=== PATIENT | male | born 1950 | race Caucasian/White ===

== ENCOUNTER → 2016-10-02 | Outpatient (REF) | LOC: M LAB REF 16:02 | DX: K52.9 Noninfective gastroenteritis and colitis, unspecified (principal) ==

== ENCOUNTER → 2016-10-04 | Outpatient (REF) | LOC: M LAB REF 10:18 | DX: K52.9 Noninfective gastroenteritis and colitis, unspecified (principal) ==

== ENCOUNTER → 2017-01-06 | Outpatient (REF) ==
--- NOTE | 2017-01-08 00:20 | ECGEPIP ---
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
== END ==
LOC: SKLAB5 13:07
PROVIDERS: ATTEND Internal Medicine
DX: Z79.01 Long term (current) use of anticoagulants (principal)

== ENCOUNTER → 2017-01-07 | Outpatient (REF) ==
[2017-01-07 09:19] LABS: MEAN CORPUSCULAR HEMOGLOBIN 31.9 pg (27.0-33.0); MEAN CORPUSCULAR HGB CONC 33.5 g/dl (32.0-36.5); RED CELL DISTRIBUTION WIDTH 13.5 % (11.5-14.5); WHITE BLOOD COUNT 7.2 K/mm3 (4.0-10.0)
[2017-01-07 09:39] LABS: ALBUMIN 3.5 GM/DL (3.2-5.2); ALBUMIN/GLOBULIN RATIO 0.9 (1.00-1.93); BILIRUBIN,TOTAL 0.4 MG/DL (0.2-1.0); CALCIUM LEVEL 8.5 MG/DL (8.8-10.2); CREATININE FOR GFR 1.29 MG/DL (0.70-1.30); GLOMERULAR FILTRATION RATE 59.1 (>49); POTASSIUM SERUM 3.8 MEQ/L (3.5-5.1); TOTAL PROTEIN 7.4 GM/DL (6.4-8.2)
[2017-01-07 09:45] LABS: INR 3.1
== END ==
LOC: SKLAB5 08:00
PROVIDERS: ATTEND Internal Medicine
DX: Z79.01 Long term (current) use of anticoagulants (principal)

== ENCOUNTER → 2017-01-11 | Outpatient (REF) | payer MEDICARE, MEDICAID ==
[2017-01-11 08:37] LABS: INR 2.97
== END ==
LOC: SKLAB5 09:52
PROVIDERS: ATTEND Family Medicine
DX: Z79.01 Long term (current) use of anticoagulants (principal)

== ENCOUNTER → 2017-01-14 | Outpatient (REF) | payer MEDICARE, MEDICAID ==
[2017-01-14 08:50] LABS: INR 2.45
== END ==
LOC: SKLAB5 09:53
PROVIDERS: ATTEND Internal Medicine
DX: Z79.01 Long term (current) use of anticoagulants (principal)

== ENCOUNTER → 2017-01-21 | Outpatient (REF) | payer MEDICARE, MEDICAID ==
[2017-01-21 09:40] LABS: INR 2.64
== END ==
LOC: SKLAB5 08:22
PROVIDERS: ATTEND Family Medicine
DX: Z79.01 Long term (current) use of anticoagulants (principal)

== ENCOUNTER → 2017-01-28 | Outpatient (REF) | payer MEDICARE, MEDICAID ==
[2017-01-28 10:33] LABS: INR 2.73
== END ==
LOC: SKLAB5 08:58
PROVIDERS: ATTEND Family Medicine
DX: Z79.01 Long term (current) use of anticoagulants (principal)

== ENCOUNTER → 2017-02-04 | Outpatient (REF) | payer MEDICARE, MEDICAID ==
[2017-02-04 08:39] LABS: INR 3.02
== END ==
LOC: SKLAB5 06:33
PROVIDERS: ATTEND Family Medicine
DX: Z79.01 Long term (current) use of anticoagulants (principal)

== ENCOUNTER → 2017-02-11 | Outpatient (REF) | payer MEDICARE, MEDICAID ==
[2017-02-11 08:43] LABS: INR 2.59
== END ==
LOC: SKLAB5 07:46
PROVIDERS: ATTEND Family Medicine
DX: Z79.01 Long term (current) use of anticoagulants (principal)

== ENCOUNTER → 2017-02-18 | Outpatient (REF) | payer MEDICARE, MEDICAID ==
[2017-02-18 08:45] LABS: INR 2.59
== END ==
LOC: SKLAB5 08:46
PROVIDERS: ATTEND Family Medicine
DX: Z79.01 Long term (current) use of anticoagulants (principal)

== ENCOUNTER → 2017-02-26 | Outpatient (REF) | payer MEDICARE, MEDICAID ==
[2017-02-26 07:54] LABS: INR 3.23
== END ==
LOC: SKLAB5 07:55
PROVIDERS: ATTEND Family Medicine
DX: Z79.01 Long term (current) use of anticoagulants (principal)

== ENCOUNTER → 2017-03-03 | Outpatient (REF) | payer MEDICARE, MEDICAID ==
--- NOTE | 2017-03-03 11:01 | REP ---
PANOREX MANDIBLE SERIES: Single view. HISTORY: Non-restorable teeth. FINDINGS: Mandibular Panorex view shows no bony destructive lesion in the mandible. Multiple carious teeth are noted bilaterally in the mandible and maxilla. IMPRESSION: No bony destructive lesion. Multiple carious teeth. Signed by Gamaliel Brooks MD 03/03/2017 12:57 P
== END ==
LOC: SKLAB5 07:45
PROVIDERS: ATTEND Family Medicine
DX: K08.9 Disorder of teeth and supporting structures, unspecified (principal)

== ENCOUNTER 2017-06-09 21:52 | Emergency (ER) | payer MEDICARE, MEDICAID ==
[~2017-06-09] VITALS: Ht 182.9 cm; Wt 150.0 kg
[2017-06-09] MEDS ORDERED: METO50TA7 PO (22:16)
[2017-06-09] MEDS ORDERED: METO1TAB7 (22:16)
[2017-06-09] MEDS ORDERED: TOPA50TA8 PO (22:16)
[2017-06-09] MEDS ORDERED: ACCU40TA PO (22:18)
[2017-06-09] MEDS ORDERED: VITA2000 PO (22:25)
[2017-06-09] MEDS ORDERED: LEXA1TAB2 PO (22:25)
[2017-06-09] MEDS ORDERED: WELLTAB40 PO (22:25)
[2017-06-09] MEDS ORDERED: MULT1TAB10 PO (22:25)
[2017-06-09] MEDS ORDERED: VITA10002 PO (22:25)
[2017-06-09] MEDS ORDERED: ASPI81TA85 PO (22:25)
[2017-06-09] MEDS ORDERED: COLA100C5 PO (22:25)
--- NOTE | 2017-06-10 00:10 | REPUSA ---
noninvasive venous examination of the right lobe 70. Findings: There is partial occlusion of the right common femoral vein. There is evidence of DVT extending from the right superficial femoral vein through the popliteal vein.these vessels do not compress. Impression: Evidence of DVT in the right common femoral and superficial femoral and popliteal veins.
[2017-06-10 01:08] LABS: ANION GAP 6 MEQ/L (8-16); BLOOD UREA NITROGEN 19 MG/DL (7-18); CALCIUM LEVEL 8.8 MG/DL (8.8-10.2); CARBON DIOXIDE LEVEL 29 MEQ/L (21-32); CHLORIDE LEVEL 105 MEQ/L (98-107); CREATININE FOR GFR 1.23 MG/DL (0.70-1.30); GLOMERULAR FILTRATION RATE > 60.0 (>49); GLUCOSE, FASTING 99 MG/DL (80-110); POTASSIUM SERUM 3.8 MEQ/L (3.5-5.1); SODIUM LEVEL 140 MEQ/L (136-145)
[2017-06-10 01:26] LABS: INR 1.07
[2017-06-10] MEDS ORDERED: COUM1TAB17 PO (01:41)
[2017-06-10] MEDS ORDERED: LOVE0.8I3 SC (01:41)
[2017-06-10] MEDS ORDERED: WARFARIN SOD 5 MG TAB PO ONE (01:45)
[2017-06-10] MEDS ORDERED: ENOXAPARIN 100MG/1ML SYRINGE (J1650) SC ONE (01:45)
[2017-06-10] MEDS ORDERED: ENOXAPARIN 150 MG/ML SYR (J1650) SC ONE (01:45)
[2017-06-10 01:58] VITALS: BP 124/68
== END 2017-06-10 02:05 | disposition home or self-care (01) ==
LOC: M ED 21:52
DX: I82.411 Acute embolism and thrombosis of right femoral vein (principal); I82.431 Acute embolism and thrombosis of right popliteal vein; I10 Essential (primary) hypertension; I77.9 Disorder of arteries and arterioles, unspecified; I69.315 Cognitive social or emotional deficit following cerebral infarction; F33.9 Major depressive disorder, recurrent, unspecified; Z79.82 Long term (current) use of aspirin; Z79.899 Other long term (current) drug therapy; Z86.718 Personal history of other venous thrombosis and embolism
CPT/HCPCS: 80048; 85610; 85730; 93971; 96372; 99284; J1650

== ENCOUNTER → 2017-06-12 | Outpatient (REF) | payer MEDICARE, MEDICAID ==
[~2017-06-12] MED LIST: ACCU40TA PO; ASPI81TA85 PO; COLA100C5 PO; COUM1TAB17 PO; LEXA1TAB2 PO; LOVE0.8I3 SC; METO1TAB7; METO50TA7 PO; MULT1TAB10 PO; TOPA50TA8 PO; VITA10002 PO; VITA2000 PO; WELLTAB40 PO
[2017-06-12 07:11] LABS: INR 1.08
== END ==
LOC: SKLAB5 06:48
PROVIDERS: ATTEND Family Medicine
DX: Z79.01 Long term (current) use of anticoagulants (principal)

== ENCOUNTER → 2017-06-13 | Outpatient (REF) | payer MEDICARE, MEDICAID ==
[2017-06-13 13:31] LABS: MEAN CORPUSCULAR HEMOGLOBIN 31.1 pg (27.0-33.0); MEAN CORPUSCULAR HGB CONC 33.6 g/dl (32.0-36.5); MEAN CORPUSCULAR VOLUME 92.6 fl (80.0-96.0); PLATELET COUNT, AUTOMATED 246 10^3/uL (150-450); RED CELL DISTRIBUTION WIDTH 13.2 % (11.5-14.5); WHITE BLOOD COUNT 8.1 10^3/uL (4.0-10.0)
[2017-06-13 13:42] LABS: INR 1.05
== END ==
LOC: SKLAB5 06:47
PROVIDERS: ATTEND Family Medicine
DX: I82.411 Acute embolism and thrombosis of right femoral vein (principal); I10 Essential (primary) hypertension; Z79.899 Other long term (current) drug therapy

== ENCOUNTER → 2017-06-13 | Outpatient (REF) | payer MEDICARE, MEDICAID | LOC: SKLAB5 12:45 | PROVIDERS: ATTEND Family Medicine | DX: I10 Essential (primary) hypertension (principal) ==

== ENCOUNTER → 2017-06-14 | Outpatient (REF) | payer MEDICARE, MEDICAID ==
[2017-06-14 09:42] LABS: MEAN CORPUSCULAR HEMOGLOBIN 31.4 pg (27.0-33.0); MEAN CORPUSCULAR HGB CONC 34.1 g/dl (32.0-36.5); MEAN CORPUSCULAR VOLUME 92.1 fl (80.0-96.0); PLATELET COUNT, AUTOMATED 226 10^3/uL (150-450); WHITE BLOOD COUNT 7.5 10^3/uL (4.0-10.0)
[2017-06-14 10:08] LABS: INR 1.2
== END ==
LOC: SKLAB5 06:49
PROVIDERS: ATTEND Family Medicine
DX: Z79.01 Long term (current) use of anticoagulants (principal)

== ENCOUNTER → 2017-06-15 | Outpatient (REF) | payer MEDICARE, MEDICAID | LOC: SKLAB5 10:45 | PROVIDERS: ATTEND Family Medicine | DX: K62.5 Hemorrhage of anus and rectum (principal); R19.5 Other fecal abnormalities ==

== ENCOUNTER → 2017-06-16 | Outpatient (REF) | payer MEDICARE, MEDICAID ==
[2017-06-16 10:23] LABS: INR 1.26
== END ==
LOC: SKLAB5 08:14
PROVIDERS: ATTEND Family Medicine
DX: Z79.2 Long term (current) use of antibiotics (principal)

== ENCOUNTER → 2017-06-17 | Outpatient (REF) | payer MEDICARE, MEDICAID ==
[~2017-06-17] MED LIST changes: +DULC10SU2 PR; +LOVE0.8I SC; +LOVE1INJ2 SC; +MOM30SS PO; +TYLE325T5 PO
[2017-06-17 09:29] LABS: INR 1.47
== END ==
LOC: SKLAB5 12:41
PROVIDERS: ATTEND Family Medicine
DX: Z51.81 Encounter for therapeutic drug level monitoring (principal); Z79.01 Long term (current) use of anticoagulants; Z86.718 Personal history of other venous thrombosis and embolism

== ENCOUNTER → 2017-06-19 | Outpatient (REF) | payer MEDICARE, MEDICAID ==
[2017-06-19 07:07] LABS: INR 1.84
== END ==
LOC: SKLAB5 07:55
PROVIDERS: ATTEND Family Medicine
DX: I82.409 Acute embolism and thrombosis of unspecified deep veins of unspecified lower extremity (principal)

== ENCOUNTER → 2017-06-20 | Outpatient (REF) | payer MEDICAID, MEDICARE ==
[2017-06-20 10:28] LABS: INR 2.18
== END ==
LOC: SKLAB5 10:01
PROVIDERS: ATTEND Family Medicine
DX: I82.409 Acute embolism and thrombosis of unspecified deep veins of unspecified lower extremity (principal)

== ENCOUNTER → 2017-06-21 | Outpatient (REF) | payer MEDICARE, MEDICAID ==
[2017-06-21 09:22] LABS: INR 2.36
== END ==
LOC: SKLAB5 08:26
PROVIDERS: ATTEND Family Medicine
DX: I82.409 Acute embolism and thrombosis of unspecified deep veins of unspecified lower extremity (principal)

== ENCOUNTER → 2017-06-24 | Outpatient (REF) | payer MEDICARE, MEDICAID ==
[2017-06-24 09:39] LABS: INR 3.05
== END ==
LOC: SKLAB5 07:37
PROVIDERS: ATTEND Family Medicine
DX: Z51.81 Encounter for therapeutic drug level monitoring (principal); Z79.01 Long term (current) use of anticoagulants

== ENCOUNTER → 2017-06-28 | Outpatient (REF) | payer MEDICARE, MEDICAID ==
[2017-06-28 09:52] LABS: INR 2.02
== END ==
LOC: SKLAB5 08:14
PROVIDERS: ATTEND Family Medicine
DX: Z79.01 Long term (current) use of anticoagulants (principal)

== ENCOUNTER → 2017-06-29 | Outpatient (REF) | payer MEDICARE, MEDICAID ==
[2017-06-29 07:38] LABS: INR 1.56
== END ==
LOC: SKLAB5 07:31
PROVIDERS: ATTEND Family Medicine
DX: Z79.01 Long term (current) use of anticoagulants (principal)

== ENCOUNTER → 2017-06-30 | Outpatient (REF) | payer MEDICARE, MEDICAID ==
[2017-06-30 07:54] LABS: INR 1.21
== END ==
LOC: SKLAB5 07:25
PROVIDERS: ATTEND Family Medicine
DX: I82.90 Acute embolism and thrombosis of unspecified vein (principal)

== ENCOUNTER → 2017-07-01 | Outpatient (REF) | payer MEDICARE, MEDICAID ==
[2017-07-01 09:03] LABS: INR 1.12
== END ==
LOC: SKLAB5 10:52
PROVIDERS: ATTEND Family Medicine
DX: Z79.01 Long term (current) use of anticoagulants (principal)

== ENCOUNTER → 2017-07-03 | Outpatient (REF) | payer MEDICARE, MEDICAID ==
[2017-07-03 06:59] LABS: INR 1.04
== END ==
LOC: SKLAB5 13:16
PROVIDERS: ATTEND Family Medicine
DX: Z79.01 Long term (current) use of anticoagulants (principal)

== ENCOUNTER → 2017-07-05 | Outpatient (REF) | payer MEDICARE, MEDICAID ==
[2017-07-05 09:14] LABS: INR 1.2
== END ==
LOC: SKLAB5 13:11
PROVIDERS: ATTEND Family Medicine
DX: I82.409 Acute embolism and thrombosis of unspecified deep veins of unspecified lower extremity (principal)

== ENCOUNTER → 2017-07-06 | Outpatient (REF) | payer MEDICARE, MEDICAID ==
[2017-07-06 08:01] LABS: INR 1.27
== END ==
LOC: SKLAB5 07:45
PROVIDERS: ATTEND Family Medicine
DX: Z79.01 Long term (current) use of anticoagulants (principal)

== ENCOUNTER → 2017-07-07 | Outpatient (REF) | payer MEDICARE, MEDICAID ==
[2017-07-07 08:58] LABS: INR 1.5
== END ==
LOC: SKLAB5 07:55
PROVIDERS: ATTEND Family Medicine
DX: Z86.718 Personal history of other venous thrombosis and embolism (principal)

== ENCOUNTER → 2017-07-09 | Outpatient (REF) | payer MEDICARE, MEDICAID ==
[2017-07-09 09:41] LABS: INR 1.93
== END ==
LOC: SKLAB5 07-08 07:58
PROVIDERS: ATTEND Family Medicine
DX: Z51.81 Encounter for therapeutic drug level monitoring (principal); Z79.01 Long term (current) use of anticoagulants

== ENCOUNTER → 2017-07-13 | Outpatient (REF) | payer MEDICARE, MEDICAID ==
[2017-07-13 08:38] LABS: INR 2.32
== END ==
LOC: SKLAB5 08:02
PROVIDERS: ATTEND Family Medicine
DX: Z79.01 Long term (current) use of anticoagulants (principal)

== ENCOUNTER → 2017-07-15 | Outpatient (REF) | payer MEDICARE, MEDICAID ==
[2017-07-15 09:09] LABS: INR 3.07
== END ==
LOC: SKLAB5 07:07
DX: Z79.01 Long term (current) use of anticoagulants (principal)
CPT/HCPCS: 36415

== ENCOUNTER → 2017-07-20 | Outpatient (REF) | payer MEDICARE, MEDICAID ==
[2017-07-20 09:00] LABS: INR 2.12; PROTHROMBIN TIME 24.5 SECONDS (12.4-14.5)
== END ==
LOC: SKLAB5 08:19
DX: Z51.81 Encounter for therapeutic drug level monitoring (principal); Z79.01 Long term (current) use of anticoagulants
CPT/HCPCS: 36415

== ENCOUNTER → 2017-07-21 | Outpatient (REF) | payer MEDICARE, MEDICAID ==
[2017-07-21 09:55] LABS: INR 1.89; PROTHROMBIN TIME 22.3 SECONDS (12.4-14.5)
== END ==
LOC: SKLAB5 07:58
DX: Z51.81 Encounter for therapeutic drug level monitoring (principal); Z79.01 Long term (current) use of anticoagulants; Z86.718 Personal history of other venous thrombosis and embolism
CPT/HCPCS: 85610

== ENCOUNTER → 2017-07-22 | Outpatient (REF) | payer MEDICARE, MEDICAID ==
[2017-07-22 09:21] LABS: INR 1.77; PROTHROMBIN TIME 21.1 SECONDS (12.4-14.5)
== END ==
LOC: SKLAB5 07:52
DX: I82.90 Acute embolism and thrombosis of unspecified vein (principal)
CPT/HCPCS: 85610

== ENCOUNTER 2017-07-23 11:31 | Day surgery (SDC) | payer MEDICARE, MEDICAID ==
[2017-07-23] MEDS ORDERED: LIDOCAINE 1% SDV 5 ML VIAL SQ (11:45)
[2017-07-23] MEDS: LR 1,000 ML IV (12:05)
[2017-07-23 12:25] LABS: INR 1.35
[2017-07-23] MEDS ORDERED: MIDAZOLAM INJ 2 MG/2 ML VIAL (J2250) As Ordered (12:50)
[2017-07-23] MEDS ORDERED: NEOSTIGMINE 10 MG/10 ML VIAL (J2710) As Ordered ×2 (12:50→13:55)
[2017-07-23] MEDS ORDERED: ONDANSETRON 4MG/2ML VIAL (J2405) As Ordered (12:50)
[2017-07-23] MEDS ORDERED: ROCURONIUM BROMIDE 50 MG/5 ML VIAL As Ordered (12:50)
[2017-07-23] MEDS ORDERED: dexameTHASONE 4 MG/ML 1ML VIAL (J1100) As Ordered (12:50)
[2017-07-23] MEDS ORDERED: PROPOFOL 200 MG/20 ML VIAL As Ordered (12:50)
[2017-07-23] MEDS ORDERED: LIDOCAINE 2% INJ 100 MG/5 ML SDV (FOR ANES.) As Ordered (12:50)
[2017-07-23] MEDS ORDERED: GLYCOPYRROLATE INJ 0.2 MG/ML 2 ML VIAL As Ordered ×2 (12:50→13:55)
[2017-07-23] MEDS ORDERED: fentaNYL 100 MCG/2 ML INJECTION (J3010) As Ordered (12:51)
[2017-07-23] MEDS: MEPIVACAINE HCL 3 % 1.7 ML DENTAL CARTRIDGE (CARBOCAINE) (J0670) As Ordered ×2 (13:57→14:02)
[2017-07-23] MEDS ORDERED: PHENYLephrine HCL 500 MCG/5 ML (100MCG/ML) SYRINGE (J2370) As Ordered (13:58)
[2017-07-23] MEDS ORDERED: ePHEDrine SULFATE 25 MG/5 ML(5MG/ML) SYRINGE As Ordered (13:58)
[2017-07-23] MEDS ORDERED: fentaNYL 100 MCG/2 ML INJECTION (J3010) IV (15:00)
[2017-07-23] MEDS ORDERED: ONDANSETRON 4MG/2ML VIAL (J2405) IV (15:00)
[2017-07-23] MEDS ORDERED: LR 1,000 ML IV (15:00)
== END 2017-07-23 17:04 | disposition home or self-care (01) ==
LOC: M SDC 11:31
DX: K02.7 Dental root caries (principal); I10 Essential (primary) hypertension; K21.9 Gastro-esophageal reflux disease without esophagitis; Z86.73 Personal history of transient ischemic attack (TIA), and cerebral infarction without residual deficits; R53.1 Weakness; E55.9 Vitamin D deficiency, unspecified; E53.8 Deficiency of other specified B group vitamins; F32.9 Major depressive disorder, single episode, unspecified; G47.33 Obstructive sleep apnea (adult) (pediatric); Z99.3 Dependence on wheelchair; R26.2 Difficulty in walking, not elsewhere classified; I77.9 Disorder of arteries and arterioles, unspecified; Z79.899 Other long term (current) drug therapy; Z79.01 Long term (current) use of anticoagulants; Z79.82 Long term (current) use of aspirin; I82.409 Acute embolism and thrombosis of unspecified deep veins of unspecified lower extremity
CPT/HCPCS: D7210

== ENCOUNTER → 2017-07-23 | Outpatient (REF) | payer MEDICARE, MEDICAID ==
[2017-07-23 10:35] LABS: INR 1.32; PROTHROMBIN TIME 16.7 SECONDS (12.4-14.5)
== END ==
LOC: SKLAB5 07:43
DX: I82.409 Acute embolism and thrombosis of unspecified deep veins of unspecified lower extremity (principal)

== ENCOUNTER → 2017-07-25 | Outpatient (REF) | payer MEDICARE, MEDICAID ==
[2017-07-25 13:10] LABS: INR 1.43; PROTHROMBIN TIME 17.8 SECONDS (12.4-14.5)
== END ==
LOC: SKLAB5 07:00
DX: I82.90 Acute embolism and thrombosis of unspecified vein (principal)
CPT/HCPCS: 36415

== ENCOUNTER → 2017-07-26 | Outpatient (REF) | payer MEDICARE, MEDICAID ==
[2017-07-26 08:41] LABS: INR 1.57; PROTHROMBIN TIME 19.2 SECONDS (12.4-14.5)
== END ==
LOC: SKLAB5 07:35
DX: Z51.81 Encounter for therapeutic drug level monitoring (principal); Z79.01 Long term (current) use of anticoagulants; Z86.718 Personal history of other venous thrombosis and embolism
CPT/HCPCS: 36415

== ENCOUNTER → 2017-07-28 | Outpatient (REF) | payer MEDICARE, MEDICAID ==
[2017-07-28 08:30] LABS: INR 1.67; PROTHROMBIN TIME 20.2 SECONDS (12.4-14.5)
== END ==
LOC: SKLAB5 08:00
DX: Z51.81 Encounter for therapeutic drug level monitoring (principal); Z79.01 Long term (current) use of anticoagulants; Z86.718 Personal history of other venous thrombosis and embolism
CPT/HCPCS: 36415

== ENCOUNTER → 2017-07-29 | Outpatient (REF) | payer MEDICARE, MEDICAID ==
[2017-07-29 09:56] LABS: INR 1.63; PROTHROMBIN TIME 19.8 SECONDS (12.4-14.5)
== END ==
LOC: SKLAB5 12:25
DX: M17.0 Bilateral primary osteoarthritis of knee (principal); M25.862 Other specified joint disorders, left knee; Z79.01 Long term (current) use of anticoagulants
CPT/HCPCS: 73564

== ENCOUNTER → 2017-07-30 | Outpatient (REF) | payer MEDICARE, MEDICAID ==
[2017-07-30 08:39] LABS: INR 1.76; PROTHROMBIN TIME 21.1 SECONDS (12.4-14.5)
== END ==
LOC: SKLAB5 08:11
DX: Z51.81 Encounter for therapeutic drug level monitoring (principal); Z79.01 Long term (current) use of anticoagulants
CPT/HCPCS: 36415

== ENCOUNTER → 2017-08-02 | Outpatient (REF) | payer MEDICARE, MEDICAID ==
[2017-08-02 10:26] LABS: INR 2.06; PROTHROMBIN TIME 23.9 SECONDS (12.4-14.5)
== END ==
LOC: SKLAB5 07:53
DX: I82.90 Acute embolism and thrombosis of unspecified vein (principal)
CPT/HCPCS: 36415

== ENCOUNTER → 2017-08-05 | Outpatient (REF) | payer MEDICARE, MEDICAID ==
[2017-08-05 10:18] LABS: INR 2.37; PROTHROMBIN TIME 26.8 SECONDS (12.4-14.5)
== END ==
LOC: SKLAB5 07:53
DX: I82.90 Acute embolism and thrombosis of unspecified vein (principal)
CPT/HCPCS: 36415

== ENCOUNTER → 2017-08-09 | Outpatient (REF) | payer MEDICARE, MEDICAID ==
[2017-08-09 09:46] LABS: INR 2.33; PROTHROMBIN TIME 26.5 SECONDS (12.4-14.5)
== END ==
LOC: SKLAB5 07:57
DX: Z79.01 Long term (current) use of anticoagulants (principal)
CPT/HCPCS: 36415

== ENCOUNTER → 2017-08-12 | Outpatient (REF) | payer MEDICARE, MEDICAID ==
[2017-08-12 08:51] LABS: INR 3.16; PROTHROMBIN TIME 33.9 SECONDS (12.4-14.5)
== END ==
LOC: SKLAB5 08:09
DX: I82.91 Chronic embolism and thrombosis of unspecified vein (principal)
CPT/HCPCS: 36415

== ENCOUNTER → 2017-08-16 | Outpatient (REF) | payer MEDICARE, MEDICAID ==
[2017-08-16 10:15] LABS: INR 2.89; PROTHROMBIN TIME 31.6 SECONDS (12.4-14.5)
== END ==
LOC: SKLAB5 08:07
DX: Z79.01 Long term (current) use of anticoagulants (principal)
CPT/HCPCS: 36415

== ENCOUNTER → 2017-08-19 | Outpatient (REF) | payer MEDICARE, MEDICAID ==
[2017-08-19 08:54] LABS: INR 2.91; PROTHROMBIN TIME 31.7 SECONDS (12.4-14.5)
== END ==
LOC: SKLAB5 07:47
DX: I82.91 Chronic embolism and thrombosis of unspecified vein (principal)
CPT/HCPCS: 36415

== ENCOUNTER → 2017-08-23 | Outpatient (REF) | payer MEDICARE, MEDICAID ==
[2017-08-23 10:20] LABS: INR 2.76; PROTHROMBIN TIME 30.4 SECONDS (12.4-14.5)
== END ==
LOC: SKLAB5 07:20
DX: Z51.81 Encounter for therapeutic drug level monitoring (principal); Z79.01 Long term (current) use of anticoagulants; Z86.718 Personal history of other venous thrombosis and embolism
CPT/HCPCS: 36415

== ENCOUNTER → 2017-08-26 | Outpatient (REF) | payer MEDICARE, MEDICAID ==
[2017-08-26 09:24] LABS: INR 3.32; PROTHROMBIN TIME 35.3 SECONDS (12.4-14.5)
== END ==
LOC: SKLAB5 07:58
DX: I82.91 Chronic embolism and thrombosis of unspecified vein (principal)
CPT/HCPCS: 36415

== ENCOUNTER → 2017-08-30 | Outpatient (REF) | payer MEDICARE, MEDICAID ==
[2017-08-30 09:30] LABS: INR 3.98; PROTHROMBIN TIME 40.9 SECONDS (12.4-14.5)
== END ==
LOC: SKLAB5 07:45
DX: I82.91 Chronic embolism and thrombosis of unspecified vein (principal)
CPT/HCPCS: 36415

== ENCOUNTER → 2017-09-02 | Outpatient (REF) | payer MEDICARE, MEDICAID ==
[2017-09-02 09:29] LABS: INR 1.66; PROTHROMBIN TIME 20.1 SECONDS (12.4-14.5)
== END ==
LOC: SKLAB5 08:03
DX: Z79.01 Long term (current) use of anticoagulants (principal)
CPT/HCPCS: 36415

== ENCOUNTER → 2017-09-06 | Outpatient (REF) | payer MEDICARE, MEDICAID ==
[2017-09-06 09:04] LABS: INR 1.89; PROTHROMBIN TIME 22.3 SECONDS (12.4-14.5)
== END ==
LOC: SKLAB5 07:38
DX: Z79.01 Long term (current) use of anticoagulants (principal)
CPT/HCPCS: 36415

== ENCOUNTER → 2017-09-09 | Outpatient (REF) | payer MEDICARE, MEDICAID ==
[2017-09-09 10:23] LABS: INR 2.32; PROTHROMBIN TIME 26.4 SECONDS (12.4-14.5)
== END ==
LOC: SKLAB5 08:03
DX: Z79.01 Long term (current) use of anticoagulants (principal)
CPT/HCPCS: 36415

== ENCOUNTER → 2017-09-13 | Outpatient (REF) | payer MEDICARE, MEDICAID ==
[2017-09-13 08:36] LABS: INR 2.42; PROTHROMBIN TIME 27.3 SECONDS (12.4-14.5)
== END ==
LOC: SKLAB5 07:39
DX: Z79.01 Long term (current) use of anticoagulants (principal)
CPT/HCPCS: 36415

== ENCOUNTER → 2017-09-16 | Outpatient (REF) | payer MEDICARE, MEDICAID ==
[2017-09-16 08:48] LABS: INR 2.68; PROTHROMBIN TIME 29.6 SECONDS (12.4-14.5)
== END ==
LOC: SKLAB5 07:28
DX: Z79.01 Long term (current) use of anticoagulants (principal)
CPT/HCPCS: 36415

== ENCOUNTER → 2017-09-20 | Outpatient (REF) | payer MEDICARE, MEDICAID ==
[2017-09-20 09:49] LABS: INR 2.34; PROTHROMBIN TIME 26.6 SECONDS (12.4-14.5)
== END ==
LOC: SKLAB5 07:16
DX: Z86.718 Personal history of other venous thrombosis and embolism (principal)
CPT/HCPCS: 36415

== ENCOUNTER → 2017-09-23 | Outpatient (REF) | payer MEDICARE, MEDICAID ==
[2017-09-23 08:29] LABS: INR 3.32; PROTHROMBIN TIME 35.3 SECONDS (12.4-14.5)
== END ==
LOC: SKLAB5 07:32
DX: Z79.01 Long term (current) use of anticoagulants (principal)
CPT/HCPCS: 36415

== ENCOUNTER → 2017-09-27 | Outpatient (REF) | payer MEDICARE, MEDICAID ==
[2017-09-27 09:18] LABS: INR 2.93; PROTHROMBIN TIME 31.9 SECONDS (12.4-14.5)
== END ==
LOC: SKLAB5 07:36
DX: Z79.01 Long term (current) use of anticoagulants (principal)
CPT/HCPCS: 36415

== ENCOUNTER → 2017-09-30 | Outpatient (REF) | payer MEDICARE, MEDICAID ==
[2017-09-30 08:45] LABS: INR 2.92; PROTHROMBIN TIME 31.8 SECONDS (12.4-14.5)
== END ==
LOC: SKLAB5 08:40
DX: Z79.01 Long term (current) use of anticoagulants (principal)
CPT/HCPCS: 36415

== ENCOUNTER → 2017-10-04 | Outpatient (REF) | payer MEDICARE, MEDICAID ==
[2017-10-04 08:33] LABS: INR 2.68; PROTHROMBIN TIME 29.6 SECONDS (12.4-14.5)
== END ==
LOC: SKLAB5 07:29
DX: Z79.01 Long term (current) use of anticoagulants (principal)
CPT/HCPCS: 36415

== ENCOUNTER → 2017-10-07 | Outpatient (REF) | payer MEDICARE, MEDICAID ==
[2017-10-07 08:27] LABS: INR 3.19; PROTHROMBIN TIME 34.1 SECONDS (12.4-14.5)
== END ==
LOC: SKLAB5 07:31
DX: Z79.01 Long term (current) use of anticoagulants (principal)
CPT/HCPCS: 36415

== ENCOUNTER → 2017-10-14 | Outpatient (REF) | payer MEDICARE, MEDICAID ==
[2017-10-14 09:37] LABS: INR 3.06
== END ==
LOC: SKLAB5 07:41
DX: Z79.01 Long term (current) use of anticoagulants (principal)
CPT/HCPCS: 36415

== ENCOUNTER → 2017-10-28 | Outpatient (REF) | payer MEDICARE, MEDICAID ==
[2017-10-28 08:47] LABS: INR 2.84; PROTHROMBIN TIME 31.1 SECONDS (12.4-14.5)
== END ==
LOC: SKLAB5 07:44
DX: Z79.01 Long term (current) use of anticoagulants (principal)
CPT/HCPCS: 36415

== ENCOUNTER → 2017-11-04 | Outpatient (REF) | payer MEDICARE, MEDICAID ==
[2017-11-04 08:07] LABS: INR 2.76; PROTHROMBIN TIME 30.4 SECONDS (12.4-14.5)
== END ==
LOC: SKLAB5 07:15
DX: Z79.01 Long term (current) use of anticoagulants (principal)
CPT/HCPCS: 36415

== ENCOUNTER → 2017-11-08 | Outpatient (REF) | payer MEDICARE, MEDICAID ==
[2017-11-08 08:16] LABS: INR 2.05; PROTHROMBIN TIME 23.9 SECONDS (12.4-14.5)
== END ==
LOC: SKLAB5 08:49
DX: Z79.01 Long term (current) use of anticoagulants (principal)
CPT/HCPCS: 85610

== ENCOUNTER → 2017-11-09 | Outpatient (REF) | payer MEDICARE, MEDICAID ==
[2017-11-09 08:58] LABS: INR 1.43; PROTHROMBIN TIME 17.8 SECONDS (12.4-14.5)
== END ==
LOC: SKLAB5 08:12
DX: Z79.01 Long term (current) use of anticoagulants (principal)
CPT/HCPCS: 36415

== ENCOUNTER → 2017-11-10 | Outpatient (REF) | payer MEDICARE, MEDICAID ==
[2017-11-10 10:12] LABS: INR 1.23; PROTHROMBIN TIME 15.8 SECONDS (12.4-14.5)
[2017-11-10 11:17] LABS: ERYTHROCYTE SEDIMENTATION RATE 9 mm/hr (0-20)
== END ==
LOC: SKLAB5 08:11
DX: Z79.01 Long term (current) use of anticoagulants (principal)
CPT/HCPCS: 36415

== ENCOUNTER → 2017-11-11 | Outpatient (REF) | payer MEDICARE, MEDICAID ==
[2017-11-11 08:37] LABS: INR 1.07; PROTHROMBIN TIME 14.1 SECONDS (12.4-14.5)
== END ==
LOC: SKLAB5 12:04
DX: Z79.01 Long term (current) use of anticoagulants (principal)
CPT/HCPCS: 36415

== ENCOUNTER 2017-11-15 07:02 | Inpatient (IN) | payer MEDICARE, MEDICAID ==
[2017-11-15] MEDS: ACETAMINOPHEN 500 MG TAB PO (07:52)
[2017-11-15] MEDS: LR 1,000 ML IV ×3 (07:53→16:11)
[2017-11-15] MEDS ORDERED: METOPROLOL SUCC *XL* 25MG TAB (TopROL *XL*) As Ordered (08:27)
[2017-11-15] MEDS ORDERED: MIDAZOLAM INJ 2 MG/2 ML VIAL (J2250) As Ordered ×2 (08:38→09:51)
[2017-11-15] MEDS ORDERED: fentaNYL 100 MCG/2 ML INJECTION (J3010) As Ordered (08:38)
[2017-11-15] MEDS: METOPROLOL SUCC *XL* 25MG TAB (TopROL *XL*) PO (08:45)
[2017-11-15 08:57] LABS: INR 1.03; PROTHROMBIN TIME 13.7 SECONDS (12.4-14.5)
[2017-11-15] MEDS: ESCITALOPRAM OXALATE 10 MG TAB (LEXAPRO) PO (09:00)
[2017-11-15] MEDS: VITAMIN D 1,000 INTERNATIONAL UNITS TABLET PO (09:00)
[2017-11-15] MEDS: TOPIRAMATE (TopAMAX) 25 MG TAB PO ×2 (09:00→20:31)
[2017-11-15] MEDS: CYANOCOBALAMIN 500 MCG TAB PO (09:00)
[2017-11-15] MEDS: buPROPion **XL** TABLET 150MG (WELLBUTRIN XL) PO (09:00)
[2017-11-15] MEDS: fentaNYL 100 MCG/2 ML INJECTION (J3010) IV (09:04)
[2017-11-15] MEDS: MIDAZOLAM INJ 2 MG/2 ML VIAL (J2250) IV (09:04)
[2017-11-15] MEDS: BUPIVACAINE HCL 0.25% 10 ML VIAL As Ordered (09:50)
[2017-11-15] MEDS: BUPIVACAINE LIPOSOME/PF 1.3% 20 ML VIAL (13.3MG/ML)(EXPAREL) As Ordered (09:50)
[2017-11-15] MEDS: EPINEPHrine INJ 1 MG/ML 1ML AMP As Ordered (09:50)
[2017-11-15] MEDS: ceFAZolin 1GM INJ (J0690 PER 500MG) As Ordered (09:50)
[2017-11-15] MEDS: TRANEXAMIC ACID 100 MG/ML 10ML VIAL As Ordered (09:50)
[2017-11-15] MEDS ORDERED: PROPOFOL 200 MG/20 ML VIAL As Ordered (09:51)
[2017-11-15] MEDS ORDERED: ONDANSETRON 4MG/2ML VIAL (J2405) As Ordered (09:51)
[2017-11-15] MEDS ORDERED: LIDOCAINE 2% INJ 100 MG/5 ML SDV (FOR ANES.) As Ordered (09:51)
[2017-11-15] MEDS ORDERED: dexameTHASONE 10 MG/1 ML VIAL PRES.FREE (J1100) (09:58)
[2017-11-15] MEDS ORDERED: LIDOCAINE 1% MDV 20ML VIAL (09:58)
[2017-11-15] MEDS ORDERED: ROPIvacaine 0.5% 30 ML INJECTION (J2795 PER 1MG) (09:58)
[2017-11-15] MEDS ORDERED: ePHEDrine SULFATE 25 MG/5 ML(5MG/ML) SYRINGE As Ordered (10:03)
[2017-11-15] MEDS ORDERED: BUPIVACAINE LIPOSOME/PF 1.3% 20 ML VIAL (13.3MG/ML)(EXPAREL) As Ordered (11:39)
[2017-11-15] MEDS ORDERED: TRANEXAMIC ACID 100 MG/ML 10ML VIAL As Ordered (11:39)
[2017-11-15] MEDS ORDERED: BUPIVACAINE HCL 0.25% 10 ML VIAL As Ordered (11:39)
[2017-11-15] MEDS ORDERED: EPINEPHrine INJ 1 MG/ML 1ML AMP As Ordered (11:39)
[2017-11-15] MEDS ORDERED: ceFAZolin 1GM INJ (J0690 PER 500MG) As Ordered (11:39)
[2017-11-15] MEDS ORDERED: MORPHINE 1MG/ML IN 0.9% NACL 100ML IV BAG As Ordered (11:47)
[2017-11-15] MEDS: MORPHINE 1MG/ML IN 0.9% NACL 100ML IV BAG IV (11:50)
[2017-11-15] MEDS ORDERED: EPIDURAL/PCA KEYS XX (12:00)
[2017-11-15] MEDS ORDERED: HYDROmorphone HCL 1 MG/ML SYRINGE (J1170) IV (12:00)
[2017-11-15] MEDS ORDERED: ONDANSETRON 4MG/2ML VIAL (J2405) IV ×2 (12:00)
[2017-11-15] MEDS ORDERED: PERCOCET 5MG/325MG TAB PO (12:00)
[2017-11-15] MEDS ORDERED: NALBUPHINE HCL 10 MG/ML AMP (J2300) IV (12:00)
[2017-11-15] MEDS ORDERED: diphenhydrAMINE INJ 50MG/ML VIAL (J1200) IV (12:00)
[2017-11-15] MEDS ORDERED: NALOXONE INJ 0.4 MG/1 ML VIAL (J2310) IV (12:00)
[2017-11-15] MEDS ORDERED: fentaNYL 100 MCG/2 ML INJECTION (J3010) IV (12:00)
[2017-11-15] MEDS ORDERED: BISACODYL 10 MG SUPP PR (12:00)
[2017-11-15] MEDS ORDERED: ACETAMINOPHEN TAB 650MG DOSE (2X325MG) PO ×2 (12:15→12:45)
[2017-11-15] MEDS ORDERED: FLEET ENEMA PR (12:15)
[2017-11-15] MEDS ORDERED: PILL CRUSHER/CUTTER 1 EACH XX (13:00)
[2017-11-15] MEDS: WARFARIN SOD 5 MG TAB PO (16:11)
[2017-11-15] MEDS: DOCUSATE SODIUM 100 MG CAP PO (20:32)
[2017-11-16] MEDS: LR 1,000 ML IV (00:45)
[2017-11-16 05:33] LABS: HEMATOCRIT 37.6 % (42.0-52.0); HEMOGLOBIN 12.6 g/dl (13.5-17.5); MEAN CORPUSCULAR HEMOGLOBIN 30.3 pg (27.0-33.0); MEAN CORPUSCULAR HGB CONC 33.5 g/dl (32.0-36.5); MEAN CORPUSCULAR VOLUME 90.4 fl (80.0-96.0); PLATELET COUNT, AUTOMATED 205 10^3/uL (150-450); RED BLOOD COUNT 4.16 10^6/uL (4.30-6.10); RED CELL DISTRIBUTION WIDTH 14.3 % (11.5-14.5); WHITE BLOOD COUNT 10.9 10^3/uL (4.0-10.0)
[2017-11-16 05:50] LABS: ANION GAP 7 MEQ/L (8-16); BLOOD UREA NITROGEN 17 MG/DL (7-18); CALCIUM LEVEL 8.5 MG/DL (8.8-10.2); CARBON DIOXIDE LEVEL 28 MEQ/L (21-32); CHLORIDE LEVEL 109 MEQ/L (98-107); CREATININE FOR GFR 1.26 MG/DL (0.70-1.30); GLOMERULAR FILTRATION RATE > 60.0 (>49); GLUCOSE, FASTING 113 MG/DL (70-100); INR 1.08; POTASSIUM SERUM 4.2 MEQ/L (3.5-5.1); PROTHROMBIN TIME 14.2 SECONDS (12.4-14.5); SODIUM LEVEL 144 MEQ/L (136-145)
[2017-11-16] MEDS ORDERED: PERCOCET 5MG/325MG TAB PO (07:00)
[2017-11-16] MEDS ORDERED: ONDANSETRON 4 MG TAB (S0181) PO (07:00)
[2017-11-16] MEDS: TOPIRAMATE (TopAMAX) 25 MG TAB PO (09:20)
[2017-11-16] MEDS: ESCITALOPRAM OXALATE 10 MG TAB (LEXAPRO) PO (09:20)
[2017-11-16] MEDS: CYANOCOBALAMIN 500 MCG TAB PO (09:20)
[2017-11-16] MEDS: METOPROLOL SUCC (TopROL XL) 50MG **XL** TAB PO (09:20)
[2017-11-16] MEDS: VITAMIN D 1,000 INTERNATIONAL UNITS TABLET PO (09:20)
[2017-11-16] MEDS: buPROPion **XL** TABLET 150MG (WELLBUTRIN XL) PO (09:20)
[2017-11-16] MEDS: MIRALAX *UNIT DOSE* 17GM PACKET PO (09:20)
[2017-11-16] MEDS: MOM 30ML SUSPENSION UDC PO (09:20)
[2017-11-16] MEDS: PERCOCET 5MG/325MG TAB PO (09:21)
[2017-11-16] MEDS: SENOKOT S TAB PO (09:21)
[2017-11-16] MEDS ORDERED: WARFARIN SOD 5 MG TAB PO ×2 (17:00)
== END 2017-11-16 13:25 | DRG 470 ==
LOC: M OR 07:02 → M MS5PR 14:20
PROC: 0SRD0J9 Replacement of Left Knee Joint with Synthetic Substitute, Cemented, Open Approach (ICD-10-PCS; principal; 2017-11-15 09:12)
DX: M17.12 Unilateral primary osteoarthritis, left knee (principal); Z68.41 Body mass index [BMI] 40.0-44.9, adult; F32.9 Major depressive disorder, single episode, unspecified; G47.30 Sleep apnea, unspecified; I10 Essential (primary) hypertension; K21.9 Gastro-esophageal reflux disease without esophagitis; E66.01 Morbid (severe) obesity due to excess calories; G43.909 Migraine, unspecified, not intractable, without status migrainosus; Z86.73 Personal history of transient ischemic attack (TIA), and cerebral infarction without residual deficits; Z86.718 Personal history of other venous thrombosis and embolism; Z79.01 Long term (current) use of anticoagulants; Z79.82 Long term (current) use of aspirin; Z79.899 Other long term (current) drug therapy

== ENCOUNTER → 2017-11-17 | Outpatient (REF) | payer MEDICARE, MEDICAID ==
[2017-11-17 08:31] LABS: INR 1.18; PROTHROMBIN TIME 15.2 SECONDS (12.4-14.5)
== END ==
LOC: SKLAB5 09:06
DX: Z79.01 Long term (current) use of anticoagulants (principal)
CPT/HCPCS: 36415

== ENCOUNTER → 2017-11-18 | Outpatient (REF) | payer MEDICARE, MEDICAID ==
[2017-11-18 07:50] LABS: INR 1.47; PROTHROMBIN TIME 18.2 SECONDS (12.4-14.5)
== END ==
LOC: SKLAB5 10:27
DX: Z79.01 Long term (current) use of anticoagulants (principal)
CPT/HCPCS: 36415

== ENCOUNTER → 2017-11-19 | Outpatient (REF) | payer MEDICARE, MEDICAID ==
[2017-11-19 10:52] LABS: INR 1.74; PROTHROMBIN TIME 20.8 SECONDS (12.4-14.5)
== END ==
LOC: SKLAB5 09:04
DX: Z79.01 Long term (current) use of anticoagulants (principal)
CPT/HCPCS: 36415

== ENCOUNTER → 2017-11-20 | Outpatient (REF) | payer MEDICARE, MEDICAID ==
[2017-11-20 07:08] LABS: INR 1.91; PROTHROMBIN TIME 22.5 SECONDS (12.4-14.5)
== END ==
LOC: SKLAB5 12:59
DX: Z79.01 Long term (current) use of anticoagulants (principal)
CPT/HCPCS: 36415

== ENCOUNTER → 2017-11-21 | Outpatient (REF) | payer MEDICARE, MEDICAID ==
[2017-11-21 07:12] LABS: INR 2.73; PROTHROMBIN TIME 30.1 SECONDS (12.4-14.5)
== END ==
LOC: SKLAB5 09:05
DX: Z79.01 Long term (current) use of anticoagulants (principal)
CPT/HCPCS: 36415

== ENCOUNTER → 2017-11-22 | Outpatient (REF) ==
[2017-11-22 10:29] LABS: INR 2.16; PROTHROMBIN TIME 24.9 SECONDS (12.4-14.5)
== END ==
LOC: SKLAB5 06:46
DX: Z79.01 Long term (current) use of anticoagulants (principal); I74.9 Embolism and thrombosis of unspecified artery

== ENCOUNTER → 2017-11-29 | Outpatient (REF) | payer MEDICARE, MEDICAID ==
[2017-11-29 09:24] LABS: INR 2.58; PROTHROMBIN TIME 28.7 SECONDS (12.4-14.5)
== END ==
LOC: SKLAB5 14:24
DX: Z79.01 Long term (current) use of anticoagulants (principal)
CPT/HCPCS: 36415

== ENCOUNTER → 2017-12-02 | Outpatient (REF) | payer MEDICARE, MEDICAID ==
[2017-12-02 08:51] LABS: INR 2.46; PROTHROMBIN TIME 27.6 SECONDS (12.4-14.5)
== END ==
LOC: SKLAB5 08:03
DX: Z79.01 Long term (current) use of anticoagulants (principal)
CPT/HCPCS: 85610

== ENCOUNTER → 2017-12-09 | Outpatient (REF) | payer MEDICARE, MEDICAID ==
[2017-12-09 09:14] LABS: INR 2.03; PROTHROMBIN TIME 23.6 SECONDS (12.4-14.5)
== END ==
LOC: SKLAB5 08:00
DX: Z79.01 Long term (current) use of anticoagulants (principal)
CPT/HCPCS: 36415

== ENCOUNTER → 2017-12-16 | Outpatient (REF) | payer MEDICARE, MEDICAID ==
[2017-12-16 08:07] LABS: INR 2.42; PROTHROMBIN TIME 27.3 SECONDS (12.4-14.5)
== END ==
LOC: SKLAB5 08:20
DX: Z79.01 Long term (current) use of anticoagulants (principal); I74.9 Embolism and thrombosis of unspecified artery
CPT/HCPCS: 36415

== ENCOUNTER → 2017-12-23 | Outpatient (REF) | payer MEDICARE, MEDICAID ==
[2017-12-23 08:12] LABS: INR 2.03; PROTHROMBIN TIME 23.6 SECONDS (12.4-14.5)
== END ==
LOC: SKLAB5 12:16
DX: Z86.718 Personal history of other venous thrombosis and embolism (principal)
CPT/HCPCS: 85610

== ENCOUNTER → 2017-12-30 | Outpatient (REF) | payer MEDICARE, MEDICAID ==
[2017-12-30 08:27] LABS: INR 1.91; PROTHROMBIN TIME 22.5 SECONDS (12.4-14.5)
== END ==
LOC: SKLAB5 11:01
DX: Z79.01 Long term (current) use of anticoagulants (principal)
CPT/HCPCS: 36415

== ENCOUNTER → 2018-01-13 | Outpatient (REF) | payer MEDICARE, MEDICAID ==
[2018-01-13 08:11] LABS: INR 1.96; PROTHROMBIN TIME 22.7 SECONDS (12.1-14.4)
== END ==
LOC: SKLAB5 07:58
DX: Z79.01 Long term (current) use of anticoagulants (principal)
CPT/HCPCS: 36415

== ENCOUNTER → 2018-01-20 | Outpatient (REF) | payer MEDICARE, MEDICAID | LOC: SKLAB5 07:20 | DX: Z79.01 Long term (current) use of anticoagulants (principal) | CPT/HCPCS: 36415 ==

== ENCOUNTER → 2018-02-03 | Outpatient (REF) | payer MEDICARE, MEDICAID ==
[2018-02-03 08:26] LABS: INR 1.91; PROTHROMBIN TIME 22.2 SECONDS (12.1-14.4)
== END ==
LOC: SKLAB5 08:22
DX: Z86.718 Personal history of other venous thrombosis and embolism (principal)
CPT/HCPCS: 36415

== ENCOUNTER → 2018-02-10 | Outpatient (REF) | payer MEDICARE, MEDICAID ==
[2018-02-10 08:43] LABS: INR 2.27; PROTHROMBIN TIME 25.5 SECONDS (12.1-14.4)
== END ==
LOC: SKLAB5 08:11
DX: Z79.01 Long term (current) use of anticoagulants (principal)
CPT/HCPCS: 36415

== ENCOUNTER → 2018-02-17 | Outpatient (REF) | payer MEDICARE, MEDICAID ==
[2018-02-17 09:23] LABS: INR 2.65; PROTHROMBIN TIME 28.8 SECONDS (12.1-14.4)
== END ==
LOC: SKLAB5 09:27
DX: Z79.01 Long term (current) use of anticoagulants (principal)
CPT/HCPCS: 85610

== ENCOUNTER → 2018-02-24 | Outpatient (REF) | payer MEDICARE, MEDICAID ==
[2018-02-24 08:50] LABS: INR 2.23; PROTHROMBIN TIME 25.1 SECONDS (12.1-14.4)
== END ==
LOC: SKLAB5 12:50
DX: Z79.01 Long term (current) use of anticoagulants (principal)
CPT/HCPCS: 36415

== ENCOUNTER → 2018-03-03 | Outpatient (REF) | payer MEDICARE, MEDICAID ==
[2018-03-03 09:38] LABS: INR 2.43; PROTHROMBIN TIME 26.9 SECONDS (12.1-14.4)
== END ==
LOC: SKLAB5 07:30
DX: Z79.01 Long term (current) use of anticoagulants (principal)
CPT/HCPCS: 36415

== ENCOUNTER → 2018-03-10 | Outpatient (REF) | payer MEDICARE, MEDICAID ==
[2018-03-10 09:43] LABS: INR 2.65; PROTHROMBIN TIME 28.8 SECONDS (12.1-14.4)
== END ==
LOC: SKLAB5 07:59
DX: Z79.01 Long term (current) use of anticoagulants (principal)
CPT/HCPCS: 36415

== ENCOUNTER → 2018-03-17 | Outpatient (REF) | payer MEDICARE, MEDICAID ==
[2018-03-17 09:29] LABS: INR 2.67
== END ==
LOC: SKLAB5 08:42
DX: Z79.01 Long term (current) use of anticoagulants (principal)
CPT/HCPCS: 85610

== ENCOUNTER → 2018-03-24 | Outpatient (REF) | payer MEDICARE, MEDICAID ==
[2018-03-24 08:34] LABS: HEMATOCRIT 40.8 % (42.0-52.0); HEMOGLOBIN 13.7 g/dl (13.5-17.5); MEAN CORPUSCULAR HEMOGLOBIN 30.2 pg (27.0-33.0); MEAN CORPUSCULAR HGB CONC 33.6 g/dl (32.0-36.5); MEAN CORPUSCULAR VOLUME 90.1 fl (80.0-96.0); PLATELET COUNT, AUTOMATED 202 10^3/uL (150-450); RED BLOOD COUNT 4.53 10^6/uL (4.30-6.10)
[2018-03-24 08:48] LABS: INR 2.65; PROTHROMBIN TIME 28.8 SECONDS (12.1-14.4)
[2018-03-24 09:22] LABS: ALBUMIN 3.2 GM/DL (3.2-5.2); ALKALINE PHOSPHATASE 66 U/L (45-117); ALT/SGPT 18 U/L (12-78); ANION GAP 8 MEQ/L (8-16); AST/SGOT 11 U/L (7-37); BILIRUBIN,TOTAL 0.3 MG/DL (0.2-1.0); BLOOD UREA NITROGEN 16 MG/DL (7-18); CALCIUM LEVEL 8.4 MG/DL (8.8-10.2); CARBON DIOXIDE LEVEL 28 MEQ/L (21-32); CHLORIDE LEVEL 108 MEQ/L (98-107); CREATININE FOR GFR 1.18 MG/DL (0.70-1.30); GLOMERULAR FILTRATION RATE > 60.0 (>49); GLUCOSE, FASTING 85 MG/DL (70-100); POTASSIUM SERUM 4.1 MEQ/L (3.5-5.1); SODIUM LEVEL 144 MEQ/L (136-145); TOTAL PROTEIN 6.4 GM/DL (6.4-8.2)
== END ==
LOC: SKLAB5 09:40
DX: F32.9 Major depressive disorder, single episode, unspecified (principal); I10 Essential (primary) hypertension; Z79.01 Long term (current) use of anticoagulants
CPT/HCPCS: 80053

== ENCOUNTER → 2018-03-31 | Outpatient (REF) | payer MEDICARE, MEDICAID ==
[2018-03-31 10:58] LABS: INR 2.78; PROTHROMBIN TIME 29.9 SECONDS (12.1-14.4)
== END ==
LOC: SKLAB5 07:24
DX: Z79.01 Long term (current) use of anticoagulants (principal)
CPT/HCPCS: 85610

== ENCOUNTER → 2018-04-07 | Outpatient (REF) | payer MEDICARE, MEDICAID ==
[2018-04-07 09:46] LABS: INR 2.41; PROTHROMBIN TIME 26.7 SECONDS (12.1-14.4)
== END ==
LOC: SKLAB5 12:55
DX: Z79.01 Long term (current) use of anticoagulants (principal)
CPT/HCPCS: 85610

== ENCOUNTER → 2018-04-14 | Outpatient (REF) | payer MEDICARE, MEDICAID ==
[2018-04-14 09:20] LABS: INR 2.94; PROTHROMBIN TIME 31.3 SECONDS (12.1-14.4)
== END ==
LOC: SKLAB5 07:44
DX: Z79.01 Long term (current) use of anticoagulants (principal)
CPT/HCPCS: 36415

== ENCOUNTER → 2018-04-15 | Outpatient (REF) | payer MEDICARE, MEDICAID ==
[2018-04-15 09:09] LABS: BASO % 0.5 % (0.0-1.0); EOS # 0.5 10^3/uL (0.0-0.50); EOS % 8.4 % (0.0-3.0); HEMATOCRIT 42.5 % (42.0-52.0); HEMOGLOBIN 14.2 g/dl (13.5-17.5); IMMATURE GRANULOCYTE % 0.5 % (0-3.0); LYMPH # 1.5 10^3/uL (1.5-4.5); MEAN CORPUSCULAR HEMOGLOBIN 30.5 pg (27.0-33.0); MEAN CORPUSCULAR HGB CONC 33.4 g/dl (32.0-36.5); MEAN CORPUSCULAR VOLUME 91.2 fl (80.0-96.0); MONO # 0.4 10^3/uL (0.0-0.8); MONO % 6.3 % (0.0-5.0); NEUTROPHILS # 3.8 10^3/uL (1.8-7.7); NEUTROPHILS % 60.3 % (36.0-66.0); PLATELET COUNT, AUTOMATED 208 10^3/uL (150-450); RED BLOOD COUNT 4.66 10^6/uL (4.30-6.10); RED CELL DISTRIBUTION WIDTH 14.3 % (11.5-14.5); WHITE BLOOD COUNT 6.3 10^3/uL (4.0-10.0)
[2018-04-15 09:35] LABS: ALBUMIN 3.3 GM/DL (3.2-5.2); ALBUMIN/GLOBULIN RATIO 0.94 (1.00-1.93); ALKALINE PHOSPHATASE 62 U/L (45-117); ALT/SGPT 15 U/L (12-78); ANION GAP 7 MEQ/L (8-16); AST/SGOT 13 U/L (7-37); BILIRUBIN,TOTAL 0.3 MG/DL (0.2-1.0); BLOOD UREA NITROGEN 13 MG/DL (7-18); CALCIUM LEVEL 8.6 MG/DL (8.8-10.2); CARBON DIOXIDE LEVEL 26 MEQ/L (21-32); CHLORIDE LEVEL 111 MEQ/L (98-107); CREATININE FOR GFR 1.22 MG/DL (0.70-1.30); GLOMERULAR FILTRATION RATE > 60.0 (>49); GLUCOSE, FASTING 108 MG/DL (70-100); POTASSIUM SERUM 4.2 MEQ/L (3.5-5.1); SODIUM LEVEL 144 MEQ/L (136-145); TOTAL PROTEIN 6.8 GM/DL (6.4-8.2)
== END ==
LOC: SKLAB5 08:39
DX: Z01.818 Encounter for other preprocedural examination (principal); I10 Essential (primary) hypertension
CPT/HCPCS: 71046

== ENCOUNTER → 2018-04-21 | Outpatient (REF) | payer MEDICARE, MEDICAID ==
[2018-04-21 09:32] LABS: PROTHROMBIN TIME 28.4 SECONDS (12.1-14.4)
== END ==
LOC: SKLAB5 08:12
DX: Z79.01 Long term (current) use of anticoagulants (principal)
CPT/HCPCS: 36415

== ENCOUNTER → 2018-04-27 | Outpatient (REF) | payer MEDICARE, MEDICAID ==
[2018-04-27 09:22] LABS: INR 1.68
== END ==
LOC: SKLAB5 10:39
DX: Z79.01 Long term (current) use of anticoagulants (principal)
CPT/HCPCS: 85610

== ENCOUNTER → 2018-04-28 | Outpatient (REF) | payer MEDICARE, MEDICAID ==
[2018-04-28 09:21] LABS: INR 1.22; PROTHROMBIN TIME 15.6 SECONDS (12.1-14.4)
== END ==
LOC: SKLAB5 10:40
DX: Z79.01 Long term (current) use of anticoagulants (principal)
CPT/HCPCS: 85610

== ENCOUNTER → 2018-04-29 | Outpatient (REF) | payer MEDICARE, MEDICAID ==
[2018-04-29 07:26] LABS: INR 1.11; PROTHROMBIN TIME 14.4 SECONDS (12.1-14.4)
== END ==
LOC: SKLAB5 13:36
DX: Z79.01 Long term (current) use of anticoagulants (principal)
CPT/HCPCS: 85610

== ENCOUNTER 2018-05-02 08:24 | Inpatient (IN) | payer MEDICARE, MEDICAID ==
[~2018-05-02 08:24] MED LIST changes: -ACCU40TA PO; -ASPI81TA85 PO; -COLA100C5 PO; -COUM1TAB17 PO; -DULC10SU2 PR; -LEXA1TAB2 PO; -LOVE0.8I SC; -LOVE0.8I3 SC; -LOVE1INJ2 SC; +LR 1,000 ML IV; -METO1TAB7; -METO50TA7 PO; -MOM30SS PO; -MULT1TAB10 PO; -TOPA50TA8 PO; -TYLE325T5 PO; -VITA10002 PO; -VITA2000 PO; -WELLTAB40 PO
[2018-05-02] MEDS: ACETAMINOPHEN 500 MG TAB PO (09:00)
[2018-05-02] MEDS ORDERED: fentaNYL 100 MCG/2 ML INJECTION (J3010) As Ordered ×2 (09:56→12:01)
[2018-05-02] MEDS ORDERED: MIDAZOLAM INJ 2 MG/2 ML VIAL (J2250) As Ordered ×2 (09:56→12:01)
[2018-05-02] MEDS: MIDAZOLAM INJ 2 MG/2 ML VIAL (J2250) IV ×2 (10:13→10:17)
[2018-05-02] MEDS: fentaNYL 100 MCG/2 ML INJECTION (J3010) IV (10:13)
[2018-05-02] MEDS ORDERED: EPINEPHrine INJ 1 MG/ML 1ML AMP (11:44)
[2018-05-02] MEDS ORDERED: ROPIvacaine 0.5% 30 ML INJECTION (J2795 PER 1MG) (11:44)
[2018-05-02] MEDS ORDERED: dexameTHASONE 10 MG/1 ML VIAL PRES.FREE (J1100) (11:44)
[2018-05-02] MEDS ORDERED: ONDANSETRON 4MG/2ML VIAL (J2405) As Ordered (12:01)
[2018-05-02] MEDS ORDERED: BUPIVACAINE/DEXTROSE 0.75% 2 ML AMP As Ordered (12:01)
[2018-05-02] MEDS ORDERED: PROPOFOL 200 MG/20 ML VIAL As Ordered ×3 (12:01→13:30)
[2018-05-02] MEDS ORDERED: dexameTHASONE 4 MG/ML 1ML VIAL (J1100) As Ordered (12:01)
[2018-05-02] MEDS ORDERED: PHENYLephrine HCL 500 MCG/5 ML (100MCG/ML) SYRINGE (J2370) As Ordered ×2 (12:28→15:03)
[2018-05-02] MEDS ORDERED: VASOPRESSIN INJ 20 UNITS/ML VIAL As Ordered (12:41)
[2018-05-02] MEDS: TRANEXAMIC ACID 100 MG/ML 10ML VIAL As Ordered (12:55)
[2018-05-02] MEDS: EPINEPHrine INJ 1 MG/ML 1ML AMP As Ordered (12:56)
[2018-05-02] MEDS: ceFAZolin 1GM INJ (J0690 PER 500MG) As Ordered (12:57)
[2018-05-02] MEDS: BUPIVACAINE HCL 0.25% 30 ML VIAL As Ordered (13:11)
[2018-05-02] MEDS: BUPIVACAINE LIPOSOME/PF 1.3% 20 ML VIAL (13.3MG/ML)(EXPAREL) As Ordered (13:12)
[2018-05-02] MEDS ORDERED: MORPHINE 1MG/ML IN 0.9% NACL 100ML IV BAG As Ordered (14:07)
[2018-05-02] MEDS: EPIDURAL/PCA KEYS XX (14:21)
[2018-05-02] MEDS: LR 1,000 ML IV ×2 (14:21→16:49)
[2018-05-02] MEDS ORDERED: NALOXONE INJ 0.4 MG/1 ML VIAL (J2310) IV (14:45)
[2018-05-02] MEDS ORDERED: NALBUPHINE HCL 10 MG/ML AMP (J2300) IV (14:45)
[2018-05-02] MEDS: MORPHINE 1MG/ML IN 0.9% NACL 100ML IV BAG IV (14:45)
[2018-05-02] MEDS ORDERED: MEPERIDINE INJ 25 MG/ML VIAL (J2175) IV (14:45)
[2018-05-02] MEDS ORDERED: ONDANSETRON 4MG/2ML VIAL (J2405) IV ×2 (14:45)
[2018-05-02] MEDS ORDERED: METOCLOPRAMIDE INJ 10MG/2ML VIAL (J2765) IV (14:45)
[2018-05-02] MEDS ORDERED: FLEET ENEMA PR (14:45)
[2018-05-02] MEDS ORDERED: PERCOCET 5MG/325MG TAB PO (14:45)
[2018-05-02] MEDS ORDERED: ACETAMINOPHEN TAB 650MG DOSE (2X325MG) PO (14:45)
[2018-05-02] MEDS ORDERED: fentaNYL 100 MCG/2 ML INJECTION (J3010) IV (14:45)
[2018-05-02] MEDS ORDERED: SUGAMMADEX SODIUM 500 MG/5 ML VIAL (BRIDION) As Ordered (14:54)
[2018-05-02] MEDS: diphenhydrAMINE INJ 50MG/ML VIAL (J1200) IV (16:49)
[2018-05-02] MEDS: WARFARIN SOD 4 MG TAB PO (16:49)
[2018-05-02] MEDS ORDERED: WARFARIN SOD 5 MG TAB PO (17:00)
[2018-05-02] MEDS: CLINDAMYCIN 600 MG in APPROPRIATE DILUENT 1 EA IV (17:46)
[2018-05-02] MEDS: TOPIRAMATE (TopAMAX) 25 MG TAB PO (20:22)
[2018-05-02] MEDS: HEPARIN SOD (PORCINE) 5000 UNITS/ML VIAL SQ (20:22)
[2018-05-03] MEDS: CLINDAMYCIN 600 MG in APPROPRIATE DILUENT 1 EA IV ×2 (00:22→05:35)
[2018-05-03] MEDS: HEPARIN SOD (PORCINE) 5000 UNITS/ML VIAL SQ (05:35)
[2018-05-03 06:28] LABS: HEMATOCRIT 27.9 % (42.0-52.0); MEAN CORPUSCULAR HEMOGLOBIN 30.6 pg (27.0-33.0); MEAN CORPUSCULAR HGB CONC 32.3 g/dl (32.0-36.5); MEAN CORPUSCULAR VOLUME 94.9 fl (80.0-96.0); PLATELET COUNT, AUTOMATED 269 10^3/uL (150-450); RED BLOOD COUNT 2.94 10^6/uL (4.30-6.10); RED CELL DISTRIBUTION WIDTH 15.2 % (11.5-14.5); WHITE BLOOD COUNT 17.2 10^3/uL (4.0-10.0)
[2018-05-03] MEDS ORDERED: PERCOCET 5MG/325MG TAB PO ×2 (06:30)
[2018-05-03 06:37] LABS: INR 1.05; PROTHROMBIN TIME 13.8 SECONDS (12.1-14.4)
[2018-05-03 06:49] LABS: ANION GAP 9 MEQ/L (8-16); BLOOD UREA NITROGEN 25 MG/DL (7-18); CALCIUM LEVEL 7.9 MG/DL (8.8-10.2); CARBON DIOXIDE LEVEL 25 MEQ/L (21-32); CHLORIDE LEVEL 108 MEQ/L (98-107); CREATININE FOR GFR 1.97 MG/DL (0.70-1.30); GLOMERULAR FILTRATION RATE 36.2 (>49); GLUCOSE, FASTING 118 MG/DL (70-100); POTASSIUM SERUM 4.5 MEQ/L (3.5-5.1); SODIUM LEVEL 142 MEQ/L (136-145)
[2018-05-03] MEDS: ASPIRIN 81 MG ENTERIC TAB PO (10:04)
[2018-05-03] MEDS: VITAMIN D 1,000 INTERNATIONAL UNITS TABLET PO (10:04)
[2018-05-03] MEDS: buPROPion **XL** TABLET 150MG (WELLBUTRIN XL) PO (10:04)
[2018-05-03] MEDS: TOPIRAMATE (TopAMAX) 25 MG TAB PO (10:05)
[2018-05-03] MEDS: CYANOCOBALAMIN 500 MCG TAB PO (10:05)
[2018-05-03] MEDS: MOM 30ML SUSPENSION UDC PO (10:06)
[2018-05-03] MEDS: SENOKOT S TAB PO (10:06)
[2018-05-03] MEDS: MIRALAX *UNIT DOSE* 17GM PACKET PO (10:06)
[2018-05-03] MEDS: ESCITALOPRAM OXALATE 10 MG TAB (LEXAPRO) PO (10:06)
== END 2018-05-03 13:00 | DRG 470 ==
LOC: M OR 08:24 → M MS5PR 15:25
PROC: 0SRC0J9 Replacement of Right Knee Joint with Synthetic Substitute, Cemented, Open Approach (ICD-10-PCS; principal; 2018-05-02 11:15)
DX: M17.11 Unilateral primary osteoarthritis, right knee (principal); I67.850 Cerebral autosomal dominant arteriopathy with subcortical infarcts and leukoencephalopathy; I10 Essential (primary) hypertension; G47.33 Obstructive sleep apnea (adult) (pediatric); F01.50 Vascular dementia, unspecified severity, without behavioral disturbance, psychotic disturbance, mood disturbance, and anxiety; E66.9 Obesity, unspecified; K21.9 Gastro-esophageal reflux disease without esophagitis; F32.9 Major depressive disorder, single episode, unspecified; Z79.82 Long term (current) use of aspirin; Z79.01 Long term (current) use of anticoagulants; Z79.899 Other long term (current) drug therapy; Z86.73 Personal history of transient ischemic attack (TIA), and cerebral infarction without residual deficits

== ENCOUNTER → 2018-05-04 | Outpatient (REF) ==
[2018-05-04 08:43] LABS: BASO % 0.3 % (0.0-1.0); EOS # 0.3 10^3/uL (0.0-0.50); EOS % 2.5 % (0.0-3.0); HEMATOCRIT 26.3 % (42.0-52.0); HEMOGLOBIN 8.5 g/dl (13.5-17.5); IMMATURE GRANULOCYTE % 1.2 % (0-3.0); LYMPH # 1.7 10^3/uL (1.5-4.5); LYMPH % 13.1 % (24.0-44.0); MEAN CORPUSCULAR HEMOGLOBIN 30.4 pg (27.0-33.0); MEAN CORPUSCULAR HGB CONC 32.3 g/dl (32.0-36.5); MEAN CORPUSCULAR VOLUME 93.9 fl (80.0-96.0); MONO # 1.4 10^3/uL (0.0-0.8); MONO % 11.3 % (0.0-5.0); NEUTROPHILS % 71.6 % (36.0-66.0); PLATELET COUNT, AUTOMATED 226 10^3/uL (150-450); RED CELL DISTRIBUTION WIDTH 15.5 % (11.5-14.5); WHITE BLOOD COUNT 12.6 10^3/uL (4.0-10.0)
[2018-05-04 08:53] LABS: INR 1.31; PROTHROMBIN TIME 16.5 SECONDS (12.1-14.4)
[2018-05-04 09:09] LABS: ANION GAP 8 MEQ/L (8-16); BLOOD UREA NITROGEN 32 MG/DL (7-18); CALCIUM LEVEL 7.9 MG/DL (8.8-10.2); CARBON DIOXIDE LEVEL 26 MEQ/L (21-32); CHLORIDE LEVEL 109 MEQ/L (98-107); CREATININE FOR GFR 1.53 MG/DL (0.70-1.30); GLOMERULAR FILTRATION RATE 48.4 (>49); GLUCOSE, FASTING 135 MG/DL (70-100); POTASSIUM SERUM 4.3 MEQ/L (3.5-5.1); SODIUM LEVEL 143 MEQ/L (136-145)
== END ==
LOC: SKLAB2 08:38
DX: I48.91 Unspecified atrial fibrillation (principal)

== ENCOUNTER → 2018-05-05 | Outpatient (REF) | payer MEDICAID, MEDICARE ==
[2018-05-05 08:41] LABS: BASO % 0.2 % (0.0-1.0); EOS # 0.3 10^3/uL (0.0-0.50); EOS % 2.4 % (0.0-3.0); HEMATOCRIT 22.5 % (42.0-52.0); HEMOGLOBIN 7.4 g/dl (13.5-17.5); IMMATURE GRANULOCYTE % 2.2 % (0-3.0); LYMPH # 1.9 10^3/uL (1.5-4.5); LYMPH % 14.8 % (24.0-44.0); MEAN CORPUSCULAR HEMOGLOBIN 30.7 pg (27.0-33.0); MEAN CORPUSCULAR HGB CONC 32.9 g/dl (32.0-36.5); MEAN CORPUSCULAR VOLUME 93.4 fl (80.0-96.0); MONO # 1.3 10^3/uL (0.0-0.8); MONO % 10.1 % (0.0-5.0); NEUTROPHILS % 70.3 % (36.0-66.0); PLATELET COUNT, AUTOMATED 218 10^3/uL (150-450); RED BLOOD COUNT 2.41 10^6/uL (4.30-6.10); RED CELL DISTRIBUTION WIDTH 15.4 % (11.5-14.5); WHITE BLOOD COUNT 12.8 10^3/uL (4.0-10.0)
[2018-05-05 08:50] LABS: INR 1.59; PROTHROMBIN TIME 19.2 SECONDS (12.1-14.4)
[2018-05-05 09:07] LABS: BLOOD UREA NITROGEN 34 MG/DL (7-18); CARBON DIOXIDE LEVEL 25 MEQ/L (21-32); CHLORIDE LEVEL 110 MEQ/L (98-107); CREATININE FOR GFR 1.08 MG/DL (0.70-1.30); GLOMERULAR FILTRATION RATE > 60.0 (>49); GLUCOSE, FASTING 107 MG/DL (70-100); POTASSIUM SERUM 4.2 MEQ/L (3.5-5.1); SODIUM LEVEL 143 MEQ/L (136-145)
[2018-05-05 09:08] LABS: ANION GAP 8 MEQ/L (8-16); CALCIUM LEVEL 7.6 MG/DL (8.8-10.2)
== END ==
LOC: SKLAB2 08:00
DX: Z79.01 Long term (current) use of anticoagulants (principal)

== ENCOUNTER → 2018-05-05 | Outpatient (REF) | LOC: SKLAB2 11:08 | DX: R19.7 Diarrhea, unspecified (principal) ==

== ENCOUNTER → 2018-05-06 | Outpatient (REF) ==
[2018-05-06 08:32] LABS: BASO % 0.2 % (0.0-1.0); EOS # 0.2 10^3/uL (0.0-0.50); EOS % 1.4 % (0.0-3.0); HEMATOCRIT 20.6 % (42.0-52.0); IMMATURE GRANULOCYTE % 4.1 % (0-3.0); LYMPH # 1.3 10^3/uL (1.5-4.5); LYMPH % 9.5 % (24.0-44.0); MEAN CORPUSCULAR HGB CONC 32.5 g/dl (32.0-36.5); MEAN CORPUSCULAR VOLUME 95.4 fl (80.0-96.0); MONO # 1.4 10^3/uL (0.0-0.8); MONO % 9.9 % (0.0-5.0); NEUTROPHILS # 10.5 10^3/uL (1.8-7.7); NEUTROPHILS % 74.9 % (36.0-66.0); PLATELET COUNT, AUTOMATED 268 10^3/uL (150-450); RED BLOOD COUNT 2.16 10^6/uL (4.30-6.10); RED CELL DISTRIBUTION WIDTH 15.8 % (11.5-14.5)
[2018-05-06 08:43] LABS: HEMOGLOBIN 6.7 g/dl (13.5-17.5)
[2018-05-06 08:48] LABS: INR 1.79; PROTHROMBIN TIME 21.1 SECONDS (12.1-14.4)
[2018-05-06 08:57] LABS: ANION GAP 8 MEQ/L (8-16); BLOOD UREA NITROGEN 28 MG/DL (7-18); CALCIUM LEVEL 7.6 MG/DL (8.8-10.2); CARBON DIOXIDE LEVEL 24 MEQ/L (21-32); CHLORIDE LEVEL 112 MEQ/L (98-107); CREATININE FOR GFR 1.01 MG/DL (0.70-1.30); GLOMERULAR FILTRATION RATE > 60.0 (>49); GLUCOSE, FASTING 111 MG/DL (70-100); POTASSIUM SERUM 4.2 MEQ/L (3.5-5.1); SODIUM LEVEL 144 MEQ/L (136-145)
== END ==
LOC: SKLAB2 07:00
DX: I48.91 Unspecified atrial fibrillation (principal)

== ENCOUNTER → 2018-05-07 | Outpatient (REF) ==
[2018-05-07 07:47] LABS: INR 2.38; PROTHROMBIN TIME 26.5 SECONDS (12.1-14.4)
== END ==
LOC: SKLAB2 07:00
DX: I48.91 Unspecified atrial fibrillation (principal)

== ENCOUNTER → 2018-05-07 | Outpatient (CLI) | payer MEDICARE, MEDICAID | LOC: SKLAB2 21:25 | DX: R09.89 Other specified symptoms and signs involving the circulatory and respiratory systems (principal); D64.9 Anemia, unspecified; R39.89 Other symptoms and signs involving the genitourinary system; Z79.899 Other long term (current) drug therapy | CPT/HCPCS: 71045 ==

== ENCOUNTER → 2018-05-07 | Outpatient (REF) | payer MEDICARE, MEDICAID | LOC: SKLAB2 15:00 | DX: Z79.899 Other long term (current) drug therapy (principal); D64.9 Anemia, unspecified; R39.89 Other symptoms and signs involving the genitourinary system | CPT/HCPCS: 87070 ==

== ENCOUNTER → 2018-05-09 | Outpatient (REF) ==
[2018-05-09 08:45] LABS: INR 3.78; PROTHROMBIN TIME 38.2 SECONDS (12.1-14.4)
== END ==
LOC: SKLAB2 07:00
DX: I48.91 Unspecified atrial fibrillation (principal)

== ENCOUNTER 2018-05-11 14:13 | Outpatient (CLI) | payer MEDICARE, MEDICAID ==
[2018-05-11] MEDS: ACETAMINOPHEN TAB 650MG DOSE (2X325MG) PO (14:37)
[2018-05-11] MEDS: diphenhydrAMINE 25 MG CAP PO (14:37)
== END 2018-05-11 19:35 | disposition home or self-care (01) ==
LOC: M INFU 14:13
DX: D64.9 Anemia, unspecified (principal); Z79.899 Other long term (current) drug therapy; Z88.8 Allergy status to other drugs, medicaments and biological substances
CPT/HCPCS: 36430

== ENCOUNTER → 2018-05-11 | Outpatient (REF) ==
[2018-05-11 07:27] LABS: INR 2.19; PROTHROMBIN TIME 24.7 SECONDS (12.1-14.4)
[2018-05-11 10:28] LABS: HEMATOCRIT 20.7 % (42.0-52.0); MEAN CORPUSCULAR HEMOGLOBIN 30.5 pg (27.0-33.0); MEAN CORPUSCULAR HGB CONC 31.4 g/dl (32.0-36.5); MEAN CORPUSCULAR VOLUME 97.2 fl (80.0-96.0); PLATELET COUNT, AUTOMATED 504 10^3/uL (150-450); RED BLOOD COUNT 2.13 10^6/uL (4.30-6.10); RED CELL DISTRIBUTION WIDTH 17.2 % (11.5-14.5); WHITE BLOOD COUNT 17.1 10^3/uL (4.0-10.0)
[2018-05-11 10:32] LABS: ADD MANUAL DIFFER YES; DIFF SLIDE NUMBER 161; HEMOGLOBIN 6.5 g/dl (13.5-17.5); POS COUNT POS FLAG; POSITIVE MORPH POS FLAG
[2018-05-11 11:20] LABS: BANDS 1 % (< 11); EOSINOPHILS 3 % (0-5); HYPOCHROMASIA 2+; LYMPHOCYTES 12 % (16-52); METAMYELOCYTES 5 % (0-0); MONOCYTES 2 % (0-8); MYELOCYTES 4 % (0-0); NEUTROPHILS 73 % (35-75); PLATELET ESTIMATE INCREASED (NORMAL); POLYCHROMASIA 2+
[2018-05-11 11:21] LABS: ANISOCYTOSIS 2+
== END ==
LOC: SKLAB2 09:30
DX: Z79.01 Long term (current) use of anticoagulants (principal)

== ENCOUNTER → 2018-05-11 | Outpatient (REF) ==
[2018-05-11 14:42] LABS: IMMEDIATE SPIN CROSSMATCH 1 2
== END ==
LOC: SKLAB2 12:23
DX: D64.9 Anemia, unspecified (principal)

== ENCOUNTER → 2018-05-12 | Outpatient (REF) | payer MEDICAID, MEDICARE ==
[2018-05-12 10:06] LABS: HEMATOCRIT 28.3 % (42.0-52.0); MEAN CORPUSCULAR HEMOGLOBIN 30.1 pg (27.0-33.0); MEAN CORPUSCULAR HGB CONC 32.2 g/dl (32.0-36.5); MEAN CORPUSCULAR VOLUME 93.7 fl (80.0-96.0); PLATELET COUNT, AUTOMATED 554 10^3/uL (150-450); RED BLOOD COUNT 3.02 10^6/uL (4.30-6.10); RED CELL DISTRIBUTION WIDTH 18.5 % (11.5-14.5); WHITE BLOOD COUNT 16.6 10^3/uL (4.0-10.0)
[2018-05-12 10:10] LABS: HEMOGLOBIN 9.1 g/dl (13.5-17.5)
[2018-05-12 10:17] LABS: INR 1.56; PROTHROMBIN TIME 18.9 SECONDS (12.1-14.4)
[2018-05-12 11:11] LABS: ESTIMATED AVERAGE GLUCOSE 85 MG/DL (60-110); HEMOGLOBIN A1c 4.6 %
== END ==
LOC: SKLAB2 09:30
DX: Z79.01 Long term (current) use of anticoagulants (principal)

== ENCOUNTER → 2018-05-12 | Outpatient (CLI) | payer MEDICARE, MEDICAID | LOC: M RAD 14:00 | DX: I82.431 Acute embolism and thrombosis of right popliteal vein (principal); D64.9 Anemia, unspecified; Z98.890 Other specified postprocedural states ==

== ENCOUNTER → 2018-05-12 | Outpatient (CLI) | payer MEDICARE, MEDICAID ==
[~2018-05-12] MED LIST changes: +ISOVUE-370 76% 100ML VIAL (Q9967) As Ordered; -LR 1,000 ML IV
== END ==
LOC: M RAD 14:07
DX: M79.81 Nontraumatic hematoma of soft tissue (principal); N28.1 Cyst of kidney, acquired; N42.89 Other specified disorders of prostate; I82.431 Acute embolism and thrombosis of right popliteal vein; D64.9 Anemia, unspecified; Z98.890 Other specified postprocedural states
CPT/HCPCS: Q9967

== ENCOUNTER → 2018-05-14 | Outpatient (REF) ==
[2018-05-14 08:08] LABS: HEMATOCRIT 27.1 % (42.0-52.0); HEMOGLOBIN 8.5 g/dl (13.5-17.5); MEAN CORPUSCULAR HEMOGLOBIN 30.2 pg (27.0-33.0); MEAN CORPUSCULAR HGB CONC 31.4 g/dl (32.0-36.5); MEAN CORPUSCULAR VOLUME 96.4 fl (80.0-96.0); PLATELET COUNT, AUTOMATED 489 10^3/uL (150-450); RED BLOOD COUNT 2.81 10^6/uL (4.30-6.10); RED CELL DISTRIBUTION WIDTH 18.2 % (11.5-14.5); WHITE BLOOD COUNT 12.5 10^3/uL (4.0-10.0)
[2018-05-14 08:21] LABS: PROTHROMBIN TIME 21.2 SECONDS (12.1-14.4)
== END ==
LOC: SKLAB2 11:30
DX: Z79.01 Long term (current) use of anticoagulants (principal)

== ENCOUNTER → 2018-05-15 | Outpatient (REF) | payer MEDICARE, MEDICAID ==
[2018-05-15 12:37] LABS: HEMATOCRIT 28.7 % (42.0-52.0); HEMOGLOBIN 9.1 g/dl (13.5-17.5); MEAN CORPUSCULAR HEMOGLOBIN 30.8 pg (27.0-33.0); MEAN CORPUSCULAR HGB CONC 31.7 g/dl (32.0-36.5); MEAN CORPUSCULAR VOLUME 97.3 fl (80.0-96.0); PLATELET COUNT, AUTOMATED 493 10^3/uL (150-450); RED BLOOD COUNT 2.95 10^6/uL (4.30-6.10); RED CELL DISTRIBUTION WIDTH 17.9 % (11.5-14.5); WHITE BLOOD COUNT 10.7 10^3/uL (4.0-10.0)
[2018-05-15 12:48] LABS: INR 1.92; PROTHROMBIN TIME 22.3 SECONDS (12.1-14.4)
== END ==
LOC: SKLAB2 12:01
DX: Z98.890 Other specified postprocedural states (principal); Z79.899 Other long term (current) drug therapy
CPT/HCPCS: 85610

== ENCOUNTER → 2018-05-16 | Outpatient (REF) ==
[2018-05-16 08:34] LABS: HEMATOCRIT 30.8 % (42.0-52.0); HEMOGLOBIN 9.8 g/dl (13.5-17.5); MEAN CORPUSCULAR HEMOGLOBIN 30.2 pg (27.0-33.0); MEAN CORPUSCULAR HGB CONC 31.8 g/dl (32.0-36.5); MEAN CORPUSCULAR VOLUME 94.8 fl (80.0-96.0); PLATELET COUNT, AUTOMATED 589 10^3/uL (150-450); RED BLOOD COUNT 3.25 10^6/uL (4.30-6.10); RED CELL DISTRIBUTION WIDTH 17.7 % (11.5-14.5); WHITE BLOOD COUNT 11.1 10^3/uL (4.0-10.0)
[2018-05-16 08:48] LABS: INR 1.85; PROTHROMBIN TIME 21.7 SECONDS (12.1-14.4)
== END ==
LOC: SKLAB2 08:00
DX: Z79.01 Long term (current) use of anticoagulants (principal)

== ENCOUNTER → 2018-05-18 | Outpatient (REF) ==
[2018-05-18 09:34] LABS: INR 2.32
== END ==
LOC: SKLAB2 13:21
DX: Z79.01 Long term (current) use of anticoagulants (principal)

== ENCOUNTER → 2018-05-23 | Outpatient (REF) ==
[2018-05-23 08:47] LABS: INR 2.68; PROTHROMBIN TIME 29.1 SECONDS (12.1-14.4)
== END ==
LOC: SKLAB2 07:00
DX: Z79.01 Long term (current) use of anticoagulants (principal)

== ENCOUNTER → 2018-05-30 | Outpatient (REF) ==
[2018-05-30 08:49] LABS: PROTHROMBIN TIME 51.1 SECONDS (12.1-14.4)
[2018-05-30 09:35] LABS: INR 5.45
[2018-05-30 11:38] LABS: HEMATOCRIT 23.4 % (42.0-52.0); HEMOGLOBIN 7.3 g/dl (13.5-17.5); MEAN CORPUSCULAR HEMOGLOBIN 31.2 pg (27.0-33.0); MEAN CORPUSCULAR HGB CONC 31.2 g/dl (32.0-36.5); PLATELET COUNT, AUTOMATED 290 10^3/uL (150-450); RED BLOOD COUNT 2.34 10^6/uL (4.30-6.10); WHITE BLOOD COUNT 10.2 10^3/uL (4.0-10.0)
[2018-05-30 19:39] LABS: HEMATOCRIT 23.8 % (42.0-52.0); HEMOGLOBIN 7.3 g/dl (13.5-17.5); MEAN CORPUSCULAR HEMOGLOBIN 30.8 pg (27.0-33.0); MEAN CORPUSCULAR HGB CONC 30.7 g/dl (32.0-36.5); MEAN CORPUSCULAR VOLUME 100.4 fl (80.0-96.0); PLATELET COUNT, AUTOMATED 353 10^3/uL (150-450); RED BLOOD COUNT 2.37 10^6/uL (4.30-6.10); WHITE BLOOD COUNT 11.9 10^3/uL (4.0-10.0)
[2018-05-30 19:51] LABS: PROTHROMBIN TIME 49.4 SECONDS (12.1-14.4)
[2018-05-30 20:01] LABS: INR 5.22
== END ==
LOC: SKLAB2 07:00
DX: Z79.01 Long term (current) use of anticoagulants (principal)

== ENCOUNTER 2018-05-31 18:46 | Inpatient (IN) | payer MEDICARE, MEDICAID ==
[2018-05-31 20:12] LABS: INR 3.79; PROTHROMBIN TIME 38.3 SECONDS (12.1-14.4)
[2018-05-31 20:15] LABS: ANION GAP 6 MEQ/L (8-16); BLOOD UREA NITROGEN 20 MG/DL (7-18); CALCIUM LEVEL 8.3 MG/DL (8.8-10.2); CARBON DIOXIDE LEVEL 27 MEQ/L (21-32); CHLORIDE LEVEL 105 MEQ/L (98-107); CREATININE FOR GFR 0.99 MG/DL (0.70-1.30); GLOMERULAR FILTRATION RATE > 60.0 (>49); GLUCOSE, FASTING 116 MG/DL (70-100); POTASSIUM SERUM 4.1 MEQ/L (3.5-5.1); SODIUM LEVEL 138 MEQ/L (136-145)
[2018-05-31] MEDS ORDERED: ISOVUE-370 76% 100ML VIAL (Q9967) As Ordered (22:23)
[2018-05-31 22:52] LABS: IMMEDIATE SPIN CROSSMATCH 1 2
[2018-06-01] MEDS ORDERED: BISACODYL 10 MG SUPP PR
[2018-06-01] MEDS ORDERED: MOM 30ML SUSPENSION UDC PO
[2018-06-01] MEDS ORDERED: diphenhydrAMINE 25 MG CAP PO
[2018-06-01] MEDS: TOPIRAMATE (TopAMAX) 25 MG TAB PO ×3 (04:06→20:09)
[2018-06-01] MEDS: PERCOCET 5MG/325MG TAB PO (04:24)
[2018-06-01 06:46] LABS: HEMATOCRIT 25.1 % (42.0-52.0); HEMOGLOBIN 8.3 g/dl (13.5-17.5); MEAN CORPUSCULAR HEMOGLOBIN 31.4 pg (27.0-33.0); MEAN CORPUSCULAR HGB CONC 33.1 g/dl (32.0-36.5); MEAN CORPUSCULAR VOLUME 95.1 fl (80.0-96.0); PLATELET COUNT, AUTOMATED 256 10^3/uL (150-450); RED BLOOD COUNT 2.64 10^6/uL (4.30-6.10); RED CELL DISTRIBUTION WIDTH 16.7 % (11.5-14.5); WHITE BLOOD COUNT 9.1 10^3/uL (4.0-10.0)
[2018-06-01 07:01] LABS: INR 2.89; PROTHROMBIN TIME 30.9 SECONDS (12.1-14.4)
[2018-06-01] MEDS: QUINAPRIL 20 MG TAB PO (08:54)
[2018-06-01] MEDS: CYANOCOBALAMIN 500 MCG TAB PO (08:54)
[2018-06-01] MEDS: buPROPion **XL** TABLET 150MG (WELLBUTRIN XL) PO (08:55)
[2018-06-01] MEDS: VITAMIN D 1,000 INTERNATIONAL UNITS TABLET PO (08:55)
[2018-06-01] MEDS: MULTIVITAMINS/MINERALS THERAP 1 TAB PO (08:55)
[2018-06-01] MEDS: ESCITALOPRAM OXALATE 10 MG TAB (LEXAPRO) PO (08:55)
[2018-06-01] MEDS: METOPROLOL SUCC (TopROL XL) 50MG **XL** TAB PO (11:26)
[2018-06-01 12:36] LABS: HEMATOCRIT 26.5 % (42.0-52.0); HEMOGLOBIN 8.5 g/dl (13.5-17.5); MEAN CORPUSCULAR HGB CONC 32.1 g/dl (32.0-36.5); MEAN CORPUSCULAR VOLUME 96.7 fl (80.0-96.0); PLATELET COUNT, AUTOMATED 283 10^3/uL (150-450); RED BLOOD COUNT 2.74 10^6/uL (4.30-6.10); RED CELL DISTRIBUTION WIDTH 17.3 % (11.5-14.5)
[2018-06-01 12:44] LABS: POS COUNT POS FLAG; POSITIVE MORPH POS FLAG
[2018-06-01 12:45] LABS: ADD MANUAL DIFFER YES; DIFF SLIDE NUMBER 202
[2018-06-01 12:48] LABS: ANION GAP 7 MEQ/L (8-16); BLOOD UREA NITROGEN 17 MG/DL (7-18); CALCIUM LEVEL 7.9 MG/DL (8.8-10.2); CARBON DIOXIDE LEVEL 25 MEQ/L (21-32); CHLORIDE LEVEL 106 MEQ/L (98-107); GLOMERULAR FILTRATION RATE > 60.0 (>49); GLUCOSE, FASTING 103 MG/DL (70-100); POTASSIUM SERUM 4.1 MEQ/L (3.5-5.1); SODIUM LEVEL 138 MEQ/L (136-145)
[2018-06-01 13:13] LABS: ATYPICAL LYMPH 2 % (0-5); EOSINOPHILS 3 % (0-5); LYMPHOCYTES 9 % (16-52); MONOCYTES 7 % (0-8); NEUTROPHILS 79 % (35-75)
[2018-06-01 13:15] LABS: PLATELET ESTIMATE NORMAL (NORMAL); POLYCHROMASIA 1+
[2018-06-01] MEDS: DOCUSATE SODIUM 100 MG CAP PO (20:08)
[2018-06-02 07:05] LABS: HEMATOCRIT 25.9 % (42.0-52.0); HEMOGLOBIN 8.2 g/dl (13.5-17.5); MEAN CORPUSCULAR HEMOGLOBIN 30.9 pg (27.0-33.0); MEAN CORPUSCULAR HGB CONC 31.7 g/dl (32.0-36.5); MEAN CORPUSCULAR VOLUME 97.7 fl (80.0-96.0); PLATELET COUNT, AUTOMATED 269 10^3/uL (150-450); RED BLOOD COUNT 2.65 10^6/uL (4.30-6.10); RED CELL DISTRIBUTION WIDTH 17.5 % (11.5-14.5); WHITE BLOOD COUNT 7.7 10^3/uL (4.0-10.0)
[2018-06-02 07:20] LABS: INR 1.73; PROTHROMBIN TIME 20.6 SECONDS (12.1-14.4)
[2018-06-02 07:31] LABS: ALBUMIN 2.5 GM/DL (3.2-5.2); ALBUMIN/GLOBULIN RATIO 0.69 (1.00-1.93); ALKALINE PHOSPHATASE 74 U/L (45-117); ALT/SGPT 30 U/L (12-78); ANION GAP 6 MEQ/L (8-16); AST/SGOT 29 U/L (7-37); BLOOD UREA NITROGEN 15 MG/DL (7-18); CALCIUM LEVEL 8.5 MG/DL (8.8-10.2); CARBON DIOXIDE LEVEL 26 MEQ/L (21-32); CHLORIDE LEVEL 107 MEQ/L (98-107); CREATININE FOR GFR 1.03 MG/DL (0.70-1.30); GLOMERULAR FILTRATION RATE > 60.0 (>49); GLUCOSE, FASTING 94 MG/DL (70-100); SODIUM LEVEL 139 MEQ/L (136-145); TOTAL PROTEIN 6.1 GM/DL (6.4-8.2)
[2018-06-02] MEDS: buPROPion **XL** TABLET 150MG (WELLBUTRIN XL) PO (09:53)
[2018-06-02] MEDS: VITAMIN D 1,000 INTERNATIONAL UNITS TABLET PO (09:53)
[2018-06-02] MEDS: CYANOCOBALAMIN 500 MCG TAB PO (09:53)
[2018-06-02] MEDS: ESCITALOPRAM OXALATE 10 MG TAB (LEXAPRO) PO (09:54)
[2018-06-02] MEDS: MULTIVITAMINS/MINERALS THERAP 1 TAB PO (09:54)
[2018-06-02] MEDS: TOPIRAMATE (TopAMAX) 25 MG TAB PO ×2 (09:54→22:01)
[2018-06-02] MEDS: METOPROLOL SUCC (TopROL XL) 50MG **XL** TAB PO (09:55)
[2018-06-02] MEDS: QUINAPRIL 20 MG TAB PO (09:56)
[2018-06-02 12:26] LABS: BASO # 0.1 10^3/uL (0.0-0.2); BASO % 0.5 % (0.0-1.0); EOS # 0.5 10^3/uL (0.0-0.50); EOS % 5.4 % (0.0-3.0); HEMATOCRIT 29.6 % (42.0-52.0); HEMOGLOBIN 9.4 g/dl (13.5-17.5); IMMATURE GRANULOCYTE % 4.7 % (0-3.0); LYMPH # 0.9 10^3/uL (1.5-4.5); LYMPH % 10.1 % (24.0-44.0); MEAN CORPUSCULAR HGB CONC 31.8 g/dl (32.0-36.5); MEAN CORPUSCULAR VOLUME 97.7 fl (80.0-96.0); MONO # 0.9 10^3/uL (0.0-0.8); MONO % 9.7 % (0.0-5.0); NEUTROPHILS # 6.3 10^3/uL (1.8-7.7); NEUTROPHILS % 69.6 % (36.0-66.0); PLATELET COUNT, AUTOMATED 343 10^3/uL (150-450); RED BLOOD COUNT 3.03 10^6/uL (4.30-6.10); RED CELL DISTRIBUTION WIDTH 17.4 % (11.5-14.5); WHITE BLOOD COUNT 9.1 10^3/uL (4.0-10.0)
[2018-06-02] MEDS: PERCOCET 5MG/325MG TAB PO (12:47)
[2018-06-02 18:33] LABS: BASO % 0.4 % (0.0-1.0); EOS # 0.5 10^3/uL (0.0-0.50); EOS % 5.1 % (0.0-3.0); HEMATOCRIT 27.7 % (42.0-52.0); HEMOGLOBIN 8.7 g/dl (13.5-17.5); LYMPH # 1.5 10^3/uL (1.5-4.5); LYMPH % 15.8 % (24.0-44.0); MEAN CORPUSCULAR HEMOGLOBIN 30.7 pg (27.0-33.0); MEAN CORPUSCULAR HGB CONC 31.4 g/dl (32.0-36.5); MEAN CORPUSCULAR VOLUME 97.9 fl (80.0-96.0); MONO # 0.9 10^3/uL (0.0-0.8); MONO % 9.2 % (0.0-5.0); NEUTROPHILS # 6.2 10^3/uL (1.8-7.7); NEUTROPHILS % 65.5 % (36.0-66.0); PLATELET COUNT, AUTOMATED 303 10^3/uL (150-450); RED BLOOD COUNT 2.83 10^6/uL (4.30-6.10); RED CELL DISTRIBUTION WIDTH 17.3 % (11.5-14.5); WHITE BLOOD COUNT 9.5 10^3/uL (4.0-10.0)
[2018-06-02] MEDS: DOCUSATE SODIUM 100 MG CAP PO (22:01)
[2018-06-03 06:49] LABS: HEMOGLOBIN 8.2 g/dl (13.5-17.5); MEAN CORPUSCULAR HEMOGLOBIN 31.2 pg (27.0-33.0); MEAN CORPUSCULAR HGB CONC 31.5 g/dl (32.0-36.5); MEAN CORPUSCULAR VOLUME 98.9 fl (80.0-96.0); PLATELET COUNT, AUTOMATED 278 10^3/uL (150-450); RED BLOOD COUNT 2.63 10^6/uL (4.30-6.10); RED CELL DISTRIBUTION WIDTH 17.5 % (11.5-14.5); WHITE BLOOD COUNT 8.2 10^3/uL (4.0-10.0)
[2018-06-03 07:00] LABS: INR 1.37
[2018-06-03] MEDS: CYANOCOBALAMIN 500 MCG TAB PO (08:19)
[2018-06-03] MEDS: buPROPion **XL** TABLET 150MG (WELLBUTRIN XL) PO (08:19)
[2018-06-03] MEDS: MULTIVITAMINS/MINERALS THERAP 1 TAB PO (08:19)
[2018-06-03] MEDS: TOPIRAMATE (TopAMAX) 25 MG TAB PO ×2 (08:19→22:21)
[2018-06-03] MEDS: VITAMIN D 1,000 INTERNATIONAL UNITS TABLET PO (08:19)
[2018-06-03] MEDS: QUINAPRIL 20 MG TAB PO (08:20)
[2018-06-03] MEDS: METOPROLOL SUCC (TopROL XL) 50MG **XL** TAB PO (08:20)
[2018-06-03] MEDS: ESCITALOPRAM OXALATE 10 MG TAB (LEXAPRO) PO (08:20)
[2018-06-03] MEDS: WARFARIN SOD 5 MG TAB PO (16:52)
[2018-06-03] MEDS: DOCUSATE SODIUM 100 MG CAP PO (21:00)
[2018-06-04 06:26] LABS: HEMATOCRIT 27.1 % (42.0-52.0); HEMOGLOBIN 8.5 g/dl (13.5-17.5); MEAN CORPUSCULAR HEMOGLOBIN 30.9 pg (27.0-33.0); MEAN CORPUSCULAR HGB CONC 31.4 g/dl (32.0-36.5); MEAN CORPUSCULAR VOLUME 98.5 fl (80.0-96.0); PLATELET COUNT, AUTOMATED 307 10^3/uL (150-450); RED BLOOD COUNT 2.75 10^6/uL (4.30-6.10); RED CELL DISTRIBUTION WIDTH 17.2 % (11.5-14.5); WHITE BLOOD COUNT 8.8 10^3/uL (4.0-10.0)
[2018-06-04 06:36] LABS: INR 1.23; PROTHROMBIN TIME 15.7 SECONDS (12.1-14.4)
[2018-06-04 06:41] LABS: ALBUMIN 2.6 GM/DL (3.2-5.2); ANION GAP 7 MEQ/L (8-16); BLOOD UREA NITROGEN 17 MG/DL (7-18); CALCIUM LEVEL 8.2 MG/DL (8.8-10.2); CARBON DIOXIDE LEVEL 26 MEQ/L (21-32); CHLORIDE LEVEL 107 MEQ/L (98-107); CREATININE FOR GFR 0.96 MG/DL (0.70-1.30); GLOMERULAR FILTRATION RATE > 60.0 (>49); GLUCOSE, FASTING 94 MG/DL (70-100); PHOSPHORUS LEVEL 3.5 MG/DL (2.5-4.9); POTASSIUM SERUM 4.1 MEQ/L (3.5-5.1); SODIUM LEVEL 140 MEQ/L (136-145)
[2018-06-04] MEDS ORDERED: CLOPIDOGREL 75 MG TAB PO (09:00)
[2018-06-04] MEDS: QUINAPRIL 20 MG TAB PO (09:43)
[2018-06-04] MEDS: ESCITALOPRAM OXALATE 10 MG TAB (LEXAPRO) PO (09:43)
[2018-06-04] MEDS: VITAMIN D 1,000 INTERNATIONAL UNITS TABLET PO (09:43)
[2018-06-04] MEDS: PANTOPRAZOLE 40MG TAB (PROTONIX) PO (09:44)
[2018-06-04] MEDS: TOPIRAMATE (TopAMAX) 25 MG TAB PO ×2 (09:44→22:45)
[2018-06-04] MEDS: METOPROLOL SUCC (TopROL XL) 50MG **XL** TAB PO (09:44)
[2018-06-04] MEDS: MULTIVITAMINS/MINERALS THERAP 1 TAB PO (09:44)
[2018-06-04] MEDS: buPROPion **XL** TABLET 150MG (WELLBUTRIN XL) PO (09:44)
[2018-06-04] MEDS: CYANOCOBALAMIN 500 MCG TAB PO (09:44)
[2018-06-04] MEDS: WARFARIN SOD 5 MG TAB PO (17:25)
[2018-06-04] MEDS: DOCUSATE SODIUM 100 MG CAP PO (22:46)
[2018-06-05 06:00] LABS: HEMATOCRIT 27.1 % (42.0-52.0); HEMOGLOBIN 8.6 g/dl (13.5-17.5); MEAN CORPUSCULAR HEMOGLOBIN 31.6 pg (27.0-33.0); MEAN CORPUSCULAR HGB CONC 31.7 g/dl (32.0-36.5); MEAN CORPUSCULAR VOLUME 99.6 fl (80.0-96.0); PLATELET COUNT, AUTOMATED 307 10^3/uL (150-450); RED BLOOD COUNT 2.72 10^6/uL (4.30-6.10); RED CELL DISTRIBUTION WIDTH 17.5 % (11.5-14.5); WHITE BLOOD COUNT 9.1 10^3/uL (4.0-10.0)
[2018-06-05 06:25] LABS: INR 1.26; PROTHROMBIN TIME 15.9 SECONDS (12.1-14.4)
[2018-06-05] MEDS: PANTOPRAZOLE 40MG TAB (PROTONIX) PO (09:19)
[2018-06-05] MEDS: CYANOCOBALAMIN 500 MCG TAB PO (09:19)
[2018-06-05] MEDS: QUINAPRIL 20 MG TAB PO (09:19)
[2018-06-05] MEDS: MULTIVITAMINS/MINERALS THERAP 1 TAB PO (09:19)
[2018-06-05] MEDS: METOPROLOL SUCC (TopROL XL) 50MG **XL** TAB PO (09:19)
[2018-06-05] MEDS: VITAMIN D 1,000 INTERNATIONAL UNITS TABLET PO (09:19)
[2018-06-05] MEDS: TOPIRAMATE (TopAMAX) 25 MG TAB PO ×2 (09:20→20:52)
[2018-06-05] MEDS: ESCITALOPRAM OXALATE 10 MG TAB (LEXAPRO) PO (09:20)
[2018-06-05] MEDS: buPROPion **XL** TABLET 150MG (WELLBUTRIN XL) PO (09:20)
[2018-06-05] MEDS: ACETAMINOPHEN TAB 650MG DOSE (2X325MG) PO (09:20)
[2018-06-05] MEDS: WARFARIN SOD 4 MG TAB PO (18:00)
[2018-06-05] MEDS: DOCUSATE SODIUM 100 MG CAP PO (20:52)
[2018-06-06 06:04] LABS: HEMATOCRIT 28.8 % (42.0-52.0); HEMOGLOBIN 8.9 g/dl (13.5-17.5); MEAN CORPUSCULAR HEMOGLOBIN 30.8 pg (27.0-33.0); MEAN CORPUSCULAR HGB CONC 30.9 g/dl (32.0-36.5); MEAN CORPUSCULAR VOLUME 99.7 fl (80.0-96.0); PLATELET COUNT, AUTOMATED 338 10^3/uL (150-450); RED BLOOD COUNT 2.89 10^6/uL (4.30-6.10); RED CELL DISTRIBUTION WIDTH 17.5 % (11.5-14.5); WHITE BLOOD COUNT 8.7 10^3/uL (4.0-10.0)
[2018-06-06 06:15] LABS: INR 1.52; PROTHROMBIN TIME 18.5 SECONDS (12.1-14.4)
[2018-06-06 06:18] LABS: ANION GAP 7 MEQ/L (8-16); BLOOD UREA NITROGEN 16 MG/DL (7-18); CALCIUM LEVEL 8.4 MG/DL (8.8-10.2); CARBON DIOXIDE LEVEL 26 MEQ/L (21-32); CHLORIDE LEVEL 106 MEQ/L (98-107); CREATININE FOR GFR 1.02 MG/DL (0.70-1.30); GLOMERULAR FILTRATION RATE > 60.0 (>49); GLUCOSE, FASTING 91 MG/DL (70-100); SODIUM LEVEL 139 MEQ/L (136-145)
[2018-06-06] MEDS: TOPIRAMATE (TopAMAX) 25 MG TAB PO ×2 (09:17→20:44)
[2018-06-06] MEDS: MULTIVITAMINS/MINERALS THERAP 1 TAB PO (09:18)
[2018-06-06] MEDS: buPROPion **XL** TABLET 150MG (WELLBUTRIN XL) PO (09:18)
[2018-06-06] MEDS: METOPROLOL SUCC (TopROL XL) 50MG **XL** TAB PO (09:18)
[2018-06-06] MEDS: PANTOPRAZOLE 40MG TAB (PROTONIX) PO (09:18)
[2018-06-06] MEDS: QUINAPRIL 20 MG TAB PO (09:18)
[2018-06-06] MEDS: VITAMIN D 1,000 INTERNATIONAL UNITS TABLET PO (09:18)
[2018-06-06] MEDS: ESCITALOPRAM OXALATE 10 MG TAB (LEXAPRO) PO (09:19)
[2018-06-06] MEDS: CYANOCOBALAMIN 500 MCG TAB PO (09:19)
[2018-06-06] MEDS: PERCOCET 5MG/325MG TAB PO ×2 (13:21→18:17)
[2018-06-06] MEDS: WARFARIN SOD 4 MG TAB PO (18:09)
[2018-06-06] MEDS: DOCUSATE SODIUM 100 MG CAP PO (20:44)
[2018-06-07 06:06] LABS: BASO % 0.4 % (0.0-1.0); EOS # 0.6 10^3/uL (0.0-0.50); HEMATOCRIT 29.8 % (42.0-52.0); HEMOGLOBIN 9.3 g/dl (13.5-17.5); IMMATURE GRANULOCYTE % 3.1 % (0-3.0); LYMPH # 1.8 10^3/uL (1.5-4.5); LYMPH % 21.4 % (24.0-44.0); MEAN CORPUSCULAR HGB CONC 31.2 g/dl (32.0-36.5); MEAN CORPUSCULAR VOLUME 99.3 fl (80.0-96.0); MONO # 0.7 10^3/uL (0.0-0.8); MONO % 9.1 % (0.0-5.0); NEUTROPHILS # 4.8 10^3/uL (1.8-7.7); PLATELET COUNT, AUTOMATED 354 10^3/uL (150-450); RED CELL DISTRIBUTION WIDTH 17.6 % (11.5-14.5); WHITE BLOOD COUNT 8.2 10^3/uL (4.0-10.0)
[2018-06-07 06:16] LABS: PROTHROMBIN TIME 19.3 SECONDS (12.1-14.4)
[2018-06-07 06:33] LABS: ALBUMIN 2.7 GM/DL (3.2-5.2); ALBUMIN/GLOBULIN RATIO 0.71 (1.00-1.93); ALKALINE PHOSPHATASE 77 U/L (45-117); ALT/SGPT 35 U/L (12-78); ANION GAP 7 MEQ/L (8-16); AST/SGOT 28 U/L (7-37); BILIRUBIN,TOTAL 0.7 MG/DL (0.2-1.0); BLOOD UREA NITROGEN 17 MG/DL (7-18); CALCIUM LEVEL 8.3 MG/DL (8.8-10.2); CARBON DIOXIDE LEVEL 27 MEQ/L (21-32); CHLORIDE LEVEL 105 MEQ/L (98-107); CREATININE FOR GFR 1.06 MG/DL (0.70-1.30); FERRITIN 703 NG/ML (26-388); GLOMERULAR FILTRATION RATE > 60.0 (>49); GLUCOSE, FASTING 86 MG/DL (70-100); IRON (FE) 54 UG/DL (65-175); POTASSIUM SERUM 3.8 MEQ/L (3.5-5.1); SODIUM LEVEL 139 MEQ/L (136-145); TOTAL IRON BINDING CAPACITY 180 UG/DL (250-450); TOTAL PROTEIN 6.5 GM/DL (6.4-8.2)
[2018-06-07] MEDS: CYANOCOBALAMIN 500 MCG TAB PO (11:23)
[2018-06-07] MEDS: VITAMIN D 1,000 INTERNATIONAL UNITS TABLET PO (11:23)
[2018-06-07] MEDS: MULTIVITAMINS/MINERALS THERAP 1 TAB PO (11:23)
[2018-06-07] MEDS: buPROPion **XL** TABLET 150MG (WELLBUTRIN XL) PO (11:23)
[2018-06-07] MEDS: QUINAPRIL 20 MG TAB PO (11:24)
[2018-06-07] MEDS: ESCITALOPRAM OXALATE 10 MG TAB (LEXAPRO) PO (11:24)
[2018-06-07] MEDS: METOPROLOL SUCC (TopROL XL) 50MG **XL** TAB PO (11:25)
[2018-06-07] MEDS: PANTOPRAZOLE 40MG TAB (PROTONIX) PO (11:25)
[2018-06-07] MEDS: TOPIRAMATE (TopAMAX) 25 MG TAB PO (11:26)
== END 2018-06-07 11:55 | DRG 813 ==
LOC: M ED INP 23:48 → M MSPAV 06-02 16:09 → M ED 18:46 → M MS4PR 06-01 03:45
PROC: 30233N1 Transfusion of Nonautologous Red Blood Cells into Peripheral Vein, Percutaneous Approach (ICD-10-PCS; principal; 2018-05-31)
DX: D68.32 Hemorrhagic disorder due to extrinsic circulating anticoagulants (principal); I67.850 Cerebral autosomal dominant arteriopathy with subcortical infarcts and leukoencephalopathy; D62 Acute posthemorrhagic anemia; F03.90 Unspecified dementia, unspecified severity, without behavioral disturbance, psychotic disturbance, mood disturbance, and anxiety; I10 Essential (primary) hypertension; G47.33 Obstructive sleep apnea (adult) (pediatric); E66.01 Morbid (severe) obesity due to excess calories; K21.9 Gastro-esophageal reflux disease without esophagitis; F32.9 Major depressive disorder, single episode, unspecified; M79.81 Nontraumatic hematoma of soft tissue; T45.515A Adverse effect of anticoagulants, initial encounter; Z66 Do not resuscitate; Z86.718 Personal history of other venous thrombosis and embolism; Z79.01 Long term (current) use of anticoagulants; Z96.653 Presence of artificial knee joint, bilateral; Z90.49 Acquired absence of other specified parts of digestive tract; Z79.82 Long term (current) use of aspirin; Z79.899 Other long term (current) drug therapy

== ENCOUNTER → 2018-05-31 | Outpatient (REF) | payer MEDICARE, MEDICAID ==
[2018-05-31 15:07] LABS: INR 3.97; PROTHROMBIN TIME 39.7 SECONDS (12.1-14.4)
[2018-05-31 17:14] LABS: HEMATOCRIT 21.5 % (42.0-52.0); MEAN CORPUSCULAR HEMOGLOBIN 31.2 pg (27.0-33.0); MEAN CORPUSCULAR HGB CONC 31.2 g/dl (32.0-36.5); PLATELET COUNT, AUTOMATED 282 10^3/uL (150-450); RED BLOOD COUNT 2.15 10^6/uL (4.30-6.10); RED CELL DISTRIBUTION WIDTH 17.2 % (11.5-14.5); WHITE BLOOD COUNT 10.1 10^3/uL (4.0-10.0)
[2018-05-31 17:18] LABS: HEMOGLOBIN 6.7 g/dl (13.5-17.5)
== END ==
LOC: SKLAB2 10:57
DX: R79.1 Abnormal coagulation profile (principal)
CPT/HCPCS: 85610

== ENCOUNTER → 2018-06-08 | Outpatient (REF) | payer MEDICAID, MEDICARE ==
[2018-06-08 08:13] LABS: INR 1.86; PROTHROMBIN TIME 21.8 SECONDS (12.1-14.4)
[2018-06-08 10:46] LABS: HEMATOCRIT 32.4 % (42.0-52.0); HEMOGLOBIN 10.1 g/dl (13.5-17.5); MEAN CORPUSCULAR HEMOGLOBIN 31.4 pg (27.0-33.0); MEAN CORPUSCULAR HGB CONC 31.2 g/dl (32.0-36.5); MEAN CORPUSCULAR VOLUME 100.6 fl (80.0-96.0); PLATELET COUNT, AUTOMATED 385 10^3/uL (150-450); RED BLOOD COUNT 3.22 10^6/uL (4.30-6.10); RED CELL DISTRIBUTION WIDTH 17.7 % (11.5-14.5); WHITE BLOOD COUNT 9.1 10^3/uL (4.0-10.0)
== END ==
LOC: SKLAB5 07:40
DX: Z79.01 Long term (current) use of anticoagulants (principal); Z86.718 Personal history of other venous thrombosis and embolism

== ENCOUNTER → 2018-06-10 | Outpatient (REF) | payer MEDICAID, MEDICARE ==
[2018-06-10 08:19] LABS: INR 2.44
== END ==
LOC: SKLAB5 07:41
DX: Z86.718 Personal history of other venous thrombosis and embolism (principal); Z79.01 Long term (current) use of anticoagulants

== ENCOUNTER → 2018-06-13 | Outpatient (REF) | payer MEDICAID, MEDICARE ==
[2018-06-13 08:39] LABS: HEMOGLOBIN 10.1 g/dl (13.5-17.5); MEAN CORPUSCULAR HEMOGLOBIN 31.5 pg (27.0-33.0); MEAN CORPUSCULAR HGB CONC 31.6 g/dl (32.0-36.5); MEAN CORPUSCULAR VOLUME 99.7 fl (80.0-96.0); PLATELET COUNT, AUTOMATED 385 10^3/uL (150-450); RED BLOOD COUNT 3.21 10^6/uL (4.30-6.10); RED CELL DISTRIBUTION WIDTH 16.7 % (11.5-14.5); WHITE BLOOD COUNT 6.3 10^3/uL (4.0-10.0)
[2018-06-13 08:52] LABS: INR 2.92; PROTHROMBIN TIME 31.1 SECONDS (12.1-14.4)
== END ==
LOC: SKLAB5 07:42
DX: D64.9 Anemia, unspecified (principal)

== ENCOUNTER → 2018-06-16 | Outpatient (REF) | payer MEDICAID, MEDICARE ==
[2018-06-16 08:04] LABS: INR 3.51
== END ==
LOC: SKLAB5 09:10
DX: Z51.81 Encounter for therapeutic drug level monitoring (principal); Z79.01 Long term (current) use of anticoagulants

== ENCOUNTER → 2018-06-20 | Outpatient (REF) ==
[2018-06-20 07:40] LABS: HEMATOCRIT 34.9 % (42.0-52.0); HEMOGLOBIN 11.2 g/dl (13.5-17.5); MEAN CORPUSCULAR HGB CONC 32.1 g/dl (32.0-36.5); MEAN CORPUSCULAR VOLUME 99.7 fl (80.0-96.0); PLATELET COUNT, AUTOMATED 287 10^3/uL (150-450); RED CELL DISTRIBUTION WIDTH 15.9 % (11.5-14.5); WHITE BLOOD COUNT 7.1 10^3/uL (4.0-10.0)
[2018-06-20 07:49] LABS: INR 2.44
== END ==
LOC: SKLAB5 09:11
DX: I82.409 Acute embolism and thrombosis of unspecified deep veins of unspecified lower extremity (principal); Z79.01 Long term (current) use of anticoagulants

== ENCOUNTER → 2018-06-23 | Outpatient (REF) ==
[2018-06-23 08:14] LABS: INR 3.07; PROTHROMBIN TIME 32.4 SECONDS (12.1-14.4)
== END ==
LOC: SKLAB5 08:08
DX: Z79.01 Long term (current) use of anticoagulants (principal)

== ENCOUNTER → 2018-06-27 | Outpatient (REF) ==
[2018-06-27 08:22] LABS: HEMATOCRIT 35.9 % (42.0-52.0); HEMOGLOBIN 11.5 g/dl (13.5-17.5); MEAN CORPUSCULAR HEMOGLOBIN 31.6 pg (27.0-33.0); MEAN CORPUSCULAR VOLUME 98.6 fl (80.0-96.0); PLATELET COUNT, AUTOMATED 230 10^3/uL (150-450); RED BLOOD COUNT 3.64 10^6/uL (4.30-6.10); WHITE BLOOD COUNT 6.2 10^3/uL (4.0-10.0)
[2018-06-27 08:33] LABS: INR 1.94; PROTHROMBIN TIME 22.5 SECONDS (12.1-14.4)
== END ==
LOC: SKLAB5 14:18
DX: D64.9 Anemia, unspecified (principal); Z79.01 Long term (current) use of anticoagulants

== ENCOUNTER → 2018-06-30 | Outpatient (REF) ==
[2018-06-30 08:32] LABS: INR 2.44
== END ==
LOC: SKLAB5 08:28
DX: Z51.81 Encounter for therapeutic drug level monitoring (principal); Z79.01 Long term (current) use of anticoagulants

== ENCOUNTER → 2018-07-04 | Outpatient (REF) ==
[2018-07-04 08:28] LABS: HEMATOCRIT 39.7 % (42.0-52.0); HEMOGLOBIN 12.9 g/dl (13.5-17.5); MEAN CORPUSCULAR HEMOGLOBIN 31.5 pg (27.0-33.0); MEAN CORPUSCULAR HGB CONC 32.5 g/dl (32.0-36.5); MEAN CORPUSCULAR VOLUME 96.8 fl (80.0-96.0); PLATELET COUNT, AUTOMATED 245 10^3/uL (150-450); RED CELL DISTRIBUTION WIDTH 14.4 % (11.5-14.5)
[2018-07-04 08:46] LABS: INR 2.24; PROTHROMBIN TIME 25.2 SECONDS (12.1-14.4)
== END ==
LOC: SKLAB5 08:10
DX: D64.9 Anemia, unspecified (principal); Z86.718 Personal history of other venous thrombosis and embolism

== ENCOUNTER → 2018-07-07 | Outpatient (REF) | payer MEDICAID, MEDICARE ==
[~2018-07-07] MED LIST changes: +ACCU40TA PO; +ACET650S3 PR; +ASPI81CH PO; +ASPI81TA85 PO; +COLA100C5 PO; +COUM1TAB14 PO; +COUM1TAB17 PO; +DIPH25CA PO; +DULC10SU2 PR; +ENEMENE6 PR; -ISOVUE-370 76% 100ML VIAL (Q9967) As Ordered; +LEXA1TAB2 PO; +LOVE0.01 SC; +LOVE0.8I SC; +LOVE0.8I3 SC; +LOVE1INJ2 SC; +METO1TAB7; +METO1TAB7 PO; +METO50TA7 PO; +MILK12002 PO; +MOM30SS PO; +MULT1TAB10 PO; +PANT40TA3 PO; +PERC5TAB12 PO; +TOPA50TA8 PO; +TYLE325T5 PO; +VITA10002 PO; +VITA2000 PO; +VITA200015 PO; +VITMTA PO; +WARF-60 PO; +WELLTAB40 PO; +lovenox
[2018-07-07 07:43] LABS: INR 2.5; PROTHROMBIN TIME 27.5 SECONDS (12.1-14.4)
== END ==
LOC: SKLAB5 07:10
PROVIDERS: ATTEND Family Medicine
DX: Z86.718 Personal history of other venous thrombosis and embolism (principal)

== ENCOUNTER → 2018-07-11 | Outpatient (REF) ==
[2018-07-11 07:23] LABS: INR 2.35; PROTHROMBIN TIME 26.2 SECONDS (12.1-14.4)
== END ==
LOC: SKLAB5 07:46
PROVIDERS: ATTEND Family Medicine
DX: Z86.718 Personal history of other venous thrombosis and embolism (principal)

== ENCOUNTER → 2018-07-14 | Outpatient (REF) | payer MEDICAID, MEDICARE ==
[~2018-07-14] MED LIST changes: +MILK120011 PO; -MILK12002 PO
[2018-07-14 08:44] LABS: INR 2.52; PROTHROMBIN TIME 27.7 SECONDS (12.1-14.4)
== END ==
LOC: SKLAB5 08:19
PROVIDERS: ATTEND Family Medicine
DX: Z86.718 Personal history of other venous thrombosis and embolism (principal)

== ENCOUNTER → 2018-07-18 | Outpatient (REF) ==
[~2018-07-18] MED LIST changes: -MILK120011 PO; +MILK12002 PO
[2018-07-18 07:56] LABS: INR 2.22
== END ==
LOC: SKLAB5 13:19
PROVIDERS: ATTEND Family Medicine
DX: Z86.718 Personal history of other venous thrombosis and embolism (principal)

== ENCOUNTER → 2018-07-21 | Outpatient (REF) ==
[2018-07-21 08:29] LABS: HEMATOCRIT 40.6 % (42.0-52.0); HEMOGLOBIN 13.1 g/dl (13.5-17.5); MEAN CORPUSCULAR HEMOGLOBIN 30.7 pg (27.0-33.0); MEAN CORPUSCULAR HGB CONC 32.3 g/dl (32.0-36.5); MEAN CORPUSCULAR VOLUME 95.1 fl (80.0-96.0); PLATELET COUNT, AUTOMATED 203 10^3/uL (150-450); RED BLOOD COUNT 4.27 10^6/uL (4.30-6.10); WHITE BLOOD COUNT 5.9 10^3/uL (4.0-10.0)
[2018-07-21 08:39] LABS: INR 2.08; PROTHROMBIN TIME 23.8 SECONDS (12.1-14.4)
== END ==
LOC: SKLAB5 08:03
PROVIDERS: ATTEND Family Medicine
DX: D64.9 Anemia, unspecified (principal); Z79.01 Long term (current) use of anticoagulants

== ENCOUNTER → 2018-07-25 | Outpatient (REF) ==
[2018-07-25 07:41] LABS: INR 2.44
== END ==
LOC: SKLAB5 09:45
PROVIDERS: ATTEND Family Medicine
DX: Z79.01 Long term (current) use of anticoagulants (principal)

== ENCOUNTER → 2018-08-01 | Outpatient (REF) ==
[~2018-08-01] MED LIST changes: +MILK120011 PO; -MILK12002 PO
[2018-08-01 07:43] LABS: INR 2.39; PROTHROMBIN TIME 26.5 SECONDS (12.1-14.4)
== END ==
LOC: SKLAB5 08:33
PROVIDERS: ATTEND Family Medicine
DX: Z79.01 Long term (current) use of anticoagulants (principal)

== ENCOUNTER → 2018-08-04 | Outpatient (REF) ==
[2018-08-04 08:58] LABS: INR 2.49; PROTHROMBIN TIME 27.4 SECONDS (12.1-14.4)
== END ==
LOC: SKLAB5 09:31
PROVIDERS: ATTEND Family Medicine
DX: Z79.01 Long term (current) use of anticoagulants (principal)

== ENCOUNTER → 2018-08-08 | Outpatient (REF) ==
[2018-08-08 08:18] LABS: INR 2.6; PROTHROMBIN TIME 28.4 SECONDS (12.1-14.4)
== END ==
LOC: SKLAB5 07:22
PROVIDERS: ATTEND Family Medicine
DX: Z79.01 Long term (current) use of anticoagulants (principal)

== ENCOUNTER → 2018-08-11 | Outpatient (REF) ==
[2018-08-11 08:33] LABS: INR 2.24; PROTHROMBIN TIME 25.2 SECONDS (12.1-14.4)
== END ==
LOC: SKLAB5 08:00
PROVIDERS: ATTEND Family Medicine
DX: Z79.01 Long term (current) use of anticoagulants (principal)

== ENCOUNTER → 2018-08-15 | Outpatient (REF) ==
[2018-08-15 07:45] LABS: INR 2.23; PROTHROMBIN TIME 25.1 SECONDS (12.1-14.4)
== END ==
LOC: SKLAB5 08:35
PROVIDERS: ATTEND Family Medicine
DX: Z79.01 Long term (current) use of anticoagulants (principal)

== ENCOUNTER → 2018-08-18 | Outpatient (REF) ==
[2018-08-18 10:48] LABS: INR 2.45; PROTHROMBIN TIME 27.1 SECONDS (12.1-14.4)
== END ==
LOC: SKLAB5 08:33
PROVIDERS: ATTEND Family Medicine
DX: Z79.01 Long term (current) use of anticoagulants (principal)

== ENCOUNTER → 2018-08-22 | Outpatient (REF) | payer MEDICARE, MEDICAID ==
[2018-08-22 08:46] LABS: INR 2.58; PROTHROMBIN TIME 28.2 SECONDS (12.1-14.4)
== END ==
LOC: SKLAB5 08:15
PROVIDERS: ATTEND Family Medicine
DX: Z79.01 Long term (current) use of anticoagulants (principal)

== ENCOUNTER → 2018-08-25 | Outpatient (REF) | payer MEDICARE, MEDICAID ==
[2018-08-25 08:30] LABS: INR 2.32; PROTHROMBIN TIME 25.9 SECONDS (12.1-14.4)
== END ==
LOC: SKLAB5 09:19
PROVIDERS: ATTEND Family Medicine
DX: Z79.01 Long term (current) use of anticoagulants (principal)

== ENCOUNTER → 2018-08-29 | Outpatient (REF) | payer MEDICARE, MEDICAID ==
[2018-08-29 08:11] LABS: INR 2.06; PROTHROMBIN TIME 23.6 SECONDS (12.1-14.4)
== END ==
LOC: SKLAB5 08:21
PROVIDERS: ATTEND Family Medicine
DX: Z79.01 Long term (current) use of anticoagulants (principal)

== ENCOUNTER → 2018-09-01 | Outpatient (REF) | payer MEDICARE, MEDICAID ==
[2018-09-01 08:46] LABS: INR 1.94; PROTHROMBIN TIME 22.5 SECONDS (12.1-14.4)
== END ==
LOC: SKLAB5 08:07
PROVIDERS: ATTEND Family Medicine
DX: Z79.01 Long term (current) use of anticoagulants (principal)

== ENCOUNTER → 2018-09-05 | Outpatient (REF) | payer MEDICARE, MEDICAID ==
[2018-09-05 08:16] LABS: INR 2.07; PROTHROMBIN TIME 23.7 SECONDS (12.1-14.4)
== END ==
LOC: SKLAB5 10:10
PROVIDERS: ATTEND Family Medicine
DX: Z79.01 Long term (current) use of anticoagulants (principal)

== ENCOUNTER → 2018-09-08 | Outpatient (REF) | payer MEDICARE, MEDICAID ==
[2018-09-08 09:41] LABS: INR 2.43; PROTHROMBIN TIME 26.9 SECONDS (12.1-14.4)
== END ==
LOC: SKLAB5 08:19
PROVIDERS: ATTEND Family Medicine
DX: Z79.01 Long term (current) use of anticoagulants (principal)

== ENCOUNTER → 2018-09-12 | Outpatient (REF) | payer MEDICARE, MEDICAID ==
[2018-09-12 08:10] LABS: INR 2.32; PROTHROMBIN TIME 25.9 SECONDS (12.1-14.4)
== END ==
LOC: SKLAB5 08:33
PROVIDERS: ATTEND Family Medicine
DX: Z79.01 Long term (current) use of anticoagulants (principal)

== ENCOUNTER → 2018-09-15 | Outpatient (REF) | payer MEDICARE, MEDICAID ==
[2018-09-15 08:33] LABS: INR 2.41; PROTHROMBIN TIME 26.8 SECONDS (12.1-14.4)
== END ==
LOC: SKLAB5 08:29
PROVIDERS: ATTEND Family Medicine
DX: Z79.01 Long term (current) use of anticoagulants (principal)

== ENCOUNTER → 2018-09-19 | Outpatient (REF) | payer MEDICARE, MEDICAID ==
[2018-09-19 09:30] LABS: INR 2.3; PROTHROMBIN TIME 25.7 SECONDS (12.1-14.4)
== END ==
LOC: SKLAB5 08:12
PROVIDERS: ATTEND Family Medicine
DX: Z79.01 Long term (current) use of anticoagulants (principal)

== ENCOUNTER → 2018-09-22 | Outpatient (REF) | payer MEDICARE, MEDICAID ==
[2018-09-22 10:34] LABS: INR 2.42; PROTHROMBIN TIME 26.9 SECONDS (12.1-14.4)
== END ==
LOC: SKLAB5 07:51
PROVIDERS: ATTEND Family Medicine
DX: Z79.01 Long term (current) use of anticoagulants (principal)

== ENCOUNTER → 2018-09-26 | Outpatient (REF) | payer MEDICARE, MEDICAID ==
[2018-09-26 09:08] LABS: INR 2.21
== END ==
LOC: SKLAB5 07:45
PROVIDERS: ATTEND Family Medicine
DX: Z79.01 Long term (current) use of anticoagulants (principal)

== ENCOUNTER → 2018-09-29 | Outpatient (REF) | payer MEDICARE, MEDICAID ==
[2018-09-29 08:59] LABS: INR 2.18; PROTHROMBIN TIME 24.7 SECONDS (12.1-14.4)
== END ==
LOC: SKLAB5 10:56
PROVIDERS: ATTEND Family Medicine
DX: Z79.01 Long term (current) use of anticoagulants (principal)

== ENCOUNTER → 2018-10-03 | Outpatient (REF) | payer MEDICARE, MEDICAID ==
[2018-10-03 08:39] LABS: INR 2.39; PROTHROMBIN TIME 26.6 SECONDS (12.1-14.4)
== END ==
LOC: SKLAB5 10:56
PROVIDERS: ATTEND Family Medicine
DX: Z79.01 Long term (current) use of anticoagulants (principal)

== ENCOUNTER → 2018-10-06 | Outpatient (REF) | payer MEDICARE, MEDICAID ==
[2018-10-06 08:45] LABS: INR 2.44
== END ==
LOC: SKLAB5 07:32
PROVIDERS: ATTEND Family Medicine
DX: Z79.01 Long term (current) use of anticoagulants (principal)

== ENCOUNTER → 2018-10-10 | Outpatient (REF) | payer MEDICARE, MEDICAID ==
[2018-10-10 11:17] LABS: INR 2.04; PROTHROMBIN TIME 23.4 SECONDS (12.1-14.4)
== END ==
LOC: SKLAB5 10:20
PROVIDERS: ATTEND Family Medicine
DX: Z79.01 Long term (current) use of anticoagulants (principal)

== ENCOUNTER → 2018-10-13 | Outpatient (REF) | payer MEDICARE, MEDICAID ==
[2018-10-13 08:54] LABS: INR 2.37; PROTHROMBIN TIME 26.4 SECONDS (12.1-14.4)
== END ==
LOC: SKLAB5 08:24
PROVIDERS: ATTEND Family Medicine
DX: Z79.01 Long term (current) use of anticoagulants (principal)

== ENCOUNTER → 2018-10-17 | Outpatient (REF) | payer MEDICARE, MEDICAID ==
[2018-10-17 08:23] LABS: INR 2.41; PROTHROMBIN TIME 26.7 SECONDS (12.1-14.4)
== END ==
LOC: SKLAB5 07:18
PROVIDERS: ATTEND Family Medicine
DX: Z79.01 Long term (current) use of anticoagulants (principal); I82.409 Acute embolism and thrombosis of unspecified deep veins of unspecified lower extremity

== ENCOUNTER → 2018-10-20 | Outpatient (REF) | payer MEDICARE, MEDICAID ==
[2018-10-20 09:33] LABS: INR 2.4; PROTHROMBIN TIME 26.6 SECONDS (12.1-14.4)
== END ==
LOC: SKLAB5 08:01
PROVIDERS: ATTEND Family Medicine
DX: Z79.01 Long term (current) use of anticoagulants (principal); Z86.718 Personal history of other venous thrombosis and embolism

== ENCOUNTER → 2018-10-24 | Outpatient (REF) | payer MEDICARE, MEDICAID ==
[~2018-10-24] MED LIST changes: -ASPI81CH PO; +ASPI81CH49 PO
[2018-10-24 07:13] LABS: INR 2.49; PROTHROMBIN TIME 27.4 SECONDS (12.1-14.4)
== END ==
LOC: SKLAB5 07:31
PROVIDERS: ATTEND Family Medicine
DX: Z86.718 Personal history of other venous thrombosis and embolism (principal)

== ENCOUNTER → 2018-10-27 | Outpatient (REF) | payer MEDICARE, MEDICAID ==
[2018-10-27 08:31] LABS: INR 2.7; PROTHROMBIN TIME 29.2 SECONDS (12.1-14.4)
== END ==
LOC: SKLAB5 08:04
PROVIDERS: ATTEND Family Medicine
DX: Z79.01 Long term (current) use of anticoagulants (principal)

== ENCOUNTER → 2018-10-31 | Outpatient (REF) | payer MEDICARE, MEDICAID ==
[2018-10-31 07:52] LABS: INR 2.18; PROTHROMBIN TIME 24.7 SECONDS (12.1-14.4)
== END ==
LOC: SKLAB5 08:01
PROVIDERS: ATTEND Family Medicine
DX: Z79.01 Long term (current) use of anticoagulants (principal)

== ENCOUNTER → 2018-11-07 | Outpatient (REF) | payer MEDICARE, MEDICAID ==
[2018-11-07 08:50] LABS: INR 2.28; PROTHROMBIN TIME 25.6 SECONDS (12.1-14.4)
== END ==
LOC: SKLAB5 07:40
PROVIDERS: ATTEND Family Medicine
DX: Z79.01 Long term (current) use of anticoagulants (principal)

== ENCOUNTER → 2018-11-10 | Outpatient (REF) | payer MEDICARE, MEDICAID ==
[2018-11-10 08:39] LABS: INR 2.54; PROTHROMBIN TIME 27.9 SECONDS (12.1-14.4)
== END ==
LOC: SKLAB5 07:41
PROVIDERS: ATTEND Family Medicine
DX: Z79.01 Long term (current) use of anticoagulants (principal)

== ENCOUNTER → 2018-11-14 | Outpatient (REF) | payer MEDICARE, MEDICAID ==
[2018-11-14 08:08] LABS: INR 2.28; PROTHROMBIN TIME 25.6 SECONDS (12.1-14.4)
== END ==
LOC: SKLAB5 09:00
PROVIDERS: ATTEND Family Medicine
DX: Z51.81 Encounter for therapeutic drug level monitoring (principal)

== ENCOUNTER → 2018-11-17 | Outpatient (REF) | payer MEDICARE, MEDICAID ==
[2018-11-17 08:07] LABS: INR 2.45; PROTHROMBIN TIME 27.1 SECONDS (12.1-14.4)
== END ==
LOC: SKLAB5 08:22
PROVIDERS: ATTEND Family Medicine
DX: Z79.01 Long term (current) use of anticoagulants (principal)

== ENCOUNTER → 2018-11-21 | Outpatient (REF) | payer MEDICARE, MEDICAID ==
[2018-11-21 08:11] LABS: INR 2.15; PROTHROMBIN TIME 24.4 SECONDS (12.1-14.4)
== END ==
LOC: SKLAB5 10:16
PROVIDERS: ATTEND Family Medicine
DX: Z79.01 Long term (current) use of anticoagulants (principal)

== ENCOUNTER → 2018-11-24 | Outpatient (REF) | payer MEDICARE, MEDICAID ==
[2018-11-24 08:25] LABS: INR 2.23; PROTHROMBIN TIME 25.1 SECONDS (12.1-14.4)
== END ==
LOC: SKLAB5 09:58
PROVIDERS: ATTEND Family Medicine
DX: Z79.01 Long term (current) use of anticoagulants (principal)

== ENCOUNTER → 2018-11-28 | Outpatient (REF) | payer MEDICARE, MEDICAID ==
[2018-11-28 08:05] LABS: INR 2.45; PROTHROMBIN TIME 27.1 SECONDS (12.1-14.4)
== END ==
LOC: SKLAB5 09:28
PROVIDERS: ATTEND Family Medicine
DX: Z79.01 Long term (current) use of anticoagulants (principal)

== ENCOUNTER → 2018-12-01 | Outpatient (REF) | payer MEDICARE, MEDICAID ==
[2018-12-01 08:17] LABS: INR 2.55; PROTHROMBIN TIME 27.9 SECONDS (12.1-14.4)
== END ==
LOC: SKLAB5 08:46
PROVIDERS: ATTEND Family Medicine
DX: Z79.01 Long term (current) use of anticoagulants (principal)

== ENCOUNTER → 2018-12-05 | Outpatient (REF) | payer MEDICARE, MEDICAID ==
[2018-12-05 08:28] LABS: INR 2.39; PROTHROMBIN TIME 26.6 SECONDS (12.1-14.4)
== END ==
LOC: SKLAB5 09:26
PROVIDERS: ATTEND Family Medicine
DX: I82.409 Acute embolism and thrombosis of unspecified deep veins of unspecified lower extremity (principal)

== ENCOUNTER → 2018-12-08 | Outpatient (REF) | payer MEDICARE, MEDICAID ==
[2018-12-08 08:14] LABS: INR 2.41; PROTHROMBIN TIME 26.7 SECONDS (12.1-14.4)
== END ==
LOC: SKLAB5 08:42
PROVIDERS: ATTEND Family Medicine
DX: I74.9 Embolism and thrombosis of unspecified artery (principal)

== ENCOUNTER → 2018-12-15 | Outpatient (REF) | payer MEDICARE, MEDICAID ==
[2018-12-15 07:37] LABS: INR 2.49; PROTHROMBIN TIME 27.4 SECONDS (12.1-14.4)
== END ==
LOC: SKLAB5 08:38
PROVIDERS: ATTEND Family Medicine
DX: Z79.01 Long term (current) use of anticoagulants (principal); Z86.718 Personal history of other venous thrombosis and embolism

== ENCOUNTER → 2018-12-19 | Outpatient (REF) | payer MEDICARE, MEDICAID ==
[2018-12-19 08:23] LABS: INR 2.65; PROTHROMBIN TIME 28.8 SECONDS (12.1-14.4)
== END ==
LOC: SKLAB5 08:33
PROVIDERS: ATTEND Family Medicine
DX: Z79.01 Long term (current) use of anticoagulants (principal)

== ENCOUNTER → 2018-12-22 | Outpatient (REF) | payer MEDICARE, MEDICAID ==
[2018-12-22 07:48] LABS: INR 2.9
== END ==
LOC: SKLAB5 09:09
PROVIDERS: ATTEND Family Medicine
DX: Z79.01 Long term (current) use of anticoagulants (principal)

== ENCOUNTER → 2018-12-26 | Outpatient (REF) | payer MEDICARE, MEDICAID ==
[2018-12-26 07:35] LABS: INR 2.85; PROTHROMBIN TIME 30.5 SECONDS (12.1-14.4)
== END ==
LOC: SKLAB5 09:04
PROVIDERS: ATTEND Family Medicine
DX: Z79.01 Long term (current) use of anticoagulants (principal)

== ENCOUNTER → 2018-12-31 | Outpatient (REF) | payer MEDICARE, MEDICAID ==
[2018-12-31 13:09] LABS: APPEARANCE, URINE CLEAR (CLEAR); BACTERIA, URINE AUTO NEGATIVE (NEGATIVE); BILIRUBIN, URINE AUTO NEGATIVE (NEGATIVE); BLOOD, URINE BLOOD NEGATIVE (NEGATIVE); COLOR, URINE YELLOW (YELLOW); GLUCOSE, URINE (UA) AUTO NEGATIVE (NEGATIVE); KETONE, URINE AUTO NEGATIVE (NEGATIVE); LEUKOCYTE ESTERASE, URINE AUTO 1+ (NEGATIVE); MUCUS, URINE SMALL (NEGATIVE); NITRITE, URINE AUTO NEGATIVE (NEGATIVE); PROTEIN, URINE AUTO NEGATIVE (NEGATIVE); RBC, URINE AUTO 5 /HPF (0-3); SPECIFIC GRAVITY URINE AUTO 1.017 (1.002-1.035); SQUAMOUS EPITHELIAL CELL UR AU 0 /HPF (0-6); UROBILINOGEN, URINE AUTO 0.2 mg/dL (0.0-2.0); WBC, URINE AUTO 9 /HPF (0-3)
== END ==
LOC: SKLAB5 12:39
PROVIDERS: ATTEND Family Medicine
DX: R41.0 Disorientation, unspecified (principal)

== ENCOUNTER → 2019-01-02 | Outpatient (REF) | payer MEDICARE, MEDICAID ==
[2019-01-02 08:24] LABS: INR 2.24; PROTHROMBIN TIME 25.2 SECONDS (12.1-14.4)
== END ==
LOC: SKLAB5 07:53
PROVIDERS: ATTEND Family Medicine
DX: Z79.01 Long term (current) use of anticoagulants (principal)

== ENCOUNTER → 2019-01-05 | Outpatient (REF) | payer MEDICARE, MEDICAID ==
[2019-01-05 08:59] LABS: INR 2.65; PROTHROMBIN TIME 28.1 SECONDS (11.8-14.0)
== END ==
LOC: SKLAB5 07:45
PROVIDERS: ATTEND Family Medicine
DX: Z79.01 Long term (current) use of anticoagulants (principal)

== ENCOUNTER → 2019-01-09 | Outpatient (REF) | payer MEDICARE, MEDICAID ==
[2019-01-09 07:48] LABS: INR 2.42; PROTHROMBIN TIME 26.2 SECONDS (11.8-14.0)
== END ==
LOC: SKLAB5 08:52
PROVIDERS: ATTEND Family Medicine
DX: Z79.01 Long term (current) use of anticoagulants (principal)

== ENCOUNTER → 2019-01-12 | Outpatient (REF) | payer MEDICARE, MEDICAID ==
[2019-01-12 08:29] LABS: INR 2.63
== END ==
LOC: SKLAB5 08:23
PROVIDERS: ATTEND Family Medicine
DX: Z79.01 Long term (current) use of anticoagulants (principal)

== ENCOUNTER → 2019-01-16 | Outpatient (REF) | payer MEDICARE, MEDICAID ==
[2019-01-16 07:14] LABS: INR 2.74; PROTHROMBIN TIME 28.9 SECONDS (11.8-14.0)
== END ==
LOC: SKLAB5 07:37
PROVIDERS: ATTEND Family Medicine
DX: Z79.01 Long term (current) use of anticoagulants (principal)

== ENCOUNTER → 2019-01-20 | Outpatient (REF) | payer MEDICARE, MEDICAID ==
[2019-01-20 08:03] LABS: INR 2.66; PROTHROMBIN TIME 28.2 SECONDS (11.8-14.0)
== END ==
LOC: SKLAB5 12:08
PROVIDERS: ATTEND Family Medicine
DX: Z79.01 Long term (current) use of anticoagulants (principal)

== ENCOUNTER → 2019-01-23 | Outpatient (REF) | payer MEDICARE, MEDICAID ==
[~2019-01-23] MED LIST changes: +CYAN100049 PO; -DIPH25CA PO; +DIPH25CA32 PO; -VITA10002 PO
[2019-01-23 07:39] LABS: INR 2.53; PROTHROMBIN TIME 27.1 SECONDS (11.8-14.0)
== END ==
LOC: SKLAB5 07:25
PROVIDERS: ATTEND Family Medicine
DX: Z79.01 Long term (current) use of anticoagulants (principal)

== ENCOUNTER → 2019-01-26 | Outpatient (REF) | payer MEDICARE, MEDICAID ==
[2019-01-26 07:41] LABS: INR 2.49; PROTHROMBIN TIME 26.8 SECONDS (11.8-14.0)
== END ==
LOC: SKLAB5 07:29
PROVIDERS: ATTEND Family Medicine
DX: Z79.01 Long term (current) use of anticoagulants (principal)

== ENCOUNTER → 2019-01-30 | Outpatient (REF) | payer MEDICARE, MEDICAID ==
[~2019-01-30] MED LIST changes: +DIPH25CA PO; -DIPH25CA32 PO
[2019-01-30 09:28] LABS: INR 2.71; PROTHROMBIN TIME 28.6 SECONDS (11.8-14.0)
== END ==
LOC: SKLAB5 08:05
PROVIDERS: ATTEND Family Medicine
DX: Z79.01 Long term (current) use of anticoagulants (principal)

== ENCOUNTER → 2019-02-02 | Outpatient (REF) | payer MEDICARE, MEDICAID ==
[2019-02-02 08:02] LABS: INR 2.48; PROTHROMBIN TIME 26.7 SECONDS (11.8-14.0)
== END ==
LOC: SKLAB5 07:45
PROVIDERS: ATTEND Family Medicine
DX: Z79.01 Long term (current) use of anticoagulants (principal)

== ENCOUNTER → 2019-02-06 | Outpatient (REF) | payer MEDICARE, MEDICAID ==
[~2019-02-06] MED LIST changes: -DIPH25CA PO; +DIPH25CA32 PO
[2019-02-06 08:13] LABS: INR 2.66; PROTHROMBIN TIME 28.2 SECONDS (11.8-14.0)
== END ==
LOC: SKLAB5 07:47
PROVIDERS: ATTEND Family Medicine
DX: Z79.01 Long term (current) use of anticoagulants (principal)

== ENCOUNTER → 2019-02-09 | Outpatient (REF) | payer MEDICARE, MEDICAID ==
[~2019-02-09] MED LIST changes: +DIPH25CA PO; -DIPH25CA32 PO
[2019-02-09 07:41] LABS: INR 2.68; PROTHROMBIN TIME 28.4 SECONDS (11.8-14.0)
== END ==
LOC: SKLAB5 08:22
PROVIDERS: ATTEND Family Medicine
DX: Z79.01 Long term (current) use of anticoagulants (principal)

== ENCOUNTER → 2019-02-13 | Outpatient (REF) | payer MEDICARE, MEDICAID ==
[2019-02-13 08:38] LABS: INR 2.26; PROTHROMBIN TIME 24.8 SECONDS (11.8-14.0)
== END ==
LOC: SKLAB5 10:45
PROVIDERS: ATTEND Family Medicine
DX: Z79.01 Long term (current) use of anticoagulants (principal)

== ENCOUNTER → 2019-02-16 | Outpatient (REF) | payer MEDICARE, MEDICAID ==
[2019-02-16 08:14] LABS: INR 2.34; PROTHROMBIN TIME 25.5 SECONDS (11.8-14.0)
== END ==
LOC: SKLAB5 07:42
PROVIDERS: ATTEND Family Medicine
DX: Z79.01 Long term (current) use of anticoagulants (principal)

== ENCOUNTER → 2019-02-20 | Outpatient (REF) | payer MEDICARE, MEDICAID ==
[2019-02-20 09:25] LABS: INR 2.42; PROTHROMBIN TIME 26.2 SECONDS (11.8-14.0)
== END ==
LOC: SKLAB5 08:26
PROVIDERS: ATTEND Family Medicine
DX: Z79.01 Long term (current) use of anticoagulants (principal)

== ENCOUNTER → 2019-02-23 | Outpatient (REF) | payer MEDICARE, MEDICAID ==
[~2019-02-23] MED LIST changes: -DIPH25CA PO; +DIPH25CA32 PO
[2019-02-23 08:14] LABS: INR 2.71; PROTHROMBIN TIME 28.6 SECONDS (11.8-14.0)
== END ==
LOC: SKLAB5 08:18
PROVIDERS: ATTEND Family Medicine
DX: Z79.01 Long term (current) use of anticoagulants (principal)

== ENCOUNTER → 2019-02-27 | Outpatient (REF) | payer MEDICARE, MEDICAID ==
[2019-02-27 08:26] LABS: INR 2.54; PROTHROMBIN TIME 27.2 SECONDS (11.8-14.0)
== END ==
LOC: SKLAB5 09:15
PROVIDERS: ATTEND Family Medicine
DX: Z79.01 Long term (current) use of anticoagulants (principal)

== ENCOUNTER → 2019-03-02 | Outpatient (REF) | payer MEDICARE, MEDICAID ==
[2019-03-02 08:50] LABS: INR 2.55; PROTHROMBIN TIME 27.3 SECONDS (11.8-14.0)
== END ==
LOC: SKLAB5 07:47
PROVIDERS: ATTEND Family Medicine
DX: I82.409 Acute embolism and thrombosis of unspecified deep veins of unspecified lower extremity (principal)

== ENCOUNTER → 2019-03-06 | Outpatient (REF) | payer MEDICARE, MEDICAID ==
[2019-03-06 09:52] LABS: INR 2.24; PROTHROMBIN TIME 24.6 SECONDS (11.8-14.0)
== END ==
LOC: SKLAB5 07:48
PROVIDERS: ATTEND Family Medicine
DX: I82.409 Acute embolism and thrombosis of unspecified deep veins of unspecified lower extremity (principal)

== ENCOUNTER → 2019-03-09 | Outpatient (REF) | payer MEDICARE, MEDICAID ==
[2019-03-09 08:20] LABS: INR 2.13; PROTHROMBIN TIME 23.7 SECONDS (11.8-14.0)
== END ==
LOC: SKLAB5 07:32
PROVIDERS: ATTEND Family Medicine
DX: Z79.01 Long term (current) use of anticoagulants (principal)

== ENCOUNTER → 2019-03-13 | Outpatient (REF) | payer MEDICARE, MEDICAID ==
[2019-03-13 08:34] LABS: INR 2.13; PROTHROMBIN TIME 23.6 SECONDS (11.8-14.0)
== END ==
LOC: SKLAB5 09:00
PROVIDERS: ATTEND Family Medicine
DX: Z79.01 Long term (current) use of anticoagulants (principal)

== ENCOUNTER → 2019-03-16 | Outpatient (REF) | payer MEDICARE, MEDICAID ==
[2019-03-16 07:26] LABS: INR 2.31; PROTHROMBIN TIME 25.2 SECONDS (11.8-14.0)
== END ==
LOC: SKLAB5 07:36
PROVIDERS: ATTEND Family Medicine
DX: Z79.01 Long term (current) use of anticoagulants (principal)

== ENCOUNTER → 2019-03-21 | Outpatient (REF) | payer MEDICARE, MEDICAID ==
[2019-03-21 11:10] LABS: INR 2.58; PROTHROMBIN TIME 27.5 SECONDS (11.8-14.0)
== END ==
LOC: SKLAB5 07:33
PROVIDERS: ATTEND Family Medicine
DX: Z79.01 Long term (current) use of anticoagulants (principal)

== ENCOUNTER → 2019-03-23 | Outpatient (REF) | payer MEDICARE, MEDICAID ==
[2019-03-23 08:39] LABS: INR 2.48; PROTHROMBIN TIME 26.7 SECONDS (11.8-14.0)
== END ==
LOC: SKLAB5 10:25
PROVIDERS: ATTEND Family Medicine
DX: Z79.01 Long term (current) use of anticoagulants (principal)

== ENCOUNTER → 2019-03-27 | Outpatient (REF) | payer MEDICARE, MEDICAID ==
[2019-03-27 08:15] LABS: INR 2.58; PROTHROMBIN TIME 27.5 SECONDS (11.8-14.0)
== END ==
LOC: SKLAB5 07:49
PROVIDERS: ATTEND Family Medicine
DX: Z79.01 Long term (current) use of anticoagulants (principal)

== ENCOUNTER → 2019-03-30 | Outpatient (REF) | payer MEDICARE, MEDICAID ==
[2019-03-30 08:52] LABS: INR 2.57; PROTHROMBIN TIME 27.4 SECONDS (11.8-14.0)
== END ==
LOC: SKLAB5 07:44
PROVIDERS: ATTEND Family Medicine
DX: Z79.01 Long term (current) use of anticoagulants (principal)

== ENCOUNTER → 2019-04-06 | Outpatient (REF) | payer MEDICARE, MEDICAID ==
[2019-04-06 10:12] LABS: INR 2.42; PROTHROMBIN TIME 26.2 SECONDS (11.8-14.0)
== END ==
LOC: SKLAB5 07:49
PROVIDERS: ATTEND Family Medicine
DX: Z79.01 Long term (current) use of anticoagulants (principal)

== ENCOUNTER → 2019-04-13 | Outpatient (REF) | payer MEDICARE, MEDICAID ==
[2019-04-13 09:32] LABS: INR 2.39; PROTHROMBIN TIME 25.9 SECONDS (11.8-14.0)
== END ==
LOC: SKLAB5 08:14
PROVIDERS: ATTEND Family Medicine
DX: Z79.01 Long term (current) use of anticoagulants (principal)

== ENCOUNTER → 2019-04-20 | Outpatient (REF) | payer MEDICARE, MEDICAID ==
[2019-04-20 08:38] LABS: INR 2.11; PROTHROMBIN TIME 23.4 SECONDS (11.8-14.0)
== END ==
LOC: SKLAB5 08:26
PROVIDERS: ATTEND Family Medicine
DX: Z79.01 Long term (current) use of anticoagulants (principal)

== ENCOUNTER → 2019-04-27 | Outpatient (REF) | payer MEDICARE, MEDICAID ==
[2019-04-27 08:41] LABS: INR 2.16; PROTHROMBIN TIME 23.9 SECONDS (11.8-14.0)
== END ==
LOC: SKLAB5 13:29
PROVIDERS: ATTEND Family Medicine
DX: Z79.01 Long term (current) use of anticoagulants (principal)

== ENCOUNTER → 2019-05-04 | Outpatient (REF) | payer MEDICARE, MEDICAID ==
[2019-05-04 08:56] LABS: INR 2.46; PROTHROMBIN TIME 26.5 SECONDS (11.8-14.0)
== END ==
LOC: SKLAB5 07:37
PROVIDERS: ATTEND Family Medicine
DX: Z79.01 Long term (current) use of anticoagulants (principal)

== ENCOUNTER → 2019-05-11 | Outpatient (REF) | payer MEDICARE, MEDICAID ==
[2019-05-11 09:17] LABS: INR 2.37; PROTHROMBIN TIME 25.7 SECONDS (11.8-14.0)
== END ==
LOC: SKLAB5 08:33
PROVIDERS: ATTEND Family Medicine
DX: Z79.01 Long term (current) use of anticoagulants (principal)

== ENCOUNTER → 2019-05-18 | Outpatient (REF) | payer MEDICARE, MEDICAID ==
[2019-05-18 09:36] LABS: INR 2.29
== END ==
LOC: SKLAB5 08:02
PROVIDERS: ATTEND Family Medicine
DX: Z79.01 Long term (current) use of anticoagulants (principal)

== ENCOUNTER → 2019-05-25 | Outpatient (REF) | payer MEDICARE, MEDICAID ==
[2019-05-25 09:21] LABS: INR 2.66; PROTHROMBIN TIME 28.2 SECONDS (11.8-14.0)
== END ==
LOC: SKLAB5 07:48
PROVIDERS: ATTEND Family Medicine
DX: Z79.01 Long term (current) use of anticoagulants (principal)

== ENCOUNTER → 2019-06-01 | Outpatient (REF) | payer MEDICARE, MEDICAID ==
[2019-06-01 09:24] LABS: INR 2.61; PROTHROMBIN TIME 27.8 SECONDS (11.8-14.0)
== END ==
LOC: SKLAB5 08:48
PROVIDERS: ATTEND Family Medicine
DX: Z79.01 Long term (current) use of anticoagulants (principal)

== ENCOUNTER → 2019-06-08 | Outpatient (REF) | payer MEDICARE, MEDICAID ==
[2019-06-08 10:18] LABS: INR 2.28; PROTHROMBIN TIME 24.9 SECONDS (11.8-14.0)
== END ==
LOC: SKLAB5 10:40
PROVIDERS: ATTEND Family Medicine
DX: Z79.01 Long term (current) use of anticoagulants (principal)

== ENCOUNTER → 2019-06-14 | Outpatient (REF) | payer MEDICARE, MEDICAID ==
[2019-06-14 08:14] LABS: INR 2.75
== END ==
LOC: SKLAB5 08:50
PROVIDERS: ATTEND Family Medicine
DX: I82.409 Acute embolism and thrombosis of unspecified deep veins of unspecified lower extremity (principal)

== ENCOUNTER → 2019-06-22 | Outpatient (REF) | payer MEDICARE, MEDICAID ==
[2019-06-22 08:43] LABS: INR 2.82; PROTHROMBIN TIME 29.6 SECONDS (11.8-14.0)
== END ==
LOC: SKLAB5 09:56
PROVIDERS: ATTEND Family Medicine
DX: Z86.718 Personal history of other venous thrombosis and embolism (principal)

== ENCOUNTER → 2019-06-29 | Outpatient (REF) | payer MEDICARE, MEDICAID ==
[2019-06-29 08:20] LABS: INR 2.34; PROTHROMBIN TIME 25.5 SECONDS (11.8-14.0)
== END ==
LOC: SKLAB5 08:26
PROVIDERS: ATTEND Family Medicine
DX: Z79.01 Long term (current) use of anticoagulants (principal)

== ENCOUNTER → 2019-07-06 | Outpatient (REF) | payer MEDICARE, MEDICAID ==
[2019-07-06 09:18] LABS: INR 2.69; PROTHROMBIN TIME 28.5 SECONDS (11.8-14.0)
== END ==
LOC: SKLAB5 08:11
PROVIDERS: ATTEND Family Medicine
DX: Z86.718 Personal history of other venous thrombosis and embolism (principal)

== ENCOUNTER → 2019-07-12 | Outpatient (REF) | payer MEDICARE, MEDICAID ==
[2019-07-13 07:36] LABS: INR 2.56; PROTHROMBIN TIME 27.3 SECONDS (11.8-14.0)
== END ==
LOC: SKLAB5 07-04 10:08
PROVIDERS: ATTEND Family Medicine
DX: I73.9 Peripheral vascular disease, unspecified (principal)

== ENCOUNTER → 2019-07-20 | Outpatient (REF) | payer MEDICARE, MEDICAID ==
[2019-07-20 09:38] LABS: INR 2.58; PROTHROMBIN TIME 27.5 SECONDS (11.8-14.0)
== END ==
LOC: SKLAB5 07:41
PROVIDERS: ATTEND Family Medicine
DX: Z79.01 Long term (current) use of anticoagulants (principal)

== ENCOUNTER → 2019-07-27 | Outpatient (REF) | payer MEDICARE, MEDICAID ==
[2019-07-27 08:28] LABS: INR 2.8; PROTHROMBIN TIME 29.4 SECONDS (11.8-14.0)
== END ==
LOC: SKLAB5 08:26
PROVIDERS: ATTEND Family Medicine
DX: Z79.01 Long term (current) use of anticoagulants (principal)

== ENCOUNTER → 2019-08-03 | Outpatient (REF) | payer MEDICARE, MEDICAID ==
[2019-08-03 09:26] LABS: INR 2.43; PROTHROMBIN TIME 26.3 SECONDS (11.8-14.0)
== END ==
LOC: SKLAB5 07:55
PROVIDERS: ATTEND Family Medicine
DX: Z79.01 Long term (current) use of anticoagulants (principal)

== ENCOUNTER → 2019-08-10 | Outpatient (REF) | payer MEDICARE, MEDICAID ==
[2019-08-10 10:14] LABS: INR 2.32; PROTHROMBIN TIME 25.3 SECONDS (11.8-14.0)
== END ==
LOC: SKLAB5 07:59
PROVIDERS: ATTEND Family Medicine
DX: Z79.01 Long term (current) use of anticoagulants (principal)

== ENCOUNTER → 2019-08-17 | Outpatient (REF) | payer MEDICARE, MEDICAID ==
[2019-08-17 08:36] LABS: HEMOGLOBIN 14.7 g/dl (13.5-17.5); MEAN CORPUSCULAR HEMOGLOBIN 30.8 pg (27.0-33.0); MEAN CORPUSCULAR VOLUME 96.4 fl (80.0-96.0); PLATELET COUNT, AUTOMATED 189 10^3/uL (150-450); RED BLOOD COUNT 4.77 10^6/uL (4.30-6.10); WHITE BLOOD COUNT 6.8 10^3/uL (4.0-10.0)
[2019-08-17 08:48] LABS: INR 2.68; PROTHROMBIN TIME 28.4 SECONDS (11.8-14.0)
[2019-08-17 08:58] LABS: ALBUMIN 3.4 GM/DL (3.2-5.2); ALT/SGPT 19 U/L (12-78); BILIRUBIN,TOTAL 0.3 MG/DL (0.2-1.0); BLOOD UREA NITROGEN 18 MG/DL (7-18); CALCIUM LEVEL 8.4 MG/DL (8.8-10.2); CARBON DIOXIDE LEVEL 29 MEQ/L (21-32); CHLORIDE LEVEL 110 MEQ/L (98-107); CREATININE FOR GFR 1.24 MG/DL (0.70-1.30); GLOMERULAR FILTRATION RATE > 60.0 (>49); GLUCOSE, FASTING 84 MG/DL (70-100); POTASSIUM SERUM 4.3 MEQ/L (3.5-5.1); SODIUM LEVEL 144 MEQ/L (136-145); TOTAL PROTEIN 6.4 GM/DL (6.4-8.2)
[2019-08-17 09:07] LABS: TOTAL 25(OH) VITAMIN D 42.7 NG/ML (30.0-100.0); VITAMIN B12 LEVEL 1486 PG/ML (247-911)
== END ==
LOC: SKLAB5 07:51
PROVIDERS: ATTEND Family Medicine
DX: Z79.01 Long term (current) use of anticoagulants (principal); Z79.899 Other long term (current) drug therapy

== ENCOUNTER → 2019-08-24 | Outpatient (REF) | payer MEDICARE, MEDICAID ==
[2019-08-24 08:41] LABS: INR 2.82; PROTHROMBIN TIME 29.6 SECONDS (11.8-14.0)
== END ==
LOC: SKLAB5 09:03
PROVIDERS: ATTEND Family Medicine
DX: Z79.01 Long term (current) use of anticoagulants (principal)

== ENCOUNTER → 2019-08-31 | Outpatient (REF) | payer MEDICARE, MEDICAID ==
[2019-08-31 08:14] LABS: INR 2.98; PROTHROMBIN TIME 30.9 SECONDS (11.8-14.0)
== END ==
LOC: SKLAB5 07:09
PROVIDERS: ATTEND Family Medicine
DX: Z79.01 Long term (current) use of anticoagulants (principal)

== ENCOUNTER → 2019-09-07 | Outpatient (REF) | payer MEDICARE, MEDICAID ==
[2019-09-07 09:26] LABS: INR 2.88; PROTHROMBIN TIME 30.1 SECONDS (11.8-14.0)
== END ==
LOC: SKLAB5 07:55
PROVIDERS: ATTEND Family Medicine
DX: Z79.01 Long term (current) use of anticoagulants (principal)

== ENCOUNTER → 2019-09-14 | Outpatient (REF) | payer MEDICARE, MEDICAID ==
[2019-09-14 08:50] LABS: INR 2.74; PROTHROMBIN TIME 28.9 SECONDS (11.8-14.0)
== END ==
LOC: SKLAB5 08:06
PROVIDERS: ATTEND Family Medicine
DX: Z79.01 Long term (current) use of anticoagulants (principal)

== ENCOUNTER → 2019-09-21 | Outpatient (REF) | payer MEDICARE, MEDICAID ==
[2019-09-21 09:35] LABS: INR 2.61; PROTHROMBIN TIME 27.8 SECONDS (11.8-14.0)
== END ==
LOC: SKLAB5 07:50
PROVIDERS: ATTEND Family Medicine
DX: Z79.01 Long term (current) use of anticoagulants (principal)

== ENCOUNTER → 2019-09-28 | Outpatient (REF) | payer MEDICARE, MEDICAID ==
[2019-09-28 10:13] LABS: INR 2.96; PROTHROMBIN TIME 30.7 SECONDS (11.8-14.0)
== END ==
LOC: SKLAB5 11:26
PROVIDERS: ATTEND Family Medicine
DX: Z79.01 Long term (current) use of anticoagulants (principal)

== ENCOUNTER → 2019-10-05 | Outpatient (REF) | payer MEDICARE, MEDICAID ==
[2019-10-05 09:20] LABS: INR 3.03; PROTHROMBIN TIME 31.3 SECONDS (11.8-14.0)
== END ==
LOC: SKLAB5 07:48
PROVIDERS: ATTEND Family Medicine
DX: Z79.01 Long term (current) use of anticoagulants (principal)

== ENCOUNTER → 2019-10-12 | Outpatient (REF) | payer MEDICARE, MEDICAID ==
[2019-10-12 08:34] LABS: INR 2.67; PROTHROMBIN TIME 28.3 SECONDS (11.8-14.0)
== END ==
LOC: SKLAB5 08:05
PROVIDERS: ATTEND Family Medicine
DX: Z79.01 Long term (current) use of anticoagulants (principal)

== ENCOUNTER → 2019-10-19 | Outpatient (REF) | payer MEDICARE, MEDICAID | LOC: SKLAB5 08:26 | PROVIDERS: ATTEND Family Medicine | DX: Z79.01 Long term (current) use of anticoagulants (principal) ==

== ENCOUNTER → 2019-10-26 | Outpatient (REF) | payer MEDICARE, MEDICAID ==
[2019-10-26 09:45] LABS: INR 3.61
== END ==
LOC: SKLAB5 08:04
PROVIDERS: ATTEND Family Medicine
DX: Z79.01 Long term (current) use of anticoagulants (principal)

== ENCOUNTER → 2019-10-31 | Outpatient (REF) | payer MEDICARE, MEDICAID ==
[2019-10-31 08:05] LABS: INR 1.92; PROTHROMBIN TIME 21.7 SECONDS (11.8-14.0)
== END ==
LOC: SKLAB5 07:39
PROVIDERS: ATTEND Family Medicine
DX: I82.409 Acute embolism and thrombosis of unspecified deep veins of unspecified lower extremity (principal)

== ENCOUNTER → 2019-11-02 | Outpatient (REF) | payer MEDICARE, MEDICAID ==
[2019-11-02 09:50] LABS: INR 2.34; PROTHROMBIN TIME 25.5 SECONDS (11.8-14.0)
== END ==
LOC: SKLAB5 07:44
PROVIDERS: ATTEND Family Medicine
DX: I82.409 Acute embolism and thrombosis of unspecified deep veins of unspecified lower extremity (principal)

== ENCOUNTER → 2019-11-09 | Outpatient (REF) | payer MEDICARE, MEDICAID ==
[2019-11-09 09:23] LABS: INR 2.25; PROTHROMBIN TIME 24.7 SECONDS (11.8-14.0)
== END ==
LOC: SKLAB5 07:47
PROVIDERS: ATTEND Family Medicine
DX: Z79.01 Long term (current) use of anticoagulants (principal)

== ENCOUNTER → 2019-11-16 | Outpatient (REF) | payer MEDICARE, MEDICAID ==
[2019-11-16 09:12] LABS: INR 2.34; PROTHROMBIN TIME 25.5 SECONDS (11.8-14.0)
== END ==
LOC: SKLAB5 07:30
PROVIDERS: ATTEND Family Medicine
DX: Z51.81 Encounter for therapeutic drug level monitoring (principal); Z79.01 Long term (current) use of anticoagulants; Z86.718 Personal history of other venous thrombosis and embolism

== ENCOUNTER → 2019-11-23 | Outpatient (REF) | payer MEDICARE, MEDICAID ==
[2019-11-23 08:35] LABS: INR 2.31; PROTHROMBIN TIME 25.2 SECONDS (11.8-14.0)
== END ==
LOC: SKLAB5 07:35
PROVIDERS: ATTEND Family Medicine
DX: Z79.01 Long term (current) use of anticoagulants (principal)

== ENCOUNTER → 2019-11-29 | Outpatient (REF) | LOC: SKLAB5 14:44 | PROVIDERS: ATTEND Internal Medicine | DX: Z03.818 Encounter for observation for suspected exposure to other biological agents ruled out (principal) ==

== ENCOUNTER → 2019-11-30 | Outpatient (REF) | payer MEDICARE, MEDICAID ==
[2019-11-30 08:39] LABS: INR 2.79; PROTHROMBIN TIME 29.3 SECONDS (11.8-14.0)
== END ==
LOC: SKLAB5 07:51
PROVIDERS: ATTEND Family Medicine
DX: Z79.01 Long term (current) use of anticoagulants (principal)

== ENCOUNTER → 2019-12-07 | Outpatient (REF) | payer MEDICARE, MEDICAID ==
[2019-12-07 08:34] LABS: INR 2.18; PROTHROMBIN TIME 24.1 SECONDS (11.8-14.0)
== END ==
LOC: SKLAB5 08:06
PROVIDERS: ATTEND Family Medicine
DX: Z79.01 Long term (current) use of anticoagulants (principal)

== ENCOUNTER → 2019-12-14 | Outpatient (REF) | payer MEDICARE, MEDICAID ==
[2019-12-14 10:06] LABS: INR 2.12; PROTHROMBIN TIME 23.5 SECONDS (11.8-14.0)
== END ==
LOC: SKLAB5 06:59
PROVIDERS: ATTEND Family Medicine
DX: Z79.01 Long term (current) use of anticoagulants (principal)

== ENCOUNTER → 2019-12-21 | Outpatient (REF) | payer MEDICARE, MEDICAID ==
[~2019-12-21] MED LIST changes: -COUM1TAB14 PO; +COUM4TAB8 PO
[2019-12-21 09:31] LABS: INR 2.16; PROTHROMBIN TIME 23.9 SECONDS (11.8-14.0)
== END ==
LOC: SKLAB5 07:49
PROVIDERS: ATTEND Family Medicine
DX: Z79.01 Long term (current) use of anticoagulants (principal)

== ENCOUNTER → 2019-12-28 | Outpatient (REF) | payer MEDICARE, MEDICAID ==
[2019-12-28 08:16] LABS: INR 2.09; PROTHROMBIN TIME 23.3 SECONDS (11.8-14.0)
== END ==
LOC: SKLAB5 07:37
PROVIDERS: ATTEND Family Medicine
DX: Z79.01 Long term (current) use of anticoagulants (principal)

== ENCOUNTER → 2020-01-04 | Outpatient (REF) | payer MEDICARE, MEDICAID ==
[2020-01-04 09:59] LABS: INR 2.33; PROTHROMBIN TIME 25.4 SECONDS (11.8-14.0)
== END ==
LOC: SKLAB5 07:46
PROVIDERS: ATTEND Family Medicine
DX: Z79.01 Long term (current) use of anticoagulants (principal)

== ENCOUNTER → 2020-01-11 | Outpatient (REF) | payer MEDICARE, MEDICAID ==
[~2020-01-11] MED LIST changes: +ACET-907 PO; +AMLO1TAB24 PO; +ASPI81CH33 PO; -ASPI81TA85 PO; +ASPI81TA86 PO; +ATOR40TA75 PO; +BENA25CA4 PO; +BISA10SU4 PR; +D-20TAB PO; +ELIQ5TAB PO; +ENEMENE PR; +ESCI20TA16 PO; +FAMO20TA PO; +FAMO20TA4 PO; +LEVA750T7 PO; +MECL-86 PO; +MECL1TAB31 PO; +PANT40TA29 PO; -PANT40TA3 PO; +QUIN40TA26 PO; +RA S8.6T3 PO; +SORB70SO36 PO; +TOPR50TA PO; +WARF-22 PO
[2020-01-11 09:21] LABS: INR 2.33; PROTHROMBIN TIME 25.4 SECONDS (11.8-14.0)
== END ==
LOC: SKLAB5 06:45
PROVIDERS: ATTEND Family Medicine
DX: Z79.01 Long term (current) use of anticoagulants (principal)

== ENCOUNTER → 2020-01-18 | Outpatient (REF) | payer MEDICARE, MEDICAID ==
[~2020-01-18] MED LIST changes: -ACET-907 PO; -AMLO1TAB24 PO; -ASPI81CH33 PO; +ASPI81TA85 PO; -ASPI81TA86 PO; -ATOR40TA75 PO; -BENA25CA4 PO; -BISA10SU4 PR; -D-20TAB PO; -ELIQ5TAB PO; -ENEMENE PR; -ESCI20TA16 PO; -FAMO20TA PO; -FAMO20TA4 PO; -LEVA750T7 PO; -MECL-86 PO; -MECL1TAB31 PO; -PANT40TA29 PO; +PANT40TA3 PO; -QUIN40TA26 PO; -RA S8.6T3 PO; -SORB70SO36 PO; -TOPR50TA PO; -WARF-22 PO
[2020-01-18 08:18] LABS: HEMATOCRIT 41.8 % (42.0-52.0); HEMOGLOBIN 13.8 g/dl (13.5-17.5); MEAN CORPUSCULAR HEMOGLOBIN 31.2 pg (27.0-33.0); MEAN CORPUSCULAR VOLUME 94.4 fl (80.0-96.0); PLATELET COUNT, AUTOMATED 171 10^3/uL (150-450); RED BLOOD COUNT 4.43 10^6/uL (4.30-6.10); WHITE BLOOD COUNT 6.4 10^3/uL (4.0-10.0)
[2020-01-18 08:28] LABS: INR 2.05; PROTHROMBIN TIME 22.9 SECONDS (11.8-14.0)
[2020-01-18 08:39] LABS: ALBUMIN 3.1 GM/DL (3.2-5.2); ALT/SGPT 18 U/L (12-78); BILIRUBIN,TOTAL 0.3 MG/DL (0.2-1.0); BLOOD UREA NITROGEN 16 MG/DL (7-18); CALCIUM LEVEL 8.4 MG/DL (8.8-10.2); CARBON DIOXIDE LEVEL 27 MEQ/L (21-32); CHLORIDE LEVEL 110 MEQ/L (98-107); CREATININE FOR GFR 1.04 MG/DL (0.70-1.30); GLOMERULAR FILTRATION RATE > 60.0 (>42); GLUCOSE, FASTING 90 MG/DL (70-100); POTASSIUM SERUM 3.9 MEQ/L (3.5-5.1); SODIUM LEVEL 143 MEQ/L (136-145)
[2020-01-18 11:15] LABS: TOTAL 25(OH) VITAMIN D 56.5 NG/ML (30.0-100.0); VITAMIN B12 LEVEL 794 PG/ML (247-911)
== END ==
LOC: SKLAB5 08:10
PROVIDERS: ATTEND Family Medicine
DX: D51.9 Vitamin B12 deficiency anemia, unspecified (principal); E55.9 Vitamin D deficiency, unspecified; I10 Essential (primary) hypertension; Z86.718 Personal history of other venous thrombosis and embolism; Z79.899 Other long term (current) drug therapy

== ENCOUNTER → 2020-01-25 | Outpatient (REF) | payer MEDICARE, MEDICAID ==
[2020-01-25 09:54] LABS: INR 1.99; PROTHROMBIN TIME 22.4 SECONDS (11.8-14.0)
== END ==
LOC: SKLAB5 07:14
PROVIDERS: ATTEND Family Medicine
DX: Z79.01 Long term (current) use of anticoagulants (principal)

== ENCOUNTER → 2020-02-01 | Outpatient (REF) | payer MEDICARE, MEDICAID ==
[2020-02-01 12:25] LABS: INR 2.05; PROTHROMBIN TIME 22.9 SECONDS (11.8-14.0)
== END ==
LOC: SKLAB5 07:34
DX: Z79.01 Long term (current) use of anticoagulants (principal)

== ENCOUNTER → 2020-02-08 | Outpatient (REF) | payer MEDICARE, MEDICAID ==
[~2020-02-08] MED LIST changes: +ACET-907 PO; +AMLO1TAB24 PO; +ASPI81CH33 PO; -ASPI81TA85 PO; +ASPI81TA86 PO; +ATOR40TA75 PO; +BENA25CA4 PO; +BISA10SU4 PR; +D-20TAB PO; +ELIQ5TAB PO; +ENEMENE PR; +ESCI20TA PO; +FAMO20TA PO; +FAMO20TA4 PO; +LEVA750T7 PO; +MECL-86 PO; +MECL1TAB31 PO; +PANT40TA29 PO; -PANT40TA3 PO; +QUIN40TA26 PO; +RA S8.6T3 PO; +SORB70SO36 PO; +TOPR50TA PO; +WARF-22 PO
[2020-02-08 08:07] LABS: INR 1.9; PROTHROMBIN TIME 21.6 SECONDS (11.8-14.0)
== END ==
LOC: SKLAB5 08:45
DX: Z86.718 Personal history of other venous thrombosis and embolism (principal)

== ENCOUNTER → 2020-02-15 | Outpatient (REF) | payer MEDICARE, MEDICAID | LOC: SKLAB5 08:47 | DX: Z86.718 Personal history of other venous thrombosis and embolism (principal) ==

== ENCOUNTER → 2020-02-22 | Outpatient (REF) ==
[2020-05-01 14:46] LABS: APPEARANCE, URINE MANUAL CLOUDY (CLEAR); BILIRUBIN, URINE MANUAL NEGATIVE (NEGATIVE); BLOOD URINE MANUAL POSITIVE (NEGATIVE); COLOR, URINE MANUAL BROWN (YELLOW); GLUCOSE, URINE (UA) MANUAL NEGATIVE (NEGATIVE); KETONE, URINE MANUAL NEGATIVE (NEGATIVE); LEUKOCYTE ESTERASE, URINE MAN TRACE (NEGATIVE); NITRITE, URINE MANUAL NEGATIVE (NEGATIVE); PH,URINE MAN 5.5 UNITS (5.0 - 7.0); PROTEIN, URINE MANUAL 3+ mg/dL (NEGATIVE); RBC, URINE TNTC /hpf (0-3); SQUAMOUS EPITHELIAL CELL URINE SMALL AMOUNT /hpf (SMALL AMT); UROBILINOGEN, URINE MANUAL NORMAL (NORMAL)
[2020-05-01 14:47] LABS: AMORPHOUS SEDIMENT, URINE SMALL AMOUNT (NEGATIVE)
== END ==
LOC: SKLAB5 10:21
PROVIDERS: ATTEND Nurse Practitioner Family
DX: R53.83 Other fatigue (principal); I10 Essential (primary) hypertension; Z79.899 Other long term (current) drug therapy

== ENCOUNTER → 2020-03-03 | Outpatient (REF) | payer MEDICARE, MEDICAID ==
[2020-05-07 21:47] LABS: APPEARANCE, URINE MANUAL CLOUDY (CLEAR); COLOR, URINE MANUAL RED (YELLOW); PROTEIN, URINE MANUAL 1+ mg/dL (NEGATIVE)
[2020-05-07 21:48] LABS: BACTERIA, URINE SMALL AMOUNT; BILIRUBIN, URINE MANUAL NEGATIVE (NEGATIVE); BLOOD URINE MANUAL POSITIVE (NEGATIVE); GLUCOSE, URINE (UA) MANUAL NEGATIVE (NEGATIVE); HYALINE CAST, URINE NONE SEEN /lpf (0-1); KETONE, URINE MANUAL NEGATIVE (NEGATIVE); LEUKOCYTE ESTERASE, URINE MAN POSITIVE (NEGATIVE); NITRITE, URINE MANUAL NEGATIVE (NEGATIVE); RBC, URINE TNTC /hpf (0-3); SQUAMOUS EPITHELIAL CELL URINE SMALL AMOUNT /hpf (SMALL AMT); UROBILINOGEN, URINE MANUAL NORMAL (NORMAL)
[2020-05-07 21:49] LABS: MUCUS, URINE SMALL AMOUNT (NEGATIVE)
[2020-05-07 21:51] LABS: HEMATOCRIT 39.2 % (42.0-52.0); HEMOGLOBIN 13.3 g/dl (13.5-17.5); MEAN CORPUSCULAR HEMOGLOBIN 31.8 pg (27.0-33.0); MEAN CORPUSCULAR HGB CONC 33.9 g/dl (32.0-36.5); MEAN CORPUSCULAR VOLUME 93.8 fl (80.0-96.0); PLATELET COUNT, AUTOMATED 186 10^3/uL (150-450); RED BLOOD COUNT 4.18 10^6/uL (4.30-6.10); WHITE BLOOD COUNT 9.6 10^3/uL (4.0-10.0)
== END ==
LOC: SKLAB5 22:30
DX: Z79.899 Other long term (current) drug therapy (principal)

== ENCOUNTER → 2020-03-04 | Outpatient (REF) | payer MEDICARE, MEDICAID | LOC: SKLAB5 08:23 | DX: R53.83 Other fatigue (principal); I10 Essential (primary) hypertension; Z79.899 Other long term (current) drug therapy ==

== ENCOUNTER → 2020-03-04 | Outpatient (REF) | payer MEDICARE, MEDICAID | LOC: CANPREREF → SKLAB5 11:10 | DX: R53.83 Other fatigue (principal); I10 Essential (primary) hypertension; Z79.899 Other long term (current) drug therapy ==

== ENCOUNTER 2020-03-06 16:41 | Inpatient (IN) | payer MEDICARE, MEDICAID ==
[~2020-03-06] VITALS: Ht 188 cm; Wt 128.2 kg
[~2020-03-06 16:41] MED LIST changes: -ACET-907 PO; -AMLO1TAB24 PO; -ASPI81CH33 PO; -ATOR40TA75 PO; -BENA25CA4 PO; -BISA10SU4 PR; -D-20TAB PO; -ELIQ5TAB PO; -ENEMENE PR; -ESCI20TA PO; -FAMO20TA PO; -FAMO20TA4 PO; -LEVA750T7 PO; -MECL-86 PO; -MECL1TAB31 PO; -QUIN40TA26 PO; -RA S8.6T3 PO; -SORB70SO36 PO; -TOPR50TA PO; -WARF-22 PO
[2020-03-06] MEDS ORDERED: ONDANSETRON 4MG/2ML VIAL IV ONE (17:15)
[2020-03-06] MEDS ORDERED: NS 500 ML IV ONE ×2 (17:30→18:30)
--- NOTE | 2020-03-06 17:57 | REPVR ---
PROCEDURE INFORMATION: Exam: XR Chest, 1 View Exam date and time: 03/06/2020 5:43 PM Age: 69 years old Clinical indication: Chest pain; Type not specified TECHNIQUE: Imaging protocol: XR of the chest Views: 1 view. COMPARISON: CT Chest, 1 view 03/06/2020 12:43 PM FINDINGS: Lungs: Degree of lung inflation is normal. No evidence of pulmonary edema. No focal consolidation or parenchymal lung mass. Pleural space: No pleural effusion or pneumothorax. Heart/Mediastinum: Cardiac silhouette appears normal. No adenopathy or hilar mass. Bones/joints: Osseous structures show no concerning abnormality. IMPRESSION: No acute or focal cardiopulmonary process. Electronically signed by: Umesh Holloway On 03/06/2020 17:57:32 PM
[2020-03-06 18:00] LABS: BASO # 0.1 10^3/uL (0.0-0.2); BASO % 0.2 % (0.0-1.0); HEMATOCRIT 45.1 % (42.0-52.0); HEMOGLOBIN 15.4 g/dl (13.5-17.5); LYMPH # 1.1 10^3/uL (1.5-5.0); LYMPH % 3.7 % (24.0-44.0); MEAN CORPUSCULAR HEMOGLOBIN 31.8 pg (27.0-33.0); MEAN CORPUSCULAR HGB CONC 34.1 g/dl (32.0-36.5); MEAN CORPUSCULAR VOLUME 93.2 fl (80.0-96.0); MONO # 1.5 10^3/uL (0.0-0.8); MONO % 5.2 % (0.0-5.0); NEUTROPHILS # 26.3 10^3/uL (1.5-8.5); NEUTROPHILS % 89.8 % (36.0-66.0); PLATELET COUNT, AUTOMATED 151 10^3/uL (150-450); RED BLOOD COUNT 4.84 10^6/uL (4.30-6.10); WHITE BLOOD COUNT 29.3 10^3/uL (4.0-10.0)
[2020-03-06 18:04] LABS: INR 1.69; PROTHROMBIN TIME 20.3 SECONDS (11.8-14.0)
[2020-03-06 18:05] LABS: PARTIAL THROMBOPLASTIN TIME 42.4 SECONDS (25.0-38.4)
[2020-03-06] MEDS ORDERED: LIDOCAINE 2% 5ML JELLY UROJET TOP ONE (18:30)
[2020-03-06] MEDS ORDERED: MEROPENEM INJ 1 GM in IV 1 EA IV ONE (18:30)
--- NOTE | 2020-03-06 18:39 | REPVR ---
PROCEDURE INFORMATION: Exam: CT Abdomen And Pelvis Without Contrast Exam date and time: 03/06/2020 6:14 PM Age: 69 years old Clinical indication: Hematuria TECHNIQUE: Imaging protocol: Computed tomography of the abdomen and pelvis without contrast. Radiation optimization: All CT scans at this facility use at least one of these dose optimization techniques: automated exposure control; mA and/or kV adjustment per patient size (includes targeted exams where dose is matched to clinical indication); or iterative reconstruction. COMPARISON: CT ABD/PEL W/IV CONTRAST ONLY 05/31/2018 10:29 PM FINDINGS: Lungs: No suspicious mass or airspace process in the visualized lung bases. Liver: Noncontrast liver shows no obvious lesion. Gallbladder and bile ducts: Gallbladder is surgically absent. Pancreas: Noncontrast pancreas shows no obvious mass or adjacent fluid. Spleen: Noncontrast spleen shows no obvious focal deformity. Adrenals: Adrenal glands are normal in appearance. Kidneys and ureters: Kidneys demonstrate bilateral nonobstructive calculi. No hydronephrosis. There is a 3 mm intraureteral stone involving the left ureter at the left SI joint level, axial image 133, and there may be a punctate left bladder stone at the left UVJ level on image 151. Left kidney also demonstrates a 3 cm low-density lesion, unchanged in size and demonstrated to be a simple cyst on a CT from May 2018. This requires no follow-up Stomach and bowel: No evidence of small bowel obstruction. Rectum is distended to 8 cm diameter with desiccated stool. Intraperitoneal space: No pneumoperitoneum. Vasculature: No aortic aneurysm. Lymph nodes: No enlarged lymph nodes. Bladder: Urinary bladder demonstrates perivesicular stranding. Reproductive: Prostate is enlarged and demonstrates dystrophic calcifications. Bones/joints: Bony structures are normal except for lumbar spine degenerative disc changes. Soft tissues: Exam is limited due to patient body habitus and resultant poor resolution. Other findings: Exam is limited due to patient motion. Limited evaluation without enteric or IV contrast. Exam is limited by artifact from patient being scanned with arms at the sides. IMPRESSION: 1. Bilateral nonobstructive nephrolithiasis. Two left ureter stones are present measuring 3 mm and 1 mm, at the left SI joint and left UVJ level, without obstructive uropathy. 2. Appearance of the bladder suggests possible cystitis. 3. Rectal fecal impaction measuring 8 cm Electronically signed by: Umesh Holloway On 03/06/2020 18:39:23 PM
[2020-03-06 19:08] LABS: ALBUMIN 3.1 GM/DL (3.2-5.2); BILIRUBIN,DIRECT 0.3 MG/DL (0.0-0.2); CALCIUM LEVEL 8.8 MG/DL (8.8-10.2); CK-MB VALUE MASS 2.5 NG/ML (<3.6); CREATININE FOR GFR 1.3 MG/DL (0.70-1.30); GLOMERULAR FILTRATION RATE 58.1 (>42); MB/CK RELATIVE INDEX 1.62 (< OR =4); POTASSIUM SERUM 3.7 MEQ/L (3.5-5.1); TOTAL PROTEIN 6.6 GM/DL (6.4-8.2); TROPONIN I 0.36 NG/ML (< 0.10)
[2020-03-06 19:09] LABS: FREE T4 1.87 NG/DL (0.76-1.46); THYROID STIMULATING HORMONE 1.41 uIU/ML (0.358-3.740)
[2020-03-06 19:32] LABS: BILIRUBIN, URINE MANUAL NEGATIVE (NEGATIVE); GLUCOSE, URINE (UA) MANUAL NEGATIVE (NEGATIVE); KETONE, URINE MANUAL NEGATIVE (NEGATIVE); UROBILINOGEN, URINE MANUAL NORMAL (NORMAL)
[2020-03-06 19:41] LABS: BACTERIA, URINE LARGE AMOUNT; MUCUS, URINE LARGE AMOUNT (NEGATIVE); RBC, URINE TNTC /hpf (0-3); SQUAMOUS EPITHELIAL CELL URINE SMALL AMOUNT /hpf (SMALL AMT); TRANSITIONAL EPI CELLS, URINE MOD AMOUNT /hpf
[2020-03-06] MEDS ORDERED: FAMO20TA PO (19:43)
[2020-03-06] MEDS ORDERED: ATOR40TA75 PO (19:43)
[2020-03-06] MEDS ORDERED: ELIQ5TAB PO (19:43)
[2020-03-06] MEDS ORDERED: WARF-22 PO (19:47)
[2020-03-06] MEDS ORDERED: MECL-86 PO (19:53)
[2020-03-06] MEDS ORDERED: AMLO1TAB24 PO (19:56)
[2020-03-06] MEDS ORDERED: ACETAMINOPHEN TAB 650MG DOSE (2X325MG) PO PRN (21:00)
[2020-03-06] MEDS ORDERED: MOM 30ML SUSPENSION UDC PO PRN (21:00)
[2020-03-06] MEDS ORDERED: FLEET ENEMA PR PRN (21:00)
[2020-03-06] MEDS: QUINAPRIL 20 MG TAB PO SCH (21:00)
[2020-03-06] MEDS ORDERED: MECLIZINE 25 MG TABLET PO PRN (21:00)
[2020-03-06] MEDS ORDERED: diphenhydrAMINE 25MG CAP PO PRN (21:00)
[2020-03-06] MEDS ORDERED: BISACODYL 10 MG SUPP PR PRN (21:00)
--- NOTE | 2020-03-06 23:20 | HPEPDOC ---
[facility] Medical History & Physical Date of Admission Mar 06, 2020 Date of Service: Mar 06, 2020 History and Physical CHIEF COMPLAINT: new onset Afib PCP: Dr. 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 Patient is already on anticoagulation with Eliquis for DVT. He was also found to have leukocytosis of 29 and UA suggestive of UTI. In setting of cefazolin allergy, he was started on meropenem in ER. Patient speaks but cannot provide any history apart from saying his name and says he lives in [place]. He becomes silent when most question are asked. Says yes that he is comfortable and no to any discomfort or complaints at this time including any chest pain, SOB, fever or chills. History obtained all from documentation in chart. PAST MEDICAL HISTORY: Refer to HPI PAST SURGICAL HISTORY: Cholecystectomy Tonsillectomy b/l knee replacement SOCIAL HISTORY: Denies tobacco, alcohol or drugs. FAMILY HISTORY: Unknown ALLERGIES: Please see below. REVIEW OF SYSTEMS: 10 point ROS negative except as above HOME MEDICATIONS: Please see below. PHYSICAL EXAMINATION: VITAL SIGNS: Please see below. GENERAL: No distress HEENT: Normocephalic, atraumatic, moist mucous membranes NECK: Supple CARDIOVASCULAR EXAMINATION: regular rate, regular rhythm RESPIRATORY EXAMINATION: Clear to auscultation, no wheezing ABDOMINAL EXAMINATION: Soft, nontender, nondistended EXTREMITIES: Range of motion intact SKIN: No rash NEUROLOGICAL EXAMINATION: Alert oriented 1, no focal deficits but does not answer the majority of questions, just states at the interviewer PSYCHIATRIC EXAMINATION: Calm and cooperative LABORATORY DATA: See below. IMAGING: CT Abdomen/pelvis- IMPRESSION: 1. Bilateral nonobstructive nephrolithiasis. Two left ureter stones are present measuring 3 mm and 1 mm, at the left SI joint and left UVJ level, without obstructive uropathy. 2. Appearance of the bladder suggests possible cystitis. 3. Rectal fecal impaction measuring 8 cm MICROBIOLOGY: Please see below. ASSESSMENT AND PLAN: 1. paroxysmal Afib - Noted to be in 140s on admission. Received 500cc NS bolus x2 no HR in 70s. - Likely has some component of dehydration. currently normal sinus rhythm and normal rate. - Already on Eliquis for DVT and on toprol XL as well. - Will not make any changes to medication at this time. 2. Suspect UTI - Significant leukocytosis and urine suggestive of infection. - b/l nonobstructive nephrolithiasis. - cefazolin allergy. Continue with meropenem at this time while pending urine culture. 3. HTN - resume norvasc and metoprolol. 4. DVT - restarted Eliquis BID. 5. Depression - on lexapro. 6. CADASIL (chronic encephalopathy) - appear to be at baseline. DVT ppx: SCD and on Eliquis Code status: DNR/DNI Vital Signs Vital Signs Date Time Temp Pulse Resp B/P (MAP) Pulse Ox O2 Delivery O2 Flow Rate FiO2 03/06/20 16:59 98.2 141 20 125/76 (92) 99 Room Air Laboratory Data Labs 24H Laboratory Tests 2 03/06/20 00:00: Urine Color (FANTASMA) AMBERH, Urine Appearance (FANTASMA) CLOUDYH, Urine pH (FANTASMA) 5.0, Urine Specific [place] (FANTASMA) 1.030, Bedside Urine Glucose (UA) NEGATIVE, Bedside Urine Ketones (LAB) NEGATIVE, Bedside Urine Blood POSITIVEH, Bedside Urine Nit rite (LAB) NEGATIVE, Bedside Urine Bilirubin (LAB) NEGATIVE, Bedside Urine Urobilinogen (LAB) NORMAL, Bedside Urine Leukocyte Esterase (L POSITIVEH, Urine Sediment Examination PERFORMED, Urine RBC TNTCH, Urine WBC TNTCH, Urine Squamous Epithelial Cells SMALL AMOUNT, Urine Transitional Epithelial Cells MOD AMOUNTH, Urine Bacteria LARGE AMOUNTH, Urine Hyaline Casts 5-7H, Urine Granular Casts 1- 3H, Urine Mucus LARGE AMOUNTH 03/06/20 17:00: Prothrombin Time 20.3H, Prothromb Time International Ratio 1.69, Activated Partial Thromboplast Time 42.4H, Anion Gap 8, Glomerular Filtration Rate 58.1, Lactic Acid Level 2.0, Calcium Level 8.8, Total Bilirubin 1.0, Direct Bilirubin 0.3H, Aspartate Amino Transf (AST/SGOT) 20, Alanine Aminotransferase (ALT/SGPT) 18, Alkaline Phosphatase 87, Total Creatine Kinase 154, Creatine Kinase MB 2.5, Creatine Kinase MB Relative Index 1.62, Troponin I 0.36H, ZD-Mes-V-Type Natriuretic Peptide 5262H, Total Protein 6.6, Albumin 3.1L, Albumin/Globulin Ratio 0.9, Lipase 26L, Thyroid Stimulating Hormone (TSH) 1.410, Free Thyroxine 1.87H 03/06/20 17:22: Immature Granulocyte % (Auto) 1.1, Neutrophils (%) (Auto) 89.8H, Lymphocytes (%) (Auto) 3.7L, Monocytes (%) (Auto) 5.2H, Eosinophils (%) (Auto) 0.0, Basophils (%) (Auto) 0.2, Neutrophils # (Auto) 26.3H, Lymphocytes # (Auto) 1.1L, Monocytes # (Auto) 1.5H, Eosinophils # (Auto) 0.0, Basophils # (Auto) 0.1, Nucleated Red Blood Cells % (auto) 0.0 CBC/BMP Laboratory Tests 03/06/20 17:00 03/06/20 17:22 Microbiology Microbiology 03/06/20 Blood Culture, Received Pending 03/06/20 Urine Culture, Received Pending Home Medications Scheduled Amlodipine Besylate (Amlodipine Besylate) 5 Mg Tablet, 5 MG PO DAILY NORVASC ADDED TO MAR ON 03/04/20, NO HOLD PARAMETERS DOCUMENTED AND YET NO ADMINISTRATIONS DOCUMENTED EITHER. Apixaban (Eliquis) 5 Mg Tablet, 5 MG PO BID Aspirin (Aspirin) 81 Mg Chw, 81 MG PO DAILY Atorvastatin Calcium (Atorvastatin Calcium) 40 Mg Tablet, 40 MG PO DAILY Cholecalciferol (Vitamin D3) (Vitamin D3) 2,000 Unit Tab, 2,000 UNIT PO DAILY Docusate Sodium (Colace) 100 Mg Cap, 200 MG PO QHS Escitalopram Oxalate (Lexapro) 20 Mg Tab, 20 MG PO DAILY Famotidine (Famotidine) 20 Mg Tablet, 20 MG PO DAILY Metoprolol Succinate (Metoprolol Succinate) 50 Mg Tab, 50 MG PO DAILY DISCONTIUED AT [facility], LAST DOSE: 03/05/20 0900 Quinapril Hcl (Accupril) 40 Mg Tab, 40 MG PO QPM Scheduled PRN Acetaminophen (Tylenol) 325 Mg Tab, 650 MG PO Q4H PRN for PAIN Acetaminophen (Acetaminophen) 650 Mg Sup, 650 MG HI Q4H PRN for PAIN / FEVER Bisacodyl (Dulcolax) 10 Mg Sup, 10 MG HI DAILY PRN for CONSTIPATION Diphenhydramine HCl (Diphenhydramine HCl) 25 Mg Cap, 25 MG PO Q4H PRN for RASH/ITCHING Meclizine HCl (Meclizine HCl) 25 Mg Tablet, 25 MG PO Q6H PRN for DIZZINESS Milk Of Magnesia (Milk of Magnesia) 1,200 Mg/15 Ml Sondra, 30 ML PO DAILY PRN for CONSTIPATION Sodium Phosphate,Kleberg-Dibasic (Enema Ready To Use) 1 Cici Cici, 1 CICI HI DAILY PRN for CONSTIPATION Allergies Coded Allergies: cefazolin (Verified Allergy, Intermediate, RASH, 03/06/20) A-FIB/CHADSVASC A-FIB History Current/History of A-Fib/PAF?: Yes Current PO Anticoag Therapy: Yes CONNIE RICHARDS MD Mar 06, 2020 23:20
[2020-03-07 00:39] VITALS: BP 107/69
[2020-03-07] MEDS: DOCUSATE SODIUM 100 MG CAP PO SCH ×2 (01:11→20:00)
[2020-03-07] MEDS: APIXABAN 5 MG TAB (ELIQUIS) PO SCH ×3 (01:12→19:59)
[2020-03-07] MEDS: MEROPENEM INJ 1 GM in IV 1 EA IV SCH ×3 (04:11→19:59)
[2020-03-07 06:00] VITALS: BP 129/60
[2020-03-07 06:54] LABS: HEMATOCRIT 43.9 % (42.0-52.0); HEMOGLOBIN 14.6 g/dl (13.5-17.5); MEAN CORPUSCULAR HEMOGLOBIN 31.3 pg (27.0-33.0); MEAN CORPUSCULAR HGB CONC 33.3 g/dl (32.0-36.5); MEAN CORPUSCULAR VOLUME 94.2 fl (80.0-96.0); PLATELET COUNT, AUTOMATED 149 10^3/uL (150-450); RED BLOOD COUNT 4.66 10^6/uL (4.30-6.10); WHITE BLOOD COUNT 22.8 10^3/uL (4.0-10.0)
[2020-03-07] MEDS: ATORVASTATIN 20 MG TAB PO SCH (11:26)
[2020-03-07] MEDS: FAMOTIDINE 20 MG TAB PO SCH (11:26)
[2020-03-07] MEDS: ASPIRIN 81 MG CHEW TABLET PO SCH (11:26)
[2020-03-07] MEDS: VITAMIN D 1,000 INTERNATIONAL UNITS TABLET PO SCH (11:26)
[2020-03-07] MEDS: ESCITALOPRAM OXALATE 10 MG TAB (LEXAPRO) PO SCH (11:27)
[2020-03-07] MEDS: amLODIPine 5 MG TAB PO SCH (11:28)
[2020-03-07] MEDS: METOPROLOL SUCC (TopROL XL) 50MG **XL** TAB PO SCH (11:29)
[2020-03-07 14:00] VITALS: BP 110/54
--- NOTE | 2020-03-07 19:00 | IPNPDOC ---
Subjective Date Seen The patient was seen on 03/07/20. Subjective Chief Complaint/HPI chart reviewed. patient is a SNF patient, has known history of dementia, CADASIL, currently admitted for sepsis, UTI. patient seen this morning, denies any chest pain, no vomiting noted, no dyspnea noted, o abdominal pain. Objective Physical Examination Other physical findings General: awake, alert, oriented to self only not in acute respiratory distress, appears as stated age, HEENT: anicteric sclerae, no nasal discharges, no throat exudates, no oral lesions, PERRL, EOM intact, NECK: supple, no cervical tenderness, no bruit noted, no rigidity noted CHEST: clear breath sounds, equal chest expansion, no rales or wheezing CVS; irregular rhtythm, normal rate, no murmurs audible note, no rubs, or thrills, ABDOMEN: soft, positive normoactive bowel sounds, no tenderness, no rigidity , no guarding noted EXTREMITIES: limitation of ROM both legs, no leg edema, no joint swelling, no calf tenderness no atrophy, 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 Sepsis, POA, due to UTI 2. urinary tract infection 3. Elevated troponin, likely demand ischemia 4. Morbidly obese 5. dementia, CADASIL 6. History of prior stroke 7. Atrial fibrillation, RVR, chronic anticoagulation with eliquis PLANS: * repeat labs still pending, since this morning, lab notified. * repeat labs in AM . * vitals stable so far. * continue meropenem, and follow up on cultures. * He has memory issues, per chart review, has history of stroke, CADASIL. * limited mobility as well. * repeat troponin. * will discuss with patient's , did not get the change today, will update tomorrow. DNR/DNI Moderate risk Plan/VTE VTE Prophylaxis Ordered?: Yes VS, I&O, 24H, Fishbone Vital Signs/I&O Vital Signs Date Time Temp Pulse Resp B/P (MAP) Pulse Ox O2 Delivery O2 Flow Rate FiO2 03/07/20 11:28 87 98/52 03/07/20 06:00 97.7 16 94 Room Air I&O- Last 24 Hours up to 6 AM 8/20/20 06:00 Intake Total 800 ml Output Total 350 ml Balance 450 ml Laboratory Data 24H LABS Laboratory Tests 2 03/07/20 06:15: Nucleated Red Blood Cells % (auto) 0.0 03/07/20 06:20: CBC/BMP Laboratory Tests 03/07/20 06:15 Microbiology Microbiology 03/07/20 Blood Culture, Received Pending 03/06/20 Blood Culture - Preliminary, Resulted No growth after 24 hours . All specim... 03/06/20 Urine Culture, Received Pending GINA MEDINA MD Mar 07, 2020 18:57
[2020-03-07] MEDS: QUINAPRIL 20 MG TAB PO SCH (19:59)
[2020-03-07 21:20] LABS: BLOOD UREA NITROGEN 29 MG/DL (7-18); CALCIUM LEVEL 8.8 MG/DL (8.8-10.2); CARBON DIOXIDE LEVEL 28 MEQ/L (21-32); CHLORIDE LEVEL 106 MEQ/L (98-107); CREATININE FOR GFR 1.23 MG/DL (0.70-1.30); GLOMERULAR FILTRATION RATE > 60.0 (>42); GLUCOSE, FASTING 107 MG/DL (70-100); POTASSIUM SERUM 3.4 MEQ/L (3.5-5.1); SODIUM LEVEL 139 MEQ/L (136-145)
[2020-03-07 22:00] VITALS: BP 137/80
[2020-03-08] VITALS (14 sets, daily range): BP systolic 114–150; BP diastolic 60–87
[2020-03-08] MEDS: MEROPENEM INJ 1 GM in IV 1 EA IV SCH (03:30)
[2020-03-08] MEDS: LevoFLOXacin IV 750 MG in IV 1 EA IV SCH (09:11)
[2020-03-08] MEDS: ATORVASTATIN 20 MG TAB PO SCH (09:12)
[2020-03-08] MEDS: VITAMIN D 1,000 INTERNATIONAL UNITS TABLET PO SCH (09:12)
[2020-03-08] MEDS: ESCITALOPRAM OXALATE 10 MG TAB (LEXAPRO) PO SCH (09:12)
[2020-03-08] MEDS: APIXABAN 5 MG TAB (ELIQUIS) PO SCH ×2 (09:12→20:06)
[2020-03-08] MEDS: FAMOTIDINE 20 MG TAB PO SCH (09:12)
[2020-03-08] MEDS: ASPIRIN 81 MG CHEW TABLET PO SCH (09:13)
[2020-03-08] MEDS: METOPROLOL SUCC (TopROL XL) 50MG **XL** TAB PO SCH (09:18)
[2020-03-08] MEDS: amLODIPine 5 MG TAB PO SCH (09:18)
--- NOTE | 2020-03-08 10:42 | IPNPDOC ---
Text Note Date of Service The patient was seen on 03/08/20. NOTE Subjective: patient had low grade fever overnight. seen this morning, not in any distress, but does not feel well, no vomiting, but felt nauseated. No diarrhea, no abdominal pain. Physical exam: Vital Sign - Last 24 Hours 03/07/20 03/07/20 03/07/20 03/07/20 11:28 14:00 19:59 22:00 Temp 98.2 99.7 Pulse 87 89 88 Resp 17 18 B/P (MAP) 98/52 110/54 (72) 137/86 137/80 (99) Pulse Ox 94 96 O2 Delivery Room Air Room Air 03/08/20 03/08/20 03/08/20 00:58 06:00 09:18 Temp 100.0 98.5 Pulse 90 79 92 Resp 18 18 B/P (MAP) 145/87 (106) 114/70 (85) 135/77 Pulse Ox 96 90 O2 Delivery Room Air Room Air General: awake, alert, oriented to self only not in acute respiratory distress, appears as stated age, HEENT: anicteric sclerae, no nasal discharges, no throat exudates, no oral lesions, PERRL, EOM intact, NECK: supple, no cervical tenderness, no bruit noted, no rigidity noted CHEST: clear breath sounds, equal chest expansion, no rales or wheezing CVS; irregular rhtythm, normal rate, no murmurs audible note, no rubs, or thrills, ABDOMEN: soft, positive normoactive bowel sounds, no tenderness, no rigidity , no guarding noted EXTREMITIES: limitation of ROM both legs, no leg edema, no joint swelling, no calf tenderness no atrophy, 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 Sepsis, POA, due to UTI 2. urinary tract infection due to e. coli 3. Elevated troponin, likely demand ischemia 4. Morbidly obese 5. Dementia, CADASIL 6. History of prior stroke 7. Atrial fibrillation, RVR, new onset 8. Chronic anticoagulation, eliquis PLANS: * Urine culture noted E. coli pansensitive, meropenem to de-escalate. * still spiking fever, thus not stable for discharge yet * need to monitor leukocytosis to make sure it is trending down. * He is complaining of nausea today , iv reglan. * check EKG for qt. * I clarified with patient's , sierra, patient has no known afib that he knows of, the anticoagulation was for DVT. * Ill check his [facility] record again. * Will obtain ECHo for this afib. * Patient's was not aware that patient was transferred from nursing to ED on 03/06. Updated her about patient's care. * Code status verified: DNR/DNI * moderate risk VS,Fishbone, I+O VS, Fishbone, I+O Vital Signs Date Time Temp Pulse Resp B/P (MAP) Pulse Ox O2 Delivery O2 Flow Rate FiO2 03/08/20 09:18 92 135/77 03/08/20 06:00 98.5 18 90 Room Air I&O- Last 24 Hours up to 6 AM 03/08/20 06:00 Intake Total 2130 ml Balance 2130 ml GINA MEDINA MD Mar 08, 2020 10:40
[2020-03-08] MEDS ORDERED: METOCLOPRAMIDE INJ 10MG/2ML VIAL (J2765 PER 1) IV PRN (10:45)
[2020-03-08 11:36] LABS: HEMATOCRIT 41.8 % (42.0-52.0); MEAN CORPUSCULAR HEMOGLOBIN 31.2 pg (27.0-33.0); MEAN CORPUSCULAR HGB CONC 33.5 g/dl (32.0-36.5); MEAN CORPUSCULAR VOLUME 93.1 fl (80.0-96.0); PLATELET COUNT, AUTOMATED 126 10^3/uL (150-450); RED BLOOD COUNT 4.49 10^6/uL (4.30-6.10)
[2020-03-08 12:33] LABS: TROPONIN I 0.09 NG/ML (< 0.10)
[2020-03-08 12:45] LABS: ALBUMIN 2.7 GM/DL (3.2-5.2); ALT/SGPT 16 U/L (12-78); BILIRUBIN,TOTAL 0.5 MG/DL (0.2-1.0); BLOOD UREA NITROGEN 24 MG/DL (7-18); CALCIUM LEVEL 8.6 MG/DL (8.8-10.2); CARBON DIOXIDE LEVEL 28 MEQ/L (21-32); CHLORIDE LEVEL 105 MEQ/L (98-107); GLOMERULAR FILTRATION RATE > 60.0 (>42); GLUCOSE, FASTING 135 MG/DL (70-100); POTASSIUM SERUM 3.5 MEQ/L (3.5-5.1); SODIUM LEVEL 137 MEQ/L (136-145)
[2020-03-08] MEDS ORDERED: METOPROLOL 5 MG/5 ML VIAL IV PRN (14:15)
[2020-03-08] MEDS ORDERED: diltiaZEM 125 MG in NS 100 ML IV SCH (16:00)
[2020-03-08] MEDS: DOCUSATE SODIUM 100 MG CAP PO SCH (20:06)
[2020-03-08] MEDS: METOPROLOL SUCC *XL* 25MG TAB (TopROL *XL*) PO SCH (20:07)
[2020-03-08] MEDS: QUINAPRIL 20 MG TAB PO SCH (21:14)
[2020-03-09] VITALS (9 sets, daily range): BP systolic 109–142; BP diastolic 56–80
[2020-03-09 04:59] LABS: HEMATOCRIT 41.9 % (42.0-52.0); HEMOGLOBIN 13.9 g/dl (13.5-17.5); MEAN CORPUSCULAR HGB CONC 33.2 g/dl (32.0-36.5); MEAN CORPUSCULAR VOLUME 93.5 fl (80.0-96.0); PLATELET COUNT, AUTOMATED 128 10^3/uL (150-450); RED BLOOD COUNT 4.48 10^6/uL (4.30-6.10); WHITE BLOOD COUNT 7.5 10^3/uL (4.0-10.0)
[2020-03-09 05:33] LABS: BLOOD UREA NITROGEN 22 MG/DL (7-18); CALCIUM LEVEL 8.3 MG/DL (8.8-10.2); CARBON DIOXIDE LEVEL 30 MEQ/L (21-32); CHLORIDE LEVEL 105 MEQ/L (98-107); GLOMERULAR FILTRATION RATE > 60.0 (>42); GLUCOSE, FASTING 96 MG/DL (70-100); MAGNESIUM LEVEL 2.1 MG/DL (1.8-2.4); POTASSIUM SERUM 3.6 MEQ/L (3.5-5.1); SODIUM LEVEL 138 MEQ/L (136-145); TROPONIN I 0.06 NG/ML (< 0.10)
[2020-03-09] MEDS: LevoFLOXacin IV 750 MG in IV 1 EA IV SCH (08:29)
[2020-03-09] MEDS: ASPIRIN 81 MG CHEW TABLET PO SCH (08:30)
[2020-03-09] MEDS: APIXABAN 5 MG TAB (ELIQUIS) PO SCH ×2 (08:31→20:03)
[2020-03-09] MEDS: ATORVASTATIN 20 MG TAB PO SCH (08:31)
[2020-03-09] MEDS: amLODIPine 5 MG TAB PO SCH (08:31)
[2020-03-09] MEDS: VITAMIN D 1,000 INTERNATIONAL UNITS TABLET PO SCH (08:32)
[2020-03-09] MEDS: METOPROLOL SUCC *XL* 25MG TAB (TopROL *XL*) PO SCH ×2 (08:32→20:04)
[2020-03-09] MEDS: FAMOTIDINE 20 MG TAB PO SCH (08:32)
--- NOTE | 2020-03-09 15:08 | IPNPDOC ---
Text Note Date of Service The patient was seen on 03/09/20. NOTE patient seen in ICU. He was started on IV cardizem drip yesterday due to rapid afib. He had converted back to sinus yesterday, currently on sinus rhythm still. he feels better, his mood is better today, upbeat, able to converse better. Denies any chest pain, no vomiting, no nausea. no abdominal. oriented to self and place. No dyspnea, no coughing. Vital Sign - Last 24 Hours 03/08/20 03/08/20 03/08/20 03/08/20 15:16 15:20 15:32 15:50 Temp 99.8 Pulse 155 156 Resp 18 B/P (MAP) 132/77 (95) 132/77 123/67 (85) 150/67 (94) Pulse Ox 93 O2 Delivery Room Air 03/08/20 03/08/20 03/08/20 03/08/20 16:16 16:32 17:53 19:00 Pulse 86 78 81 Resp 17 20 B/P (MAP) 124/60 (81) 134/72 (92) 143/77 (99) 134/70 (91) Pulse Ox 92 94 O2 Delivery Room Air Room Air 03/08/20 03/08/20 03/08/20 03/08/20 20:00 20:07 21:00 22:00 Temp 98.1 Pulse 79 79 75 73 Resp 20 19 21 B/P (MAP) 138/78 (98) 140/80 137/82 (100) 117/67 (84) Pulse Ox 94 95 93 O2 Delivery Room Air Room Air Room Air 03/08/20 03/09/20 03/09/20 03/09/20 23:00 00:00 01:00 02:00 Temp 97.7 Pulse 75 73 73 70 Resp 17 16 16 19 B/P (MAP) 134/66 (88) 113/61 (78) 112/56 (74) 109/58 (75) Pulse Ox 92 92 92 92 O2 Delivery Room Air Room Air Room Air Room Air 03/09/20 03/09/20 03/09/20 03/09/20 03:00 04:00 06:00 08:00 Temp 98.3 97.7 Pulse 71 75 68 68 Resp 18 16 17 16 B/P (MAP) 113/62 (79) 113/66 (82) 142/74 (96) Pulse Ox 93 94 94 93 O2 Delivery Room Air Room Air Room Air Room Air 03/09/20 03/09/20 03/09/20 08:31 08:32 12:00 Temp 98.5 Pulse 62 Resp 18 B/P (MAP) 142/74 142/74 131/80 (97) Pulse Ox 93 O2 Delivery Room Air General: awake, alert, oriented to self and place not in acute respiratory distress, appears as stated age, HEENT: anicteric sclerae, no nasal discharges, no throat exudates, no oral lesions, PERRL, EOM intact, NECK: supple, no cervical tenderness, no bruit noted, no rigidity noted CHEST: clear breath sounds, equal chest expansion, no rales or wheezing CVS;regular rhythm, rate normal, no murmurs heard ABDOMEN: soft, positive normoactive bowel sounds, no tenderness, no rigidity , no guarding noted EXTREMITIES: limitation of ROM both legs, no leg edema, no joint swelling, no calf tenderness no atrophy, 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 Sepsis, POA, due to UTI 2. urinary tract infection due to e. coli 3. Elevated troponin, likely demand ischemia 4. Morbidly obese 5. Dementia, CADASIL 6. History of prior stroke 7. Atrial fibrillation, RVR, new onset, converted to sinus rhythm 8. Chronic anticoagulation, eliquis PLANS: * continue on metoprolol. eliquis. * leukocytosis markedly improved. Levaquin for uti to continue x 7 days and then d/c. * stable for care home discharge once ok to accept, * Transfer out to med surg telemetry. * moderate risk VS,Fishbone, I+O VS, Fishbone, I+O Laboratory Tests 03/09/20 04:20 Vital Signs Date Time Temp Pulse Resp B/P (MAP) Pulse Ox O2 Delivery O2 Flow Rate FiO2 03/09/20 12:00 98.5 62 18 131/80 (97) 93 Room Air I&O- Last 24 Hours up to 6 AM 03/09/20 06:00 Intake Total 1415 ml Balance 1415 ml GINA MEDINA MD Mar 09, 2020 15:08
[2020-03-09] MEDS: QUINAPRIL 20 MG TAB PO SCH (20:03)
[2020-03-09] MEDS: DOCUSATE SODIUM 100 MG CAP PO SCH (20:05)
[2020-03-10 06:00] VITALS: BP 121/70
[2020-03-10] MEDS: FAMOTIDINE 20 MG TAB PO SCH (09:18)
[2020-03-10] MEDS: ASPIRIN 81 MG CHEW TABLET PO SCH (09:18)
[2020-03-10] MEDS: APIXABAN 5 MG TAB (ELIQUIS) PO SCH ×2 (09:18→20:48)
[2020-03-10] MEDS: amLODIPine 5 MG TAB PO SCH (09:19)
[2020-03-10] MEDS: METOPROLOL SUCC (TopROL XL) 50MG **XL** TAB PO SCH ×2 (09:20→20:45)
[2020-03-10] MEDS: VITAMIN D 1,000 INTERNATIONAL UNITS TABLET PO SCH (09:20)
[2020-03-10] MEDS: ATORVASTATIN 20 MG TAB PO SCH (09:20)
[2020-03-10] MEDS: LevoFLOXacin 750 MG TABLET PO SCH (09:20)
--- NOTE | 2020-03-10 10:54 | IPNPDOC ---
Text Note Date of Service The patient was seen on 03/10/20. NOTE patient seen today, no overnight events. Got a call from ICU nurse this morning, that patient's hr has been in 50s?? Vital signs record noted. Noted bedside vital signs, HR 72 sinus rhythm. patient denies ay nausea, no chest pain, no vomiting noted Vital Sign - Last 24 Hours 03/09/20 03/09/20 03/09/20 03/09/20 12:00 16:00 20:04 22:00 Temp 98.5 98.3 98.5 Pulse 62 69 75 61 Resp 18 20 17 B/P (MAP) 131/80 (97) 118/66 (83) 197/98 129/64 (85) Pulse Ox 93 92 94 O2 Delivery Room Air Room Air Room Air 03/10/20 03/10/20 06:00 09:19 Temp 98.3 Pulse 62 70 Resp 18 B/P (MAP) 121/70 (87) 128/78 Pulse Ox 93 O2 Delivery Room Air General: awake, alert, oriented to self and place not in acute respiratory distress, appears as stated age, HEENT: anicteric sclerae, no nasal discharges, no throat exudates, no oral lesions, PERRL, EOM intact, NECK: supple, no cervical tenderness, no bruit noted, no rigidity noted CHEST: clear breath sounds, equal chest expansion, no rales or wheezing CVS;regular rhythm, rate normal, no murmurs heard, not bradycardic at time of exam ABDOMEN: soft, positive normoactive bowel sounds, no tenderness, no rigidity , no guarding noted EXTREMITIES: limitation of ROM both legs, no leg edema, no joint swelling, no calf tenderness no 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 Sepsis, POA, due to UTI secondary to E. Coli, resolved 2. urinary tract infection due to e. coli 3. Elevated troponin, likely demand ischemia 4. Morbidly obese 5. Dementia, CADASIL 6. History of prior stroke 7. Atrial fibrillation, RVR, new onset, converted to sinus rhythm 8. Chronic anticoagulation, eliquis PLANS: * decrease metoprolol dose from 75 mg PO BID to 50 mg PO BID. * levaquin to change to PO x 7 days to complete. * transfer to med surg, SNF may be able to accept today ? * Will update patient's , Esther. I spoke with her on the phone yesterday regarding patient's improvement. VS,Fishbone, I+O VS, Fishbone, I+O Vital Signs Date Time Temp Pulse Resp B/P (MAP) Pulse Ox O2 Delivery O2 Flow Rate FiO2 03/10/20 09:19 70 128/78 03/10/20 06:00 98.3 18 93 Room Air I&O- Last 24 Hours up to 6 AM 03/10/20 06:00 Intake Total 1150 ml Balance 1150 ml GINA MEDINA MD Mar 10, 2020 10:54
[2020-03-10] MEDS ORDERED: METO50TA7 PO (10:58)
[2020-03-10] MEDS ORDERED: LEVA750T7 PO (10:58)
[2020-03-10 16:00] VITALS: BP 132/79
[2020-03-10] MEDS: DOCUSATE SODIUM 100 MG CAP PO SCH (20:48)
[2020-03-10] MEDS: QUINAPRIL 20 MG TAB PO SCH (20:48)
[2020-03-10 22:00] VITALS: BP 131/81
[2020-03-11] MEDS: LevoFLOXacin 750 MG TABLET PO SCH (05:27)
[2020-03-11 06:00] VITALS: BP 134/81
[2020-03-11] MEDS: ASPIRIN 81 MG CHEW TABLET PO SCH (08:51)
[2020-03-11] MEDS: METOPROLOL SUCC (TopROL XL) 50MG **XL** TAB PO SCH (08:52)
[2020-03-11] MEDS: APIXABAN 5 MG TAB (ELIQUIS) PO SCH (08:52)
[2020-03-11 08:53] VITALS: BP 120/65
[2020-03-11] MEDS: amLODIPine 5 MG TAB PO SCH (08:53)
[2020-03-11] MEDS: FAMOTIDINE 20 MG TAB PO SCH (08:53)
[2020-03-11] MEDS: ATORVASTATIN 20 MG TAB PO SCH (08:53)
[2020-03-11] MEDS: VITAMIN D 1,000 INTERNATIONAL UNITS TABLET PO SCH (08:57)
--- NOTE | 2020-03-11 11:37 | DS.PDOC ---
Discharge Summary General Date of Admission Mar 06, 2020 at 20:51 Date of Discharge march 11, 2020 Discharge Summary PROCEDURES PERFORMED DURING STAY: NONE ADMITTING DIAGNOSES: 1. Sepsis, POA, due to UTI secondary to E. Coli, resolved 2. urinary tract infection due to e. coli 3. Elevated troponin, likely demand ischemia 4. Morbidly obese 5. Dementia, CADASIL 6. History of prior stroke 7. Atrial fibrillation, RVR, new onset, converted to sinus rhythm 8. Chronic anticoagulation, eliquis DISCHARGE DIAGNOSES: 1. Sepsis, POA, due to UTI secondary to E. Coli, resolved 2. urinary tract infection due to e. coli 3. Elevated troponin, likely demand ischemia 4. Morbidly obese 5. Dementia, CADASIL 6. History of prior stroke 7. Atrial fibrillation, RVR, new onset, converted to sinus rhythm 8. Chronic anticoagulation, eliquis COMPLICATIONS/CHIEF COMPLAINT: New Onset A-Fib, Uti. HISTORY OF PRESENT ILLNESS: [facility]ib HOSPITAL COURSE: Mr. Gongora is a SNF resident, has history f CADASIL , dementia from prior stroke, presented to hospital due to new onset afib. rapid afib. Noted on admission to have severe sepsis, fluids given and empirically started on IV meropenem. Positive for UTI. severe leukocytosis. patient is on chronic anticoagulation, but for history of dvt and not afib. patient's afib was uncontrolled with PO metoprolol and thus admitted to ICU for cardizem drip, once drip started, patient converted back to NSR. Patient's sepsis resolved. urine culture showed pansensitive e coli. No ESBL. antibiotics de-escalated. He is stable, vital signs stable. Patient seen today, not in any distress, eating well, no vomting or nausea anymore, no chest pain, no coughing. He is stable for discharge back [facility]. DISCHARGE MEDICATIONS: Please see below. ALLERGIES: Please see below. PHYSICAL EXAMINATION ON DISCHARGE: General: awake, alert, oriented to self and place not in acute respiratory distress, appears as stated age, HEENT: anicteric sclerae, no nasal discharges, no throat exudates, no oral lesions, PERRL, EOM intact, NECK: supple, no cervical tenderness, no bruit noted, no rigidity noted CHEST: clear breath sounds, equal chest expansion, no rales or wheezing CVS;regular rhythm, rate normal, no murmurs heard, not bradycardic at time of exam ABDOMEN: soft, positive normoactive bowel sounds, no tenderness, no rigidity , no guarding noted EXTREMITIES: limitation of ROM both legs, no leg edema, no joint swelling, no calf tenderness no atrophy, 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 PROGNOSIS: good ACTIVITY: [As tolerated] with fall precautions DIET: cardiac diet DISCHARGE PLAN: [facility] DISPOSITION: SNF dischareg. DISCHARGE INSTRUCTIONS: 1. complete levaquin last dose on 03/14. 2. Once antibiotics completed, resume lexapro 3. metoprolol dose 50 mg BID hold if HR <65or SBP <100 ITEMS TO FOLLOWUP ON ON OUTPATIENT: 1. [ff-up with pcp in [facility] DISCHARGE CONDITION: [Stable]. TIME SPENT ON DISCHARGE: 35 minutes for medication review, discharge instruction, Vital Signs/I&Os Vital Signs Date Time Temp Pulse Resp B/P (MAP) Pulse Ox O2 Delivery O2 Flow Rate FiO2 03/11/20 08:53 69 120/65 03/11/20 06:00 97.6 18 98 03/10/20 22:00 Room Air I&O- Last 24 Hours up to 6 AM 03/11/20 06:00 Intake Total 1970 ml Output Total 0 ml Balance 1970 ml Microbiology Microbiology 03/07/20 Blood Culture - Preliminary, Resulted No Growth after 72 hours. All specime... 03/06/20 Blood Culture - Preliminary, Resulted No Growth after 72 hours. All specime... 03/06/20 Urine Culture - Final, Complete Escherichia Coli Discharge Medications Scheduled Amlodipine Besylate (Amlodipine Besylate) 5 Mg Tablet, 5 MG PO DAILY, (Reported) NORVASC ADDED TO MAR ON 03/04/20, NO HOLD PARAMETERS DOCUMENTED AND YET NO ADMINISTRATIONS DOCUMENTED EITHER. Apixaban (Eliquis) 5 Mg Tablet, 5 MG PO BID, (Reported) Aspirin (Aspirin) 81 Mg Chw, 81 MG PO DAILY, (Reported) Atorvastatin Calcium (Atorvastatin Calcium) 40 Mg Tablet, 40 MG PO DAILY, (Reported) Cholecalciferol (Vitamin D3) (Vitamin D3) 2,000 Unit Tab, 2,000 UNIT PO DAILY, (Reported) Docusate Sodium (Colace) 100 Mg Cap, 200 MG PO QHS, (Reported) Famotidine (Famotidine) 20 Mg Tablet, 20 MG PO DAILY, (Reported) Levofloxacin (Levaquin) 750 Mg Tablet, 750 MG PO DAILY@06 Metoprolol Tartrate (Metoprolol Tartrate) 50 Mg Tablet, 1 TAB PO BID Quinapril Hcl (Accupril) 40 Mg Tab, 40 MG PO QPM, (Reported) Scheduled PRN Acetaminophen (Tylenol) 325 Mg Tab, 650 MG PO Q4H PRN for PAIN, (Reported) Bisacodyl (Dulcolax) 10 Mg Sup, 10 MG [place] DAILY PRN for CONSTIPATION, (Reported) Diphenhydramine HCl (Diphenhydramine HCl) 25 Mg Cap, 25 MG PO Q4H PRN for RASH/ITCHING, (Reported) Meclizine HCl (Meclizine HCl) 25 Mg Tablet, 25 MG PO Q6H PRN for DIZZINESS, (Reported) Milk Of Magnesia (Milk of Magnesia) 1,200 Mg/15 Ml Sondra, 30 ML PO DAILY PRN for CONSTIPATION, (Reported) Sodium Phosphate,Donley-Dibasic (Enema Ready To Use) 1 Louann Louann, 1 LOUANN [place] DAILY PRN for CONSTIPATION, (Reported) Allergies Coded Allergies: cefazolin (Verified Allergy, Intermediate, RASH, 03/06/20) GINA MEDINA MD Mar 11, 2020 11:32
--- NOTE | 2020-04-02 15:27 | ECGEPIP ---
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
--- NOTE | 2020-04-04 14:00 | ECGEPIP ---
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
--- NOTE | 2020-04-09 09:26 | ECGEPIP ---
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
--- NOTE | 2020-04-11 14:58 | ECGEPIP ---
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
--- NOTE | 2020-04-26 14:26 | ECHO ---
DATE OF PROCEDURE: 03/09/2020 Age: 69 Gender: Male Height: 74 inches Weight: 281 pounds Body surface area 2.51 meters squared Inpatient: ICU REFERRING PHYSICIAN: Roldan King MD INDICATION: Paroxysmal atrial fibrillation. MEASUREMENTS: 2D measurements: RV 3.6 cm LV 5.0 cm Septum 1.2 cm Posterior wall 1.2 cm LVEF 60% Aortic root 3.6 cm LA 4.1 cm DOPPLER MEASUREMENTS: AV 1.3 meters per second LVOT 1.0 meters per second MV E 52, A 68, E/E ratio 0.8. Early mitral deceleration time 193 milliseconds E-prime medial 6.5, A prime medial 9.9, E prime lateral 6.5. Average E/E prime ration 8/PCWP 11.8 mmHg PV- 0.85 meters per second Pulmonary artery acceleration time 114 milliseconds RVSP 35 mmHg IVC could not be visualized COMMENTS: Normal sinus rhythm without intraventricular conduction disturbance. Technically challenging study due to the patients body habitus, but diagnostically useful information was still obtained. M-mode and 2-dimensional echocardiography were performed with pulse, continuous wave, color flow and tissue Doppler studies. Borderline concentric left ventricular hypertrophy with normal wall motion. Mildly dilated left atrium with grade I, LV diastolic dysfunction, but currently normal estimated mean left atrial pressure. Normal right heart chamber sizes and motion with Doppler evidence of mild pulmonary hypertension. IVC could not be visualized to further estimate central venous pressure. Normal aortic dimensions. Slight aortic valvular sclerosis without functional abnormality. Normal appearing mitral valvular apparatus without functional abnormality. No apparent new cardiac mass or pericardial effusion. MTDD
== END 2020-03-11 13:25 | DRG 872 ==
LOC: EDBD 16:41 → M ED 16:41 → M ED INP 20:51 → ENRESERV 22:00 → M MSPAV 03-07 00:15 → M ICU 03-08 15:05 → M MSPAV 03-10 16:04
PROVIDERS: ADMIT Student in an Organized Health Care Education/Training Program; ATTEND Internal Medicine
DX: A41.9 Sepsis, unspecified organism (principal); I67.850 Cerebral autosomal dominant arteriopathy with subcortical infarcts and leukoencephalopathy; N39.0 Urinary tract infection, site not specified; I24.8 Other forms of acute ischemic heart disease; I48.0 Paroxysmal atrial fibrillation; G47.33 Obstructive sleep apnea (adult) (pediatric); I10 Essential (primary) hypertension; K21.9 Gastro-esophageal reflux disease without esophagitis; E66.01 Morbid (severe) obesity due to excess calories; B96.20 Unspecified Escherichia coli [E. coli] as the cause of diseases classified elsewhere; Z86.718 Personal history of other venous thrombosis and embolism; Z79.01 Long term (current) use of anticoagulants; Z90.49 Acquired absence of other specified parts of digestive tract; Z96.653 Presence of artificial knee joint, bilateral; E86.0 Dehydration; F32.9 Major depressive disorder, single episode, unspecified; Z66 Do not resuscitate; Z79.82 Long term (current) use of aspirin; Z79.899 Other long term (current) drug therapy; Z88.1 Allergy status to other antibiotic agents; Z86.73 Personal history of transient ischemic attack (TIA), and cerebral infarction without residual deficits

== ENCOUNTER → 2020-03-06 | Outpatient (REF) | payer MEDICARE, MEDICAID ==
--- NOTE | 2020-04-12 07:35 | REP ---
PORTABLE CHEST X-RAY: SINGLE VIEW HISTORY: Fever. COMPARISON: Chest x-ray from 05/07/18. FINDINGS: The lungs are symmetrically aerated and clear. Pleural angles are sharp. The heart is not enlarged. The aorta is somewhat tortuous. The pulmonary vasculature is cephalized. No infiltrate is seen. IMPRESSION: No infiltrate noted. MTDD
== END ==
LOC: M RAD 13:06
PROVIDERS: ATTEND Family Medicine
DX: R00.9 Unspecified abnormalities of heart beat (principal); R94.31 Abnormal electrocardiogram [ECG] [EKG]; I48.91 Unspecified atrial fibrillation

== ENCOUNTER → 2020-04-12 | Outpatient (REF) | payer MEDICARE, MEDICAID ==
[~2020-04-12] MED LIST changes: +ACET-907 PO; +AMLO1TAB24 PO; +ASPI81CH33 PO; +ATOR40TA75 PO; +BENA25CA4 PO; +BISA10SU4 PR; +D-20TAB PO; +ELIQ5TAB PO; +ENEMENE PR; +ESCI20TA PO; +FAMO20TA PO; +FAMO20TA4 PO; +LEVA750T7 PO; +MECL-86 PO; +MECL1TAB31 PO; +QUIN40TA26 PO; +RA S8.6T3 PO; +SORB70SO36 PO; +TOPR50TA PO; +WARF-22 PO
[2020-04-12 12:23] LABS: AMORPHOUS SEDIMENT LARGE (NEGATIVE); APPEARANCE, URINE TURBID (CLEAR); BACTERIA, URINE AUTO NEGATIVE (NEGATIVE); BILIRUBIN, URINE AUTO NEGATIVE (NEGATIVE); BLOOD, URINE BLOOD 3+ (NEGATIVE); COLOR, URINE AMBER (YELLOW); GLUCOSE, URINE (UA) AUTO NEGATIVE (NEGATIVE); KETONE, URINE AUTO NEGATIVE (NEGATIVE); LEUKOCYTE ESTERASE, URINE AUTO NEGATIVE (NEGATIVE); MUCUS, URINE LARGE (NEGATIVE); NITRITE, URINE AUTO NEGATIVE (NEGATIVE); PROTEIN, URINE AUTO NEGATIVE (NEGATIVE); RBC, URINE AUTO TNTC /HPF (0-3); SPECIFIC GRAVITY URINE AUTO 1.015 (1.002-1.035); SQUAMOUS EPITHELIAL CELL UR AU 0 /HPF (0-6); UROBILINOGEN, URINE AUTO 0.2 mg/dL (0.0-2.0); WBC, URINE AUTO 20 /HPF (0-3)
[2020-04-12 14:45] LABS: ALBUMIN 2.9 GM/DL (3.2-5.2); ALT/SGPT 33 U/L (12-78); BILIRUBIN,TOTAL 0.4 MG/DL (0.2-1.0); BLOOD UREA NITROGEN 11 MG/DL (7-18); CARBON DIOXIDE LEVEL 29 MEQ/L (21-32); CHLORIDE LEVEL 106 MEQ/L (98-107); CREATININE FOR GFR 0.91 MG/DL (0.70-1.30); GLOMERULAR FILTRATION RATE > 60.0 (>42); GLUCOSE, FASTING 125 MG/DL (70-100); POTASSIUM SERUM 3.9 MEQ/L (3.5-5.1); SODIUM LEVEL 142 MEQ/L (136-145); TOTAL PROTEIN 5.9 GM/DL (6.4-8.2)
== END ==
LOC: SKLAB5 11:29
DX: E11.9 Type 2 diabetes mellitus without complications (principal); R30.9 Painful micturition, unspecified

== ENCOUNTER → 2020-04-17 | Outpatient (CLI) | payer MEDICARE, MEDICAID ==
--- NOTE | 2020-04-24 07:18 | REP ---
URINARY TRACT SONOGRAPHY HISTORY: Proteinuria. FINDINGS: Scanning at the level of the urinary bladder demonstrates smooth bladder magallon and no intravesical lesion. Renal cortical echogenicity pattern is normal and renal contours are smooth bilaterally. There is a 2.6 x 2.0 x 2.4 cm cyst at the right mid kidney. No mass or hydronephrosis is seen. No calculus is observed. Right renal dimensions are 10.7 x 4.9 x 4.5 cm. Left kidney measures 11.4 x 4.0 x 5.2 cm. IMPRESSION: Small right renal cyst. Otherwise negative. MTDD
== END ==
LOC: M RAD 13:05
PROVIDERS: ATTEND Nurse Practitioner Family
DX: R80.9 Proteinuria, unspecified (principal); N28.1 Cyst of kidney, acquired

== ENCOUNTER 2020-05-02 08:53 | Inpatient (IN) | payer MEDICARE, MEDICAID ==
[~2020-05-02] VITALS: Ht 167.6 cm; Wt 127.7 kg
[~2020-05-02 08:53] MED LIST changes: -ACET-907 PO; -ASPI81CH33 PO; -BENA25CA4 PO; -BISA10SU4 PR; -D-20TAB PO; -ENEMENE PR; -ESCI20TA PO; -FAMO20TA4 PO; -MECL1TAB31 PO; -QUIN40TA26 PO; -RA S8.6T3 PO; -SORB70SO36 PO; -TOPR50TA PO
--- NOTE | 2020-05-02 09:30 | REPVR ---
PROCEDURE INFORMATION: Exam: CT Head Without Contrast Exam date and time: 05/02/2020 9:18 AM Age: 69 years old Clinical indication: Pain; Headache; Additional info: Headache with hbp TECHNIQUE: Imaging protocol: Computed tomography of the head without contrast. Radiation optimization: All CT scans at this facility use at least one of these dose optimization techniques: automated exposure control; mA and/or kV adjustment per patient size (includes targeted exams where dose is matched to clinical indication); or iterative reconstruction. COMPARISON: No relevant prior studies available. FINDINGS: Brain: There is no acute intracranial hemorrhage. There is prominent lucency in the cerebral white matter, likely microvascular disease although non-specific. Das white differentiation is intact. There are no extra-axial fluid collections. No evidence of mass. There is no mass effect or midline shift. Cerebral ventricles: The ventricles and sulci are enlarged, consistent with volume loss / atrophy. No hydrocephalus. Bones/joints: No acute fracture. Paranasal sinuses: Visualized sinuses are unremarkable. No fluid levels. Mastoid air cells: No significant mastoid effusion. Vasculature: There is vascular calcification. Soft tissues: Unremarkable as visualized. IMPRESSION: 1. No evidence of acute intracranial abnormality. No evidence of acute infarction, hemorrhage, or mass. 2. Atrophy and microvascular disease. Electronically signed by: Shawnee Reed On 05/02/2020 09:30:14 AM
[2020-05-02 09:51] LABS: BASO % 0.2 % (0.0-1.0); EOS # 0.7 10^3/uL (0.0-0.5); HEMATOCRIT 44.5 % (42.0-52.0); HEMOGLOBIN 14.3 g/dl (13.5-17.5); LYMPH # 0.7 10^3/uL (1.5-5.0); LYMPH % 4.8 % (24.0-44.0); MEAN CORPUSCULAR HEMOGLOBIN 30.9 pg (27.0-33.0); MEAN CORPUSCULAR HGB CONC 32.1 g/dl (32.0-36.5); MEAN CORPUSCULAR VOLUME 96.1 fl (80.0-96.0); MONO # 0.7 10^3/uL (0.0-0.8); MONO % 4.9 % (0.0-5.0); NEUTROPHILS % 84.3 % (36.0-66.0); PLATELET COUNT, AUTOMATED 194 10^3/uL (150-450); RED BLOOD COUNT 4.63 10^6/uL (4.30-6.10); WHITE BLOOD COUNT 14.2 10^3/uL (4.0-10.0)
[2020-05-02 09:52] LABS: ABG BASE EXCESS 0.5 (-2.0-2.0); ABG O2 SATURATION 95.7 % (95.0-99.0); ABG PARTIAL PRESSURE CO2 40.2 mmHg (35.0-45.0); ABG STANDARD HCO3 24.8 MEQ/L (22.0-26.0); ABG TOTAL CO2 26.3 MEQ/L (23.0-31.0); ABG pH (ARTERIAL) 7.412 UNITS (7.350-7.450)
[2020-05-02] MEDS ORDERED: VITMTA PO (10:26)
[2020-05-02] MEDS ORDERED: MECL1TAB31 PO (10:26)
[2020-05-02] MEDS ORDERED: RA S8.6T3 PO (10:26)
[2020-05-02] MEDS ORDERED: ACET-907 PO (10:26)
[2020-05-02] MEDS ORDERED: ASPI81CH33 PO (10:26)
[2020-05-02] MEDS ORDERED: ELIQ5TAB PO (10:26)
[2020-05-02] MEDS ORDERED: ATOR40TA75 PO (10:26)
[2020-05-02] MEDS ORDERED: D-20TAB PO (10:26)
[2020-05-02] MEDS ORDERED: BISA10SU4 PR (10:26)
[2020-05-02] MEDS ORDERED: ENEMENE PR (10:26)
[2020-05-02] MEDS ORDERED: COLA100C5 PO (10:26)
[2020-05-02] MEDS ORDERED: QUIN40TA26 PO (10:26)
[2020-05-02] MEDS ORDERED: SORB70SO36 PO (10:26)
[2020-05-02] MEDS ORDERED: MOM30SS PO (10:26)
[2020-05-02] MEDS ORDERED: BENA25CA4 PO (10:26)
[2020-05-02] MEDS ORDERED: FAMO20TA4 PO (10:26)
[2020-05-02] MEDS ORDERED: ESCI20TA PO (10:26)
[2020-05-02] MEDS ORDERED: TOPR50TA PO (10:26)
[2020-05-02 10:54] LABS: ALBUMIN 3.2 GM/DL (3.2-5.2); ALT/SGPT 29 U/L (12-78); BILIRUBIN,DIRECT < 0.1 MG/DL (0.0-0.2); BILIRUBIN,TOTAL 0.5 MG/DL (0.2-1.0); TOTAL PROTEIN 6.7 GM/DL (6.4-8.2)
[2020-05-02] MEDS ORDERED: NS IV ONE (11:00)
[2020-05-02] MEDS ORDERED: LevoFLOXacin IV 750 MG in IV 1 EA IV ONE (11:00)
[2020-05-02] MEDS ORDERED: LIDOCAINE 2% 5ML JELLY UROJET TOP ONE (11:00)
[2020-05-02 11:13] LABS: OSMOLALITY SERUM 291 MOSM/KG (280-301)
--- NOTE | 2020-05-02 11:41 | REPVR ---
PROCEDURE INFORMATION: Exam: XR Chest, 1 View Exam date and time: 05/02/2020 9:27 AM Age: 69 years old Clinical indication: Shortness of breath; Additional info: Altered mental status TECHNIQUE: Imaging protocol: XR of the chest Views: 1 view. COMPARISON: CR PORTABLE CHEST X-RAY 03/06/2020 5:37 PM FINDINGS: Lungs: No consolidation. Moderate lung volumes. No evidence of edema. Pleural space: No significant visible pleural effusion. No pneumothorax. Heart/Mediastinum: Cardiac silhouette appears mildly prominent but this is likely extension weighted by the degree of inspiration and without significant cardiomegaly. Bones/joints: No acute finding. High-riding shoulders and bilateral degenerative changes. IMPRESSION: No acute cardiopulmonary finding. Electronically signed by: Shawnee Reed On 05/02/2020 11:41:09 AM
[2020-05-02] MEDS ORDERED: NS 1,000 ML IV ONE (12:45)
[2020-05-02 14:21] VITALS: BP 126/86
[2020-05-02] MEDS: NS 1,000 ML IV SCH ×2 (14:45→20:39)
[2020-05-02] MEDS ORDERED: ONDANSETRON 4MG/2ML VIAL As Ordered ONE (15:27)
[2020-05-02] MEDS: ONDANSETRON 4MG/2ML VIAL IV PRN (15:30)
[2020-05-02] MEDS ORDERED: BISACODYL 10 MG SUPP PR PRN (16:15)
[2020-05-02] MEDS ORDERED: FLEET ENEMA PR PRN (16:15)
[2020-05-02] MEDS ORDERED: MECLIZINE 25 MG TABLET PO PRN (16:15)
[2020-05-02] MEDS ORDERED: MOM 30ML SUSPENSION UDC PO PRN (16:15)
[2020-05-02] MEDS ORDERED: ACETAMINOPHEN TAB 650MG DOSE (2X325MG) PO PRN (16:15)
[2020-05-02] MEDS ORDERED: diphenhydrAMINE 25MG CAP PO PRN (16:15)
--- NOTE | 2020-05-02 17:15 | REPVR ---
PROCEDURE INFORMATION: Exam: CT Abdomen And Pelvis Without Contrast Exam date and time: 05/02/2020 4:45 PM Age: 69 years old Clinical indication: Abdominal pain; Generalized; Additional info: Nausea/abd pain TECHNIQUE: Imaging protocol: Computed tomography of the abdomen and pelvis without contrast. Axial, coronal and sagittal reformatted images were created and reviewed. Radiation optimization: All CT scans at this facility use at least one of these dose optimization techniques: automated exposure control; mA and/or kV adjustment per patient size (includes targeted exams where dose is matched to clinical indication); or iterative reconstruction. COMPARISON: CT ABD PELVIS W/O CONTRAST 03/06/2020 5:59 PM FINDINGS: Lungs: Mild linear stranding and groundglass at the lung bases, likely due to atelectasis and/or scarring. Liver: Unremarkable. Gallbladder and bile ducts: Status post cholecystectomy. No biliary ductal dilatation. Pancreas: Unremarkable. Spleen: Unremarkable. Adrenals: Unremarkable. Kidneys and ureters: Simple bilateral renal cysts, measuring up to 3.2 x 2.7 cm on the left and 2 x 1.7 cm on the right (no follow-up is indicated based on the imaging appearance). Nonobstructing bilateral renal calculi. No hydronephrosis. Stomach and bowel: Marked fecal distention of the rectal vault with mild associated perirectal edema. Scattered colonic diverticula without evidence of diverticulitis. No obstruction. No bowel wall thickening. No pneumatosis. Appendix: Appendix not identified with certainty but no pericecal inflammatory change to suggest acute appendicitis. Intraperitoneal space: No free fluid. No organized fluid collection. No free air. Vasculature: Mild atherosclerotic disease. No aneurysm. Lymph nodes: No pathologically enlarged lymph nodes. Urinary bladder: Miller catheter and air in the urinary bladder, which is decompressed. Reproductive: Mildly enlarged prostate. Bones/joints: No acute osseous abnormality. Osteopenia. Degenerative changes. Soft tissues: Unremarkable. IMPRESSION: 1. Marked fecal distention of the rectal vault with mild associated perirectal edema. Findings are suggestive of fecal impaction and possible nonspecific proctitis versus stercoral ulceration. 2. Decompressed urinary bladder, which limits evaluation for wall thickening. Correlate with urinalysis to exclude cystitis. 3. Additional findings, as above. COMMENTS: Consistent with the [employer]'s Incidental Findings Committee white paper (J Am Kennedi Radiol 2018): Any incidental renal lesion less than 1 cm or classified as too small to characterize, or any incidental cystic renal lesion characterized as simple-appearing, is likely benign. No follow-up imaging is recommended for these lesions per consensus recommendations based on imaging criteria. Electronically signed by: David Truong On 05/02/2020 17:15:25 PM
--- NOTE | 2020-05-02 19:27 | ECGEPIP ---
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
[2020-05-02] MEDS: APIXABAN 5 MG TAB (ELIQUIS) PO SCH (20:39)
[2020-05-02] MEDS: FAMOTIDINE 20 MG TAB PO SCH (20:39)
[2020-05-02 22:00] VITALS: BP 124/81
[2020-05-03 06:00] VITALS: BP 149/82
[2020-05-03] MEDS: LevoFLOXacin 750 MG TABLET PO SCH (06:20)
[2020-05-03] MEDS: NS 1,000 ML IV SCH (06:21)
[2020-05-03 08:04] LABS: BASO % 0.3 % (0.0-1.0); EOS # 1.1 10^3/uL (0.0-0.5); HEMATOCRIT 42.5 % (42.0-52.0); HEMOGLOBIN 13.6 g/dl (13.5-17.5); LYMPH # 1.6 10^3/uL (1.5-5.0); LYMPH % 17.3 % (24.0-44.0); MEAN CORPUSCULAR HEMOGLOBIN 30.4 pg (27.0-33.0); MEAN CORPUSCULAR VOLUME 95.1 fl (80.0-96.0); MONO # 0.7 10^3/uL (0.0-0.8); MONO % 7.7 % (0.0-5.0); NEUTROPHILS # 5.6 10^3/uL (1.5-8.5); PLATELET COUNT, AUTOMATED 201 10^3/uL (150-450); RED BLOOD COUNT 4.47 10^6/uL (4.30-6.10)
[2020-05-03] MEDS ORDERED: MOM 30ML SUSPENSION UDC PO ONE (08:15)
[2020-05-03 08:35] LABS: BLOOD UREA NITROGEN 8 MG/DL (7-18); CALCIUM LEVEL 8.9 MG/DL (8.8-10.2); CARBON DIOXIDE LEVEL 27 MEQ/L (21-32); CHLORIDE LEVEL 106 MEQ/L (98-107); CREATININE FOR GFR 0.97 MG/DL (0.70-1.30); GLOMERULAR FILTRATION RATE > 60.0 (>42); GLUCOSE, FASTING 109 MG/DL (70-100); POTASSIUM SERUM 3.8 MEQ/L (3.5-5.1); SODIUM LEVEL 141 MEQ/L (136-145)
[2020-05-03] MEDS: MULTIVITAMINS/MINERALS THERAP 1 TAB PO SCH (08:36)
[2020-05-03] MEDS: ATORVASTATIN 20 MG TAB PO SCH (08:36)
[2020-05-03] MEDS: FAMOTIDINE 20 MG TAB PO SCH ×2 (08:36→20:32)
[2020-05-03] MEDS: SENOKOT S TAB PO SCH ×2 (08:36→20:33)
[2020-05-03] MEDS: ESCITALOPRAM OXALATE 10 MG TAB (LEXAPRO) PO SCH (08:36)
[2020-05-03] MEDS: APIXABAN 5 MG TAB (ELIQUIS) PO SCH ×2 (08:37→20:32)
[2020-05-03] MEDS: ASPIRIN 81 MG CHEW TABLET PO SCH (08:37)
[2020-05-03] MEDS: METOPROLOL SUCC (TopROL XL) 50MG **XL** TAB PO SCH (08:37)
[2020-05-03] MEDS ORDERED: SENNA 8.6 MG TAB (SENOKOT) PO SCH (09:00)
[2020-05-03] MEDS ORDERED: DOCUSATE SODIUM 100 MG CAP PO SCH (09:00)
--- NOTE | 2020-05-03 09:53 | HPEPDOC ---
[facility] Medical History & Physical Date of Admission May 02, 2020 Date of Service: May 02, 2020 History and Physical CHIEF COMPLAINT: Altered Mental Status HISTORY OF PRESENT ILLNESS: (unable to obtain from the patient. HPI per medical records and SNF staff) 69 y/o male with h/o dementia, CADASIL, Afib on chronic eliquis brought in to the ER from the SNF due to AMS noted for the past two days, without documented fevers, cough, SOB, COVID-19 exposure, n/v/d/abd pain, or cloudy malodorous urine. He had a similar episode during his previous admission when he was treated for E. coli UTI. In the ER, he had no neck rigidity, fever, meningeal signs or focal neurologic deficits, but had lactic acidosis, elevated white cou nt 14, and was given iv levaquin. CXR was negative for acute pneumonia, CT head was negative for acute intracranial abnormality, and UA was unremarkable. Blood cultures were sent. ABG was negative. Hospitalist was asked to admit for acute encephalopathy, and lactic acidosis r/o sepsis from UTI. PAST MEDICAL HISTORY: 1. Sepsis due to UTI secondary to E. Coli 2. urinary tract infection due to e. coli 3. Elevated troponin, likely demand ischemia 4. Morbidly obese 5. Dementia, CADASIL 6. History of prior stroke 7. Atrial fibrillation, RVR converted to sinus rhythm 8. Chronic anticoagulation, eliquis PAST SURGICAL HISTORY: Cholecystectomy Tonsillectomy b/l knee replacement SOCIAL HISTORY: Denies tobacco, alcohol or drugs. FAMILY HISTORY: Unknown ALLERGIES: Please see below. REVIEW OF SYSTEMS: Demented , unable to obtain. HOME MEDICATIONS: Please see below. PHYSICAL EXAMINATION: VITAL SIGNS: Please see below. GENERAL: No distress HEENT: Normocephalic, atraumatic, moist mucous membranes NECK: Supple CARDIOVASCULAR EXAMINATION: regular rate, regular rhythm RESPIRATORY EXAMINATION: Clear to auscultation, no wheezing ABDOMINAL EXAMINATION: Soft, nontender, nondistended EXTREMITIES: Range of motion intact SKIN: No rash NEUROLOGICAL EXAMINATION: Alert oriented 1, no focal deficits . LABORATORY DATA: See below. IMAGING: SEE BELOW MICROBIOLOGY: Please see below. ASSESSMENT: 69 y/o male with h/o dementia, CADASIL, Afib on chronic eliquis brought in to the ER from the SNF due to AMS noted for the past two days, without documented fevers, cough, SOB, COVID-19 exposure, n/v/d/abd pain, or cloudy malodorous urine. He had a similar episode during his previous admission when he was treated for E. coli UTI. In the ER, he had no neck rigidity, fever, meningeal signs or focal neurologic deficits, but had lactic acidosis, elevated white count 14, and was given iv levaquin. CXR was negative for acute pneumonia, CT head was negative for acute intracranial abnormality, and UA was unremarkable. Blood cultures were sent. ABG was negative. Hospitalist was asked to admit for acute encephalopathy, and lactic acidosis r/o sepsis from UTI. PROBLEMS: Acute Encephalopathy Lactic Acidosis Leukocytosis Dementia/CADASIL Chronic AFib on eliquis Morbid Obesity PLAN: Due to lactic acidosis and leukocytosis, Patient has been given levaquin due to allergy to cefazolin to complete a 7 day course empirically until cultures are finalized and negative. NS 1liter IV bolus x 2 liters were given for supportive care, with repeat lactic acid level monitoring after boluses are completed. He was kept on telemetry due to history of Atrial fibrillation, but has been compliant with his AC making CVA unlikely especially with an already negative CT head. He has been resumed on his outpatient medications. His ABG showed no hypercarbia. Vital Signs Vital Signs Date Time Temp Pulse Resp B/P (MAP) Pulse Ox O2 Delivery O2 Flow Rate FiO2 05/02/20 09:09 98.0 68 22 152/82 (105) 93 Room Air Laboratory Data Labs 24H Laboratory Tests 2 05/02/20 09:27: Blood Gas Bicarbonate Standard 24.8, Arterial Blood pH 7.412, Arterial Blood Partial Pressure CO2 40.2, Arterial Blood Partial Pressure O2 78.0, Arterial Blood Total CO2 26.3, Arterial Blood HCO3 25.0, Arterial Blood Base Excess 0.5, Arterial Blood Oxygen Saturation 95.7 05/02/20 09:33: Immature Granulocyte % (Auto) 0.8, Neutrophils (%) (Auto) 84.3H, Lymphocytes (%) (Auto) 4.8L, Monocytes (%) (Auto) 4.9, Eosinophils (%) (Auto) 5.0H, Basophils (%) (Auto) 0.2, Neutrophils # (Auto) 12.0H, Lymphocytes # (Auto) 0.7L, Monocytes # (Auto) 0.7, Eosinophils # (Auto) 0.7H, Basophils # (Auto) 0.0, Nucleated Red Blood Cells % (auto) 0.0, Osmolality 291, Lactic Acid Level 3.4*H, Total B ilirubin 0.5, Direct Bilirubin < 0.1, Aspartate Amino Transf (AST/SGOT) 37, Alanine Aminotransferase (ALT/SGPT) 29, Alkaline Phosphatase 84, Ammonia 23, Total Protein 6.7, Albumin 3.2, Albumin/Globulin Ratio 0.9, Thyroid Stimulating Hormone (TSH) 1.240 05/02/20 09:43: Bedside Glucose (Misc Panel) 94 05/02/20 09:45: POC Glucose (Misc Panel) 117H, POC Sodium (Misc Panel) 141, POC Potassium (Misc Panel) 4.0, POC Chloride (Misc Panel) 100, POC Total CO2 (Misc Panel) 28.0H, POC Blood Urea Nitrogen (Misc Panel 13, POC Ionized Calcium (Misc Panel) 5.0, POC C reatinine (Misc Panel) 0.9, POC Hematocrit (Misc Panel) 44.0 05/02/20 09:47: POC Troponin I (Misc) 0.04 05/02/20 11:06: Urine Color YELLOW, Urine Appearance CLEAR, Urine pH 5.0, Urine Specific [place] 1.016, Urine Protein NEGATIVE, Urine Glucose (UA) NEGATIVE, Urine Ketones NEGATIVE, Urine Blood 2+H, Urine Nitrite NEGATIVE, Urine Bilirubin NEGATIVE, Urine Urobilinogen 0.2, Urine Leukocyte Esterase NEGATIVE, Urine WBC (Auto) 4H, Urine RBC (Auto) 24H, Urine Hyaline Casts (Auto) 1, Urine Bacteria (Auto) 1+H, Urine Squamous Epithelial Cells 0, Urine Mucus (Auto) SMALL, Urine Sperm (Auto) CBC/BMP Laboratory Tests 05/02/20 09:33 Microbiology Microbiology 05/02/20 Blood Culture, Received Pending 05/02/20 Blood Culture, Received Pending Home Medications Scheduled Apixaban (Eliquis) 5 Mg Tablet, 5 MG PO BID Aspirin (Aspirin) 81 Mg Tab.chew, 81 MG PO DAILY Atorvastatin Calcium (Atorvastatin Calcium) 40 Mg Tablet, 40 MG PO DAILY Cholecalciferol (Vitamin D3) (Vitamin D3) 50 Mcg Tablet, 50 MCG PO DAILY Docusate Sodium (Colace) 100 Mg Capsule, 200 MG PO DAILY Escitalopram Oxalate (Escitalopram Oxalate) 20 Mg Tablet, 20 MG PO DAILY Famotidine (Famotidine) 20 Mg Tablet, 20 MG PO BID Metoprolol Succinate (Toprol Xl) 50 Mg Tab.er.24h, 50 MG PO DAILY Multivitamins (Thera M Plus Tablet) 1 Each Tablet, 1 TAB PO DAILY Quinapril HCl (Quinapril HCl) 40 Mg Tablet, 40 MG PO QPM Sennosides (Senna Lax) 8.6 Mg Tablet, 17.2 MG PO DAILY Sorbitol Solution (Sorbitol 70%) 1 Ml Solution, 15 ML PO Q2D Scheduled PRN Acetaminophen (Tylenol) 325 Mg Tablet, 650 MG PO Q4H PRN for PAIN / FEVER Bisacodyl (Bisacodyl) 10 Mg Supp.rect, 10 MG ND DAILY PRN for CONSTIPATION Diphenhydramine HCl (Benadryl) 25 Mg Capsule, 25 MG PO Q4H PRN for ITCHING Meclizine HCl (Meclizine HCl) 25 Mg Tablet, 25 MG PO Q6H PRN for DIZZINESS Milk Of Magnesia (Milk of Magnesia) 2,400 Mg/10 Ml Oral.susp, 10 ML PO DAILY PRN for CONSTIPATION Sodium Phosphate,[place]-Dibasic (Enema) 133 Ml Enema, 1 CICI ND DAILY PRN for CONSTIPATION Allergies Coded Allergies: cefazolin (Verified Allergy, Intermediate, RASH, 03/06/20) A-FIB/CHADSVASC A-FIB History Current/History of A-Fib/PAF?: No Current PO Anticoag Therapy: No Age/Risk Factor Scoring CHADSVASC: CHADSVASC Response (Comments) Value Age Risk Factor Age 65-74 years old 1 Gender Risk Factor Male 0 Hx of CHF No 0 Hx of HTN No 0 Hx of Stroke/TIA/or VTE Yes 2 Hx of Diabetes No 0 Hx of Vascular Disease No 0 Total 3 Treatment Treatment ordered: Apixaban JUDE MCLEOD MD May 02, 2020 12:48
--- NOTE | 2020-05-03 10:29 | IPNPDOC ---
Date Seen The patient was seen on 05/03/20. Progress Note SUBJECTIVE: Patient complains of decrease in appetite also has persistent nausea without vomiting. CT abdomen shows constipation, possible cystitis, currently in antibiotics for UTI. No fever or chills overnight. He did have some urinary retention and complained with some urinary and bladder fullness. Overnight, now with a Miller catheter in draining well. Patient is otherwise tolerating liquids. OBJECTIVE PHYSICAL EXAMINATION: VITAL SIGNS: Please see below. GENERAL: No distress. Able to speak in full sentences HEENT: Normocephalic, atraumatic, moist mucous membranes NECK: Supple, no JVD, thyromegaly CARDIOVASCULAR EXAMINATION: regular rate, regular rhythm and S2 and tissue spread sounds RESPIRATORY EXAMINATION: Clear to auscultation, no wheezing ABDOMINAL EXAMINATION: Soft, nontender, nondistended, positive bowel sounds in 4 quadrants EXTREMITIES: Range of motion intact SKIN: No rash NEUROLOGICAL EXAMINATION: Alert oriented 1, no focal deficits . LABORATORY DATA: See below. IMAGING: SEE BELOW MICROBIOLOGY: Please see below. ASSESSMENT: 69 y/o male with h/o dementia, CADASIL, Afib on chronic eliquis brought in [facility] the ER from the SNF due to AMS noted for the past two days, without documented fevers, cough, SOB, COVID-19 exposure, n/v/d/abd pain, or cloudy malodorous urine. He had a similar episode during his previous admission when he was barbara ated for E. coli UTI. In the ER, he had no neck rigidity, fever, meningeal signs or focal neurologic deficits, but had lactic acidosis, elevated white count 14, and was given iv levaquin. CXR was negative for acute pneumonia, CT head was negative for acute intracranial abnormality, and UA was unremarkable. Blood cultures were sent. ABG was negative. Hospitalist was asked to admit for acute encephalopathy, and lactic acidosis r/o sepsis from UTI. PROBLEMS: Acute Encephalopathy Lactic Acidosis Leukocytosis Dementia/CADASIL Chronic AFib on eliquis Morbid Obesity Constipation Urine retention PLAN: Patient has not tolerating his diet. Currently due to severe constipation. Also contributing to urinary retention. Miller catheter had to be please overnight. He is continued on antibiotics for presumed urinary tract infection. We'll discontinue antibiotics. Once the final urine culture and blood cultures are available. Bowel regimen and DC Miller catheter Once urine retention, resolves. Disposition : 1-2 more days pending clinical improvement VS, I&O, 24H, Fishbone Vital Signs/I&O Vital Signs Date Time Temp Pulse Resp B/P (MAP) Pulse Ox O2 Delivery O2 Flow Rate FiO2 05/03/20 08:37 61 149/82 05/03/20 06:00 97.8 18 97 Room Air I&O- Last 24 Hours up to 6 AM 05/03/20 06:00 Intake Total 5080 ml Output Total 2670 ml Balance 2410 ml Laboratory Data 24H LABS Laboratory Tests 2 05/02/20 11:06: Urine Color YELLOW, Urine Appearance CLEAR, Urine pH 5.0, Urine Specific [place] 1.016, Urine Protein NEGATIVE, Urine Glucose (UA) NEGATIVE, Urine Ketones NEGATIVE, Urine Blood 2+H, Urine Nitrite NEGATIVE, Urine Bilirubin NEGATIVE, Urine Urobilinogen 0.2, Urine Leukocyte Esterase NEGATIVE, Urine WBC (Auto) 4H, Urine RBC (Auto) 24H, Urine Hyaline Casts (Auto) 1, Urine Bacteria (Auto) 1+H, Urine Squamous Epithelial Cells 0, Urine Mucus (Auto) SMALL, Urine Sperm (Auto) 05/02/20 14:06: Lactic Acid Followup at 4 Hours 2.2*H 05/03/20 07:37: Immature Granulocyte % (Auto) 0.7, Neutrophils (%) (Auto) 62.0, Lymphocytes (%) (Auto) 17.3L, Monocytes (%) (Auto) 7.7H, Eosinophils (%) (Auto) 12.0H, Basophils (%) (Auto) 0.3, Neutrophils # (Auto) 5.6, Lymphocytes # (Auto) 1.6, Monocytes # (Auto) 0.7, Eosinophils # (Auto) 1.1H, Basophils # (Auto) 0.0, Nucleated Red Blood Cells % (auto) 0.0, Anion Gap 8, Glomerular Filtration Rate > 60.0, Calcium Level 8.9 CBC/BMP Laboratory Tests 05/03/20 07:37 Microbiology Microbiology 05/02/20 Respiratory Virus Panel (PCR) ([facility]) - Final, Complete 05/02/20 Blood Culture, Received Pending 05/02/20 Urine Culture, Received Pending 05/02/20 Blood Culture - Preliminary, Resulted No growth after 24 hours . All specim... JUDE MCLEOD MD May 03, 2020 10:25
[2020-05-03 14:00] VITALS: BP 139/74
[2020-05-03 22:00] VITALS: BP 119/79
[2020-05-04] MEDS: NS 1,000 ML IV SCH ×2 (01:12→04:54)
[2020-05-04] MEDS: LevoFLOXacin 750 MG TABLET PO SCH (05:00)
[2020-05-04 06:00] VITALS: BP 124/79
[2020-05-04 07:10] LABS: BASO % 0.4 % (0.0-1.0); EOS # 0.7 10^3/uL (0.0-0.5); EOS % 8.9 % (0.0-3.0); HEMATOCRIT 36.4 % (42.0-52.0); HEMOGLOBIN 12.1 g/dl (13.5-17.5); LYMPH # 1.7 10^3/uL (1.5-5.0); LYMPH % 20.8 % (24.0-44.0); MEAN CORPUSCULAR HEMOGLOBIN 31.3 pg (27.0-33.0); MEAN CORPUSCULAR HGB CONC 33.2 g/dl (32.0-36.5); MEAN CORPUSCULAR VOLUME 94.3 fl (80.0-96.0); MONO # 0.8 10^3/uL (0.0-0.8); MONO % 9.4 % (0.0-5.0); NEUTROPHILS # 4.8 10^3/uL (1.5-8.5); NEUTROPHILS % 59.9 % (36.0-66.0); PLATELET COUNT, AUTOMATED 177 10^3/uL (150-450); RED BLOOD COUNT 3.86 10^6/uL (4.30-6.10)
[2020-05-04 07:18] LABS: BLOOD UREA NITROGEN 6 MG/DL (7-18); CALCIUM LEVEL 6.5 MG/DL (8.8-10.2); CARBON DIOXIDE LEVEL 24 MEQ/L (21-32); CHLORIDE LEVEL 117 MEQ/L (98-107); CREATININE FOR GFR 0.56 MG/DL (0.70-1.30); GLOMERULAR FILTRATION RATE > 60.0 (>42); GLUCOSE, FASTING 86 MG/DL (70-100); POTASSIUM SERUM 2.9 MEQ/L (3.5-5.1); SODIUM LEVEL 148 MEQ/L (136-145)
[2020-05-04] MEDS: MULTIVITAMINS/MINERALS THERAP 1 TAB PO SCH (08:38)
[2020-05-04] MEDS: APIXABAN 5 MG TAB (ELIQUIS) PO SCH ×2 (08:39→21:26)
[2020-05-04] MEDS: FAMOTIDINE 20 MG TAB PO SCH ×2 (08:39→21:26)
[2020-05-04] MEDS: ATORVASTATIN 20 MG TAB PO SCH (08:39)
[2020-05-04] MEDS: SENOKOT S TAB PO SCH ×2 (08:39→21:26)
[2020-05-04] MEDS: ESCITALOPRAM OXALATE 10 MG TAB (LEXAPRO) PO SCH (08:39)
[2020-05-04] MEDS: ASPIRIN 81 MG CHEW TABLET PO SCH (08:39)
[2020-05-04] MEDS: METOPROLOL SUCC (TopROL XL) 50MG **XL** TAB PO SCH (08:42)
[2020-05-04] MEDS: ONDANSETRON 4MG/2ML VIAL IV PRN (08:45)
[2020-05-04] MEDS ORDERED: SORBITOL 70% 30ML UNIT DOSE CUP PO SCH (09:00)
[2020-05-04] MEDS ORDERED: MIRALAX *UNIT DOSE* 17GM PACKET PO PRN (09:30)
--- NOTE | 2020-05-04 09:58 | REPVR ---
PROCEDURE INFORMATION: Exam: XR Abdomen, 1 View Exam date and time: 05/04/2020 9:46 AM Age: 69 years old Clinical indication: Other: R/O fecal impaction; Additional info: Abd pain/distension. R/O fecal impaction TECHNIQUE: Imaging protocol: XR of the abdomen. Views: Frontal supine view of the abdomen. 1 View. COMPARISON: CT ABD PELVIS W/O CONTRAST 05/02/2020 4:42 PM FINDINGS: Diaphragm: The hemidiaphragms are not entirely included. Gastrointestinal tract: Prominent rectal fecal expansion. Scattered bowel gas. Bones/joints: Degenerative change of the spine. Other findings: External densities overlie the upper abdomen bilaterally probably intra-abdominal surgical clips. IMPRESSION: Prominent rectal expansion with fecal debris. Diameter approaches 11.4 cm transversely. This finding is without interval change as correlated to general education professor topogram of CT 2 days previous. Electronically signed by: Ceci Joseph On 05/04/2020 09:58:02 AM
[2020-05-04] MEDS ORDERED: POTASSIUM CHLORIDE 10 MEQ SR TABLET PO ONE (10:00)
[2020-05-04] MEDS ORDERED: D5W 1000ML IV ONE (10:00)
--- NOTE | 2020-05-04 10:56 | IPNPDOC ---
Date Seen The patient was seen on 05/04/20. Progress Note SUBJECTIVE: able to eat today , but still c/o nausea no abd pain. had BM yesterday. AXR fecal impaction,unchanged. still w urine retention needing sin. OBJECTIVE PHYSICAL EXAMINATION: VITAL SIGNS: Please see below. GENERAL: No distress. Able to speak in full sentences HEENT: Normocephalic, atraumatic, moist mucous membranes NECK: Supple, no JVD, thyromegaly CARDIOVASCULAR EXAMINATION: regular rate, regular rhythm and S2 and tissue spread sounds RESPIRATORY EXAMINATION: Clear to auscultation, no wheezing ABDOMINAL EXAMINATION: Soft, nontender, nondistended, positive bowel sounds in 4 quadrants no rebound or guarding EXTREMITIES: Range of motion intact SKIN: No rash NEUROLOGICAL EXAMINATION: Alert oriented 1, no focal deficits . LABORATORY DATA: See below. IMAGING: SEE BELOW MICROBIOLOGY: Please see below. ASSESSMENT: 69 y/o male with h/o dementia, CADASIL, Afib on chronic eliquis brought in to the ER from the SNF due to AMS noted for the past two days, without documented fevers, cough, SOB, COVID-19 exposure, n/v/d/abd pain, or cloudy malodorous urine. He had a similar episode during his previous admission when he was treated for E. coli UTI. In the ER, he had no neck rigidity, fever, meningeal signs or focal neurologic deficits, but had lactic acidosis, elevated white count 14, and was given iv levaquin. CXR was negative for acute pneumonia, CT head was negative for acute intracranial abnormality, and UA was unremarkable. Blood cultures were sent. ABG was negative. Hospitalist was asked to admit for acute encephalopathy, and lactic acidosis r/o sepsis from UTI. PROBLEMS: Acute Encephalopathy, resolved Lactic Acidosis,resolved Leukocytosis,resolved Fecal Impaction Intractable nausea due to fecal impaction Dementia/CADASIL Chronic AFib on eliquis Morbid Obesity Urine retention PLAN: tolerating his diet. per surgery supervisor cell operation, mg citrate and soap suds enema to help resolve fecal impaction. d/c sin. trial of void. Disposition : 1-2 more days pending clinical improvement VS, I&O, 24H, Fishbone Vital Signs/I&O Vital Signs Date Time Temp Pulse Resp B/P (MAP) Pulse Ox O2 Delivery O2 Flow Rate FiO2 05/04/20 08:42 73 129/77 05/04/20 06:00 96.4 22 93 Room Air I&O- Last 24 Hours up to 6 AM 05/04/20 06:00 Intake Total 4080 ml Output Total 4175 ml Balance -95 ml Laboratory Data 24H LABS Laboratory Tests 2 05/03/20 11:13: Bedside Glucose (Misc Panel) 107 05/04/20 06:05: Immature Granulocyte % (Auto) 0.6, Neutrophils (%) (Auto) 59.9, Lymphocytes (%) (Auto) 20.8L, Monocytes (%) (Auto) 9.4H, Eosinophils (%) (Auto) 8.9H, Basophils (%) (Auto) 0.4, Neutrophils # (Auto) 4.8, Lymphocytes # (Auto) 1.7, Monocytes # (Auto) 0.8, Eosinophils # (Auto) 0.7H, Basophils # (Auto) 0.0, Nucleated Red Blood Cells % (auto) 0.0, Anion Gap 7L, Glomerular Filtration Rate > 60.0, Calcium Level 6.5#L CBC/BMP Laboratory Tests 05/04/20 06:05 Microbiology Microbiology 05/02/20 Respiratory Virus Panel (PCR) ([facility]) - Final, Complete 05/02/20 Blood Culture - Preliminary, Resulted No growth after 24 hours . All specim... 05/02/20 Urine Culture - Final, Complete 05/02/20 Blood Culture - Preliminary, Resulted No Growth after 48 hours. All Specime... JUDE MCLEOD MD May 04, 2020 10:56
[2020-05-04] MEDS ORDERED: CALCIUM GLUCONATE 1,000 MG in D5W MINI-BAG PLUS 100 ML IV ONE (11:00)
[2020-05-04] MEDS ORDERED: MAGNESIUM CITRATE 300 ML BTL PO ONE (11:00)
[2020-05-04 13:16] LABS: ALBUMIN 2.9 GM/DL (3.2-5.2); ALT/SGPT 26 U/L (12-78); BILIRUBIN,DIRECT 0.2 MG/DL (0.0-0.2); BILIRUBIN,TOTAL 0.5 MG/DL (0.2-1.0); BLOOD UREA NITROGEN 8 MG/DL (7-18); CALCIUM LEVEL 8.8 MG/DL (8.8-10.2); CARBON DIOXIDE LEVEL 28 MEQ/L (21-32); CHLORIDE LEVEL 107 MEQ/L (98-107); CREATININE FOR GFR 0.98 MG/DL (0.70-1.30); GLOMERULAR FILTRATION RATE > 60.0 (>42); GLUCOSE, FASTING 120 MG/DL (70-100); POTASSIUM SERUM 3.6 MEQ/L (3.5-5.1); SODIUM LEVEL 139 MEQ/L (136-145); TOTAL PROTEIN 6.1 GM/DL (6.4-8.2)
[2020-05-04 14:00] VITALS: BP 141/105
[2020-05-04] MEDS: POTASSIUM CHLORIDE 10 MEQ SR TABLET PO SCH ×2 (17:36→21:26)
[2020-05-04 22:00] VITALS: BP 158/76
[2020-05-05 06:00] VITALS: BP 130/64
[2020-05-05 07:49] LABS: BASO # 0.1 10^3/uL (0.0-0.2); BASO % 0.6 % (0.0-1.0); EOS # 1.1 10^3/uL (0.0-0.5); EOS % 14.5 % (0.0-3.0); HEMATOCRIT 40.6 % (42.0-52.0); HEMOGLOBIN 12.8 g/dl (13.5-17.5); LYMPH # 1.6 10^3/uL (1.5-5.0); LYMPH % 20.8 % (24.0-44.0); MEAN CORPUSCULAR HEMOGLOBIN 30.5 pg (27.0-33.0); MEAN CORPUSCULAR HGB CONC 31.5 g/dl (32.0-36.5); MEAN CORPUSCULAR VOLUME 96.9 fl (80.0-96.0); MONO # 0.6 10^3/uL (0.0-0.8); NEUTROPHILS # 4.3 10^3/uL (1.5-8.5); NEUTROPHILS % 55.2 % (36.0-66.0); PLATELET COUNT, AUTOMATED 163 10^3/uL (150-450); RED BLOOD COUNT 4.19 10^6/uL (4.30-6.10); WHITE BLOOD COUNT 7.8 10^3/uL (4.0-10.0)
[2020-05-05 08:04] LABS: BLOOD UREA NITROGEN 10 MG/DL (7-18); CALCIUM LEVEL 8.3 MG/DL (8.8-10.2); CARBON DIOXIDE LEVEL 27 MEQ/L (21-32); CHLORIDE LEVEL 110 MEQ/L (98-107); CREATININE FOR GFR 0.93 MG/DL (0.70-1.30); GLOMERULAR FILTRATION RATE > 60.0 (>42); GLUCOSE, FASTING 107 MG/DL (70-100); POTASSIUM SERUM 4.6 MEQ/L (3.5-5.1); SODIUM LEVEL 143 MEQ/L (136-145)
[2020-05-05] MEDS ORDERED: MIRALAX *UNIT DOSE* 17GM PACKET PO PRN (09:30)
--- NOTE | 2020-05-05 09:32 | IPNPDOC ---
Date Seen The patient was seen on 05/05/20. Progress Note SUBJECTIVE: no recurrent n/v. tolerating diet. abd pain improved. had bm yesterday. no f/c overnight. no c/o sob despite ivfluids given for hypernatremia. no new c/o. OBJECTIVE PHYSICAL EXAMINATION: VITAL SIGNS: Please see below. GENERAL: No distress. Able to speak in full sentences. AAOx1 only HEENT: Normocephalic, atraumatic, moist mucous membranes. erythematous scales on face and b/lUE NECK: Supple, no JVD, thyromegaly CARDIOVASCULAR EXAMINATION: regular rate, regular rhythm and S2 and tissue spread sounds RESPIRATORY EXAMINATION: Clear to auscultation, no wheezing ABDOMINAL EXAMINATION: Soft, nontender, nondistended, positive bowel sounds in 4 quadrants no rebound or guardingno HSM EXTREMITIES: Range of motion intact SKIN: No rash NEUROLOGICAL EXAMINATION: Alert oriented 1, no focal deficits . LABORATORY DATA: See below. IMAGING: SEE BELOW MICROBIOLOGY: Please see below. ASSESSMENT: 69 y/o male with h/o dementia, CADASIL, Afib on chronic eliquis brought in to the ER from the SNF due to AMS noted for the past two days, without documented fevers, cough, SOB, COVID-19 exposure, n/v/d/abd pain, or cloudy malodorous urine. He had a similar episode during his previous admission when he was treated for E. coli UTI. In the ER, he had no neck rigidity, fever, meningeal signs or focal neurologic deficits, but had lactic acidosis, elevated white count 14, and was given iv levaquin. CXR was negative for acute pneumonia, CT head was negative for acute intracranial abnormality, and UA was unremarkable. Blood cultures were sent. ABG was negative. Hospitalist was asked to admit for acute encephalopathy, and lactic acidosis r/o sepsis from UTI. PROBLEMS: Acute Encephalopathy, resolved Lactic Acidosis,resolved Leukocytosis,resolved Fecal Impaction, persistent Intractable nausea due to fecal impaction, resolved Dementia/CADASIL Chronic AFib on eliquis Morbid Obesity Urine retention s/p sin PLAN: needs aggressive bowel regimen. repeat mg citrate soap suds enema. tolerating diet. trial of ivfluids to improve hypernatremia. encourage po fluid intake. if no other issues overnight. ok to dc in am. dc po potassium due torisk of hyperkalemia. no more emesis to suspect any further decline with potassium. Disposition :dc wednesday VS, I&O, 24H, Fishbone Vital Signs/I&O Vital Signs Date Time Temp Pulse Resp B/P (MAP) Pulse Ox O2 Delivery O2 Flow Rate FiO2 05/05/20 06:00 97.6 53 18 130/64 (86) 96 Room Air I&O- Last 24 Hours up to 6 AM 05/05/20 06:00 Intake Total 660 ml Output Total 400 ml Balance 260 ml Laboratory Data 24H LABS Laboratory Tests 2 05/04/20 12:37: Anion Gap 4L, Glomerular Filtration Rate > 60.0, Calcium Level 8.8#, Whole Blood Ionized Calcium 4.4L, Total Bilirubin 0.5, Direct Bilirubin 0.2, Aspartate Amino Transf (AST/SGOT) 28, Alanine Aminotransferase (ALT/SGPT) 26, Alkaline Phosphatase 78, Total Protein 6.1L, Albumin 2.9L, Albumin/Globulin Ratio 0.9 05/05/20 06:26: Anion Gap 6L, Glomerular Filtration Rate > 60.0, Calcium Level 8.3L, Immature Granulocyte % (Auto) 0.9, Neutrophils (%) (Auto) 55.2, Lymphocytes (%) (Auto) 20.8L, Monocytes (%) (Auto) 8.0H, Eosinophils (%) (Auto) 14.5H, Basophils (%) (Auto) 0.6, Neutrophils # (Auto) 4.3, Lymphocytes # (Auto) 1.6, Monocytes # (Auto) 0.6, Eosinophils # (Auto) 1.1H, Basophils # (Auto) 0.1, Nucleated Red Blood Cells % (auto) 0.0 CBC/BMP Laboratory Tests 05/04/20 12:37 05/05/20 06:26 Microbiology Microbiology 05/02/20 Respiratory Virus Panel (PCR) ([facility]) - Final, Complete 05/02/20 Blood Culture - Preliminary, Resulted No Growth after 48 hours. All Specime... 05/02/20 Urine Culture - Final, Complete 05/02/20 Blood Culture - Preliminary, Resulted No Growth after 48 hours. All Specime... JUDE MCLEOD MD May 05, 2020 09:32
[2020-05-05] MEDS: ESCITALOPRAM OXALATE 10 MG TAB (LEXAPRO) PO SCH (09:40)
[2020-05-05] MEDS: SENOKOT S TAB PO SCH ×2 (09:40→21:02)
[2020-05-05] MEDS: FAMOTIDINE 20 MG TAB PO SCH ×2 (09:40→21:02)
[2020-05-05] MEDS: MULTIVITAMINS/MINERALS THERAP 1 TAB PO SCH (09:41)
[2020-05-05] MEDS: ATORVASTATIN 20 MG TAB PO SCH (09:41)
[2020-05-05] MEDS: ASPIRIN 81 MG CHEW TABLET PO SCH (09:41)
[2020-05-05] MEDS: APIXABAN 5 MG TAB (ELIQUIS) PO SCH ×2 (09:41→21:02)
[2020-05-05] MEDS: METOPROLOL SUCC (TopROL XL) 50MG **XL** TAB PO SCH (09:41)
[2020-05-05] MEDS ORDERED: MAGNESIUM CITRATE 300 ML BTL PO ONE (10:00)
--- NOTE | 2020-05-05 10:25 | REPVR ---
PROCEDURE INFORMATION: Exam: XR Abdomen, 1 View Exam date and time: 05/05/2020 10:07 AM Age: 69 years old Clinical indication: Constipation; Additional info: Fecal impaction abd pain check resolution TECHNIQUE: Imaging protocol: XR of the abdomen. Views: Frontal supine view of the abdomen. 1 View. COMPARISON: 1. CT ABD PELVIS W/O CONTRAST 05/02/2020 4:42:43 PM 2. CR Abdomen,Flat Plate KUB 05/04/2020 9:35 AM FINDINGS: Gastrointestinal tract: There continues to be prominent rectal fecal distention, unchanged when compared to the prior examination. There are scattered gas-filled loops of nondilated small bowel as well as gas and fecal material elsewhere within the colon. Intraperitoneal space: Cholecystectomy clips right upper quadrant. Bilateral nephrolithiasis, better appreciated on recent CT. Bones/joints: Bones are stable. Degenerative changes. IMPRESSION: Persistent prominent rectal fecal distention with gas and fecal material elsewhere within the colon. No bowel obstruction. No significant change when compared to prior examinations. Electronically signed by: Omar Ortiz On 05/05/2020 10:24:48 AM
[2020-05-05 22:00] VITALS: BP 160/73
[2020-05-06 06:00] VITALS: BP 138/68
[2020-05-06 06:19] LABS: BASO % 0.4 % (0.0-1.0); EOS # 1.4 10^3/uL (0.0-0.5); EOS % 14.1 % (0.0-3.0); HEMATOCRIT 40.6 % (42.0-52.0); HEMOGLOBIN 13.3 g/dl (13.5-17.5); LYMPH % 19.5 % (24.0-44.0); MEAN CORPUSCULAR HEMOGLOBIN 31.2 pg (27.0-33.0); MEAN CORPUSCULAR HGB CONC 32.8 g/dl (32.0-36.5); MEAN CORPUSCULAR VOLUME 95.3 fl (80.0-96.0); MONO # 0.7 10^3/uL (0.0-0.8); MONO % 6.5 % (0.0-5.0); NEUTROPHILS % 58.8 % (36.0-66.0); PLATELET COUNT, AUTOMATED 202 10^3/uL (150-450); RED BLOOD COUNT 4.26 10^6/uL (4.30-6.10); WHITE BLOOD COUNT 10.2 10^3/uL (4.0-10.0)
[2020-05-06 06:33] LABS: BLOOD UREA NITROGEN 9 MG/DL (7-18); CALCIUM LEVEL 8.3 MG/DL (8.8-10.2); CARBON DIOXIDE LEVEL 30 MEQ/L (21-32); CHLORIDE LEVEL 107 MEQ/L (98-107); CREATININE FOR GFR 0.98 MG/DL (0.70-1.30); GLOMERULAR FILTRATION RATE > 60.0 (>42); GLUCOSE, FASTING 96 MG/DL (70-100); POTASSIUM SERUM 4.3 MEQ/L (3.5-5.1); SODIUM LEVEL 143 MEQ/L (136-145)
--- NOTE | 2020-05-06 08:22 | DS.PDOC ---
Discharge Summary General Date of Admission May 02, 2020 at 12:38 Date of Discharge 05/06/20 Discharge Summary DISCHARGE DIAGNOSES: Intractable nausea due to fecal impaction Urine retention due to fecal impaction, s/p sin Fecal Impaction Acute metabolic Encephalopathy, ruled out UTI Lactic Acidosis Leukocytosis Dementia/CADASIL Chronic AFib on eliquis Morbid Obesity COVID-19 NEGATIVE DISCHARGE MEDICATIONS: SEE BELOW COMPLICATIONS/CHIEF COMPLAINT: Altered mental status HISTORY OF PRESENT ILLNESS: 69 y/o male with h/o dementia, CADASIL, Afib on chronic eliquis brought in to the ER from the [facility] due to AMS noted for the past two days, without documented fevers, cough, SOB, COVID-19 exposure, n/v/d/abd pain, or cloudy malodorous urine. He had a similar episode during his previous admission when he was treated for E. coli UTI. In the ER, he had no neck rigidity, fever, meningeal signs or focal neurologic deficits, but had lactic acidosis, elevated white count 14, and was given iv levaquin. CXR was negative for acute pneumonia, CT head was negative for acute intracranial abnormality, and UA was unremarkable. Blood cultures were sent. ABG was negative. Hospitalist was asked to admit for acute encephalopathy, and lactic acidosis r/o sepsis from UTI. HOSPITAL COURSE: On hospital admission, He had lactic acidosis and abnormal urinalysis with altered mental status, and was given levaquin for possible UTI. His white count improved from 14 to normal at discharge, but urine cx and blood cultures were negative. CXR: no acute cardiopulmonary disease. SARS-COVID NEGATIVE. The patient was not tolerating his diet and had intractable nausea ,abdominal fullness due to severe constipation and fecal impaction, and need antiemetics and ivfluids. CT abd: fecal impaction. He developed urinary retention requiring Sin catheter placement. Levaquin was discontinued after negative urine and blood cultures were finalized. lactic acidosis resolved after ivfluids, but patient continued to have nausea until bowel regimen with soap suds enema and magnesium citrate were given on 2 different occasions, relieving the fecal impaction, and allowing the patient to eat. His Sin was discontinued, and after bowel movements from the bowel regimen given, pt had no recurrent episodes of urine retention after the sin was removed. DISCHARGE MEDICATIONS: Please see below. ALLERGIES: Please see below. PHYSICAL EXAMINATION ON DISCHARGE: VITAL SIGNS: Please see below. GENERAL: No distress. Able to speak in full sentences. AAOx1 only HEENT: Normocephalic, atraumatic, moist mucous membranes. erythematous scales on face and b/lUE NECK: Supple, no JVD, thyromegaly CARDIOVASCULAR EXAMINATION: regular rate, regular rhythm and S2 and tissue spread sounds RESPIRATORY EXAMINATION: Clear to auscultation, no wheezing ABDOMINAL EXAMINATION: Soft, nontender, nondistended, positive bowel sounds in 4 quadrants no rebound or guardingno HSM EXTREMITIES: Range of motion intact SKIN: No rash NEUROLOGICAL EXAMINATION: Alert oriented 1, no focal deficits . LABORATORY DATA: See below. IMAGING: SEE BELOW PROCEDURE INFORMATION: Exam: CT Abdomen And Pelvis Without Contrast Exam date and time: 05/02/2020 4:45 PM Age: 69 years old Clinical indication: Abdominal pain; Generalized; Additional info: Nausea/abd pain TECHNIQUE: Imaging protocol: Computed tomography of the abdomen and pelvis without contrast. Axial, coronal and sagittal reformatted images were created and reviewed. Radiation optimization: All CT scans at this facility use at least one of these dose optimization techniques: automated exposure control; mA and/or kV adjustment per patient size (includes targeted exams where dose is matched to clinical indication); or iterative reconstruction. COMPARISON: CT ABD PELVIS W/O CONTRAST 03/06/2020 5:59 PM FINDINGS: Lungs: Mild linear stranding and groundglass at the lung bases, likely due to atelectasis and/or scarring. Liver: Unremarkable. Gallbladder and bile ducts: Status post cholecystectomy. No biliary ductal dilatation. Pancreas: Unremarkable. Spleen: Unremarkable. Adrenals: Unremarkable. Kidneys and ureters: Simple bilateral renal cysts, measuring up to 3.2 x 2.7 cm on the left and 2 x 1.7 cm on the right (no follow-up is indicated based on the imaging appearance). Nonobstructing bilateral renal calculi. No hydronephrosis. Stomach and bowel: Marked fecal distention of the rectal vault with mild associated perirectal edema. Scattered colonic diverticula without evidence of diverticulitis. No obstruction. No bowel wall thickening. No pneumatosis. Appendix: Appendix not identified with certainty but no pericecal inflammatory change to suggest acute appendicitis. Intraperitoneal space: No free fluid. No organized fluid collection. No free air. Vasculature: Mild atherosclerotic disease. No aneurysm. Lymph nodes: No pathologically enlarged lymph nodes. Urinary bladder: Sin catheter and air in the urinary bladder, which is decompressed. Reproductive: Mildly enlarged prostate. Bones/joints: No acute osseous abnormality. Osteopenia. Degenerative changes. Soft tissues: Unremarkable. IMPRESSION: 1. Marked fecal distention of the rectal vault with mild associated perirectal edema. Findings are suggestive of fecal impaction and possible nonspecific proctitis versus stercoral ulceration. 2. Decompressed urinary bladder, which limits evaluation for wall thickening. Correlate with urinalysis to exclude cystitis. 3. Additional findings, as above. COMMENTS: Consistent with the [employer]'s Incidental Findings Committee white paper (J Am Kennedi Radiol 2018): Any incidental renal lesion less than 1 cm or classified as too small to characterize, or any incidental cystic renal lesion characterized as simple-appearing, is likely benign. No follow-up imaging is recommended for these lesions per consensus recommendations based on imaging criteria. Electronically signed by: David Truong On 05/02/2020 17:15:25 PM PROCEDURE INFORMATION: Exam: CT Head Without Contrast Exam date and time: 05/02/2020 9:18 AM Age: 69 years old Clinical indication: Pain; Headache; Additional info: Headache with hbp TECHNIQUE: Imaging protocol: Computed tomography of the head without contrast. Radiation optimization: All CT scans at this facility use at least one of these dose optimization techniques: automated exposure control; mA and/or kV adjustment per patient size (includes targeted exams where dose is matched to clinical indication); or iterative reconstruction. COMPARISON: No relevant prior studies available. FINDINGS: Brain: There is no acute intracranial hemorrhage. There is prominent lucency in the cerebral white matter, likely microvascular disease although non-specific. Das white differentiation is intact. There are no extra-axial fluid collections. No evidence of mass. There is no mass effect or midline shift. Cerebral ventricles: The ventricles and sulci are enlarged, consistent with volume loss / atrophy. No hydrocephalus. Bones/joints: No acute fracture. Paranasal sinuses: Visualized sinuses are unremarkable. No fluid levels. Mastoid air cells: No significant mastoid effusion. Vasculature: There is vascular calcification. Soft tissues: Unremarkable as visualized. IMPRESSION: 1. No evidence of acute intracranial abnormality. No evidence of acute infarction, hemorrhage, or mass. 2. Atrophy and microvascular disease. Electronically signed by: Shawnee Reed On 05/02/2020 09:30:14 AM PROCEDURE INFORMATION: Exam: XR Chest, 1 View Exam date and time: 05/02/2020 9:27 AM Age: 69 years old Clinical indication: Shortness of breath; Additional info: Altered mental status TECHNIQUE: Imaging protocol: XR of the chest Views: 1 view. COMPARISON: CR PORTABLE CHEST X-RAY 03/06/2020 5:37 PM FINDINGS: Lungs: No consolidation. Moderate lung volumes. No evidence of edema. Pleural space: No significant visible pleural effusion. No pneumothorax. Heart/Mediastinum: Cardiac silhouette appears mildly prominent but this is likely extension weighted by the degree of inspiration and without significant cardiomegaly. Bones/joints: No acute finding. High-riding shoulders and bilateral degenerative changes. IMPRESSION: No acute cardiopulmonary finding. Electronically signed by: Shawnee Reed On 05/02/2020 11:41:09 AM MICROBIOLOGY: Please see below. DISCHARGE CONDITION: Stable TIME SPENT ON DISCHARGE: 30 minutes. Vital Signs/I&Os Vital Signs Date Time Temp Pulse Resp B/P (MAP) Pulse Ox O2 Delivery O2 Flow Rate FiO2 05/05/20 09:41 63 143/67 05/05/20 06:00 97.6 18 96 Room Air I&O- Last 24 Hours up to 6 AM 05/05/20 06:00 Intake Total 770 ml Output Total 400 ml Balance 370 ml Laboratory Data Labs 24H Laboratory Tests 2 05/05/20 06:26: Immature Granulocyte % (Auto) 0.9, Neutrophils (%) (Auto) 55.2, Lymphocytes (%) (Auto) 20.8L, Monocytes (%) (Auto) 8.0H, Eosinophils (%) (Auto) 14.5H, Basophils (%) (Auto) 0.6, Neutrophils # (Auto) 4.3, Lymphocytes # (Auto) 1.6, Monocytes # (Auto) 0.6, Eosinophils # (Auto) 1.1H, Basophils # (Auto) 0.1, Nucleated Red Blood Cells % (auto) 0.0, Anion Gap 6L, Glomerular Filtration Rate > 60.0, Calc ium Level 8.3L CBC/BMP Laboratory Tests 05/05/20 06:26 Microbiology Microbiology 05/02/20 Respiratory Virus Panel (PCR) (AYAH) - Final, Complete 05/02/20 Blood Culture - Preliminary, Resulted No Growth after 72 hours. All specime... 05/02/20 Urine Culture - Final, Complete 05/02/20 Blood Culture - Preliminary, Resulted No Growth after 72 hours. All specime... Discharge Medications Scheduled Apixaban (Eliquis) 5 Mg Tablet, 5 MG PO BID, (Reported) Aspirin (Aspirin) 81 Mg Tab.chew, 81 MG PO DAILY, (Reported) Atorvastatin Calcium (Atorvastatin Calcium) 40 Mg Tablet, 40 MG PO DAILY, (Reported) Cholecalciferol (Vitamin D3) (Vitamin D3) 50 Mcg Tablet, 50 MCG PO DAILY, (Reported) Docusate Sodium (Colace) 100 Mg Capsule, 200 MG PO DAILY, (Reported) Escitalopram Oxalate (Escitalopram Oxalate) 20 Mg Tablet, 20 MG PO DAILY, (Reported) Famotidine (Famotidine) 20 Mg Tablet, 20 MG PO BID, (Reported) Metoprolol Succinate (Toprol Xl) 50 Mg Tab.er.24h, 50 MG PO DAILY, (Reported) Multivitamins (Thera M Plus Tablet) 1 Each Tablet, 1 TAB PO DAILY, (Reported) Quinapril HCl (Quinapril HCl) 40 Mg Tablet, 40 MG PO QPM, (Reported) Sennosides (Senna Lax) 8.6 Mg Tablet, 17.2 MG PO DAILY, (Reported) Sorbitol Solution (Sorbitol 70%) 1 Ml Solution, 15 ML PO Q2D, (Reported) Scheduled PRN Acetaminophen (Tylenol) 325 Mg Tablet, 650 MG PO Q4H PRN for PAIN / FEVER, (Reported) Bisacodyl (Bisacodyl) 10 Mg Supp.rect, 10 MG AR DAILY PRN for CONSTIPATION, (Reported) Diphenhydramine HCl (Benadryl) 25 Mg Capsule, 25 MG PO Q4H PRN for ITCHING, (Reported) Meclizine HCl (Meclizine HCl) 25 Mg Tablet, 25 MG PO Q6H PRN for DIZZINESS, (Reported) Milk Of Magnesia (Milk of Magnesia) 2,400 Mg/10 Ml Oral.susp, 10 ML PO DAILY PRN for CONSTIPATION, (Reported) Sodium Phosphate,[place]-Dibasic (Enema) 133 Ml Enema, 1 CICI AR DAILY PRN for CONSTIPATION, (Reported) Allergies Coded Allergies: cefazolin (Verified Allergy, Intermediate, RASH, 03/06/20) JUDE MCLEOD MD May 05, 2020 15:47
[2020-05-06] MEDS: MULTIVITAMINS/MINERALS THERAP 1 TAB PO SCH (09:28)
[2020-05-06] MEDS: ASPIRIN 81 MG CHEW TABLET PO SCH (09:28)
[2020-05-06] MEDS: APIXABAN 5 MG TAB (ELIQUIS) PO SCH (09:29)
[2020-05-06] MEDS: ATORVASTATIN 20 MG TAB PO SCH (09:29)
[2020-05-06] MEDS: ESCITALOPRAM OXALATE 10 MG TAB (LEXAPRO) PO SCH (09:29)
[2020-05-06] MEDS: SENOKOT S TAB PO SCH (09:29)
[2020-05-06] MEDS: FAMOTIDINE 20 MG TAB PO SCH (09:29)
[2020-05-06 09:30] VITALS: BP 129/58
[2020-05-06] MEDS: METOPROLOL SUCC (TopROL XL) 50MG **XL** TAB PO SCH (09:30)
== END 2020-05-06 12:30 | DRG 388 ==
LOC: M ED 08:53 → EDBD 08:53 → M ED INP 12:38 → M MSPAV 14:30
PROVIDERS: ADMIT General Practice; ATTEND General Practice
DX: K56.41 Fecal impaction (principal); G93.41 Metabolic encephalopathy; E87.2 Acidosis; I48.20 Chronic atrial fibrillation, unspecified; I67.850 Cerebral autosomal dominant arteriopathy with subcortical infarcts and leukoencephalopathy; Z68.42 Body mass index [BMI] 45.0-49.9, adult; E87.0 Hyperosmolality and hypernatremia; R33.9 Retention of urine, unspecified; D72.829 Elevated white blood cell count, unspecified; E87.6 Hypokalemia; F03.90 Unspecified dementia, unspecified severity, without behavioral disturbance, psychotic disturbance, mood disturbance, and anxiety; E66.01 Morbid (severe) obesity due to excess calories; Z66 Do not resuscitate; Z20.828 Contact with and (suspected) exposure to other viral communicable diseases; Z79.01 Long term (current) use of anticoagulants; Z96.653 Presence of artificial knee joint, bilateral; Z90.49 Acquired absence of other specified parts of digestive tract; Z79.82 Long term (current) use of aspirin; Z79.899 Other long term (current) drug therapy; Z88.1 Allergy status to other antibiotic agents

== ENCOUNTER → 2020-05-15 | Outpatient (REF) | payer MEDICARE, MEDICAID ==
[~2020-05-15] MED LIST changes: +ACET-907 PO; +ASPI81CH33 PO; +BENA25CA4 PO; +BISA10SU4 PR; +D-20TAB PO; +ENEMENE PR; +ESCI20TA PO; +FAMO20TA4 PO; +MECL1TAB31 PO; +QUIN40TA26 PO; +RA S8.6T3 PO; +SORB70SO36 PO; +TOPR50TA PO
== END ==
LOC: SKLAB5 14:10
DX: Z11.2 Encounter for screening for other bacterial diseases (principal); B96.81 Helicobacter pylori [H. pylori] as the cause of diseases classified elsewhere

== ENCOUNTER → 2020-06-05 | Outpatient (REF) | payer MEDICARE, MEDICAID ==
[~2020-06-05] MED LIST changes: -ESCI20TA PO; +ESCI20TA16 PO
== END ==
LOC: SKLAB5 06-04 15:10 → EDSTATUS 07-09 10:17
DX: Z20.828 Contact with and (suspected) exposure to other viral communicable diseases (principal)

== ENCOUNTER → 2020-06-06 | Outpatient (REF) ==
[~2020-06-06] MED LIST changes: +ESCI20TA PO; -ESCI20TA16 PO
--- NOTE | 2020-06-10 11:39 | SLEEPHOME ---
DATE: 06/06/2020 ORDERED BY: Dr. Thomas Diagnostic home sleep testing was performed due to concern for the obstructive sleep apnea syndrome. For testing, a nocturnal T3 respiratory monitoring device was used. Continuous record was made of pulse, oxygen saturation, air flow, chest and abdominal strain, and body position. Nine hours and 59 minutes of data were reviewed. There were 7 hours and 43 minutes marked as time in bed. During the interval marked time in bed, there were 274 respiratory events identified of 10 seconds in duration or greater. The events were obstructive, and 32 mixed and central apneas were also seen. Baseline pulse rate was 63 beats per minute. Pulse rate ranged 24 to 189. Baseline saturation was 86%. Saturations fell to 78%. Testing was performed in both the supine and nonsupine positions. IMPRESSION: Abnormal home sleep testing with repetitive respiratory events and oxygen desaturations to 78% with a respiratory event index of 35.4 is consistent with the obstructive sleep apnea syndrome. RECOMMENDATION: The patient should undergo a formal sleep evaluation and be considered for pressure titration. MTDD
== END ==
LOC: M SLEEP HO 10:00
PROVIDERS: ATTEND Family Medicine
DX: G47.30 Sleep apnea, unspecified (principal)

== ENCOUNTER → 2020-06-09 | Outpatient (REF) | payer MEDICARE, MEDICAID ==
[2020-06-09 23:35] LABS: HEMATOCRIT 43.5 % (42.0-52.0); MEAN CORPUSCULAR HEMOGLOBIN 30.9 pg (27.0-33.0); MEAN CORPUSCULAR HGB CONC 32.2 g/dl (32.0-36.5); PLATELET COUNT, AUTOMATED 216 10^3/uL (150-450); RED BLOOD COUNT 4.53 10^6/uL (4.30-6.10)
[2020-06-10 00:01] LABS: BLOOD UREA NITROGEN 14 MG/DL (7-18); CALCIUM LEVEL 8.9 MG/DL (8.8-10.2); CARBON DIOXIDE LEVEL 28 MEQ/L (21-32); CHLORIDE LEVEL 109 MEQ/L (98-107); GLOMERULAR FILTRATION RATE > 60.0 (>42); GLUCOSE, FASTING 90 MG/DL (70-100); POTASSIUM SERUM 4.2 MEQ/L (3.5-5.1); SODIUM LEVEL 143 MEQ/L (136-145)
== END ==
LOC: SKLAB5 20:50
DX: R06.02 Shortness of breath (principal); Z20.828 Contact with and (suspected) exposure to other viral communicable diseases
CPT/HCPCS: 36415; 80048; 85027; U0002

== ENCOUNTER → 2020-06-10 | Outpatient (REF) | payer MEDICARE, MEDICAID ==
--- NOTE | 2020-06-10 10:22 | REP ---
INDICATION: SOB COMPARISON: 05/02/2020 TECHNIQUE: PA and lateral. FINDINGS: The mediastinum and cardiac silhouette are normal. The lung pugh are clear and without acute consolidation, effusion, or pneumothorax. The skeletal structures are intact and normal. IMPRESSION: No acute cardiopulmonary process. <Electronically signed by Omar Silverman > 06/10/20 [id number]
== END ==
LOC: SKLAB5 07:09
DX: R06.02 Shortness of breath (principal)

== ENCOUNTER → 2020-06-12 | Outpatient (REF) | payer MEDICARE, MEDICAID ==
[~2020-06-12] MED LIST changes: -ESCI20TA PO; +ESCI20TA16 PO
== END ==
LOC: SKLAB5 08:00
PROVIDERS: ATTEND Internal Medicine
DX: Z20.828 Contact with and (suspected) exposure to other viral communicable diseases (principal)

== ENCOUNTER → 2020-06-19 | Outpatient (REF) | payer MEDICARE, MEDICAID | LOC: SKLAB5 08:00 | PROVIDERS: ATTEND Internal Medicine | DX: Z20.828 Contact with and (suspected) exposure to other viral communicable diseases (principal) ==

== ENCOUNTER → 2020-06-26 | Outpatient (REF) | payer MEDICARE, MEDICAID ==
[~2020-06-26] MED LIST changes: +ESCI20TA PO; -ESCI20TA16 PO
== END ==
LOC: SKLAB5 06:42
PROVIDERS: ATTEND Family Medicine
DX: Z20.828 Contact with and (suspected) exposure to other viral communicable diseases (principal)

== ENCOUNTER → 2020-07-03 | Outpatient (REF) | payer MEDICARE, MEDICAID | LOC: SKLAB5 09:11 | DX: Z20.828 Contact with and (suspected) exposure to other viral communicable diseases (principal) ==

== ENCOUNTER → 2020-07-10 | Outpatient (REF) | payer MEDICARE, MEDICAID | LOC: SKLAB5 06:01 | DX: Z20.828 Contact with and (suspected) exposure to other viral communicable diseases (principal) ==

== ENCOUNTER → 2020-07-17 | Outpatient (REF) | payer MEDICARE, MEDICAID | LOC: SKLAB5 06:32 | DX: Z20.828 Contact with and (suspected) exposure to other viral communicable diseases (principal) ==

== ENCOUNTER → 2020-07-24 | Outpatient (REF) | payer MEDICARE, MEDICAID | LOC: SKLAB5 07:02 | DX: Z11.52 Encounter for screening for COVID-19 (principal) ==

== ENCOUNTER → 2020-07-25 | Outpatient (REF) | payer MEDICARE, MEDICAID ==
[2020-07-25 10:50] LABS: HEMATOCRIT 45.1 % (42.0-52.0); HEMOGLOBIN 14.7 g/dl (13.5-17.5); MEAN CORPUSCULAR HEMOGLOBIN 31.9 pg (27.0-33.0); MEAN CORPUSCULAR HGB CONC 32.6 g/dl (32.0-36.5); MEAN CORPUSCULAR VOLUME 97.8 fl (80.0-96.0); PLATELET COUNT, AUTOMATED 192 10^3/uL (150-450); RED BLOOD COUNT 4.61 10^6/uL (4.30-6.10); WHITE BLOOD COUNT 7.8 10^3/uL (4.0-10.0)
[2020-07-25 11:25] LABS: ALBUMIN 3.5 GM/DL (3.2-5.2); ALT/SGPT 21 U/L (12-78); BILIRUBIN,TOTAL 0.4 MG/DL (0.2-1.0); BLOOD UREA NITROGEN 13 MG/DL (7-18); CALCIUM LEVEL 8.9 MG/DL (8.8-10.2); CARBON DIOXIDE LEVEL 30 MEQ/L (21-32); CHLORIDE LEVEL 106 MEQ/L (98-107); CREATININE FOR GFR 0.98 MG/DL (0.70-1.30); GLOMERULAR FILTRATION RATE > 60.0 (>42); GLUCOSE, FASTING 91 MG/DL (70-100); POTASSIUM SERUM 3.9 MEQ/L (3.5-5.1); SODIUM LEVEL 141 MEQ/L (136-145); TOTAL PROTEIN 6.6 GM/DL (6.4-8.2)
[2020-07-25 11:50] LABS: VITAMIN B12 LEVEL 617 PG/ML (247-911)
== END ==
LOC: SKLAB5 09:02
DX: E53.8 Deficiency of other specified B group vitamins (principal); I10 Essential (primary) hypertension

== ENCOUNTER → 2020-07-26 | Outpatient (REF) | payer MEDICARE, MEDICAID ==
[2020-07-26 13:50] LABS: APPEARANCE, URINE CLOUDY (CLEAR); BACTERIA, URINE AUTO 1+ (NEGATIVE); BILIRUBIN, URINE AUTO NEGATIVE (NEGATIVE); BLOOD, URINE BLOOD 3+ (NEGATIVE); COLOR, URINE RED (YELLOW); GLUCOSE, URINE (UA) AUTO NEGATIVE (NEGATIVE); KETONE, URINE AUTO NEGATIVE (NEGATIVE); LEUKOCYTE ESTERASE, URINE AUTO NEGATIVE (NEGATIVE); NITRITE, URINE AUTO NEGATIVE (NEGATIVE); PROTEIN, URINE AUTO 2+ mg/dL (NEGATIVE); RBC, URINE AUTO TNTC /HPF (0-3); SPECIFIC GRAVITY URINE AUTO 1.009 (1.002-1.035); SQUAMOUS EPITHELIAL CELL UR AU 0 /HPF (0-6); UROBILINOGEN, URINE AUTO 0.2 mg/dL (0.0-2.0); WBC, URINE AUTO 168 /HPF (0-3)
== END ==
LOC: SKLAB5 11:10
DX: R31.9 Hematuria, unspecified (principal)

== ENCOUNTER → 2020-07-31 | Outpatient (REF) | payer MEDICARE, MEDICAID ==
[~2020-07-31] MED LIST changes: -ESCI20TA PO; +ESCI20TA16 PO
== END ==
LOC: SKLAB5 06:41
PROVIDERS: ATTEND Internal Medicine
DX: Z20.822 Contact with and (suspected) exposure to COVID-19 (principal)

== ENCOUNTER → 2020-08-01 | Outpatient (REF) | payer MEDICARE, MEDICAID ==
[2020-08-01 08:33] LABS: CHOLESTEROL RISK RATIO 3.222 (<5)
== END ==
LOC: SKLAB5 08:37
DX: E78.5 Hyperlipidemia, unspecified (principal)

== ENCOUNTER → 2020-08-07 | Outpatient (REF) | payer MEDICARE, MEDICAID | LOC: SKLAB5 07:18 | PROVIDERS: ATTEND Internal Medicine | DX: Z20.822 Contact with and (suspected) exposure to COVID-19 (principal) ==

== ENCOUNTER → 2020-08-14 | Outpatient (REF) | payer MEDICARE, MEDICAID | LOC: SKLAB5 07:06 | PROVIDERS: ATTEND Internal Medicine | DX: Z20.822 Contact with and (suspected) exposure to COVID-19 (principal) ==

== ENCOUNTER → 2020-08-21 | Outpatient (REF) | payer MEDICARE, MEDICAID | LOC: SKLAB5 07:22 | PROVIDERS: ATTEND Internal Medicine | DX: Z20.822 Contact with and (suspected) exposure to COVID-19 (principal) ==

== ENCOUNTER → 2020-08-28 | Outpatient (REF) | payer MEDICARE, MEDICAID | LOC: SKLAB5 06:24 | PROVIDERS: ATTEND Internal Medicine | DX: Z20.822 Contact with and (suspected) exposure to COVID-19 (principal) ==

== ENCOUNTER → 2020-09-04 | Outpatient (REF) | payer MEDICARE, MEDICAID | LOC: SKLAB5 06:36 | PROVIDERS: ATTEND Internal Medicine | DX: Z20.822 Contact with and (suspected) exposure to COVID-19 (principal) ==

== ENCOUNTER → 2020-09-11 | Outpatient (REF) | payer MEDICARE, MEDICAID | LOC: SKLAB5 08:00 | PROVIDERS: ATTEND Internal Medicine | DX: Z20.822 Contact with and (suspected) exposure to COVID-19 (principal) ==

== ENCOUNTER → 2020-09-19 | Outpatient (REF) | payer MEDICARE, MEDICAID | LOC: SKLAB5 06:07 | PROVIDERS: ATTEND Internal Medicine | DX: Z20.822 Contact with and (suspected) exposure to COVID-19 (principal) ==

== ENCOUNTER → 2020-09-25 | Outpatient (REF) | payer MEDICARE, MEDICAID | LOC: SKLAB5 06:31 | PROVIDERS: ATTEND Internal Medicine | DX: Z20.822 Contact with and (suspected) exposure to COVID-19 (principal) ==

== ENCOUNTER → 2020-10-02 | Outpatient (REF) | payer MEDICARE, MEDICAID | LOC: SKLAB5 07:35 | PROVIDERS: ATTEND Internal Medicine | DX: Z20.822 Contact with and (suspected) exposure to COVID-19 (principal) ==

== ENCOUNTER → 2020-10-18 | Outpatient (REF) | payer MEDICARE, MEDICAID | LOC: SKLAB5 07:13 | PROVIDERS: ATTEND Internal Medicine | DX: Z20.822 Contact with and (suspected) exposure to COVID-19 (principal) ==

== ENCOUNTER → 2020-11-05 | Outpatient (REF) | payer MEDICARE, MEDICAID ==
[2020-11-05 12:41] LABS: APPEARANCE, URINE TURBID (CLEAR); BACTERIA, URINE AUTO NEGATIVE (NEGATIVE); BILIRUBIN, URINE AUTO NEGATIVE (NEGATIVE); BLOOD, URINE BLOOD 3+ (NEGATIVE); COLOR, URINE AMBER (YELLOW); GLUCOSE, URINE (UA) AUTO NEGATIVE (NEGATIVE); KETONE, URINE AUTO TRACE mg/dL (NEGATIVE); LEUKOCYTE ESTERASE, URINE AUTO TRACE (NEGATIVE); MUCUS, URINE MODERATE (NEGATIVE); NITRITE, URINE AUTO NEGATIVE (NEGATIVE); PROTEIN, URINE AUTO 2+ mg/dL (NEGATIVE); RBC, URINE AUTO TNTC /HPF (0-3); SQUAMOUS EPITHELIAL CELL UR AU 0 /HPF (0-6); UROBILINOGEN, URINE AUTO 0.2 mg/dL (0.0-2.0); WBC, URINE AUTO TNTC /HPF (0-3)
[2020-11-05 13:22] LABS: HEMATOCRIT 40.6 % (42.0-52.0); HEMOGLOBIN 13.4 g/dl (13.5-17.5); MEAN CORPUSCULAR HEMOGLOBIN 31.2 pg (27.0-33.0); MEAN CORPUSCULAR VOLUME 94.6 fl (80.0-96.0); PLATELET COUNT, AUTOMATED 169 10^3/uL (150-450); RED BLOOD COUNT 4.29 10^6/uL (4.30-6.10); WHITE BLOOD COUNT 8.2 10^3/uL (4.0-10.0)
== END ==
LOC: SKLAB5 11:40
DX: R31.9 Hematuria, unspecified (principal)

== ENCOUNTER → 2020-11-19 | Outpatient (CLI) | payer MEDICARE, MEDICAID ==
[~2020-11-19] MED LIST changes: +ISOVUE-370 76% 100ML VIAL As Ordered ONE
--- NOTE | 2020-11-19 10:37 | REP ---
INDICATION: GROSS HEMATURIA- WAITING IN CT AREA. CT urogram. COMPARISON: Comparison CT study 02 May 2020.. TECHNIQUE: Contrast dose: 100 ML of Isovue 370 are administered precontrast as well as dual phase post-contrast imaging is acquired. 3 mm axial images re-formatted. Coronal and sagittal MPR images are included. FINDINGS: Digital preliminary activities director scouting radiograph demonstrates formed stool distending the rectum filling the pelvis. There is formed stool on axial CT images in the rectosigmoid and distal sigmoid colon. There is no rectal mural thickening or perirectal fluid streaking visible today. There are dystrophic calcifications in the prostate gland. There are calcifications layering in the dependent portion of the urinary bladder consistent with small bladder stones. These appear to have been present on the May 02, 2020 prior study as well. Noncontrast study shows bilateral calcific densities consistent with intrarenal nephrolithiasis. There are 2 on the left the largest of which measures 4.9 mm. There is a left renal cortical cyst at the upper pole measuring 4.6 cm in greatest diameter. This was apparent previously however it is larger today, previously 2.7 cm. There is cortical cyst projecting laterally from the mid pole of the right kidney. This measures 2.2 cm. Delayed acquisition shows no evidence of filling defect in the upper tract collecting system on either side. The ureters describe a normal course to the bladder. No bladder mass lesion is seen on pre or postcontrast imaging. There are dystrophic prostate calcifications again noted. Seminal vesicles are unremarkable. No pelvic mass or adenopathy is seen. No abdominal wall defect is observed. Bone window settings show no bony destructive lesion. There is evidence of bilateral L5 spondylolysis and minimal 2-3 mm L5-S1 spondylolisthesis. Moderate degenerative spondylosis changes are noted in the lumbar spine. The gallbladder is surgically absent. A normal appendix is noted. IMPRESSION: Bilateral intrarenal nephrolithiasis. Small bladder stones. No hydronephrosis. Dystrophic prostate calcification. Bilateral renal cortical cysts. The left upper pole renal cyst is larger today than on the May 02, [address] study. Rectum is distended with stool consistent with obstipation. <Electronically signed by Shyam Brooks > 11/19/20 [id number]
== END ==
LOC: M RAD 08:47
PROVIDERS: ATTEND Urology
DX: N20.0 Calculus of kidney (principal); N21.0 Calculus in bladder; N28.1 Cyst of kidney, acquired; K59.00 Constipation, unspecified
CPT/HCPCS: 74178; Q9967

== ENCOUNTER → 2020-11-20 | Outpatient (REF) | payer MEDICARE, MEDICAID ==
[~2020-11-20] MED LIST changes: +BACTDSTA PO; -ISOVUE-370 76% 100ML VIAL As Ordered ONE; +METO1TAB87 PO; +MIRA3350 PO; +PROM25TA12 PO; +SERO50TA PO; +[UNRECOGNIZED DRUG - OTHER] PO
[2020-11-20 18:30] LABS: BACTERIA, URINE AUTO NEGATIVE (NEGATIVE); MUCUS, URINE SMALL (NEGATIVE); RBC, URINE AUTO 51 /HPF (0-3); SQUAMOUS EPITHELIAL CELL UR AU 0 /HPF (0-6); WBC, URINE AUTO 4 /HPF (0-3)
== END ==
LOC: M SMT 16:42
PROVIDERS: ATTEND Specialist
DX: R31.0 Gross hematuria (principal)
CPT/HCPCS: 52000; 81015; 87086; G0463

== ENCOUNTER → 2020-11-21 | Outpatient (REF) | payer MEDICARE, MEDICAID | LOC: CANPREREF → SKLAB5 06:06 | DX: Z53.8 Procedure and treatment not carried out for other reasons (principal) ==

== ENCOUNTER → 2020-11-26 | Outpatient (REF) | payer MEDICARE, MEDICAID ==
[~2020-11-26] MED LIST changes: -BACTDSTA PO; -METO1TAB87 PO; -MIRA3350 PO; -PROM25TA12 PO; -SERO50TA PO; -[UNRECOGNIZED DRUG - OTHER] PO
[2020-11-26 09:06] LABS: HEMATOCRIT 36.6 % (42.0-52.0); HEMOGLOBIN 12.1 g/dl (13.5-17.5); MEAN CORPUSCULAR HEMOGLOBIN 31.8 pg (27.0-33.0); MEAN CORPUSCULAR HGB CONC 33.1 g/dl (32.0-36.5); MEAN CORPUSCULAR VOLUME 96.3 fl (80.0-96.0); PLATELET COUNT, AUTOMATED 111 10^3/uL (150-450); WHITE BLOOD COUNT 10.2 10^3/uL (4.0-10.0)
[2020-11-26 09:23] LABS: BLOOD UREA NITROGEN 26 MG/DL (7-18); CALCIUM LEVEL 8.1 MG/DL (8.8-10.2); CARBON DIOXIDE LEVEL 31 MEQ/L (21-32); CHLORIDE LEVEL 106 MEQ/L (98-107); CREATININE FOR GFR 1.02 MG/DL (0.70-1.30); GLOMERULAR FILTRATION RATE > 60.0 (>42); GLUCOSE, FASTING 81 MG/DL (70-100); POTASSIUM SERUM 3.5 MEQ/L (3.5-5.1); SODIUM LEVEL 142 MEQ/L (136-145)
== END ==
LOC: SKLAB5 06:56
DX: R50.9 Fever, unspecified (principal)

== ENCOUNTER 2020-12-03 12:37 | Emergency (ER) | payer MEDICARE, MEDICAID ==
[~2020-12-03] VITALS: Ht 175.3 cm; Wt 270.6 kg
[2020-12-03] MEDS ORDERED: LEXA1TAB2 PO (13:06)
[2020-12-03] MEDS ORDERED: [UNRECOGNIZED DRUG - OTHER] PO (13:06)
[2020-12-03] MEDS ORDERED: PROM25TA12 PO (13:06)
[2020-12-03] MEDS ORDERED: MIRA3350 PO (13:06)
[2020-12-03] MEDS ORDERED: SERO50TA PO (13:07)
--- NOTE | 2020-12-03 14:01 | REP ---
INDICATION: admission. COMPARISON: Comparison chest x-ray 10 June 2020.. TECHNIQUE: Portable AP sitting chest radiograph. FINDINGS: There is a dextroconvex curve in the thoracic spine again noted unchanged. Heart is borderline also unchanged. There is a metallic density projecting in the left upper quadrant unchanged. The lungs are well inflated and clear. Pleural angles are sharp. Is pulmonary vasculature is not increased. No acute bony abnormality. IMPRESSION: No active cardiopulmonary disease seen. <Electronically signed by Shyam Brooks > 12/03/20 [id number]
[2020-12-03 14:04] LABS: BASO # 0.1 10^3/uL (0.0-0.2); BASO % 0.5 % (0.0-1.0); EOS # 0.3 10^3/uL (0.0-0.5); EOS % 2.6 % (0.0-3.0); HEMATOCRIT 39.6 % (42.0-52.0); HEMOGLOBIN 12.8 g/dl (13.5-17.5); LYMPH # 1.4 10^3/uL (1.5-5.0); LYMPH % 10.8 % (24.0-44.0); MEAN CORPUSCULAR HEMOGLOBIN 30.9 pg (27.0-33.0); MEAN CORPUSCULAR HGB CONC 32.3 g/dl (32.0-36.5); MEAN CORPUSCULAR VOLUME 95.7 fl (80.0-96.0); MONO # 0.9 10^3/uL (0.0-0.8); MONO % 7.4 % (2.0-8.0); NEUTROPHILS # 9.6 10^3/uL (1.5-8.5); NEUTROPHILS % 76.9 % (36.0-66.0); PLATELET COUNT, AUTOMATED 336 10^3/uL (150-450); RED BLOOD COUNT 4.14 10^6/uL (4.30-6.10); WHITE BLOOD COUNT 12.5 10^3/uL (4.0-10.0)
[2020-12-03 14:34] LABS: BLOOD UREA NITROGEN 18 MG/DL (7-18); CALCIUM LEVEL 8.4 MG/DL (8.8-10.2); CARBON DIOXIDE LEVEL 29 MEQ/L (21-32); CHLORIDE LEVEL 104 MEQ/L (98-107); CREATININE FOR GFR 0.83 MG/DL (0.70-1.30); GLOMERULAR FILTRATION RATE > 60.0 (>42); GLUCOSE, FASTING 82 MG/DL (70-100); POTASSIUM SERUM 5.4 MEQ/L (3.5-5.1); SODIUM LEVEL 137 MEQ/L (136-145)
[2020-12-03 15:05] VITALS: BP 145/74
--- NOTE | 2020-12-03 21:02 | ECGEPIP ---
[facility] - ED Test Date: 2020-12-03 Pat Name: TATIANA CORDOBA Department: Room: - Gender: Male [employer]: : 1950 Requested By: Nura Emanuel Order Number: [id number] Reading MD: Nura Downing Measurements Intervals Carbon Rate: 67 P: 52 MI: 148 QRS: -25 QRSD: 98 T: 24 QT: 424 QTc: 448 Interpretive Statements Normal sinus rhythm LEFT AXIS DEVIATION POOR R WAVE PROGRESSION SIMILAR TO 05/02/20 Electronically Signed on 12-03-2020 21:02:28 EDT by Nura Downing
== END 2020-12-03 15:19 | disposition home or self-care (01) ==
LOC: M ED 12:37
DX: K61.0 Anal abscess (principal); I10 Essential (primary) hypertension; G47.33 Obstructive sleep apnea (adult) (pediatric); K21.9 Gastro-esophageal reflux disease without esophagitis; Z86.718 Personal history of other venous thrombosis and embolism; Z88.1 Allergy status to other antibiotic agents; Z79.899 Other long term (current) drug therapy; Z79.01 Long term (current) use of anticoagulants

== ENCOUNTER 2020-12-06 11:31 | Inpatient (IN) | payer MEDICARE, MEDICAID ==
[2020-12-06] VITALS (11 sets, daily range): BP systolic 86–129; BP diastolic 50–75
[~2020-12-06] VITALS: Ht 175.3 cm; Wt 129.0 kg
[~2020-12-06 11:31] MED LIST changes: +MIRA3350 PO; +PROM25TA12 PO; +SERO50TA PO; +[UNRECOGNIZED DRUG - OTHER] PO
[2020-12-06 12:20] LABS: BASO # 0.1 10^3/uL (0.0-0.2); BASO % 0.3 % (0.0-1.0); HEMATOCRIT 39.1 % (42.0-52.0); HEMOGLOBIN 12.9 g/dl (13.5-17.5); LYMPH # 0.8 10^3/uL (1.5-5.0); LYMPH % 2.9 % (24.0-44.0); MEAN CORPUSCULAR HEMOGLOBIN 30.9 pg (27.0-33.0); MEAN CORPUSCULAR VOLUME 93.8 fl (80.0-96.0); MONO # 1.8 10^3/uL (0.0-0.8); MONO % 7.1 % (2.0-8.0); NEUTROPHILS # 22.4 10^3/uL (1.5-8.5); PLATELET COUNT, AUTOMATED 385 10^3/uL (150-450); RED BLOOD COUNT 4.17 10^6/uL (4.30-6.10)
[2020-12-06] MEDS ORDERED: NS 1,000 ML IV ONE ×2 (12:35→13:50)
[2020-12-06 12:40] LABS: BLOOD UREA NITROGEN 21 MG/DL (7-18); C REACTIVE PROTEIN QUANTITATIV 9.08 MG/DL (0.00-0.30); CALCIUM LEVEL 8.6 MG/DL (8.8-10.2); CARBON DIOXIDE LEVEL 24 MEQ/L (21-32); CHLORIDE LEVEL 104 MEQ/L (98-107); CREATININE FOR GFR 1.17 MG/DL (0.70-1.30); GLOMERULAR FILTRATION RATE > 60.0 (>42); GLUCOSE, FASTING 120 MG/DL (70-100); POTASSIUM SERUM 4.7 MEQ/L (3.5-5.1); SODIUM LEVEL 135 MEQ/L (136-145)
[2020-12-06 12:41] LABS: WHITE BLOOD COUNT 25.4 10^3/uL (4.0-10.0)
--- NOTE | 2020-12-06 12:49 | REP ---
INDICATION: rectal abscess. COMPARISON: Comparison radiograph December 03, 2020.. TECHNIQUE: Supine portable chest x-ray. FINDINGS: EKG monitoring electrodes are seen. The lungs are symmetrically aerated. No focal infiltrate is appreciated. Pleural angles are sharp. Heart is not enlarged. No significant bony abnormality is seen. IMPRESSION: No acute disease. <Electronically signed by Shyam Brooks > 12/06/20 [id number]
[2020-12-06] MEDS ORDERED: LIDOCAINE 2% 5ML JELLY UROJET TOP ONE (12:50)
[2020-12-06] MEDS ORDERED: MEROPENEM INJ 1 GM in IV 1 EA IV ONE (12:50)
[2020-12-06 12:52] LABS: ERYTHROCYTE SEDIMENTATION RATE 59 mm/hr (0-20)
[2020-12-06] MEDS ORDERED: ISOVUE-370 76% 100ML VIAL As Ordered ONE (12:55)
[2020-12-06 13:36] LABS: INR 1.31; PROTHROMBIN TIME 16.6 SECONDS (12.5-14.3)
[2020-12-06 13:37] LABS: PARTIAL THROMBOPLASTIN TIME 34.7 SECONDS (24.2-38.5)
[2020-12-06 13:43] LABS: ALBUMIN 2.6 GM/DL (3.2-5.2); ALT/SGPT 43 U/L (12-78); BILIRUBIN,DIRECT 0.2 MG/DL (0.0-0.2); BILIRUBIN,TOTAL 0.6 MG/DL (0.2-1.0); CK-MB VALUE MASS < 1.0 NG/ML (<3.6); CPK CREATINE PHOSPHOKINASE 26 U/L (39-308); MB/CK RELATIVE INDEX 3.85 (< OR =4); TOTAL PROTEIN 6.7 GM/DL (6.4-8.2); TROPONIN I < 0.02 NG/ML (< 0.10)
--- NOTE | 2020-12-06 14:19 | REP ---
INDICATION: ro perirectal abscess COMPARISON: 11/19/2020. TECHNIQUE: CT Scan of the abdomen and pelvis was performed with intravenous administration of 100 cc of Isovue 370, without oral contrast. Sagittal and coronal reconstruction images are performed. FINDINGS: Lung bases: There are mild bibasilar fibro atelectatic changes.. Liver: Normal Gallbladder: Prior cholecystectomy. Spleen: Normal. Adrenals: Normal. Pancreas: Normal. Kidneys: There is a 2.4 cm cyst in the mid right kidney. There are a few calcifications in the right kidney, the largest is in the region of the renal pelvis and measures approximately 7 mm in diameter. A cyst in the upper pole the left kidney measures 4 cm. There are few small calculi in the left renal collecting system up to 3 mm in diameter. There is mild left hydroureteronephrosis. There is a calculus in the distal left ureter 6 mm in diameter. Several small subcentimeter calculi are seen in the bladder. Small amount of air is seen in the bladder. There is mild bladder wall thickening. Small and large bowel: Unremarkable. A linear fissure is seen posterior to the anus containing a small amount of air but no fluid. There is no perirectal abscess collection. Free fluid: None. Abdominal aorta: No aneurysm or dissection. Adenopathy: There is mild right external iliac adenopathy, a lymph node measures 1.7 cm in short axis and another measuring 1.1 cm. Appendix: Not inflamed. Osseous structures: There are degenerative changes of the spine without compression deformity.. Pelvis: No mass. IMPRESSION: Intrarenal and bladder calculi again noted. Mild left hydroureteronephrosis caused by a 6 mm calculus in the distal left ureter. Mild bladder wall thickening, may represent cystitis or neoplasm. Linear posterior perianal fissure containing air but no abscess collection is seen. Mildly enlarged right external iliac lymph node 1.7 cm in short axis. <Electronically signed by David Das > 12/06/20 [id number]
[2020-12-06] MEDS ORDERED: MOM 30ML SUSPENSION UDC PO PRN ×2 (15:05→15:15)
[2020-12-06] MEDS ORDERED: NS 1,000 ML IV SCH (15:05)
[2020-12-06] MEDS ORDERED: MAALOX 30 ML SUSP *UDC PO PRN (15:05)
[2020-12-06] MEDS ORDERED: MIRALAX *UNIT DOSE* 17GM PACKET PO PRN (15:15)
[2020-12-06] MEDS ORDERED: BISACODYL 10 MG SUPP PR PRN (15:15)
--- NOTE | 2020-12-06 15:37 | IPNPDOC ---
Text Note Date of Service The patient was seen on 12/06/20. NOTE H+P dictated [id number] VS,Fishbone, I+O VS, Fishbone, I+O Laboratory Tests 12/06/20 12:08 Vital Signs Date Time Temp Pulse Resp B/P (MAP) Pulse Ox O2 Delivery O2 Flow Rate FiO2 12/06/20 14:16 76 96 Room Air 12/06/20 14:01 18 12/06/20 14:00 104/55 (71) 12/06/20 12:33 99.3 AMITA DURAN MD December 06, 2020 15:37
--- NOTE | 2020-12-06 17:20 | HPE ---
HISTORY AND PHYSICAL DATE OF ADMISSION: 12/06/2020 TIME SEEN: Approximately 3 p.m. in the emergency department by Jorge Loera M.D. CHIEF COMPLAINT: Rectal bleeding. HISTORY OF PRESENT ILLNESS: Mr. Forde is a 70-year-old resident of [facility]. He has a past medical history notable for deep vein thrombosis, as well as paroxysmal atrial fibrillation for which he is on Eliquis 5 mg twice a day. He also has a history of CADASIL with underlying cognitive impairment and history of prior strokes. The patient was last hospitalized in 04/2020. He has no history of COVID and he has been fully vaccinated. In the emergency room, the patient was noted to have a soft blood pressure in the 90s. He was found to have all the fluids. Workup indicated that he had a leukocytosis of 25,[address] of the abdomen and pelvis indicating that he has a right urethral stone causing obstruction with [id number] hydroureteronephrosis. In addition, it showed that he has some air in the rectal mucosa without any evidence of true abscess. Dr. Zaman along with Dr. Mehta were consulted by the ER physician and have agreed to see the patient. The patient has received IV fluids, IV meropenem, and will be admitted to the hospital service for treatment of sepsis. ALLERGIES: CEFAZOLIN. CURRENT HOME MEDICATIONS: 1. Tylenol 650 every four hours as needed for pain. 2. Eliquis 5 mg twice a day. 3. Baby aspirin daily. 4. Atorvastatin 40 mg daily. 5. Dulcolax suppository 10 mg daily as needed. 6. Lexapro 20 mg daily. 7. Pepcid 20 mg twice a day. 8. Toprol XL 50 mg daily. 9. Milk of magnesia 10 mL daily as needed for constipation. 10. Multivitamin one capsule daily. 11. MiraLAX 17 grams p.o. daily as needed for constipation. 12. Promethazine 25 mg t.i.d. as needed for vertigo or dizziness. 13. Seroquel 50 mg at bedtime. 14. Quinapril 40 mg in the evening. 15. Sennalax 17.2 mg p.o. daily. PAST MEDICAL HISTORY: 1. DVT. 2. Paroxysmal atrial fibrillation. 3. Cognitive impairment, as well as stroke secondary to CADASIL. 4. Hypertension. 5. Morbid obesity. PAST SURGICAL HISTORY: 1. Cholecystectomy. 2. Tonsillectomy. 3. Bilateral knee replacements. SOCIAL HISTORY: The patient currently is a resident of the [facility]. He does not use alcohol, tobacco, or illicit drugs. His , Sherly, is with him at the bedside. She is his power of health care attorney. The patient is do not resuscitate/do not intubate. FAMILY HISTORY: Asked, but is non-contributory given the patient's advanced age of 70 and presenting illness. REVIEW OF SYSTEMS: Could not be adequately obtained secondary to the patient's acute encephalopathy. PHYSICAL EXAMINATION: VITAL SIGNS: This afternoon the patient's temperature was 99.3, pulse 81 and regular. Initial blood pressure was 88/52. O2 sat 95% on room air. GENERAL: Mr. Forde is an obese elderly gentleman who is acutely encephalopathic. SKIN: Intact and warm to touch. He displays no jaundice, petechiae, or erythematous lesions throughout his skin. His capillary refill is less than 5 seconds. HEENT: Head is atraumatic. His pupils are symmetric and reactive to light. He is unable to follow exam for extraocular movement exam. He has no scleral icterus. Oropharynx is clear. Oral mucosa is moist. NECK: Supple. No jugular venous distention. No thyromegaly. LUNGS: Sounds are appreciated without rales or rhonchi. Breathing is nonlabored. HEART: S1, S2. He is in a sinus rhythm. No audible murmur, rub, or gallop. ABDOMEN: Protuberant, nontender, and nondistended. He has no palpable right costophrenic angle. EXTREMITIES: Without any cyanosis, clubbing, or edema. GENITOURINARY: He has a small amount of blood at the external meatus from a straight cath in the emergency room to obtain a urinalysis. NEUROLOGIC: Patient withdraws all four extremities to noxious stimuli. His speech is not slurred. He has no facial asymmetry. PERTINENT LABORATORY DATA: COVID swab is negative. Urine cultures and blood cultures are pending. Sodium is 135, potassium 4.7, chloride 104, bicarb 24, BUN 21, creatinine 1.7, glucose 120, calcium 8.6, AST 30, ALT 43. Initial troponin marker is negative. CPK is 26. CRP is 9. Lactic acid is 2. PT is 16.6 and INR is 1.3. White blood cell count 25,000, hemoglobin 12.9, hematocrit 39.1, platelet count 385,000. ESR is 59. IMAGING DATA: Chest x-ray one view showed no acute cardiopulmonary process. CT of the abdomen and pelvis with IV contrast that showed an intrarenal and bladder calculi again noted, mild left hydroureteronephrosis caused by a 6 mm calculus in the distal left ureter, mild bladder wall thickening that may represent cystitis from neoplasm, linear posterior perianal fistula containing air but no abscess collection is seen, mildly enlarged right external iliac lymph node 1.7 cm in the short axis. The patient's EKG showed a normal sinus rhythm. IMPRESSION: 1. Acute sepsis likely secondary to pyelonephritis in the setting of right ureteral obstruction with a 6 mm stone. 2. 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 3. Paroxysmal atrial fibrillation. 4. History of CADASIL. 5. History of constipation. PLAN: The patient will be admitted to the step-down unit for close monitoring secondary to his low blood pressures. He will require a minimum two midnight hospital stay. He has received meropenem in the emergency room and we will continue with this 1 gram IV q. 8 and await results of culture. The patient will be kept n.p.o. pending urology evaluation by Dr. Zaman. The patient will also be seen by Dr. Mehta regarding his findings on CT scan in his rectum. The patient's Quinapril, Toprol, Eliquis, and aspirin will be held at this time. He will be hydrated with IV fluids. He is receiving 2 liter bolus at this time. We will place him on normal saline at 100 mL and reassess his blood pressure, which seems to have improved with fluids. The patient last received his Eliquis at 8 a.m. this morning per my review of the half-way records. The patient is DO NOT RESUSCITATE / DO NOT INTUBATE. Plan of care was discussed with the patient's at the bedside.
[2020-12-06] MEDS ORDERED: CONRAY-60 60% 50ML VIAL (Q9961) As Ordered ONE (17:53)
--- NOTE | 2020-12-06 18:00 | SMCUROLCON ---
Urology Consultation General Date of Consultation 12/06/20 Reason For Consultation This patient is seen for Acute Encepathalopathy,Ams,Perianal Abscess,Sepsis and obstructing left ureteral calculus History of Present Illness The patient is a 70-year-old male with a past medical history for dementia and fistula. He presented to the hospital from the [place] and a CT scan showed that he had an obstructing 6 mm left distal ureteral calculus. Urology consult was called. He also had other medical conditions consisting of deep vein thrombosis, dementia, atrial fibrillation for which she is on blood thinners. He also has history of stroke and was thought to have a fistula present from which she is draining stool. Past Medical History Medical History DVT Atrial fibrillation Dementia Hypertension Morbid obesity Surgical Hstory Cholecystectomy Tonsillectomy Bilateral knee replacements Social History * Smoker: non-smoker Alcohol: Denies Drugs: denies Medications Current Medications Current Medications Medications (Trade) Dose Ordered Sig/Jermaine Route PRN Reason Start Time Stop Time Status Last Admin Dose Admin Acetaminophen (Tylenol Tab) 650 mg Q4H PRN PO PAIN OR FEVER 12/06/20 15:05 Al Hydrox/Mg Hydrox/Simethicone (Mylanta) 30 ml DAILY PRN PO DYSPEPSIA 12/06/20 15:05 Atorvastatin Calcium (Lipitor) 40 mg DAILY PO 12/07/20 09:00 Bisacodyl (Dulcolax Suppository) 10 mg DAILY PRN ID CONSTIPATION 12/06/20 15:15 Docusate Sodium (Colace) 100 mg BID PO 12/06/20 21:00 Escitalopram Oxalate (Lexapro) 20 mg DAILY PO 12/07/20 09:00 Famotidine (Pepcid) 20 mg BID PO 12/06/20 21:00 Home Med (Med Rec Complete!) ASDIRECTED XX 12/06/20 13:50 12/06/20 13:55 DC Magnesium Hydroxide (Milk Of Magnesia) 10 ml DAILY PRN PO CONSTIPATION 12/06/20 15:15 Magnesium Hydroxide (Milk Of Magnesia) 30 ml DAILY PRN PO CONSTIPATION 12/06/20 15:05 Meropenem 1 gm/IV Miscellaneous Supplies 50 ml @ 100 mls/hr Q8H IV 12/06/20 21:00 Multivitamins (Theragram-M) 1 tab DAILY PO 12/07/20 09:00 Polyethylene Glycol (Miralax) 1 pkt BID PRN PO CONSTIPATION 12/06/20 15:15 Quetiapine Fumarate (SEROquel) 50 mg QHS PO 12/06/20 21:00 Senna (Senokot) 1 tab DAILY PO 12/07/20 09:00 Sodium Chloride 1,000 ml @ 100 mls/hr Q10H IV 12/06/20 15:05 12/06/20 15:38 Allergies Allergies: Coded Allergies: cefazolin (Verified Allergy, Intermediate, RASH, 03/06/20) Review of Systems General: Reports: Normal Appetite; Denies: Fatigue, Malaise Constitutional: Denies: Fever, Chills, Sweats, Weakness, Malaise Eyes: Denies: Pain, Vision change ENT: Denies: Head Aches, Sore Throat, Epistaxis Skin: Denies: Rash, Lesions, Breakdown, Nail Changes Pulmonary: Denies: Dyspnea, Cough Cardiovascular: Denies Chest Pain, Denies Palpitations Gastrointestinal: Denies: Nausea, Vomiting, Abdominal Pain Genitourinary: Denies: Dysuria, Frequency, Incontinence, Hematuria Hematologic: Denies: Bruising, Bleeding Excessively Endocrine: Denies: Polydipsia, Polyphagia, Polyuria Musculoskeletal: Denies: Neck Pain, Back Pain Neurological: Denies: Weakness, Numbness, Incoordination, Change in Speech Physical Examination General Exam: Cooperative EYE EXAM: PERRLA, Conjunctiva & lids normal, EOMI; No: Sclera icteric ENT EXAM: Atraumatic, Mucous membr. moist/pink, Pharynx Normal Neck Exam: Supple; No: JVD, thyromegaly Chest Exam: Clear to auscultation, Normal air movement Heart Exam: Rate Normal, Regular Rhythm, Normal S1, Normal S2; No: Murmurs, Rubs Abdomen Exam: Normal Bowel Sounds, Soft; No: Tenderness, Hepatospenomegaly Vital Signs/I&O Vital Signs Date Time Temp Pulse Resp B/P (MAP) Pulse Ox O2 Delivery O2 Flow Rate FiO2 12/06/20 16:45 97.4 78 18 129/75 (93) 94 Room Air Laboratory Data 24H Labs Laboratory Tests 2 12/06/20 12:08: Immature Granulocyte % (Auto) 1.7, Neutrophils (%) (Auto) 88.0H, Lymphocytes (%) (Auto) 2.9L, Monocytes (%) (Auto) 7.1, Eosinophils (%) (Auto) 0.0, Basophils (%) (Auto) 0.3, Neutrophils # (Auto) 22.4H, Lymphocytes # (Auto) 0.8L, Monocytes # (Auto) 1.8H, Eosinophils # (Auto) 0.0, Basophils # (Auto) 0.1, Nucleated Red Bl ood Cells % (auto) 0.0, Erythrocyte Sedimentation Rate 59H, Anion Gap 7L, Glomerular Filtration Rate > 60.0, Lactic Acid Level 2.0, Calcium Level 8.6L, Total Bilirubin 0.6, Direct Bilirubin 0.2, Aspartate Amino Transf (AST/SGOT) 30, Alanine Aminotransferase (ALT/SGPT) 43, Alkaline Phosphatase 107, Total Creatine Kinase 26L, Creatine Kinase MB < 1.0, Creatine Kinase MB Relative Index 3.85, Troponin I < 0.02, C-Reactive Protein, Quantitative 9.08H, Total Protein 6.7, Albumin 2.6L, Albumin/Globulin Ratio 0.6 12/06/20 13:10: Prothrombin Time 16.6H, Prothromb Time International Ratio 1.31, Activated Partial Thromboplast Time 34.7 12/06/20 13:49: Urine Color YELLOW, Urine Appearance TURBIDH, Urine pH 5.0, Urine Specific [place] 1.025, Urine Protein 2+H, Urine Glucose (UA) NEGATIVE, Urine Ketones NEGATIVE, Urine Blood 3+H, Urine Nitrite NEGATIVE, Urine Bilirubin NEGATIVE, Urine Urobilinogen 0.2, Urine Leukocyte Esterase 2+H, Urine WBC (Auto) TNTCH, Ur ine RBC (Auto) 127H, Urine Hyaline Casts (Auto) 0, Urine Bacteria (Auto) 3+H, Urine Squamous Epithelial Cells 0, Urine Amorphous Sediment SMALLH, Urine Mucus (Auto) SMALL, Urine Sperm (Auto) CBC/BMP Laboratory Tests 12/06/20 12:08 Microbiology Microbiology 12/06/20 Urine Culture, Received Pending 12/06/20 Respiratory Virus Panel (PCR) (AYAH) - Final, Complete 12/06/20 Blood Culture, Received Pending 12/06/20 Blood Culture, Received Pending Assessment Review of CT confirms a 6 mm left ureteral calculus with hydroureteronephrosis. Plan Patient will be taken to the operating room for an urgent stent insertion. The stone may be treated at a later date the patient is more stable and under more controlled circumstances. Time Spent on Consult: Time Spent / Consult (Minutes): 60 SHILPA CHANEL MD December 06, 2020 18:00
[2020-12-06] MEDS ORDERED: LIDOCAINE 2% 100MG/5ML SDV (FOR ANES.) As Ordered ONE (18:28)
[2020-12-06] MEDS ORDERED: fentaNYL 100 MCG/2 ML INJECTION (J3010) As Ordered ONE (18:28)
[2020-12-06] MEDS ORDERED: ONDANSETRON 4MG/2ML VIAL As Ordered ONE (18:28)
[2020-12-06] MEDS ORDERED: dexameTHASONE 4 MG/ML 1ML VIAL (J1100 PER 1MG) As Ordered ONE (18:28)
--- NOTE | 2020-12-06 18:43 | ROOPDOC ---
[facility] Report Of Operation Report of Operation DATE OF PROCEDURE: 12/06/20 PREPROCEDURE DIAGNOSES: Obstructing left ureteral calculus POSTPROCEDURE DIAGNOSES: Same plus bladder calculi PROCEDURE: Cystoscopy, left retrograde, Stent insertion, evacuation of bladder clots, fluoroscopy and x-ray interpretation SURGEON: Antonio Zaman MD SALES PROCESS MANAGER: None ANESTHESIA: Gen. ESTIMATED BLOOD LOSS: Approximately 0 mL. COMPLICATIONS: None REMARKS: Obstructing left ureteral calculus PROCEDURE NOTE: Patient is brought to the operating room for stent insertion because of an obstructing distal left ureteral calculus. DESCRIPTION OF PROCEDURE: The patient was placed on the table in the supine position, given general anesthesia, placed in the lithotomy position, prepped with Betadine paint and draped in an aseptic manner. Amount was then performed. A #22 Maltese cystoscope was inserted into the meatus and advanced under direct vision of a 30 lens to the bladder. The bladder mucosa appeared normal but there were numerous stones present which were evacuated. The left ureteral orifice was then identified, catheterized with a 5 Maltese open-ended catheter and retrograde injection of Conray showed the patient had a mid distal ureteral calculus that was causing obstruction. A wire guide was then able to be manipulated around the stone up to the renal pelvis and a 6 Maltese double-J stent was then passed over the wire. A curled well in the renal pelvis and in the bladder when the wire was removed. The bladder was then drained, cystoscope was removed and a digital rectal exam was performed showing a benign prostate. The patient was then awakened and sent to recovery room in stable condition having tolerated procedure well. He will need to have the left ureteral stone addressed with ureteroscopic laser lithotripsy at a later date under more controlled circumstances. ANTONIO ZAMAN MD December 06, 2020 18:43
[2020-12-06] MEDS ORDERED: oxyCODONE 5MG TAB PO PRN (19:05)
[2020-12-06] MEDS ORDERED: LR 1,000 ML IV SCH ×2 (19:05)
[2020-12-06] MEDS ORDERED: fentaNYL 100 MCG/2 ML INJECTION (J3010) IV PRN (19:05)
[2020-12-06] MEDS ORDERED: ONDANSETRON 4MG/2ML VIAL IV PRN (19:05)
--- NOTE | 2020-12-06 19:14 | REP ---
INDICATION: FLUORO GUIDANCE. COMPARISON: Comparison CT study December 06, 2020. TECHNIQUE: Two views. 18 seconds of fluoroscopy time is reported. FINDINGS: A sequence of 2 last image hold fluoroscopically obtained spot radiographs of the abdomen document left ureteral cannulation, contrast injection, and double-pigtail ureteral stent placement. IMPRESSION: procedural imaging. <Electronically signed by Shyam Brooks > 12/06/20 [id number]
--- NOTE | 2020-12-06 20:38 | ECGEPIP ---
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
[2020-12-06] MEDS: FAMOTIDINE 20 MG TAB PO SCH (21:55)
[2020-12-06] MEDS: DOCUSATE SODIUM 100MG CAPSULE PO SCH (21:55)
[2020-12-06] MEDS: QUEtiapine FUMARATE 50MG TAB PO SCH (21:55)
[2020-12-06] MEDS: MEROPENEM INJ 1 GM in IV 1 EA IV SCH (21:55)
[2020-12-06 22:37] LABS: BASO # 0.1 10^3/uL (0.0-0.2); BASO % 0.2 % (0.0-1.0); HEMATOCRIT 34.9 % (42.0-52.0); HEMOGLOBIN 11.3 g/dl (13.5-17.5); LYMPH # 0.5 10^3/uL (1.5-5.0); LYMPH % 2.6 % (24.0-44.0); MEAN CORPUSCULAR HGB CONC 32.4 g/dl (32.0-36.5); MEAN CORPUSCULAR VOLUME 95.9 fl (80.0-96.0); MONO # 1.1 10^3/uL (0.0-0.8); MONO % 5.1 % (2.0-8.0); NEUTROPHILS # 18.5 10^3/uL (1.5-8.5); NEUTROPHILS % 90.2 % (36.0-66.0); PLATELET COUNT, AUTOMATED 339 10^3/uL (150-450); RED BLOOD COUNT 3.64 10^6/uL (4.30-6.10); WHITE BLOOD COUNT 20.5 10^3/uL (4.0-10.0)
[2020-12-06] MEDS ORDERED: NS 500 ML IV ONE (23:35)
[2020-12-07] VITALS (15 sets, daily range): BP systolic 79–143; BP diastolic 49–67
[2020-12-07] MEDS: NS 1,000 ML IV SCH ×3 (01:18→18:29)
[2020-12-07] MEDS ORDERED: NS 500 ML IV ONE (03:15)
[2020-12-07] MEDS: MEROPENEM INJ 1 GM in IV 1 EA IV SCH ×3 (05:12→21:34)
[2020-12-07 05:52] LABS: HEMATOCRIT 31.3 % (42.0-52.0); HEMOGLOBIN 9.9 g/dl (13.5-17.5); MEAN CORPUSCULAR HEMOGLOBIN 31.1 pg (27.0-33.0); MEAN CORPUSCULAR HGB CONC 31.6 g/dl (32.0-36.5); MEAN CORPUSCULAR VOLUME 98.4 fl (80.0-96.0); PLATELET COUNT, AUTOMATED 340 10^3/uL (150-450); RED BLOOD COUNT 3.18 10^6/uL (4.30-6.10)
[2020-12-07 06:28] LABS: ALT/SGPT 29 U/L (12-78); BILIRUBIN,TOTAL 0.4 MG/DL (0.2-1.0); BLOOD UREA NITROGEN 22 MG/DL (7-18); CALCIUM LEVEL 7.8 MG/DL (8.8-10.2); CARBON DIOXIDE LEVEL 26 MEQ/L (21-32); CHLORIDE LEVEL 111 MEQ/L (98-107); CREATININE FOR GFR 1.02 MG/DL (0.70-1.30); GLOMERULAR FILTRATION RATE > 60.0 (>42); GLUCOSE, FASTING 108 MG/DL (70-100); MAGNESIUM LEVEL 2.1 MG/DL (1.8-2.4); POTASSIUM SERUM 4.7 MEQ/L (3.5-5.1); SODIUM LEVEL 141 MEQ/L (136-145); TOTAL PROTEIN 5.2 GM/DL (6.4-8.2)
[2020-12-07] MEDS: ESCITALOPRAM OXALATE 10 MG TAB (LEXAPRO) PO SCH (08:33)
[2020-12-07] MEDS: ATORVASTATIN 20 MG TAB PO SCH (08:33)
[2020-12-07] MEDS: SENNA 8.6 MG TAB (SENOKOT) PO SCH (08:33)
[2020-12-07] MEDS: FAMOTIDINE 20 MG TAB PO SCH ×2 (08:33→21:34)
[2020-12-07] MEDS: MULTIVITAMINS/MINERALS THERAP 1 TAB PO SCH (08:33)
[2020-12-07] MEDS: DOCUSATE SODIUM 100MG CAPSULE PO SCH ×2 (08:33→21:34)
[2020-12-07] MEDS ORDERED: FLUDROCORTISONE ACETATE 0.1 MG TAB PO SCH (09:00)
[2020-12-07] MEDS: ONDANSETRON 4MG/2ML VIAL IV PRN ×2 (12:04→19:40)
--- NOTE | 2020-12-07 13:21 | IPNPDOC ---
Subjective Date Seen The patient was seen on 12/07/20. Subjective Chief Complaint/HPI Ash had rectal bleeding yesterday per my conversation with the. He is hemodynamically stable following of his stent placement. Ash is more awake today. He denies any complaints. He is afebrile Objective Physical Examination General Exam: Positive: Alert, No Acute Distress Eye Exam: Negative: Sclera icteric ENT Exam: Positive: Mucous membr. moist/pink, Pharynx Normal Chest Exam: Positive: Clear to auscultation Heart Exam: Positive: Rate Normal Telemetry: Positive: No significant arrhythmia Abdomen Exam: Positive: Normal bowel sounds Skin Exam: Positive: Nl turgor and temperature; Negative: Rash, Breakdown Assessment /Plan Assessment # Acute sepsis likely secondary to pyelonephritis with GNR bacteremia in the setting of right ureteral obstruction with a 6 mm stone. 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 - awaiting gen surgery input - continue to hold eliquis # Paroxysmal atrial fibrillation - presently nsr - holding metoprol 2/2 low bp # History of CADASIL with previous strokes and cognitive impairment - mentation at baseline # DVT ppx - scds Dispo: likely back to [facility] on wednesday/wednesday Plan/VTE VTE Prophylaxis Ordered?: Yes VTE Exclusion Mechanical Proph: Other VTE Exclusion Pharmacological: Other VS, I&O, 24H, Fishbone Vital Signs/I&O Vital Signs Date Time Temp Pulse Resp B/P (MAP) Pulse Ox O2 Delivery O2 Flow Rate FiO2 12/07/20 12:00 97.9 73 16 101/60 (74) 94 Room Air 12/06/20 18:45 10.0 I&O- Last 24 Hours up to 6 AM 12/07/20 06:00 Intake Total 3765 ml Output Total 251 ml Balance 3514 ml Laboratory Data 24H LABS Laboratory Tests 2 12/06/20 13:49: Urine Color YELLOW, Urine Appearance TURBIDH, Urine pH 5.0, Urine Specific [place] 1.025, Urine Protein 2+H, Urine Glucose (UA) NEGATIVE, Urine Ketones NEGATIVE, Urine Blood 3+H, Urine Nitrite NEGATIVE, Urine Bilirubin NEGATIVE, Urine Urobilinogen 0.2, Urine Leukocyte Esterase 2+H, Urine WBC (Auto) TNTCH, Urine RBC (Auto) 127H, Urine Hyaline Casts (Auto) 0, Urine Bacteria (Auto) 3+H, Urine Squamous Epithelial Cells 0, Urine Amorphous Sediment SMALLH, Urine Mucus (Auto) SMALL, Urine Sperm (Auto) 12/06/20 22:29: Immature Granulocyte % (Auto) 1.9, Neutrophils (%) (Auto) 90.2H, Lymphocytes (%) (Auto) 2.6L, Monocytes (%) (Auto) 5.1, Eosinophils (%) (Auto) 0.0, Basophils (%) (Auto) 0.2, Neutrophils # (Auto) 18.5H, Lymphocytes # (Auto) 0.5L, Monocytes # (Auto) 1.1H, Eosinophils # (Auto) 0.0, Basophils # (Auto) 0.1, Nucleated Red Blood Cells % (auto) 0.0 12/07/20 05:31: Nucleated Red Blood Cells % (auto) 0.0, Anion Gap 4L, Glomerular Filtration Rate > 60.0, Calcium Level 7.8L, Magnesium Level 2.1, Total Bilirubin 0.4, Aspartate Amino Transf (AST/SGOT) 17, Alanine Aminotransferase (ALT/SGPT) 29, Alkaline Phosphatase 78, Total Protein 5.2#L, Albumin 2.0#L, Albumin/Globulin Ratio 0.6, Procalcitonin 1.63 CBC/BMP Laboratory Tests 12/06/20 22:29 12/07/20 05:31 Microbiology Microbiology 12/06/20 Urine Culture, Received Pending 12/06/20 Respiratory Virus Panel (PCR) (AYAH) - Final, Complete 12/06/20 Blood Culture - Preliminary, Resulted No growth after 24 hours . All specim... 12/06/20 Blood Culture - Preliminary, Resulted AMITA DURAN MD December 07, 2020 13:21
--- NOTE | 2020-12-07 14:12 | IPNPDOC ---
Subjective Review oF Systems Chief Complaint The patient is a 70-year-old male admitted with a reason for visit of Acute Encepathalopathy,Ams,Perianal Abscess,Sepsis. General: Reports: Normal Appetite; Denies: Fatigue, Malaise Constitutional: Denies: Fever, Chills, Sweats, Weakness, Malaise Eyes: Denies: Pain, Vision change ENT: Denies: Head Aches, Sore Throat, Epistaxis Skin: Denies: Rash, Lesions, Breakdown, Nail Changes Pulmonary: Denies: Dyspnea, Cough, Pleuritic Chest Pain, Other Symptoms Cardiovascular: Denies Chest Pain, Denies Palpitations Gastrointestinal: Denies: Nausea, Vomiting, Abdominal Pain Genitourinary: Denies: Dysuria, Frequency, Incontinence, Hematuria Hematologic: Denies: Bruising, Bleeding Excessively Endocrine: Denies: Polydipsia, Polyphagia, Polyuria Musculoskeletal: Denies: Neck Pain, Back Pain Objective Physical Examination General Exam: Alert, Cooperative, No Acute Distress Eye Exam: PERRLA, Conjunctiva & lids normal, EOMI; No: Sclera icteric ENT EXAM: Atraumatic, Mucous membr. moist/pink, Pharynx Normal Neck Exam: Supple; No: JVD, thyromegaly Chest Exam: Clear to auscultation, Normal air movement Heart Exam: Positive: Rate Normal Telemetry: No significant arrhythmia ABDOMEN EXAM: Normal bowel sounds, Soft; No: Tenderness, Hepatospenomegaly Male Exam: Normal Genital Exam Skin Exam: Nl turgor and temperature; No: Rash, Breakdown Vital Signs/I&O Vital Signs Date Time Temp Pulse Resp B/P (MAP) Pulse Ox O2 Delivery O2 Flow Rate FiO2 12/07/20 12:00 97.9 73 16 101/60 (74) 94 Room Air 12/06/20 18:45 10.0 I&O- Last 24 Hours up to 6 AM 12/07/20 06:00 Intake Total 3765 ml Output Total 251 ml Balance 3514 ml Laboratory Data Labs 24H Laboratory Tests 2 12/06/20 22:29: Immature Granulocyte % (Auto) 1.9, Neutrophils (%) (Auto) 90.2H, Lymphocytes (%) (Auto) 2.6L, Monocytes (%) (Auto) 5.1, Eosinophils (%) (Auto) 0.0, Basophils (%) (Auto) 0.2, Neutrophils # (Auto) 18.5H, Lymphocytes # (Auto) 0.5L, Monocytes # (Auto) 1.1H, Eosinophils # (Auto) 0.0, Basophils # (Auto) 0.1, Nucleated Red Blood Cells % (auto) 0.0 12/07/20 05:31: Nucleated Red Blood Cells % (auto) 0.0, Anion Gap 4L, Glomerular Filtration Rate > 60.0, Calcium Level 7.8L, Magnesium Level 2.1, Total Bilirubin 0.4, Aspartate Amino Transf (AST/SGOT) 17, Alanine Aminotransferase (ALT/SGPT) 29, Alkaline Phosphatase 78, Total Protein 5.2#L, Albumin 2.0#L, Albumin/Globulin Ratio 0.6, Procalcitonin 1.63 CBC/BMP Laboratory Tests 12/06/20 22:29 12/07/20 05:31 Microbiology Microbiology 12/07/20 Blood Culture, Received Pending 12/06/20 Urine Culture, Received Pending 12/06/20 Respiratory Virus Panel (PCR) (AYAH) - Final, Complete 12/06/20 Blood Culture - Preliminary, Resulted No growth after 24 hours . All specim... 12/06/20 Blood Culture - Preliminary, Resulted Assessment/Plan Date Seen The patient was seen on 12/07/20. Patient Summary White cell count is improving since the stent was inserted and the patient appears more comfortable. Plan/VTE VTE Prophylaxis Ordered?: Yes VTE Exclusion Mechanical Proph: Other VTE Exclusion Pharmacological: Other Plan Plan to keep the ureteral stent in place until the patient has recovered and his rectal bleeding has been evaluated and treated. He will then need treatment for his renal calculus with ureteroscopic laser lithotripsy. This can be performed as an outpatient. SHILPA CHANEL MD December 07, 2020 14:12
[2020-12-07] MEDS: ACETAMINOPHEN TAB 650MG DOSE (2X325MG) PO PRN (15:10)
[2020-12-07] MEDS: QUEtiapine FUMARATE 50MG TAB PO SCH (21:34)
[2020-12-08] VITALS (7 sets, daily range): BP systolic 105–150; BP diastolic 64–75
[2020-12-08] MEDS ORDERED: LR 1,000 ML IV SCH (00:40)
[2020-12-08] MEDS ORDERED: METOPROLOL 5 MG/5 ML VIAL IV STA ×2 (01:24→02:17)
[2020-12-08 02:53] LABS: ALBUMIN 2.1 GM/DL (3.2-5.2); ALT/SGPT 27 U/L (12-78); BILIRUBIN,TOTAL 0.4 MG/DL (0.2-1.0); BLOOD UREA NITROGEN 19 MG/DL (7-18); CALCIUM LEVEL 7.9 MG/DL (8.8-10.2); CARBON DIOXIDE LEVEL 30 MEQ/L (21-32); CHLORIDE LEVEL 109 MEQ/L (98-107); CREATININE FOR GFR 1.14 MG/DL (0.70-1.30); GLOMERULAR FILTRATION RATE > 60.0 (>42); GLUCOSE, FASTING 102 MG/DL (70-100); POTASSIUM SERUM 3.9 MEQ/L (3.5-5.1); SODIUM LEVEL 140 MEQ/L (136-145); TOTAL PROTEIN 6.2 GM/DL (6.4-8.2); TROPONIN I < 0.02 NG/ML (< 0.10)
[2020-12-08 03:04] LABS: HEMATOCRIT 30.9 % (42.0-52.0); HEMOGLOBIN 9.8 g/dl (13.5-17.5); MEAN CORPUSCULAR HEMOGLOBIN 30.9 pg (27.0-33.0); MEAN CORPUSCULAR HGB CONC 31.7 g/dl (32.0-36.5); MEAN CORPUSCULAR VOLUME 97.5 fl (80.0-96.0); PLATELET COUNT, AUTOMATED 283 10^3/uL (150-450); RED BLOOD COUNT 3.17 10^6/uL (4.30-6.10); WHITE BLOOD COUNT 8.9 10^3/uL (4.0-10.0)
[2020-12-08] MEDS ORDERED: AMIODARONE HCL 150 MG in IV 1 EA IV ONE (03:30)
[2020-12-08] MEDS: MEROPENEM INJ 1 GM in IV 1 EA IV SCH (05:30)
[2020-12-08] MEDS ORDERED: AMIODARONE HCL 360 MG in IV 1 EA IV SCH ×4 (05:45)
--- NOTE | 2020-12-08 07:55 | CR.PDOC ---
General Surgery Consultation Date of Consultation 12/08/20 History and Physical CONSULT REPORT FOR: hospitalist service REASON FOR CONSULTATION: rectal bleeding HISTORY OF PRESENT ILLNESS: Patient is a 70 M admitted last [place] for sepsis secondary to UTI from ureteral stone obstruction. He was emergently brought to the operating room for cystoscopy, stent placement. I was told that he has been having some rectal drainage, rectal bleeding. He was supposed to see Dr. Vega in the office next week for possible anal fistula. PAST MEDICAL HISTORY: 1. . PAST SURGICAL HISTORY: INCLUDES: 1. . PREVIOUS ANESTHESIA REACTIONS: ALLERGIES: Please see below. FAMILY HISTORY: . HOME MEDICATIONS: Please see below. REVIEW OF SYSTEMS: GENERAL: [Denies chills, reports weight gain, reports feeling febrile yesterday]. HEENT: [Denies blurred vision and double vision. Denies ear symptoms. Denies hoarseness]. NECK: Denies any neck pain]. CARDIOVASCULAR: [Denies chest pain and palpitations]. MUSCULOSKELETAL: [Denies arthralgias, back pain and thrombophlebitis]. SKIN: [Denies rash]. NEUROLOGIC: [Denies headache, stroke and transient ischemic attack]. PSYCHIATRIC: [Denies anxiety and depression]. ENDOCRINE: [Denies thyroid disease]. HEMATOLOGY/ONCOLOGY: [Denies bleeding or clotting disorder]. HEART: [Denies any chest pains, palpitations, paroxysmal dyspnea, orthopnea]. PULMONARY: [Denies chronic cough, dyspnea and wheezing]. GASTROINTESTINAL: [Denies rectal bleeding, family history of colon cancer, constipation, diarrhea, dysphagia, heartburn and jaundice]. GENITOURINARY: [Denies dysuria, frequency, hematuria and nocturia]. ENDOCRINE: [Denies polydipsia, polyphagia, polyuria, heat or cold intolerance]. INFECTIOUS: [Denies any recent upper respiratory tract infection, UTI, need for use of antibiotics]. NUTRITION: [Reports good appetite]. PHYSICAL EXAMINATION: VITALS SIGNS: Please see below. GENERAL APPEARANCE:[Patient seen, laying in bed, awake, alert, and oriented. Comfortable, in no acute distress]. SKIN: [Warm and moist]. HEENT: [Normocephalic, atraumatic. [place] palpebral conjunctiva, anicteric sclerae. Lips and mucosa appear moist]. NECK: [Supple, no thyromegaly. No obvious jugular venous distention]. LUNGS: [Clear to auscultation bilaterally. No wheezing appreciated]. HEART: [No chest wall abnormalities. Regular rate and rhythm with no murmurs appreciated]. ABDOMEN: Abdomen is , soft, . [No hepatosplenomegaly. No umbilical or groin herniations, nondistended. No noticeable rebound or guarding. No grimacing with palpation. No rebound tenderness. No masses appreciated]. EXTREMITIES: [Extremities have no deformities. No edema identified] ANCILLARIES: . LABORATORY DATA: Please see below. IMAGING STUDIES: . IMPRESSION AND PLAN: . Vital Signs Vital Signs Date Time Temp Pulse Resp B/P (MAP) Pulse Ox O2 Delivery O2 Flow Rate FiO2 12/08/20 04:00 2.0 12/08/20 04:00 97.5 131 20 132/75 (94) 99 Nasal Cannula I&Os I&O- Last 24 Hours up to 6 AM 12/08/20 06:00 Intake Total 1850 ml Output Total 0 ml Balance 1850 ml Laboratory Data Labs 24H Laboratory Tests 2 12/08/20 02:03: Nucleated Red Blood Cells % (auto) 0.0 12/08/20 02:06: Anion Gap 1L, Glomerular Filtration Rate > 60.0, Calcium Level 7.9L, Total Bi lirubin 0.4, Aspartate Amino Transf (AST/SGOT) 20, Alanine Aminotransferase (ALT/SGPT) 27, Alkaline Phosphatase 81, Troponin I < 0.02, Total Protein 6.2L, Albumin 2.1L, Albumin/Globulin Ratio 0.5, Thyroid Stimulating Hormone (TSH) 0.480 CBC/BMP Laboratory Tests 12/08/20 02:03 12/08/20 02:06 Microbiology Microbiology 12/07/20 Blood Culture, Received Pending 12/06/20 Urine Culture - Final, Complete Escherichia Coli 12/06/20 Respiratory Virus Panel (PCR) (AYAH) - Final, Complete 12/06/20 Blood Culture - Preliminary, Resulted No growth after 24 hours . All specim... 12/06/20 Blood Culture - Preliminary, Resulted Home Medications Scheduled Apixaban (Eliquis) 5 Mg Tablet, 5 MG PO BID, (Reported) 2ND DOSE @ 1700 Aspirin (Aspirin) 81 Mg Tab.chew, 81 MG PO DAILY, (Reported) Atorvastatin Calcium (Atorvastatin Calcium) 40 Mg Tablet, 40 MG PO DAILY, (Reported) Escitalopram Oxalate (Lexapro) 20 Mg Tablet, 20 MG PO DAILY, (Reported) Famotidine (Famotidine) 20 Mg Tablet, 20 MG PO BID, (Reported) Metoprolol Succinate (Toprol Xl) 50 Mg Tab.er.24h, 50 MG PO DAILY, (Reported) Multivitamins (Thera M Plus Tablet) 1 Each Tablet, 1 TAB PO DAILY, (Reported) Quetiapine Fumarate (Seroquel) 50 Mg Tablet, 50 MG PO QHS, (Reported) Quinapril HCl (Quinapril HCl) 40 Mg Tablet, 40 MG PO QPM, (Reported) Sennosides (Senna Lax) 8.6 Mg Tablet, 17.2 MG PO DAILY, (Reported) Scheduled PRN Acetaminophen (Tylenol) 325 Mg Tablet, 650 MG PO Q4H PRN for PAIN / FEVER, (Reported) Bisacodyl (Bisacodyl) 10 Mg Supp.rect, 10 MG NH DAILY PRN for CONSTIPATION, (Reported) Milk Of Magnesia (Milk of Magnesia) 2,400 Mg/10 Ml Oral.susp, 10 ML PO DAILY PRN for CONSTIPATION, (Reported) Polyethylene Glycol 3350 (Miralax) 119 Gm Powder, 17 GM PO BID PRN for CONSTIPATION, (Reported) dilute in 8 ounces of water or juice Promethazine HCl (Promethazine HCl) 25 Mg Tablet, 25 MG PO TID PRN for VERTIGO/DIZZINESS, (Reported) Allergies Coded Allergies: cefazolin (Verified Allergy, Intermediate, RASH, 03/06/20) WALLY HORVATH MD December 08, 2020 07:55
[2020-12-08] MEDS: FAMOTIDINE 20 MG TAB PO SCH ×2 (08:39→20:25)
[2020-12-08] MEDS: SENNA 8.6 MG TAB (SENOKOT) PO SCH (08:39)
[2020-12-08] MEDS: MULTIVITAMINS/MINERALS THERAP 1 TAB PO SCH (08:39)
[2020-12-08] MEDS: ATORVASTATIN 20 MG TAB PO SCH (08:39)
[2020-12-08] MEDS: ESCITALOPRAM OXALATE 10 MG TAB (LEXAPRO) PO SCH (08:39)
[2020-12-08] MEDS: DOCUSATE SODIUM 100MG CAPSULE PO SCH ×2 (08:40→20:25)
[2020-12-08] MEDS: METOPROLOL SUCC (TopROL XL) 50MG **XL** TAB PO SCH (08:40)
--- NOTE | 2020-12-08 10:30 | IPNPDOC ---
Subjective Date Seen The patient was seen on 12/08/20. Subjective Chief Complaint/HPI Ash is at his baseline mentally. Overnight he did develop some A. fib with RVR and was placed on amiodarone drip. He remains tachycardic at this time. His hemodynamics are stable and have improved. He continues to have some drainage noted from his rectal lesion per my conversation with Dr. Mehta. Objective Physical Examination General Exam: Positive: Alert, Mild Distress Eye Exam: Negative: Sclera icteric ENT Exam: Positive: Mucous membr. moist/pink, Pharynx Normal Neck Exam: Positive: Supple; Negative: JVD, thyromegaly Chest Exam: Positive: Clear to auscultation Heart Exam: Positive: Tachycardic, Irregular Rhythm Telemetry: Positive: No significant arrhythmia Abdomen Exam: Positive: Normal bowel sounds Skin Exam: Positive: Nl turgor and temperature; Negative: Rash, Breakdown Assessment /Plan Assessment # Acute sepsis likely secondary to pyelonephritis with E.coli bacteremia in the setting of right ureteral obstruction with a 6 mm stone. 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 - d/w gen surgery - continue to hold eliquis # Paroxysmal atrial fibrillation with RVR - continue amiodarone gtt started overnight - resume metoprolol # History of CADASIL with previous strokes and cognitive impairment - mentation at baseline # DVT ppx - scds Dispo: likely back to [facility] on wednesday/wednesday Plan/VTE VTE Prophylaxis Ordered?: Yes VTE Exclusion Mechanical Proph: Other VTE Exclusion Pharmacological: Other VS, I&O, 24H, Fishbone Vital Signs/I&O Vital Signs Date Time Temp Pulse Resp B/P (MAP) Pulse Ox O2 Delivery O2 Flow Rate FiO2 12/08/20 08:40 131 132/75 12/08/20 08:00 97.5 18 95 Nasal Cannula 2.0 I&O- Last 24 Hours up to 6 AM 12/08/20 06:00 Intake Total 2600 ml Output Total 0 ml Balance 2600 ml Laboratory Data 24H LABS Laboratory Tests 2 12/08/20 02:03: Nucleated Red Blood Cells % (auto) 0.0 12/08/20 02:06: Anion Gap 1L, Glomerular Filtration Rate > 60.0, Calcium Level 7.9L, Total Bilirubin 0.4, Aspartate Amino Transf (AST/SGOT) 20, Alanine Aminotransferase (ALT/SGPT) 27, Alkaline Phosphatase 81, Troponin I < 0.02, Total Protein 6.2L, Albumin 2.1L, Albumin/Globulin Ratio 0.5, Thyroid Stimulating Hormone (TSH) 0.480 CBC/BMP Laboratory Tests 12/08/20 02:03 12/08/20 02:06 Microbiology Microbiology 12/07/20 Blood Culture, Received Pending 12/06/20 Urine Culture - Final, Complete Escherichia Coli 12/06/20 Respiratory Virus Panel (PCR) (AYAH) - Final, Complete 12/06/20 Blood Culture - Preliminary, Resulted No growth after 24 hours . All specim... 12/06/20 Blood Culture - Preliminary, Resulted AMITA DURAN MD December 08, 2020 10:30
[2020-12-08] MEDS: cefTRIAXone SOD 2 GM VIAL (J0696 PER 250MG) IV SCH (12:18)
[2020-12-08] MEDS: ONDANSETRON 4MG/2ML VIAL IV PRN (13:40)
[2020-12-08] MEDS ORDERED: dexameTHASONE 20MG/5ML VIAL (J1100 PER 1MG) IV ONE (14:40)
[2020-12-08] MEDS: diltiaZEM 125 MG in NS 100 ML IV SCH (17:19)
[2020-12-08] MEDS: QUEtiapine FUMARATE 50MG TAB PO SCH (20:25)
--- NOTE | 2020-12-08 20:56 | ECGEPIP ---
[facility] Test Date: 2020-12-08 Pat Name: TATIANA CORDOBA Department: Room: [place] [address] Gender: Male Delivery Department Supervisor: [email or web address] : 1950 Requested By: Joon Larsen Order Number: [id number] Reading MD: Vamsi Flores Measurements Intervals [place] Rate: 167 P: KS: QRS: 7 QRSD: 84 T: 254 QT: 272 QTc: 453 Interpretive Statements Atrial fibrillation with rapid ventricular response with premature ventricular or aberrantly conducted complexes Low QRS complex voltage in the limb leads ST & T wave abnormality, consider inferior ischemia- represents a morphology c change from 12-06-20 Electronically Signed on 12-08-2020 20:56:06 EDT by Vamsi Flores
[2020-12-09] VITALS: BP 101/60
[2020-12-09 04:00] VITALS: BP 121/81
[2020-12-09 05:50] LABS: HEMATOCRIT 32.5 % (42.0-52.0); HEMOGLOBIN 10.4 g/dl (13.5-17.5); MEAN CORPUSCULAR HEMOGLOBIN 30.1 pg (27.0-33.0); MEAN CORPUSCULAR VOLUME 94.2 fl (80.0-96.0); PLATELET COUNT, AUTOMATED 281 10^3/uL (150-450); RED BLOOD COUNT 3.45 10^6/uL (4.30-6.10); WHITE BLOOD COUNT 6.4 10^3/uL (4.0-10.0)
[2020-12-09 06:14] LABS: BLOOD UREA NITROGEN 19 MG/DL (7-18); CALCIUM LEVEL 8.2 MG/DL (8.8-10.2); CARBON DIOXIDE LEVEL 26 MEQ/L (21-32); CHLORIDE LEVEL 108 MEQ/L (98-107); CREATININE FOR GFR 0.87 MG/DL (0.70-1.30); GLOMERULAR FILTRATION RATE > 60.0 (>42); GLUCOSE, FASTING 134 MG/DL (70-100); POTASSIUM SERUM 4.2 MEQ/L (3.5-5.1); SODIUM LEVEL 139 MEQ/L (136-145)
[2020-12-09 08:00] VITALS: BP 113/65
[2020-12-09] MEDS: ATORVASTATIN 20 MG TAB PO SCH (08:55)
[2020-12-09] MEDS: MULTIVITAMINS/MINERALS THERAP 1 TAB PO SCH (08:55)
[2020-12-09] MEDS: ESCITALOPRAM OXALATE 10 MG TAB (LEXAPRO) PO SCH (08:55)
[2020-12-09] MEDS: SENNA 8.6 MG TAB (SENOKOT) PO SCH (08:55)
[2020-12-09] MEDS: FAMOTIDINE 20 MG TAB PO SCH ×2 (08:55→21:07)
[2020-12-09] MEDS: DOCUSATE SODIUM 100MG CAPSULE PO SCH ×2 (08:55→21:07)
[2020-12-09] MEDS: METOPROLOL SUCC (TopROL XL) 50MG **XL** TAB PO SCH (08:56)
--- NOTE | 2020-12-09 10:05 | IPNPDOC ---
Subjective Date Seen The patient was seen on 12/09/20. Subjective Chief Complaint/HPI Ash's heart rate is ranging anywhere from 110s to 120s on Cardizem 5 mg per hour. His mentation is at his baseline. He remains hemodynamically stable. Objective Physical Examination General Exam: Positive: Alert, Mild Distress Eye Exam: Negative: Sclera icteric ENT Exam: Positive: Mucous membr. moist/pink, Pharynx Normal Neck Exam: Positive: Supple; Negative: JVD, thyromegaly Chest Exam: Positive: Clear to auscultation Heart Exam: Positive: Tachycardic, Irregular Rhythm Telemetry: Positive: No significant arrhythmia Abdomen Exam: Positive: Normal bowel sounds Skin Exam: Positive: Nl turgor and temperature; Negative: Rash, Breakdown Assessment /Plan Assessment # Acute sepsis likely secondary to pyelonephritis with E.coli bacteremia in the setting of right ureteral obstruction with a 6 mm stone. 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 - d/w gen surgery no plans at this time for intervention - resume eliquis # Paroxysmal atrial fibrillation with RVR - completed amiodarone infusion ordered by regulatory affairs director on Wednesday night, but remains in RVR - started on cardizem gtt 10 mg /hr, HR controlled - resumed metoprolol # History of CADASIL with previous strokes and cognitive impairment - mentation at baseline # DVT ppx - scds - resume eliquis Dispo: likely back to [facility] once HR controlled Plan/VTE VTE Prophylaxis Ordered?: Yes VTE Exclusion Mechanical Proph: Other VTE Exclusion Pharmacological: Other VS, I&O, 24H, Fishbone Vital Signs/I&O Vital Signs Date Time Temp Pulse Resp B/P (MAP) Pulse Ox O2 Delivery O2 Flow Rate FiO2 12/09/20 08:56 126 121/81 12/09/20 08:00 97.3 18 95 Room Air 12/08/20 16:00 2.0 I&O- Last 24 Hours up to 6 AM 12/09/20 06:00 Intake Total 1733 ml Output Total 300 ml Balance 1433 ml Laboratory Data 24H LABS Laboratory Tests 2 12/09/20 05:27: Nucleated Red Blood Cells % (auto) 0.0, Anion Gap 5L, Glomerular Filtration Rate > 60.0, Calcium Level 8.2L CBC/BMP Laboratory Tests 12/09/20 05:27 Microbiology Microbiology 12/07/20 Blood Culture - Preliminary, Resulted No growth after 24 hours . All specim... 12/06/20 Urine Culture - Final, Complete Escherichia Coli 12/06/20 Respiratory Virus Panel (PCR) (AYAH) - Final, Complete 12/06/20 Blood Culture - Preliminary, Resulted No Growth after 48 hours. All Specime... 12/06/20 Blood Culture - Final, Complete Escherichia Coli AMITA DURAN MD December 09, 2020 10:05
[2020-12-09] MEDS: APIXABAN 5 MG TAB (ELIQUIS) PO SCH ×2 (10:48→21:07)
[2020-12-09 12:00] VITALS: BP 107/55
[2020-12-09] MEDS: cefTRIAXone SOD 2 GM VIAL (J0696 PER 250MG) IV SCH (12:28)
[2020-12-09] MEDS: diltiaZEM 125 MG in NS 100 ML IV SCH (12:28)
--- NOTE | 2020-12-09 14:50 | IPNPDOC ---
Text Note Date of Service The patient was seen on 12/09/20. NOTE Gen. surgery. Dr. Horvath The patient is a 70-year-old male with anal verge wound. The patient's wound is examined as per Dr. Feliz at this morning with wound care orders placed. No further bleeding is noted today. Afebrile, VSS. Anal verge wound with no active bleeding. WBC 6.4, hemoglobin 10.4. Anal verge wound. The patient is reviewed and examined as per Dr. Horvath. Wound care orders are placed. Surgicel and cover with Hydrofera Blue. Continue to keep the area clean and dry, continue to monitor. VS,Fishbone, I+O VS, Fishbone, I+O Laboratory Tests 12/09/20 05:27 Vital Signs Date Time Temp Pulse Resp B/P (MAP) Pulse Ox O2 Delivery O2 Flow Rate FiO2 12/09/20 12:28 93 107/55 12/09/20 12:00 97.1 18 96 Room Air 12/08/20 16:00 2.0 I&O- Last 24 Hours up to 6 AM 12/09/20 06:00 Intake Total 1733 ml Output Total 300 ml Balance 1433 ml Indira Hernandez December 09, 2020 14:50 WALLY HORVATH MD December 11, 2020 14:26
[2020-12-09 16:00] VITALS: BP 140/64
[2020-12-09 20:00] VITALS: BP 118/76
[2020-12-09] MEDS: QUEtiapine FUMARATE 50MG TAB PO SCH (21:07)
[2020-12-09] MEDS: ACETAMINOPHEN TAB 650MG DOSE (2X325MG) PO PRN (21:07)
[2020-12-10] VITALS (7 sets, daily range): BP systolic 96–113; BP diastolic 52–76
[2020-12-10] MEDS: diltiaZEM 125 MG in NS 100 ML IV SCH ×2 (00:30→12:32)
[2020-12-10 05:51] LABS: HEMATOCRIT 32.2 % (42.0-52.0); HEMOGLOBIN 10.7 g/dl (13.5-17.5); MEAN CORPUSCULAR HEMOGLOBIN 31.3 pg (27.0-33.0); MEAN CORPUSCULAR HGB CONC 33.2 g/dl (32.0-36.5); MEAN CORPUSCULAR VOLUME 94.2 fl (80.0-96.0); PLATELET COUNT, AUTOMATED 332 10^3/uL (150-450); RED BLOOD COUNT 3.42 10^6/uL (4.30-6.10); WHITE BLOOD COUNT 9.8 10^3/uL (4.0-10.0)
[2020-12-10 06:22] LABS: BLOOD UREA NITROGEN 23 MG/DL (7-18); CARBON DIOXIDE LEVEL 27 MEQ/L (21-32); CHLORIDE LEVEL 109 MEQ/L (98-107); GLOMERULAR FILTRATION RATE > 60.0 (>42); GLUCOSE, FASTING 98 MG/DL (70-100); POTASSIUM SERUM 3.9 MEQ/L (3.5-5.1); SODIUM LEVEL 142 MEQ/L (136-145)
[2020-12-10] MEDS: DOCUSATE SODIUM 100MG CAPSULE PO SCH ×2 (08:35→21:24)
[2020-12-10] MEDS: MULTIVITAMINS/MINERALS THERAP 1 TAB PO SCH (08:35)
[2020-12-10] MEDS: ATORVASTATIN 20 MG TAB PO SCH (08:35)
[2020-12-10] MEDS: ESCITALOPRAM OXALATE 10 MG TAB (LEXAPRO) PO SCH (08:36)
[2020-12-10] MEDS: APIXABAN 5 MG TAB (ELIQUIS) PO SCH ×2 (08:36→21:24)
[2020-12-10] MEDS: SENNA 8.6 MG TAB (SENOKOT) PO SCH (08:36)
[2020-12-10] MEDS: FAMOTIDINE 20 MG TAB PO SCH ×2 (08:36→21:24)
[2020-12-10] MEDS: METOPROLOL SUCC (TopROL XL) 50MG **XL** TAB PO SCH (08:45)
[2020-12-10] MEDS ORDERED: cefTRIAXone SOD 2 GM in D5W MINI-BAG PLUS 50 ML IV SCH (12:00)
[2020-12-10] MEDS: BACTRIM 160MG/800MG DS TAB PO SCH ×2 (12:07→21:24)
[2020-12-10] MEDS: DIGOXIN INJ 0.5 MG/2 ML AMP (J1160) IV SCH ×2 (16:20→21:24)
--- NOTE | 2020-12-10 18:15 | IPNPDOC ---
Subjective Date Seen The patient was seen on 12/10/20. Subjective Chief Complaint/HPI Mr. Forde is a 70 year old male who is here with sepsis 2/2 pyelonephritis with E.coli bacteremia and atrial fibrillation with RVR. This morning, he was not feeling well, but he could not describe why. Otherwise, denies chest pain or dyspnea. This morning, his blood pressure was soft and could not give Toprol XL. Patient was started on digoxin due to low BP and RVR Objective Physical Examination General Exam: Positive: Alert, Mild Distress Eye Exam: Negative: Sclera icteric ENT Exam: Positive: Atraumatic Neck Exam: Positive: Supple Chest Exam: Positive: Clear to auscultation Heart Exam: Positive: Tachycardic, Irregular Rhythm Abdomen Exam: Positive: Normal bowel sounds, Soft; Negative: Tenderness Skin Exam: Positive: Nl turgor and temperature Neuro Exam: Positive: Normal Speech Psych Exam: Positive: Mental status NL, Mood NL Assessment /Plan Assessment Mr. Forde is a 70 year old male who is here with sepsis 2/2 pyelonephritis with E.coli bacteremia and atrial fibrillation with RVR. Patient completed 5 days of IV antibiotics. Will continue PO Bactrim for complicated UTI/pyelonephritis. Otherwise, patient is still in afib with RVR. Cardizem drip continued. BP not tolerating Toprol XL. Will load patient with digoxin. Plan/VTE VTE Prophylaxis Ordered?: Yes VTE Exclusion Mechanical Proph: Other VTE Exclusion Pharmacological: Other Plan 1. Sepsis 2/2 pyelonephritis with E.coli bacteremia -Complicated by 6mm stone -Urology following, recommendations appreciated -Stent placed 12/06/2020 by urology -Patient will need to follow up with urology outpatient -Patient completed 5 days of IV antibiotics. Transitioned to PO Bactrim (day 6 of total antibiotics) 2. Anal verge wound -General surgery following, recommendations appreciated -Recommending wound care 3. Atrial fibrillation with RVR -Continue on Cardizem ggt 10mg/hr -Blood pressure not tolerating Toprol XL -Start digoxin loading -Continue AC with apixaban 4. History of CADASIL with previous strokes and cognitive impairment -Mentation at baseline 5. DVT ppx -On apixaban Disposition: Pending improvement in HR. Return to [facility] when medically stable. VS, I&O, 24H, Fishbone Vital Signs/I&O Vital Signs Date Time Temp Pulse Resp B/P (MAP) Pulse Ox O2 Delivery O2 Flow Rate FiO2 12/10/20 16:20 128 12/10/20 15:26 97.1 20 97/67 (77) 92 Room Air 12/08/20 16:00 2.0 I&O- Last 24 Hours up to 6 AM 12/10/20 06:00 Intake Total 660 ml Output Total 2150 ml Balance -1490 ml Laboratory Data 24H LABS Laboratory Tests 2 12/10/20 05:19: Nucleated Red Blood Cells % (auto) 0.0, Anion Gap 6L, Glomerular Filtration Rate > 60.0, Calcium Level 8.0L CBC/BMP Laboratory Tests 12/10/20 05:19 Microbiology Microbiology 12/07/20 Blood Culture - Preliminary, Resulted No Growth after 72 hours. All specime... 12/06/20 Urine Culture - Final, Complete Escherichia Coli 12/06/20 Respiratory Virus Panel (PCR) (AYAH) - Final, Complete 12/06/20 Blood Culture - Preliminary, Resulted No Growth after 72 hours. All specime... 12/06/20 Blood Culture - Final, Complete Escherichia Coli LISA FISHER DO December 10, 2020 18:14
[2020-12-10] MEDS: QUEtiapine FUMARATE 50MG TAB PO SCH (21:24)
[2020-12-10] MEDS ORDERED: AMIODARONE HCL 150 MG in IV 1 EA IV STA (23:33)
[2020-12-11] VITALS (8 sets, daily range): BP systolic 93–135; BP diastolic 50–70
[2020-12-11] MEDS ORDERED: AMIODARONE 150MG/3ML INJ (J0282) IVP STA (00:28)
[2020-12-11] MEDS ORDERED: AMIODARONE HCL 150 MG in IV 1 EA IV ONE (00:30)
[2020-12-11] MEDS: DIGOXIN INJ 0.5 MG/2 ML AMP (J1160) IV SCH (04:01)
[2020-12-11 05:38] LABS: HEMATOCRIT 33.1 % (42.0-52.0); HEMOGLOBIN 10.8 g/dl (13.5-17.5); MEAN CORPUSCULAR HEMOGLOBIN 30.3 pg (27.0-33.0); MEAN CORPUSCULAR HGB CONC 32.6 g/dl (32.0-36.5); PLATELET COUNT, AUTOMATED 322 10^3/uL (150-450); RED BLOOD COUNT 3.56 10^6/uL (4.30-6.10); WHITE BLOOD COUNT 9.1 10^3/uL (4.0-10.0)
[2020-12-11 06:07] LABS: BLOOD UREA NITROGEN 20 MG/DL (7-18); CALCIUM LEVEL 8.4 MG/DL (8.8-10.2); CARBON DIOXIDE LEVEL 26 MEQ/L (21-32); CHLORIDE LEVEL 106 MEQ/L (98-107); CREATININE FOR GFR 0.86 MG/DL (0.70-1.30); GLOMERULAR FILTRATION RATE > 60.0 (>42); GLUCOSE, FASTING 89 MG/DL (70-100); POTASSIUM SERUM 3.9 MEQ/L (3.5-5.1); SODIUM LEVEL 139 MEQ/L (136-145)
[2020-12-11 07:24] LABS: MAGNESIUM LEVEL 1.6 MG/DL (1.8-2.4)
[2020-12-11] MEDS: ATORVASTATIN 20 MG TAB PO SCH (08:18)
[2020-12-11] MEDS: MAG SULF 1GM/100ML (MAG RUN) 1 GM in IV 1 EA IV SCH ×2 (08:18→09:47)
[2020-12-11] MEDS: FAMOTIDINE 20 MG TAB PO SCH ×2 (08:19→20:14)
[2020-12-11] MEDS: APIXABAN 5 MG TAB (ELIQUIS) PO SCH ×2 (08:19→20:15)
[2020-12-11] MEDS: MULTIVITAMINS/MINERALS THERAP 1 TAB PO SCH (08:19)
[2020-12-11] MEDS: SENNA 8.6 MG TAB (SENOKOT) PO SCH (08:19)
[2020-12-11] MEDS: ESCITALOPRAM OXALATE 10 MG TAB (LEXAPRO) PO SCH (08:19)
[2020-12-11] MEDS: BACTRIM 160MG/800MG DS TAB PO SCH ×2 (08:19→20:14)
[2020-12-11] MEDS: DOCUSATE SODIUM 100MG CAPSULE PO SCH ×2 (08:19→20:14)
[2020-12-11] MEDS: METOPROLOL TART 25 MG TABLET PO SCH ×3 (08:23→17:49)
--- NOTE | 2020-12-11 09:55 | IPNPDOC ---
Subjective Date Seen The patient was seen on 12/11/20. Subjective Chief Complaint/HPI Mr. Forde is a 70 year old male who is here with sepsis 2/2 pyelonephritis with E.coli bacteremia and atrial fibrillation with RVR. Overnight, he remained in afib with RVR despite digoxin and Cardizem drip. Cardizem drip was discontinued due to hypotension and patient was given amiodarone. This morning, heart rate was still in the 140s. Despite this, patient feels better today. Denies chest pain, dyspnea, abdominal pain, or palpitations. I consulted cardiology, Dr. Somers, recommendations appreciated. Objective Physical Examination General Exam: Positive: Alert Eye Exam: Negative: Sclera icteric ENT Exam: Positive: Atraumatic Neck Exam: Positive: Supple Chest Exam: Positive: Clear to auscultation Heart Exam: Positive: Tachycardic, Irregular Rhythm Abdomen Exam: Positive: Normal bowel sounds, Soft Skin Exam: Positive: Nl turgor and temperature Neuro Exam: Positive: Normal Speech Psych Exam: Positive: Mental status NL, Mood NL Assessment /Plan Assessment Mr. Forde is a 70 year old male who is here with sepsis 2/2 pyelonephritis with E.coli bacteremia and atrial fibrillation with RVR. Patient completed 5 days of IV antibiotics. Will continue PO Bactrim for complicated UTI/pyelonephritis. Otherwise, patient is still in afib with RVR despite Cardizem drip, digoxin load, and amiodarone. Cardizem was discontinue duo to lower blood pressure. Cardiology consulted, recommendations appreciated. Cardiology started patient on BB now that blood pressure has improved. Plan/VTE VTE Prophylaxis Ordered?: Yes VTE Exclusion Mechanical Proph: Other VTE Exclusion Pharmacological: Other Plan 1. Sepsis 2/2 pyelonephritis with E.coli bacteremia -Complicated by 6mm stone -Urology following, recommendations appreciated -Stent placed 12/06/2020 by urology -Patient will need to follow up with urology outpatient -Patient completed 5 days of IV antibiotics. Transitioned to PO Bactrim (day 7 of total antibiotics). Plan for a total of 10 days of antibiotics 2. Anal verge wound -General surgery following, recommendations appreciated -Recommending wound care 3. Atrial fibrillation with RVR -Cardiology consulted, recommendations appreciated -Now that BP improved, patient started on Lopressor -Continue AC with apixaban 4. History of CADASIL with previous strokes and cognitive impairment -Mentation at baseline 5. DVT ppx -On apixaban Disposition: Pending improvement in HR. Return to [facility] when medically stable. VS, I&O, 24H, Fishbone Vital Signs/I&O Vital Signs Date Time Temp Pulse Resp B/P (MAP) Pulse Ox O2 Delivery O2 Flow Rate FiO2 12/11/20 08:23 144 126/51 12/11/20 07:27 97.1 20 95 Room Air 12/08/20 16:00 2.0 I&O- Last 24 Hours up to 6 AM 12/11/20 06:00 Intake Total 2340 ml Output Total 3850 ml Balance -1510 ml Laboratory Data 24H LABS Laboratory Tests 2 12/11/20 04:59: Nucleated Red Blood Cells % (auto) 0.0, Anion Gap 7L, Glomerular Filtration Rate > 60.0, Calcium Level 8.4L, Magnesium Level 1.6L CBC/BMP Laboratory Tests 12/11/20 04:59 Microbiology Microbiology 12/07/20 Blood Culture - Preliminary, Resulted No Growth after 72 hours. All specime... 12/06/20 Urine Culture - Final, Complete Escherichia Coli 12/06/20 Respiratory Virus Panel (PCR) (AYAH) - Final, Complete 12/06/20 Blood Culture - Preliminary, Resulted No Growth after 72 hours. All specime... 12/06/20 Blood Culture - Final, Complete Escherichia Coli LISA FISHER DO December 11, 2020 09:55
--- NOTE | 2020-12-11 09:59 | CR ---
CONSULTATION DATE: 12/11/2020 REFERRING PHYSICIAN: Dr. Liriano INDICATION: Atrial fibrillation with rapid ventricular response. HISTORY OF PRESENT ILLNESS: Mr. Forde is a 70-year-old man who was admitted to hospital on December 06 with urosepsis. He also had air in the rectal wall so there was suggestion of possible infection in that area as well. He was treated successfully and his condition improved but then yesterday around noon, he went into atrial fibrillation with rapid ventricular response. He at his baseline has been receiving Toprol XL 50 mg daily but yesterday he was given initially Cardizem drip and when it did not complete rate control, he was given a total of three doses of digoxin 0.25 mg and when that was not successful, then he got a total of two doses of amiodarone 150 mg for a total of 300 mg amiodarone IV. This morning, he continues to be in atrial fibrillation with heart rate fluctuating between 110 and 140. He has been chronically anticoagulated with Eliquis even though the administration of the medication was interrupted briefly when he presented with infection and also had rectal bleeding. Talking to the patient, he has no awareness of his atrial fibrillation. He denies any palpitations, shortness of breath or chest discomfort. PAST MEDICAL HISTORY: 1. Paroxysmal atrial fibrillation. 2. Hypertension. 3. Dyslipidemia. 4. History of CADASIL with resulting cognitive impairment. 5. History of CVAs. 6. Nephrolithiasis. 7. History of DVT. 8. Morbid obesity. SURGICAL HISTORY: 1. Cholecystectomy. 2. Tonsillectomy. 3. Bilateral knee replacement. HOME MEDICATIONS: 1. Eliquis 5 twice a day. 2. Aspirin 81 a day. 3. Atorvastatin 40 mg a day. 4. Lexapro 20 mg daily. 5. Pepcid 20 mg twice a day. 6. Toprol XL 50 mg daily. 7. Miralax. 8. Promethazine 25 mg three times a day. 9. Seroquel 50 mg at bedtime. 10. Quinapril 40 mg in the evening. 11. Senna. ALLERGIES: CEFAZOLIN. SOCIAL HISTORY: The patient is a senior living resident at [facility]. He does not smoke or drink. He is DNI/DNR and his Sherly is the power of litigation attorney associate. FAMILY HISTORY: Unable to obtain from the patient. REVIEW OF SYSTEMS: Essentially as per HPI, otherwise unable to obtain from the patient. PHYSICAL EXAMINATION: Mr. Forde is an obese, 70-year-old man who appears his or actually possibly even a little younger age. He is in no distress. He is alert and oriented x1. He knew he was in the hospital but did not know where, what city and what is the name of the hospital. He did not know the date. Vital signs: Blood pressure 126/51. Heart rate as per HPI. He is afebrile. Saturation is 95% on room air and the weight was recorded yesterday as 128.8 kilograms. His JVP is not high. Lungs are reasonably clear, good air movement. I do not appreciate any wheezing, crackles or rhonchi. Heart exam reveals irregularly irregular tachycardia without appreciable gallop, rub or murmur. Abdomen is obese but soft, no obvious guarding, tenderness or rebound tenderness. Extremities had trace edema. Peripheral pulses are palpable. LABORATORY DATA: CBC as of today reveals a white blood count 9.1, hemoglobin 10.9, hematocrit 33.1 and platelet count 322,000. Basic metabolic panel is normal. His magnesium a little low, is 1.6. Albumin was 2.1, three days and a TSH was 0.5 also three days ago. There are EKGs on file that on admission, demonstrated sinus rhythm with ventricular rate 83 beats per minute and fairly minimal, nonspecific repolarization abnormalities. Subsequent EKG as of yesterday revealed atrial fibrillation with rapid ventricular response and subtle ST-T depressions, mostly precordial leads. His last echocardiogram was in February, and revealed preserved LV systolic function and no significant valvular disease. ASSESSMENT AND PLAN: Mr. Forde is a 70-year-old man who has a history of CADASIL and essentially multi-infarct dementia and also history of paroxysmal atrial fibrillation who presented with urosepsis and rectal bleeding. These conditions have been corrected but as of yesterday he went into atrial fibrillation with RVR and so far his rate has not been well controlled. He was for several hours on IV Cardizem drip and then received a total of 0.75 mg of digoxin and 300 mg of amiodarone. He is asymptomatic as far as the atrial fibrillation is concerned. At this point, I am going to go back to metoprolol 25 mg q.6 with holding parameters. He already received 0.75 mg of digoxin and together with amiodarone, I suspect that his digoxin level is in therapeutic range. I will await what will be the effect of metoprolol and I believe that there is reasonable chance that he will convert back to normal rhythm by tomorrow morning. If he continues to have problems with heart rate, then we can give him additional doses of amiodarone or even advance the dose of metoprolol depending on his tolerance. He will remain chronically anticoagulated with Eliquis. I will follow the patient with you.
[2020-12-11] MEDS: QUEtiapine FUMARATE 50MG TAB PO SCH (20:14)
[2020-12-12 03:18] VITALS: BP 146/70
[2020-12-12 05:36] VITALS: BP 146/70
[2020-12-12] MEDS: METOPROLOL TART 25 MG TABLET PO SCH ×2 (05:36)
[2020-12-12 06:22] LABS: HEMATOCRIT 33.2 % (42.0-52.0); HEMOGLOBIN 10.9 g/dl (13.5-17.5); MEAN CORPUSCULAR HGB CONC 32.8 g/dl (32.0-36.5); MEAN CORPUSCULAR VOLUME 94.3 fl (80.0-96.0); PLATELET COUNT, AUTOMATED 324 10^3/uL (150-450); RED BLOOD COUNT 3.52 10^6/uL (4.30-6.10); WHITE BLOOD COUNT 11.3 10^3/uL (4.0-10.0)
[2020-12-12 06:48] LABS: BLOOD UREA NITROGEN 18 MG/DL (7-18); CALCIUM LEVEL 8.3 MG/DL (8.8-10.2); CARBON DIOXIDE LEVEL 27 MEQ/L (21-32); CHLORIDE LEVEL 105 MEQ/L (98-107); CREATININE FOR GFR 0.92 MG/DL (0.70-1.30); GLOMERULAR FILTRATION RATE > 60.0 (>42); GLUCOSE, FASTING 89 MG/DL (70-100); MAGNESIUM LEVEL 1.6 MG/DL (1.8-2.4); SODIUM LEVEL 138 MEQ/L (136-145)
[2020-12-12 08:00] VITALS: BP 123/76
[2020-12-12] MEDS: ESCITALOPRAM OXALATE 10 MG TAB (LEXAPRO) PO SCH (08:10)
[2020-12-12] MEDS: MULTIVITAMINS/MINERALS THERAP 1 TAB PO SCH (08:10)
[2020-12-12] MEDS: APIXABAN 5 MG TAB (ELIQUIS) PO SCH (08:10)
[2020-12-12] MEDS: SENNA 8.6 MG TAB (SENOKOT) PO SCH (08:10)
[2020-12-12] MEDS: FAMOTIDINE 20 MG TAB PO SCH (08:10)
[2020-12-12] MEDS: DOCUSATE SODIUM 100MG CAPSULE PO SCH (08:11)
[2020-12-12] MEDS: MAG SULF 1GM/100ML (MAG RUN) 1 GM in IV 1 EA IV SCH ×4 (08:11→11:26)
[2020-12-12] MEDS: BACTRIM 160MG/800MG DS TAB PO SCH (08:11)
[2020-12-12] MEDS: ATORVASTATIN 20 MG TAB PO SCH (08:11)
--- NOTE | 2020-12-12 08:44 | IPNPDOC ---
Text Note Date of Service The patient was seen on 12/12/20. NOTE Cardiology consultation. Date: 12/12/2020 Referring physician: Dr. Liriano Consulting physician: Dr. Somers. Reason for consultation: Atrial fibrillation with rapid ventricular response. Subjective: Patient was seen and examined at bedside today. Patient denies having any complaints. He has been converted to sinus rhythm yesterday afternoon. He was in sinus rhythm overnight. He was started on metoprolol and 5 mg every 6 hours with holding parameters [he only received 2 doses of 25 mg yesterday]. I think he did not get his see other doses of metoprolol because his blood pressure was soft. From cardiac point of view he is back to his baseline. Physical examination: General: Patient is awake, not oriented laying in bed , no apparent distress. Cardiovascular: S1, S2, normal rhythm, no murmur appreciated. Respiratory: Chest is clear to auscultation bilaterally, No rhonchi, wheezes or rubs. Abdomen: Soft, bowel sounds positive. Extremities: No edema noted Central nervous system (HEEL COMPRESSOR): Awake. Patient at baseline is demented. Imaging: Chest x-ray on 12/06/2020: No acute disease. Abdominal/pelvic CT done on 12/06/2020: Reported as: Intrarenal and bladder calculi again noted. Mild left hydroureteronephrosis caused by a 6 mm calculus in the distal left ureter. Mild bladder wall thickening, may represent cystitis or neoplasm. Linear posterior perianal fissure containing air but no abscess collection is seen.Mildly enlarged right external iliac lymph node 1.7 cm in short axis. Labs: 12/12/2020: WBC 11.3, hemoglobin 10.9, hematocrit 33.2, platelet 324. Sodium 138, potassium 4, chloride 105, bicarbonate 27, BUN 18, creatinine 0.92, magnesium 1.6 Blood cultures negative after 24 hours. Urine cultures positive for Escherichia coli x 2 Assessment and plan: Mr. Forde is 70-year-old male with history of CADASIL, history of paroxysmal atrial fibrillation who presented to ED with urosepsis and rectal bleeding. He was taken to surgery by Dr. Zaman [urology] for cystoscopy and stent placement and removal of urethral stone. Patient was in A. fib with RVR and cardiology was consulted for the same. Patient was given several hours of IV Cardizem drip, along with received a total of 0.75 mg of digoxin, 300 mg of amiodarone. Yesterday he was started on metoprolol 25 mg every 6 hours with holding parameters and he was converted to sinus rhythm yesterday afternoon and stayed in sinus rhythm throughout the night. Today morning his vitals look stable with pulse rate of 55 and blood pressure is 146/70 mmHg, and in sinus rhythm. From cardiology point of view patient is stable and can be discharged based on the all other medical conditions by the primary team. Upon discharge patient can be put on metoprolol tartrate 50 mg at bedtime. And a follow-up with cardiology within 1 week. As per the anticoagulation he can be discharged on the same Eliquis as he was getting earlier prior to admission. VS,Sharif, I+O VS, Sharif, I+O Laboratory Tests 12/12/20 05:45 Vital Signs Date Time Temp Pulse Resp B/P (MAP) Pulse Ox O2 Delivery O2 Flow Rate FiO2 12/12/20 05:36 55 146/70 12/12/20 03:18 96.9 20 98 Room Air 12/08/20 16:00 2.0 I&O- Last 24 Hours up to 6 AM 12/12/20 06:00 Intake Total 960 ml Output Total 1800 ml Balance -840 ml Nathan Wright MD December 12, 2020 08:44
[2020-12-12] MEDS ORDERED: BACTDSTA PO (09:08)
[2020-12-12] MEDS ORDERED: METO1TAB87 PO (09:08)
--- NOTE | 2020-12-12 16:58 | ECGEPIP ---
[facility] Test Date: 2020-12-11 Pat Name: TATIANA CORDOBA Department: Room: [place] [address] Gender: Male Nurse Emergency Room: NEGAR : 1950 Requested By: Sujata Somers Order Number: [id number] Reading MD: Blue Oh Measurements Intervals [address] Rate: 122 P: CO: QRS: 6 QRSD: 100 T: 57 QT: 350 QTc: 498 Interpretive Statements Atrial fibrillation with rapid ventricular response Low QRS complex voltage in the limb leads Nonspecific ST-T wave abnormalities No significant change when compared to prior tracing of 12/08/2020 Electronically Signed on 12-12-2020 16:58:18 EDT by Blue Oh
--- NOTE | 2020-12-12 23:20 | DS.PDOC ---
Discharge Summary General Date of Admission December 06, 2020 at 15:01 Date of Discharge December 12, 2020 Specialist/Consultants Involve Urology, Dr. Zaman General surgery, Dr. Mehta Cardiology, Dr. Somers Discharge Summary PROCEDURES PERFORMED DURING STAY: Left stent placement on 12/06/[address] Zaman ADMITTING DIAGNOSES: 1. Sepsis secondary to pyelonephritis in the setting of right ureteral obstruction with a 6mm stone 2. 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 Paroxysmal atrial fibrillation 4. History of CADASIL 5. History of constipation DISCHARGE DIAGNOSES: 1. Gram negative sepsis secondary to complicated E.coli UTI with right ureteral obstruction 2. Anal verge wound 3. Paroxysmal atrial fibrillation with rapid ventricular rate now resolved and converted to sinus rhythm 4. History of CADASIL 5. History of constipation COMPLICATIONS/CHIEF COMPLAINT: Acute Encephalopathy, Ams, Perianal Abscess, Sepsis. HISTORY OF PRESENT ILLNESS: Copied from admitting physician's H&P " Mr. Forde is a 70-year-old resident of [facility]. He has a past medical history notable for deep vein thrombosis, as well as paroxysmal atrial fibrillation for which he is on Eliquis 5 mg twice a day. He also has a history of CADASIL with underlying cognitive impairment and history of prior strokes. The patient was last hospitalized in 04/2020. He has no history of COVID and he has been fully vaccinated. In the emergency room, the patient was noted to have a soft blood pressure in the 90s. He was found to have all the fluids. Workup indicated that he had a leukocytosis of 25,[address] of the abdomen and pelvis indicating that he has a right urethral stone causing obstruction with [id number] hydroureteronephrosis. In addition, it showed that he has some air in the rectal mucosa without any evidence of true abscess. Dr. Zaman along with Dr. Mehta were consulted by the ER physician and have agreed to see the patient. The patient has received IV fluids, IV meropenem, and will be admitted to the hospital service for treatment of sepsis. HOSPITAL COURSE: Urology, Dr. Zaman, urgently took patient to the OR for left stent placement. Patient did well after the operation. Dr. Zaman recommended patient follow up outpatient for his renal calculus that will most likley need ureteroscopic laser lithotripsy. Otherwise, General surgery evaluated the patient for possible anal fistula. General surgery saw it as anal verge wound with no active bleeding. Recommended wound care with surgicel and cover with Hydrofera Blue. No surgical intervention at this time. Patient's had about 3 days of Meropenem, then was switched over to 2 days of Ceftriaxone. Patient was ready to transition to oral antibiotics, and was put on Bactrim for E.coli UTI. During patient's hospitalization, he went into afib with RVR. Patient was initially put on Cardizem drip. Patient's blood pressure was too low to continue Toprol XL so patient was loaded with digoxin. Despite digoxin load patient, heart rate was still uncontrolled and patient was given amiodarone and Cardizem was discontinued. Patient's heart rate did not respond and Cardiology was consulted. Blood pressure had improved with discontinuation of Cardizem. Patient was given Lopressor. Heart rate converted to normal sinus rhythm. Cardiology recommended metoprolol tartrate 50mg qHS. This morning, patient felt well and felt ready to return to [facility]. Patient was subsequently discharged back to [facility] DISCHARGE MEDICATIONS: Please see below. ALLERGIES: Please see below. PHYSICAL EXAMINATION ON DISCHARGE: VITAL SIGNS: Please see below. GENERAL: Comfortable, in no apparent distress HEENT: Head normocephalic, atraumatic NECK: Supple CARDIOVASCULAR EXAMINATION: Regular rate and rhythm RESPIRATORY EXAMINATION: Lungs clear to auscultation bilaterally ABDOMINAL EXAMINATION: Soft, non-tender, normal bowel sounds PSYCHIATRIC EXAMINATION: Normal mood and affect LABORATORY DATA: Please see below. IMAGING: Radiologist interpretation CT abd/pelvis Intrarenal and bladder calculi again noted. Mild left hydroureteronephrosis caused by a 6 mm calculus in the distal left ureter. Mild bladder wall thickening, may represent cystitis or neoplasm. Linear posterior perianal fissure containing air but no abscess collection is seen. Mildly enlarged right external iliac lymph node 1.7 cm in short axis. CXR No acute disease. PROGNOSIS: Good ACTIVITY: As tolerated. DIET: As tolerated DISCHARGE PLAN: Return to [facility] DISPOSITION: [facility]. DISCHARGE INSTRUCTIONS: 1. Follow up with PCP in 1 week 2. Follow up with Cardiology in 1 week 3. Follow up with Urology in 1 week ITEMS TO FOLLOWUP ON ON OUTPATIENT: 1. Urology follow up for stent and 6mm stone 2. Monitor tolerance of Lopressor. 3. Monitor electrolytes. Patient had hypomagnesemia during hospitalization DISCHARGE CONDITION: Stable. Total time spent on discharge planning, discharge summary, and medication reconciliation: 40 minutes Vital Signs/I&Os Vital Signs Date Time Temp Pulse Resp B/P (MAP) Pulse Ox O2 Delivery O2 Flow Rate FiO2 12/12/20 08:00 97.3 62 19 123/76 (92) 96 Room Air 12/08/20 16:00 2.0 I&O- Last 24 Hours up to 6 AM 12/12/20 06:00 Intake Total 960 ml Output Total 1800 ml Balance -840 ml Laboratory Data Labs 24H Laboratory Tests 2 12/12/20 05:45: Nucleated Red Blood Cells % (auto) 0.0, Anion Gap 6L, Glomerular Filtration Rate > 60.0, Calcium Level 8.3L, Magnesium Level 1.6L 12/12/20 10:44: Coronavirus (COVID-19)(PCR) NEGATIVE CBC/BMP Laboratory Tests 12/12/20 05:45 Microbiology Microbiology 12/07/20 Blood Culture - Final, Complete NO GROWTH AFTER 5 DAYS 12/06/20 Urine Culture - Final, Complete Escherichia Coli 12/06/20 Respiratory Virus Panel (PCR) (AYAH) - Final, Complete 12/06/20 Blood Culture - Final, Complete NO GROWTH AFTER 5 DAYS 12/06/20 Blood Culture - Final, Complete Escherichia Coli Discharge Medications Scheduled Apixaban (Eliquis) 5 Mg Tablet, 5 MG PO BID, (Reported) 2ND DOSE @ 1700 Aspirin (Aspirin) 81 Mg Tab.chew, 81 MG PO DAILY, (Reported) Atorvastatin Calcium (Atorvastatin Calcium) 40 Mg Tablet, 40 MG PO DAILY, (Reported) Escitalopram Oxalate (Lexapro) 20 Mg Tablet, 20 MG PO DAILY, (Reported) Famotidine (Famotidine) 20 Mg Tablet, 20 MG PO BID, (Reported) Metoprolol Tartrate (Metoprolol Tartrate) 25 Mg Tablet, 50 MG PO QHS Multivitamins (Thera M Plus Tablet) 1 Each Tablet, 1 TAB PO DAILY, (Reported) Quetiapine Fumarate (Seroquel) 50 Mg Tablet, 50 MG PO QHS, (Reported) Quinapril HCl (Quinapril HCl) 40 Mg Tablet, 40 MG PO QPM, (Reported) Sennosides (Senna Lax) 8.6 Mg Tablet, 17.2 MG PO DAILY, (Reported) Sulfamethoxazole/Trimethoprim (Sulfamethoxazole-Tmp Ds Tablet) 1 Each Tablet, 2 TAB PO BID Scheduled PRN Acetaminophen (Tylenol) 325 Mg Tablet, 650 MG PO Q4H PRN for PAIN / FEVER, (Reported) Bisacodyl (Bisacodyl) 10 Mg Supp.rect, 10 MG MA DAILY PRN for CONSTIPATION, (Reported) Milk Of Magnesia (Milk of Magnesia) 2,400 Mg/10 Ml Oral.susp, 10 ML PO DAILY PRN for CONSTIPATION, (Reported) Polyethylene Glycol 3350 (Miralax) 119 Gm Powder, 17 GM PO BID PRN for CONSTIPATION, (Reported) dilute in 8 ounces of water or juice Promethazine HCl (Promethazine HCl) 25 Mg Tablet, 25 MG PO TID PRN for VERTIGO/DIZZINESS, (Reported) Allergies Coded Allergies: cefazolin (Verified Allergy, Intermediate, RASH, 03/06/20) LISA FISHER DO December 12, 2020 16:32
[2020-12-13 21:08] LABS: CA Oxalate Dihy 70 % (.); Ca Ox Monohydrate 10 % (.)
== END 2020-12-12 12:20 | DRG 853 ==
LOC: M ED 11:31 → M ED INP 15:01 → ENRESERV 15:26 → M PCU 16:37
PROVIDERS: ADMIT Internal Medicine; ATTEND Internal Medicine
PROC: 0TCB8ZZ Extirpation of Matter from Bladder, Via Natural or Artificial Opening Endoscopic (ICD-10-PCS; 2020-12-06)
PROC: 0T778DZ Dilation of Left Ureter with Intraluminal Device, Via Natural or Artificial Opening Endoscopic (ICD-10-PCS; principal; 2020-12-06 17:00)
DX: A41.51 Sepsis due to Escherichia coli [E. coli] (principal); G93.41 Metabolic encephalopathy; N13.6 Pyonephrosis; I67.850 Cerebral autosomal dominant arteriopathy with subcortical infarcts and leukoencephalopathy; I48.0 Paroxysmal atrial fibrillation; E66.01 Morbid (severe) obesity due to excess calories; I10 Essential (primary) hypertension; Z66 Do not resuscitate; K60.4 Rectal fistula; F01.50 Vascular dementia, unspecified severity, without behavioral disturbance, psychotic disturbance, mood disturbance, and anxiety; Z86.718 Personal history of other venous thrombosis and embolism; Z79.01 Long term (current) use of anticoagulants; Z79.82 Long term (current) use of aspirin; Z79.899 Other long term (current) drug therapy; Z96.653 Presence of artificial knee joint, bilateral; Z90.49 Acquired absence of other specified parts of digestive tract; Z88.1 Allergy status to other antibiotic agents; Z20.822 Contact with and (suspected) exposure to COVID-19

== ENCOUNTER → 2020-12-13 | Outpatient (REF) | payer MEDICARE, MEDICAID ==
[~2020-12-13] MED LIST changes: +BACTDSTA PO; +METO1TAB87 PO
== END ==
LOC: SKLAB5 07:04
DX: E83.42 Hypomagnesemia (principal)

== ENCOUNTER → 2020-12-28 | Outpatient (CLI) | payer MEDICARE, MEDICAID ==
--- NOTE | 2020-12-30 16:19 | SLEEPCENT ---
NOCTURNAL POLYSOMNOGRAPHY DATE: 12/28/2020 ORDERED BY: KATEY Li Nocturnal polysomnography was performed for evaluation of sleep physiology in this patient with a clinical diagnosis of obstructive sleep apnea supported by home testing, revealing a respiratory event index of 35.4. 7 hours and 57 minutes of data were reviewed. There were 330 minutes of sleep identified. Sleep latency was normal at 34 minutes. REM latency was normal at 126 minutes. Sleep architecture showed fragmentation. There were 2 REM cycles noted. Overall sleep efficiency was 72.4%. The electrocardiogram showed a sinus rhythm with an average heart rate of 68 beats per minute; rate range 60 to 80. EEG showed fairly normal waveforms for wake and sleep. There was some minor alpha intrusion into the non-REM stages. No focal events were identified. There were 99 respiratory events identified of 10 seconds in duration or greater for an apnea-hypopnea index of 18. Having clearly established the presence of obstructive sleep apnea syndrome early in testing, the patient was fit with a ResMed Quattro full face mask and 4 cm of water pressure were applied to the circuit and the lights were again extinguished. Throughout the remaining hours of testing, pressure titration was performed to an optimal pressure of +6. CPAP tolerance was reasonably good. IMPRESSION: Obstructive sleep apnea syndrome (G47.33), apnea-hypopnea index 18. RECOMMENDATION: Nightly use of pressure therapy 6 cm of water.
== END ==
LOC: M SLEEP 20:00
PROVIDERS: ATTEND Physician Assistant
DX: G47.33 Obstructive sleep apnea (adult) (pediatric) (principal)

== ENCOUNTER → 2021-01-05 | Outpatient (REF) | payer MEDICARE, MEDICAID | LOC: M LAB 17:45 → SKLAB5 17:45 | DX: Z20.822 Contact with and (suspected) exposure to COVID-19 (principal) ==

== ENCOUNTER 2021-01-09 12:36 | Inpatient (IN) | payer MEDICARE, MEDICAID ==
[~2021-01-09] VITALS: Ht 180.3 cm; Wt 112.4 kg
[~2021-01-09 12:36] MED LIST changes: -ACET65SU PR; -ATIV1TAB10 PO; -BISA10SU PR; -BISACODYL 10 MG SUPP PR PRN; -HYOS125TA PO; -LORazepam 2 MG/ML VIAL IV PRN; -MILKSUS3 PO; -MORP20SO3 PO; -MORPHINE 2 MG/ML 1ML VIAL (J2270) IV PRN
[2021-01-09] MEDS ORDERED: LIDOCAINE 2% 5ML JELLY UROJET TOP ONE (13:10)
[2021-01-09 13:30] LABS: BASO # 0.1 10^3/uL (0.0-0.2); BASO % 0.2 % (0.0-1.0); HEMATOCRIT 31.7 % (42.0-52.0); HEMOGLOBIN 10.2 g/dl (13.5-17.5); LYMPH # 0.8 10^3/uL (1.5-5.0); LYMPH % 2.8 % (24.0-44.0); MEAN CORPUSCULAR HEMOGLOBIN 29.6 pg (27.0-33.0); MEAN CORPUSCULAR HGB CONC 32.2 g/dl (32.0-36.5); MEAN CORPUSCULAR VOLUME 91.9 fl (80.0-96.0); MONO # 2.4 10^3/uL (0.0-0.8); NEUTROPHILS # 25.5 10^3/uL (1.5-8.5); NEUTROPHILS % 86.6 % (36.0-66.0); PLATELET COUNT, AUTOMATED 519 10^3/uL (150-450); RED BLOOD COUNT 3.45 10^6/uL (4.30-6.10)
[2021-01-09] MEDS ORDERED: VITMTA PO (13:38)
[2021-01-09] MEDS ORDERED: METO50TA7 PO (13:38)
[2021-01-09] MEDS ORDERED: MOM30SS PO (13:38)
[2021-01-09] MEDS ORDERED: MILKSUS3 PO (13:38)
[2021-01-09] MEDS ORDERED: ENEMENE PR (13:38)
[2021-01-09 13:56] LABS: CALCIUM LEVEL 9.1 MG/DL (8.8-10.2); CREATININE FOR GFR 2.07 MG/DL (0.70-1.30); GLOMERULAR FILTRATION RATE 33.9 (>42); POTASSIUM SERUM 4.6 MEQ/L (3.5-5.1)
--- NOTE | 2021-01-09 14:00 | REP ---
INDICATION: fever. COMPARISON: Multiple latest 12/06/2020 TECHNIQUE: Portable FINDINGS: The patient is tilted rotated to the right. The technique utilized in obtaining the radiograph has magnified the cardiac silhouette and attenuated the interstitial markings. The cardiomediastinal silhouette lung pugh are unchanged. There is no change in the osseous structures. IMPRESSION: No significant change compared to the prior exam other than technique. There is cardiomegaly accentuated by technique. There is no evidence of acute cardiopulmonary disease. Consider PA and lateral views of the chest. <Electronically signed by Genaro Ruby > 01/09/21 [id number]
[2021-01-09 14:29] LABS: BILIRUBIN, URINE MANUAL NEGATIVE (NEGATIVE); GLUCOSE, URINE (UA) MANUAL NEGATIVE (NEGATIVE); KETONE, URINE MANUAL NEGATIVE (NEGATIVE); UROBILINOGEN, URINE MANUAL NORMAL (NORMAL)
[2021-01-09 14:30] LABS: BACTERIA, URINE LARGE AMOUNT; SQUAMOUS EPITHELIAL CELL URINE SMALL AMOUNT /hpf (SMALL AMT)
[2021-01-09 14:31] LABS: HYALINE CAST, URINE NONE SEEN /lpf (0-1); MUCUS, URINE SMALL AMOUNT (NEGATIVE)
[2021-01-09 14:32] LABS: RBC, URINE 15-20 /hpf (0-3)
--- NOTE | 2021-01-09 14:43 | REP ---
INDICATION: FUO COMPARISON: None. TECHNIQUE: Standard helical technique without the administration of intravenous. FINDINGS: Limited evaluation of the mediastinum and pulmonary sha show no gross abnormalities. There are no pleural or pericardial effusions. Advanced chronic changes seen involving the imaged portion of the spine. Evaluation of the lung pugh shows significant respiratory motion artifact obscuring all fine detail. There is a patchy opacity in the posterior segment of the right upper lobe abutting the major fissure and seen along its extent. Other parenchymal abnormalities could be obscured by the motion artifact. Limited evaluation of the thoracic aorta shows diffuse descending thoracic aortic ectasia without evidence of aneurysmal dilatation. IMPRESSION: 1. Exam limitations as described above. 2. Right upper lobe opacity as described above subsegmental atelectasis or developing pneumonia. 3. Other findings as described above. <Electronically signed by Genaro Ruby > 01/09/21 [id number]
[2021-01-09 14:50] LABS: WHITE BLOOD COUNT 29.5 10^3/uL (4.0-10.0)
[2021-01-09] MEDS ORDERED: DIGOXIN INJ 0.5 MG/2 ML AMP (J1160) IV STA (14:55)
--- NOTE | 2021-01-09 14:55 | REP ---
INDICATION: FUO COMPARISON: 12/06/2020. TECHNIQUE: CT Scan of the abdomen and pelvis was performed without intravenous contrast. Sagittal and coronal reconstruction images performed. FINDINGS: Lung bases: Unremarkable. Liver: Grossly unremarkable. Gallbladder: Prior cholecystectomy. Spleen: Grossly unremarkable. Adrenals: Normal. Pancreas: Grossly unremarkable.. Kidneys: There is a left ureteral stent in good position, the proximal end is coiled in the left renal pelvis and the distal end in the urinary bladder. There is a 5 mm calculus in the distal left ureter along the posterior margin of the stent. This was present on the prior exam. There is a 6 mm calculus at the right ureteropelvic junction. There appears to be mild right hydronephrosis. There subcentimeter calculi in the upper pole collecting system of the right kidney. A cyst is again noted of the mid right kidney, and in the upper pole the left kidney.. Small and large bowel: There is a large amount of fecal material in the rectum which may represent fecal impaction. No bowel wall thickening is visualized. There is no perirectal abscess. Free fluid: None. Abdominal aorta: No aneurysm. Adenopathy: None. Appendix: Not inflamed. Osseous structures: There are degenerative changes of the spine without compression deformity. Pelvis: No mass. No bladder calculus seen. IMPRESSION: Left ureteral stent in place with no left hydronephrosis. There is a 5 mm calculus again seen in the distal left ureter along the margin of the stent. There is a 6 mm calculus at the right ureteropelvic junction with mild right hydronephrosis. Subcentimeter right intrarenal calculi are present. <Electronically signed by David Das > 01/09/21 [id number]
[2021-01-09] MEDS: METOPROLOL 5 MG/5 ML VIAL IV SCH ×3 (15:34→15:46)
[2021-01-09] MEDS ORDERED: cefTRIAXone SOD 1 GM in D5W MINI-BAG PLUS 50 ML IV ONE (15:35)
[2021-01-09 15:46] VITALS: BP 123/78
[2021-01-09] MEDS ORDERED: AZITHROMYCIN INJ 500 MG, VIAL MATE ADAPTER 1 EACH in NS 250 ML IV ONE (16:00)
--- NOTE | 2021-01-09 16:32 | SMCUROLCON ---
Urology Consultation General Date of Consultation 01/09/21 Reason For Consultation Asked to see by ER physician re stones, stent and likely uti. History of Present Illness 70yo fellow. Recently underwent cysto with left stent placement for distal left ureteral stone. Surgery 12/06/20. Plan was stent and ureteroscopy at a later date. Pt presents to ER with fever. Being admitted. I reviewed ct. Left s tent in proper position. Small right proximal ureteral stone causing minimal hydronephrosis. Wbc 29.5 and creatinine 2.07, up from 11.3 and 0.92 respectively. Urine cx 12/06/20 grew E coli. Bp 123/78 and T 99.3. Medications Current Medications Current Medications Medications (Trade) Dose Ordered Sig/Jermaine Route PRN Reason Start Time Stop Time Status Last Admin Dose Admin Digoxin (Lanoxin) 0.25 mg STAT STAT IV 01/09/21 14:55 01/09/21 14:56 DC 01/09/21 15:08 Home Med (Med Rec Complete!) ASDIRECTED XX 01/09/21 13:40 01/09/21 13:41 DC Metoprolol Tartrate (Lopressor) 5 mg Q5M IV 01/09/21 15:25 01/09/21 15:36 DC 01/09/21 15:46 Allergies Allergies: Coded Allergies: cefazolin (Verified Allergy, Intermediate, RASH, 12/31/20) Vital Signs/I&O Vital Signs Date Time Temp Pulse Resp B/P (MAP) Pulse Ox O2 Delivery O2 Flow Rate FiO2 01/09/21 15:46 161 123/78 01/09/21 15:21 100 01/09/21 15:00 99.3 Nasal Cannula 2.0 01/09/21 14:45 23 Laboratory Data 24H Labs Laboratory Tests 2 01/09/21 12:55: Immature Granulocyte % (Auto) 2.4, Neutrophils (%) (Auto) 86.6H, Lymphocytes (%) (Auto) 2.8L, Monocytes (%) (Auto) 8.0, Eosinophils (%) (Auto) 0.0, Basophils (%) (Auto) 0.2, Neutrophils # (Auto) 25.5H, Lymphocytes # (Auto) 0.8L, Monocytes # (Auto) 2.4H, Eosinophils # (Auto) 0.0, Basophils # (Auto) 0.1, Nucleated Red Blood Cells % (auto) 0.0, Anion Gap 9, Glomerular Filtration Rate 33.9L, Lactic Acid Level 3.1*H, Calcium Level 9.1 01/09/21 13:43: Urine Color (FANTASMA) YELLOW, Urine Appearance (FANTASMA) TURBIDH, Urine pH (FANTASMA) 5.0, Urine Specific [place] (FANTASMA) 1.020, Bedside Urine Glucose (UA) NEGATIVE, Bedside Urine Ketones (LAB) NEGATIVE, Bedside Urine Blood POSITIVEH, Bedside Urine Nitrite (LAB) NEGATIVE, Bedside Urine Bilirubin (LAB) NEGATIVE, Bedside Urine Urobilinogen (LAB) NORMAL, Bedside Urine Leukocyte Esterase (L POSITIVEH, Urine Sediment Examination UNSPUN, Urine RBC 15-20H, Urine WBC TNTCH, Urine Squamous Epithelial Cells SMALL AMOUNT, Urine Bacteria LARGE AMOUNTH, Urine Hyaline Casts NONE SEEN, Urine Mucus SMALL AMOUNTH CBC/BMP Laboratory Tests 01/09/21 12:55 Microbiology Microbiology 01/09/21 Urine Culture, Received Pending 01/09/21 Respiratory Virus Panel (PCR) (AYAH) - Final, Complete 01/09/21 Blood Culture, Received Pending 01/09/21 Blood Culture, Received Pending Assessment Fever, leukocytosis, elevated creatinine, recent E coli uti, left ureteral stent in place for distal stone. Seems to have another complicated uti. Small proximal right ureteral stone with minimal hydronephrosis. Opacity noted on chest ct, possible pneumonia. Pt being admitted. Will put pt on tomorrow's OR schedule for cysto with right stent placement. I suspect today's presentation is not secondary to the right ureteral stone, but nonetheless I will place a right stent to be safe. Needs to be npo post midnight. No definite time for tomorrow's procedure. Case is an add on. I can be reached at [phone]. JULIANA STERN MD Jan 09, 2021 16:32
[2021-01-09 16:45] VITALS: BP 113/79
[2021-01-09] MEDS ORDERED: BISACODYL 10 MG SUPP PR PRN (17:35)
[2021-01-09] MEDS ORDERED: LORazepam 2 MG/ML VIAL IV PRN (17:35)
--- NOTE | 2021-01-09 17:42 | HPEPDOC ---
[facility] Medical History & Physical Date of Admission Jan 09, 2021 Date of Service: Jan 09, 2021 Attending Physician: CHERYL DICKSON MD History and Physical CHIEF COMPLAINT: Fevers, chills, night sweats, tachycardia HISTORY OF PRESENT ILLNESS: Patient presents from the [facility] with a past medical history significant for dementia, multiple strokes, atrial fibrillation, multiple complicated UTIs with nephrolithiasis, status post bilateral nephro ureteral stents, and recent history of sepsis. He presents with fevers, chills, tachycardia, and is hypotensive on admission to the ED. The patient is accompanied by his at the bedside who provides the entire medical history. Patient underwent a cystoscopy with left stent placement for distal left ureteral stent on 12/06/2020. The plan was to do another ureteroscopy at a later date due to history of multiple nephrolithiasis and UTIs. CT of the abdomen and pelvis showed small right proximal ureteral stone stone causing minimal hydronephrosis, CBC showed leukocytosis with white blood cell count of 29.5, creatinine of 2.07 with a baseline of 0.92. Patient's urinary culture from 12/06/2020 grew E. coli resistant to quinolones. In the ED patient received 1 dose of azithromycin, 1 dose of ceftriaxone, and 5 mg of IV metoprolol and IV digoxin 0.25 mg for atrial fibrillation with RVR control. The patient continued to be in atrial fibrillation with RVR, and with metoprolol dosing patient's blood pressure decreased significantly with systolics sometimes in the 80s. Although initially, the ED physician had consulted the urologist, the patient's understood the complicated care and poor prognosis considering the patient's quality of life. Sherly, the patient's stated that she had had the conversation of end-of-life decisions with Mr. Forde in which he had specifically told her that if he were bedridden he would not want to pursue any further medical care. She states that in order to honor his decision she would like to consider comfort measures only at this time. Sherly has signed the comfort measures only MOLST form. PAST MEDICAL HISTORY: Paroxysmal atrial fibrillation Cognitive impairment secondary to multiple strokes and dementia CADASIL Hypertension Morbid obesity Recent history of sepsis Recurrent UTIs secondary to E. coli resistant to quinolones PAST SURGICAL HISTORY: Bilateral nephroureteral stent placement Cholecystectomy. Tonsillectomy. Bilateral knee replacements. SOCIAL HISTORY: Patient is accompanied by Sherly, his healthcare proxy. Patient presents from the [facility]. FAMILY HISTORY: Noncontributory ALLERGIES: Please see below. REVIEW OF SYSTEMS: Patient is unable to provide his review of systems secondary to dementia and cognitive deficit deficits secondary to multiple strokes. HOME MEDICATIONS: Please see below. PHYSICAL EXAMINATION: VITAL SIGNS: See below GENERAL APPEARANCE: Patient is glassy eyed, lying back comfortably in bed with Sherly, his , at his bedside. He occasionally makes eye contact and looks around the room however does not engage in conversation during this medical interview. HEENT: Normocephalic, atraumatic, no scleral icterus, glassy eyed look with some watery discharge bilaterally without conjunctival erythema, nares patent, oral mucosa moist. CARDIOVASCULAR: Tachycardic, irregularly irregular heart rhythm, unable to discern murmurs at this time due to extreme tachycardia with heart rate in the 160s. LUNGS: Bibasilar crackles appreciated, with occasional wet cough. ABDOMEN: Soft, nontender in bilateral upper, right lower quadrant, patient is tender to palpation at the left lower quadrant, with diminished bowel sounds. MUSCULOSKELETAL: Unable to assess strength due to waning attention during medical interview. EXTREMITIES: Capillary refill delayed at 6 seconds, radial and pedal pulses equal and present bilaterally. NEUROLOGICAL: Unable to assess due to waning attention during medical interview. PSYCHIATRIC: Masked facies, disengaged from conversation however responsive to name and pain. LABORATORY DATA: See below. IMAGING: Chest x-ray, 01/09/2021 No significant change compared to the prior exam other than technique. There is cardiomegaly accentuated by technique. There is no evidence of acute cardiopulmonary disease. Consider PA and lateral views of the chest. CT abdomen/pelvis without IV contrast, 01/09/2021 Left ureteral stent in place with no left hydronephrosis. There is a 5 mm ca lculus again seen in the distal left ureter along the margin of the stent. There is a 6 mm calculus at the right ureteropelvic junction with mild right hydronephrosis. Subcentimeter right intrarenal calculi are present. Chest CT without IV contrast, 01/09/2021 Limited evaluation of the mediastinum and pulmonary sha show no gross abnormalities. There are no pleural or pericardial effusions. Advanced chronic changes seen involving the imaged portion of the spine. Evaluation of the lung pugh shows significant respiratory motion artifact obscuring all fine detail. There is a patchy opacity in the posterior segment of the right upper lobe abutting the major fissure and seen along its extent. Other parenchymal abnormalities could be obscured by the motion artifact. Limited evaluation of the thoracic aorta shows diffuse descending thoracic aortic ectasia without evidence of aneurysmal dilatation. IMPRESSION: 1. Exam limitations as described above. 2. Right upper lobe opacity as described above subsegmental atelectasis or developing pneumonia. 3. Other findings as described above. MICROBIOLOGY: Please see below. ASSESSMENT: Patient is a 70-year-old male with an extensive past medical history including but not limited to dementia, multiple strokes, who was hospitalized last month for sepsis and was found to have obstructive nephro lithiasis. He is currently status post bilateral nephro ureteral stent placement and presents due to tachycardia, fevers, chills. He is being hospitalized and kept on comfort measures only as of 01/09/2021 at 1630. PLAN: #End-of-life care Patient's MOLST form has been signed; the patient is currently comfort measures only The on-call urologist, Dr. Harley Bolton was called and updated Patient to be admitted to [facility] Please allow Sherly, patient's to stay overnight, not to be restricted to visiting hours, as patient is at end-of-life stage Please continue to titrate oxygen to maintain SaO2 above 95% as best as possible Suctioning has been ordered, consider respiratory therapy input for convert if patient is not clearing secretions Activity as tolerated Morphine and lorazepam have been ordered for comfort. #Abdominal pain likely secondary to constipation Please administer bisacodyl suppository every 24 hours as needed for constipation if patient does not have bowel movements #Extensive medical history Holding home medications at this time for comfort measures only. Not considering metoprolol at this time since giving metoprolol has precipitously dropped patient's systolic blood pressures in the ED. Disposition: Inpatient stay for comfort measures only, [facility] no monitoring of vitals required at this time. Vital Signs Vital Signs Date Time Temp Pulse Resp B/P (MAP) Pulse Ox O2 Delivery O2 Flow Rate FiO2 01/09/21 15:46 161 123/78 01/09/21 15:21 100 01/09/21 15:00 99.3 Nasal Cannula 2.0 01/09/21 14:45 23 Laboratory Data Labs 24H Laboratory Tests 2 01/09/21 12:55: Immature Granulocyte % (Auto) 2.4, Neutrophils (%) (Auto) 86.6H, Lymphocytes (%) (Auto) 2.8L, Monocytes (%) (Auto) 8.0, Eosinophils (%) (Auto) 0.0, Basophils (%) (Auto) 0.2, Neutrophils # (Auto) 25.5H, Lymphocytes # (Auto) 0.8L, Monocytes # (Auto) 2.4H, Eosinophils # (Auto) 0.0, Basophils # (Auto) 0.1, Nucleated Red Blood Cells % (auto) 0.0, Anion Gap 9, Glomerular Filtration Rate 33.9L, Lactic Acid Level 3.1*H, Calcium Level 9.1 01/09/21 13:43: Urine Color (FANTASMA) YELLOW, Urine Appearance (FANTASMA) TURBIDH, Urine pH (FANTASMA) 5.0, Urine Specific [place] (FATNASMA) 1.020, Bedside Urine Glucose (UA) NEGATIVE, Bedside Urine Ketones (LAB) NEGATIVE, Bedside Urine Blood POSITIVEH, Bedside Urine Nitrite (LAB) NEGATIVE, Bedside Urine Bilirubin (LAB) NEGATIVE, Bedside Urine Urobilinogen (LAB) NORMAL, Bedside Urine Leukocyte Esterase (L POSITIVEH, Urine Sediment Examination UNSPUN, Urine RBC 15-20H, Urine WBC TNTCH, Urine Squamous Epithelial Cells SMALL AMOUNT, Urine Bacteria LARGE AMOUNTH, Urine Hyaline Casts NONE SEEN, Urine Mucus SMALL AMOUNTH CBC/BMP Laboratory Tests 01/09/21 12:55 Microbiology Microbiology 01/09/21 Urine Culture, Received Pending 01/09/21 Respiratory Virus Panel (PCR) (AYAH) - Final, Complete 01/09/21 Blood Culture, Received Pending 01/09/21 Blood Culture, Received Pending Home Medications Scheduled Apixaban (Eliquis) 5 Mg Tablet, 5 MG PO BID ON HOLD, RESTARTING 01/11/21 Aspirin (Aspirin) 81 Mg Tab.chew, 81 MG PO DAILY Atorvastatin Calcium (Atorvastatin Calcium) 40 Mg Tablet, 40 MG PO DAILY Escitalopram Oxalate (Lexapro) 20 Mg Tablet, 20 MG PO DAILY Famotidine (Famotidine) 20 Mg Tablet, 20 MG PO BID Magnesium Hydroxide (Milk of Magnesia) 400 Mg/5 Ml Oral.susp, 30 ML PO DAILY AT NOON FOR 2 DAYS STARTING 01/08 Metoprolol Tartrate (Metoprolol Tartrate) 50 Mg Tablet, 50 MG PO BID Multivitamins (Thera M Plus Tablet) 1 Each Tablet, 1 TAB PO DAILY Quetiapine Fumarate (Seroquel) 50 Mg Tablet, 50 MG PO QHS Quinapril HCl (Quinapril HCl) 40 Mg Tablet, 40 MG PO QPM Sennosides (Senna Lax) 8.6 Mg Tablet, 17.2 MG PO DAILY Scheduled PRN Acetaminophen (Tylenol) 325 Mg Tablet, 650 MG PO Q4H PRN for PAIN / FEVER Bisacodyl (Bisacodyl) 10 Mg Supp.rect, 10 MG GA DAILY PRN for CONSTIPATION Milk Of Magnesia (Milk of Magnesia) 2,400 Mg/10 Ml Oral.susp, 10 ML PO DAILY PRN for CONSTIPATION Polyethylene Glycol 3350 (Miralax) 119 Gm Powder, 17 GM PO BID PRN for CONSTIPATION dilute in 8 ounces of water or juice Sodium Phosphate,[place]-Dibasic (Enema) 133 Ml Enema, 1 CICI GA DAILY PRN for CONSTIPATION Allergies Coded Allergies: cefazolin (Verified Allergy, Intermediate, RASH, 12/31/20) A-FIB/CHADSVASC A-FIB History Current/History of A-Fib/PAF?: Yes Current PO Anticoag Therapy: No GME ATTESTATION GME ATTESTATION My faculty preceptor for this patient encounter was physically present during the encounter and was fully available. All aspects of the patient interview, examination, medical decision making process, and medical care plan development were reviewed and approved by the faculty preceptor. The faculty preceptor is aware and concurs with the plan as stated in the body of this note and will attest to such by his/her cosignature. ATTENDING NOTE I personally examined the patient and discussed her findings and plan with the resident team and noted above. I had an extensive discussion with Mrs. 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 Kushal Hutton DO Jan 09, 2021 17:42 CHERYL DICKSON MD Jan 10, 2021 08:04
[2021-01-09] MEDS: MORPHINE 2 MG/ML 1ML VIAL (J2270) IV PRN ×2 (19:00→22:19)
--- NOTE | 2021-01-09 21:17 | ECGEPIP ---
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
[2021-01-09] MEDS ORDERED: ACETAMINOPHEN 650 MG SUPP PR PRN (22:00)
[2021-01-10] MEDS ORDERED: HYOS125TA PO (09:58)
[2021-01-10] MEDS ORDERED: ATIV1TAB10 PO (09:58)
[2021-01-10] MEDS ORDERED: MORP20SO3 PO (09:58)
[2021-01-10] MEDS ORDERED: BISA10SU PR (09:58)
[2021-01-10] MEDS ORDERED: ACET65SU PR (09:58)
--- NOTE | 2021-01-10 10:27 | DS.PDOC ---
Discharge Summary General Date of Admission Jan 09, 2021 at 17:31 Date of Discharge 01/10/2021 Attending Physician: HCERYL DICKSON MD Discharge Summary PROCEDURES PERFORMED DURING STAY: None ADMITTING DIAGNOSES: Severe sepsis UTI CAP Encephalopathy DISCHARGE DIAGNOSES: Severe sepsis UTI CAP Metabolic encephalopathy Paroxysmal atrial fibrillation Cognitive impairment secondary to multiple strokes and dementia CADASIL Hypertension Morbid obesity Recent history of sepsis Recurrent UTIs secondary to E. coli resistant to quinolones COMPLICATIONS/CHIEF COMPLAINT: Acute Encephalopathy,Altered Mental Stat,Leukocyto. HISTORY OF PRESENT ILLNESS and HOSPITAL COURSE: 70 yo M with a medical history significant for dementia, multiple strokes, atrial fibrillation, multiple complicated UTIs with nephrolithiasis, status post bilateral nephro ureteral stents, and recent history of urosepsis who presented with fevers, chills, tachycardia, and was hypotensive in the ED. The patient was accompanied by his at the bedside who provided the entire medical history. Patient underwent a cystoscopy with left stent placement for distal left ureteral stent on 12/06/2020 with a plan to do another ureteroscopy at a later date due to history of multiple nephrolithiasis and UTIs and he had a planned colonscopy for perianal wound for which surgery had been concerned about potential for fistulization and so was to have an outpatient colonoscopy that was scheduled for 01/10. While at [facility] he developed increased lethargy, fever and encephalopathy and was brought to the ED. Workup revealed leukocytosis to leukocytosis with white blood cell count of 29.5, creatinine of 2.07 with a baseline of 0.92 and a grossly positive UA. Patient's urinary culture from 12/06/2020 grew E. coli resistant to quinolones. CT of the abdomen and pelvis showed small right proximal ureteral stone stone causing minimal hydronephrosis, while CT chest showed potental RUL PNA. While in the ED, he was noted to be in RVR and was given vicenta blockade therapy that was c/b hypotension that recovered quickly and received 1 dose of azithromycin, 1 dose of ceftriaxone, and as mentioned above, 5 mg of IV metoprolol and IV digoxin 0.25 mg for atrial fibrillation with RVR control. The patient continued to be in atrial fibrillation with RVR and on extensive discussion with his who is an RN about his recent decline and frequent hospitalizations with sepsis and recommended procedures that are complicated by his worsening debility with poor quality of life at this time as well as putting into perspective his expressed wishes when they had prior discussions about what to do in critical illness, she decided to make him [employer] and not pursue corrective treatment for his severe sepsis from the khai UTI and potential PNA, with ongoing MADHU and associated metabolic encephalopathy. He was admitted and transitioned to [employer] status with improvement in symptoms and is now being discharged back to [facility]. DISCHARGE MEDICATIONS: Please see below. ALLERGIES: Please see below. PHYSICAL EXAMINATION ON DISCHARGE: GENERAL APPEARANCE: NAD, awake, glassy eyed, at bedside. HEENT: Normocephalic, atraumatic, no scleral icterus, nares patent, dry MM, nasal canula in place CARDIOVASCULAR: Tachycardic, irregularly irregular heart rhythm, unable to discern murmurs at this time due to degree of tachycardia. LUNGS: Bibasilar crackles appreciated, poor effort ABDOMEN: Soft, nontender in bilateral upper, diminished bowel sounds. PSYCHIATRIC: Masked facies, disengaged from conversation however responsive to name and pain. LABORATORY DATA: See below. IMAGING: Chest x-ray, 01/09/2021 No significant change compared to the prior exam other than technique. There is cardiomegaly accentuated by technique. There is no evidence of acute cardiopulmonary disease. Consider PA and lateral views of the chest. CT abdomen/pelvis without IV contrast, 01/09/2021 Left ureteral stent in place with no left hydronephrosis. There is a 5 mm calculus again seen in the distal left ureter along the margin of the stent. There is a 6 mm calculus at the right ureteropelvic junction with mild right hydronephrosis. Subcentimeter right intrarenal calculi are present. Chest CT without IV contrast, 01/09/2021 Limited evaluation of the mediastinum and pulmonary sha show no gross abnormalities. There are no pleural or pericardial effusions. Advanced chronic changes seen involving the imaged portion of the spine. Evaluation of the lung pugh shows significant respiratory motion artifact obscuring all fine detail. There is a patchy opacity in the posterior segment of the right upper lobe abutting the major fissure and seen along its extent. Other parenchymal abnormalities could be obscured by the motion artifact. Limited evaluation of the thoracic aorta shows diffuse descending thoracic aortic ectasia without evidence of aneurysmal dilatation. IMPRESSION: 1. Exam limitations as described above. 2. Right upper lobe opacity as described above subsegmental atelectasis or developing pneumonia. 3. Other findings as described above. PROGNOSIS: poor ACTIVITY: As tolerated DIET: As tolerated, high risk for aspiration, however now on comfort measures on, would offer sips and offer as tolerated. DISCHARGE PLAN: JOHNNY TOLENTINO DISPOSITION: [employer] DISCHARGE INSTRUCTIONS: JOHNNY TOLENTINO ITEMS TO FOLLOWUP ON ON OUTPATIENT: [employer] DISCHARGE CONDITION: Stable TIME SPENT ON DISCHARGE: 35 minutes. Vital Signs/I&Os Vital Signs Date Time Temp Pulse Resp B/P (MAP) Pulse Ox O2 Delivery O2 Flow Rate FiO2 01/09/21 22:29 18 01/09/21 21:56 99.9 01/09/21 16:51 167 97 Nasal Cannula 2.0 01/09/21 16:45 113/79 (90) I&O- Last 24 Hours up to 6 AM 01/10/21 05:59 Intake Total 50 ml Output Total 600 ml Balance -550 ml Laboratory Data Labs 24H Laboratory Tests 2 01/09/21 12:55: Immature Granulocyte % (Auto) 2.4, Neutrophils (%) (Auto) 86.6H, Lymphocytes (%) (Auto) 2.8L, Monocytes (%) (Auto) 8.0, Eosinophils (%) (Auto) 0.0, Basophils (%) (Auto) 0.2, Neutrophils # (Auto) 25.5H, Lymphocytes # (Auto) 0.8L, Monocytes # (Auto) 2.4H, Eosinophils # (Auto) 0.0, Basophils # (Auto) 0.1, Nucleated Red Blood Cells % (auto) 0.0, Anion Gap 9, Glomerular Filtration Rate 33.9L, Lactic Acid Level 3.1*H, Calcium Level 9.1 01/09/21 13:43: Urine Color (FANTASMA) YELLOW, Urine Appearance (FANTASMA) TURBIDH, Urine pH (FANTASMA) 5.0, Urine Specific Weems (FANTASMA) 1.020, Bedside Urine Glucose (UA) NEGATIVE, Bedside Urine Ketones (LAB) NEGATIVE, Bedside Urine Blood POSITIVEH, Bedside Urine Nitrite (LAB) NEGATIVE, Bedside Urine Bilirubin (LAB) NEGATIVE, Bedside Urine Urobilinogen (LAB) NORMAL, Bedside Urine Leukocyte Esterase (L POSITIVEH, Urine Sediment Examination UNSPUN, Urine RBC 15-20H, Urine WBC TNTCH, Urine Squamous Epithelial Cells SMALL AMOUNT, Urine Bacteria LARGE AMOUNTH, Urine Hyaline Casts NONE SEEN, Urine Mucus SMALL AMOUNTH CBC/BMP Laboratory Tests 01/09/21 12:55 Microbiology Microbiology 01/09/21 Urine Culture, Received Pending 01/09/21 Respiratory Virus Panel (PCR) (AYAH) - Final, Complete 01/09/21 Blood Culture, Received Pending 01/09/21 Blood Culture, Received Pending Discharge Medications Scheduled PRN Acetaminophen (Acetaminophen) 650 Mg Supp.rect, 650 MG SC Q6HP PRN for MILD PAIN or TEMP > 101 Bisacodyl (Bisacodyl) 10 Mg Supp.rect, 10 MG SC Q24HP PRN for CONSTIPATION Hyoscyamine Sulfate (Hyoscyamine Sulfate) 0.125 Mg Tab.subl, 0.125 MG PO Q4HP PRN for TERMINAL SECRETIONS Use sublingually if unable to swallow Lorazepam (Ativan) 0.5 Mg Tablet, 0.5 MG PO Q4HP PRN for ANXIETY/AGITATION Use sublingually if unable to swallow Morphine Sulfate (Morphine Sulfate) 100 Mg/5 Ml Solution, 0.25-1 ML PO Q2H PRN for PAIN OR DYSPNEA Use sublingually if unable to swallow Allergies Coded Allergies: cefazolin (Verified Allergy, Intermediate, RASH, 12/31/20) CHERYL DICKSON MD Jan 10, 2021 10:27
[2021-01-10] MEDS: MORPHINE 2 MG/ML 1ML VIAL (J2270) IV PRN (11:54)
== END 2021-01-10 12:05 | DRG 951 ==
LOC: M ED 12:36 → M ED INP 17:31 → M PCU 20:38
PROVIDERS: ADMIT Internal Medicine; ATTEND Internal Medicine
DX: Z51.5 Encounter for palliative care (principal); A41.9 Sepsis, unspecified organism; R65.20 Severe sepsis without septic shock; G93.41 Metabolic encephalopathy; J18.9 Pneumonia, unspecified organism; N39.0 Urinary tract infection, site not specified; I67.850 Cerebral autosomal dominant arteriopathy with subcortical infarcts and leukoencephalopathy; F03.90 Unspecified dementia, unspecified severity, without behavioral disturbance, psychotic disturbance, mood disturbance, and anxiety; Z66 Do not resuscitate; I48.91 Unspecified atrial fibrillation; I48.0 Paroxysmal atrial fibrillation; I10 Essential (primary) hypertension; E66.01 Morbid (severe) obesity due to excess calories; Z96.0 Presence of urogenital implants; Z96.653 Presence of artificial knee joint, bilateral; Z90.49 Acquired absence of other specified parts of digestive tract; N20.0 Calculus of kidney; K59.00 Constipation, unspecified; Z79.01 Long term (current) use of anticoagulants; Z79.82 Long term (current) use of aspirin; Z79.899 Other long term (current) drug therapy; Z88.1 Allergy status to other antibiotic agents

== ENCOUNTER → 2021-01-09 | Outpatient (REF) | payer MEDICARE, MEDICAID ==
[~2021-01-09] MED LIST changes: +ACET65SU PR; +ATIV1TAB10 PO; +BISA10SU PR; +BISACODYL 10 MG SUPP PR PRN; +HYOS125TA PO; +LORazepam 2 MG/ML VIAL IV PRN; +MILKSUS3 PO; +MORP20SO3 PO; +MORPHINE 2 MG/ML 1ML VIAL (J2270) IV PRN
[2021-01-09 11:54] LABS: HEMATOCRIT 31.7 % (42.0-52.0); HEMOGLOBIN 10.2 g/dl (13.5-17.5); MEAN CORPUSCULAR HEMOGLOBIN 29.7 pg (27.0-33.0); MEAN CORPUSCULAR HGB CONC 32.2 g/dl (32.0-36.5); MEAN CORPUSCULAR VOLUME 92.2 fl (80.0-96.0); PLATELET COUNT, AUTOMATED 504 10^3/uL (150-450); RED BLOOD COUNT 3.44 10^6/uL (4.30-6.10); WHITE BLOOD COUNT 23.7 10^3/uL (4.0-10.0)
[2021-01-09 12:24] LABS: CALCIUM LEVEL 8.3 MG/DL (8.8-10.2); CREATININE FOR GFR 1.94 MG/DL (0.70-1.30); GLOMERULAR FILTRATION RATE 36.5 (>42); POTASSIUM SERUM 4.6 MEQ/L (3.5-5.1)
--- NOTE | 2021-01-09 16:47 | ECGEPIP ---
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 Electronically Signed on 01-09-2021 16:46:35 EDT by Vamsi Cisneros
== END ==
LOC: SKLAB5 10:25
DX: R00.0 Tachycardia, unspecified (principal); R50.9 Fever, unspecified

== ENCOUNTER → 2021-01-16 | Outpatient (REF) | payer MEDICARE, MEDICAID ==
[~2021-01-16] MED LIST changes: +ACET65SU PR; +ATIV1TAB10 PO; +BISA10SU PR; +HYOS125TA PO; +MILKSUS3 PO; +MORP20SO3 PO
== END ==
LOC: SKLAB5 08:56
DX: D64.9 Anemia, unspecified (principal); E78.5 Hyperlipidemia, unspecified; R51.9 Headache, unspecified; Z53.8 Procedure and treatment not carried out for other reasons

== ENCOUNTER → 2021-05-06 | Outpatient (REF) | payer MEDICARE, MEDICAID ==
[~2021-05-06] MED LIST changes: +MORP1SOL5 PO; -MORP20SO3 PO
== END ==
LOC: SKLAB5 11:25
PROVIDERS: ATTEND Internal Medicine
DX: Z20.822 Contact with and (suspected) exposure to COVID-19 (principal)

== ENCOUNTER → 2021-05-08 | Outpatient (REF) | payer MEDICARE, MEDICAID | LOC: SKLAB5 09:04 | PROVIDERS: ATTEND Internal Medicine | DX: Z20.822 Contact with and (suspected) exposure to COVID-19 (principal) ==

== ENCOUNTER → 2021-05-12 | Outpatient (REF) | payer MEDICARE, MEDICAID | LOC: SKLAB5 06:14 | PROVIDERS: ATTEND Internal Medicine | DX: Z20.822 Contact with and (suspected) exposure to COVID-19 (principal) ==

== ENCOUNTER → 2021-05-15 | Outpatient (REF) | payer MEDICARE, MEDICAID | LOC: SKLAB5 06:04 | PROVIDERS: ATTEND Internal Medicine | DX: Z20.822 Contact with and (suspected) exposure to COVID-19 (principal) ==